=== PATIENT | male | born 1945 | race Caucasian/White ===

== ENCOUNTER 2018-07-12 14:17 | Outpatient (REF) | payer MEDICARE, OTHER, SELFPAY ==
[2018-07-14 10:07] LABS: PSA, Screening 0.9 ng/ml (0-6.5)
[2018-07-14 13:13] LABS: Hepatitis C Ab w Rflx HCV PCR Negative (NEGAT)
== END 2018-07-12 14:37 ==
LOC: NCHCN 14:17
PROVIDERS: PCP Internal Medicine; Visit Provider Internal Medicine
DX: R35.0 Frequency of micturition (principal); Z11.59 Encounter for screening for other viral diseases
CPT/HCPCS: 84153; 86803

== ENCOUNTER 2018-12-30 15:44 | Outpatient (REF) | payer MEDICARE, OTHER, SELFPAY ==
[2018-12-30 21:07] LABS: Anion Gap 8.6 mmol/L (3-11); BUN 19 mg/dL (7-18); CO2 27.4 mmol/L (21.0-32.0); CREATININE 0.98 mg/dL (0.70-1.30); Calcium 9.8 mg/dL (8.5-10.1); Chloride 103 mmol/L (98-107); Glucose 115 mg/dL (70-100); Sodium 139 mmol/L (136-145)
== END 2018-12-30 16:04 ==
LOC: NCHCN 15:44
PROVIDERS: PCP Internal Medicine; Visit Provider Internal Medicine
DX: I10 Essential (primary) hypertension (principal)
CPT/HCPCS: 80048

== ENCOUNTER 2019-09-01 08:34 | Outpatient (CLI) | payer MEDICARE, OTHER, SELFPAY | END 2019-09-01 08:54 | PROVIDERS: PCP Internal Medicine; Visit Provider Internal Medicine Cardiovascular Disease | DX: I25.10 Atherosclerotic heart disease of native coronary artery without angina pectoris (principal); I77.810 Thoracic aortic ectasia; I10 Essential (primary) hypertension; G20 Parkinson's disease | CPT/HCPCS: 99204; 99215; 93005; 93010 ==

== ENCOUNTER 2019-10-27 16:03 | Outpatient (REF) | payer MEDICARE, OTHER, SELFPAY ==
[2019-10-27 21:00] LABS: Anion Gap 5.9 mmol/L (3-11); BUN 18 mg/dL (7-18); CO2 30.1 mmol/L (21.0-32.0); CREATININE 1.16 mg/dL (0.70-1.30); Calculated LDL 102 mg/dL; Chloride 105 mmol/L (98-107); Cholesterol 193 mg/dL (<200); Glucose 99 mg/dL (74-106); HDL Cholesterol 59 mg/dL (40-60); Potassium 4.2 mmol/L (3.5-5.1); Sodium 141 mmol/L (136-145); Triglyceride 162 mg/dL (<150)
== END 2019-10-27 16:23 ==
LOC: NCHCN 16:03
PROVIDERS: PCP Internal Medicine; Visit Provider Internal Medicine
DX: I25.10 Atherosclerotic heart disease of native coronary artery without angina pectoris (principal); I10 Essential (primary) hypertension; G20 Parkinson's disease; Q61.3 Polycystic kidney, unspecified; Z01.818 Encounter for other preprocedural examination
CPT/HCPCS: 80048; 80061

== ENCOUNTER → 2020-03-12 10:58 | Outpatient (BNVA) | payer MEDICARE, OTHER, SELFPAY | PROVIDERS: PCP Internal Medicine; Referring Provider Internal Medicine; Visit Provider Internal Medicine Cardiovascular Disease | DX: I10 Essential (primary) hypertension (principal); I77.810 Thoracic aortic ectasia; I25.10 Atherosclerotic heart disease of native coronary artery without angina pectoris; E78.5 Hyperlipidemia, unspecified | CPT/HCPCS: 99214; 99442 ==

== ENCOUNTER 2020-03-29 11:13 | Outpatient (REF) | payer MEDICARE, OTHER, SELFPAY ==
[2020-03-29 21:23] LABS: Calculated LDL 97 mg/dL (<100); Cholesterol 179 mg/dL (<200); HDL Cholesterol 56 mg/dL (40-60); Triglyceride 132 mg/dL (<150)
== END 2020-03-29 11:33 ==
LOC: NCHCN 11:13
PROVIDERS: PCP Internal Medicine; Visit Provider Internal Medicine
DX: I25.10 Atherosclerotic heart disease of native coronary artery without angina pectoris (principal); I10 Essential (primary) hypertension
CPT/HCPCS: 80061

== ENCOUNTER 2020-05-03 08:25 | Outpatient (CLI) | payer MEDICARE, OTHER, SELFPAY ==
[2020-05-09 20:55] LABS: SARS-CoV-2 RNA Undetected (Undetected); SARS-CoV-2 Specimen Source Nasopharynx
== END 2020-05-03 08:45 ==
PROVIDERS: PCP Internal Medicine; Visit Provider Internal Medicine
DX: Z03.818 Encounter for observation for suspected exposure to other biological agents ruled out (principal)
CPT/HCPCS: U0003

== ENCOUNTER 2020-06-14 12:25 | Outpatient (REF) | payer MEDICARE, OTHER, SELFPAY ==
[2020-06-14 21:06] LABS: Calculated LDL 84 mg/dL (<100); Cholesterol 171 mg/dL (<200); HDL Cholesterol 60 mg/dL (40-60); Triglyceride 138 mg/dL (<150)
== END 2020-06-14 12:45 ==
LOC: NCHCN 12:25
PROVIDERS: PCP Internal Medicine; Visit Provider Internal Medicine
DX: I10 Essential (primary) hypertension (principal)
CPT/HCPCS: 80061

== ENCOUNTER 2020-09-26 14:13 | Outpatient (REF) | payer MEDICARE, OTHER, SELFPAY ==
[2020-09-26 21:13] LABS: Anion Gap 8.1 mmol/L (3-11); BUN 22 mg/dL (7-18); CO2 27.9 mmol/L (21.0-32.0); CREATININE 1.04 mg/dL (0.70-1.30); Calcium 9.1 mg/dL (8.5-10.1); Calculated LDL 90 mg/dL (<100); Chloride 103 mmol/L (98-107); Cholesterol 169 mg/dL (<200); Glucose 97 mg/dL (74-106); HDL Cholesterol 63 mg/dL (40-60); Potassium 4.3 mmol/L (3.5-5.1); Sodium 139 mmol/L (136-145); Triglyceride 82 mg/dL (<150)
== END 2020-09-26 14:33 ==
LOC: NCHCN 14:13
PROVIDERS: PCP Internal Medicine; Visit Provider Internal Medicine
DX: I10 Essential (primary) hypertension (principal)
CPT/HCPCS: 80048; 80061

== ENCOUNTER → 2020-09-27 11:25 | Outpatient (BNVA) | payer MEDICARE, OTHER, SELFPAY | PROVIDERS: PCP Internal Medicine; Referring Provider Internal Medicine; Visit Provider Internal Medicine Cardiovascular Disease | DX: I25.10 Atherosclerotic heart disease of native coronary artery without angina pectoris (principal); I77.810 Thoracic aortic ectasia; I10 Essential (primary) hypertension; G20 Parkinson's disease | CPT/HCPCS: 99214 ==

== ENCOUNTER 2020-10-31 15:27 | Outpatient (REF) | payer MEDICARE, OTHER, SELFPAY ==
--- NOTE | 2020-10-31 14:35 | SKI_PTH ---
PATIENT: Jhon Aguiar LOC: [facility]#:[id number] AGE/SX: 75/M ROOM: RE10/31/[address]: Riaz Hawkins : 1945 BED: DIS: 10/31/2020 SPEC #: [id number] RECD: 11/01/20 12:34 STATUS: MORGAN BURLESON #: [id number] EHSAN: 10/31/20 14:[address]: Riaz Hawkins DEPT: Surgical Specimen RECD BY: Anjali Kelsey Tissues: 1 - SKIN BIOPSY(SHAVE/PUNCH) Procedures: SKIN LEVEL 4 Comments: [id number]
== END 2020-10-31 15:47 ==
LOC: NCHCN 15:27
PROVIDERS: PCP Internal Medicine; Visit Provider Internal Medicine
DX: L82.0 Inflamed seborrheic keratosis (principal)
CPT/HCPCS: 88305

== ENCOUNTER 2021-04-18 11:32 | Outpatient (REF) | payer MEDICARE, OTHER, SELFPAY ==
[2021-04-18 14:46] LABS: Anion Gap 9.6 mmol/L (3-11); BUN 13 mg/dL (7-18); CO2 26.4 mmol/L (21.0-32.0); Calcium 9.1 mg/dL (8.5-10.1); Calculated LDL 54 mg/dL (<100); Chloride 106 mmol/L (98-107); Cholesterol 132 mg/dL (<200); Glucose 93 mg/dL (74-106); HDL Cholesterol 66 mg/dL (40-60); Potassium 4.5 mmol/L (3.5-5.1); Sodium 142 mmol/L (136-145); Triglyceride 62 mg/dL (<150)
== END 2021-04-18 11:33 | disposition home or self-care (01) ==
LOC: NCHCN 11:32
PROVIDERS: PCP Internal Medicine; Visit Provider Internal Medicine
DX: I25.10 Atherosclerotic heart disease of native coronary artery without angina pectoris (principal); Q61.3 Polycystic kidney, unspecified; G20 Parkinson's disease; I10 Essential (primary) hypertension; Z87.2 Personal history of diseases of the skin and subcutaneous tissue; Z98.61 Coronary angioplasty status
CPT/HCPCS: 80048; 80061

== ENCOUNTER → 2021-10-02 10:36 | Outpatient (BNVA) | payer MEDICARE, OTHER, SELFPAY | PROVIDERS: PCP Internal Medicine; Referring Provider Internal Medicine; Visit Provider Internal Medicine Cardiovascular Disease | DX: I25.10 Atherosclerotic heart disease of native coronary artery without angina pectoris (principal); I10 Essential (primary) hypertension; I77.810 Thoracic aortic ectasia | CPT/HCPCS: 99213 ==

== ENCOUNTER 2021-11-25 02:07 | Outpatient (CLI) | payer MEDICARE, OTHER, SELFPAY | END 2021-11-25 02:08 | disposition home or self-care (01) | LOC: LBO 02:07 | PROVIDERS: PCP Internal Medicine; Visit Provider Thoracic Surgery (Cardiothoracic Vascular Surgery) | DX: I77.810 Thoracic aortic ectasia (principal) | CPT/HCPCS: 36415; 82565 ==

== ENCOUNTER 2022-01-06 14:54 | Outpatient (REF) | payer MEDICARE, SELFPAY ==
[2022-01-06 15:39] LABS: BUN 21 mg/dL (7-18); Calcium 8.6 mg/dL (8.5-10.1); Chloride 104 mmol/L (98-107); Glucose 118 mg/dL (74-106); Potassium 3.9 mmol/L (3.5-5.1); Sodium 141 mmol/L (136-145)
== END 2022-01-06 14:55 | disposition home or self-care (01) ==
LOC: NCHCN 14:54
PROVIDERS: PCP Internal Medicine; Visit Provider Internal Medicine
DX: I10 Essential (primary) hypertension (principal)
CPT/HCPCS: 80048

== ENCOUNTER → 2022-04-30 02:00 | Outpatient (CLI) | payer MEDICARE, OTHER, SELFPAY ==
--- NOTE | 2022-04-30 09:15 | DI.RAD_ITS ---
Exam(s) XR HIP LT COMPLETE AP PELVIS EXAM: XR HIP LT COMPLETE AP PELVIS CLINICAL HISTORY: BUTTOCK PAIN, R52. TECHNIQUE: 2D digital imaging was performed of the left hip. Two views were obtained. AP pelvis an d lateral left hip views were obtained. COMPARISON: No exams were available for comparison FINDINGS: BONES: No acute fracture is present. No bony destructive lesion is seen. JOINTS: No dislocation present. Mild acetabular spurring is seen bilaterally. Degenerative changes a re seen in the lumbosacral junction. SOFT TISSUE: Atherosclerosis is present. IMPRESSION: Mild degenerative changes of the left hip. Degenerative changes in the lower lumbar spine. DATA REPOSITORY: RADIATION DOSE DELIVERED:
== END ==
PROVIDERS: PCP Internal Medicine; Visit Provider Internal Medicine
DX: M47.816 Spondylosis without myelopathy or radiculopathy, lumbar region (principal); M16.12 Unilateral primary osteoarthritis, left hip
CPT/HCPCS: 73502

== ENCOUNTER 2022-06-04 15:19 | Outpatient (REF) | payer MEDICARE, OTHER, SELFPAY ==
[2022-06-04 16:42] LABS: Abs Immature Grans 0.02 10^3/uL (0.0-0.06); Absolute Basophil Count 0.04 10^3/uL (0.0-0.2); Absolute Eosinophil Count 0.14 10^3/uL (0.0-0.7); Absolute Lymphocyte Count 1.13 10^3/uL (1.2-3.4); Absolute Monocyte Count 0.62 10^3/uL (0.1-0.8); Absolute Neutrophil Count 5.05 10^3/uL (1.2-6.7); Basophils % 0.6; ESR 12 mm/hr (0-20); HCT 41.4 % (40.0-50.0); Immature Grans % 0.3; Lymphocytes % 16.1; MCH 32.5 pg (27.0-33.0); MCHC 33.8 % (32.0-36.0); MCV 96 fL (80-95); MPV 10.7 fL (8.0-11.0); Monocytes % 8.9; Neutrophils % 72.1; Platelet Count 186 10^3/uL (130-400); RBC 4.31 10^6/uL (4.36-5.78); RDW 12.1 % (11.8-14.1); RDW-SD 42.5 fL
[2022-06-05 17:37] LABS: Rheumatoid Factor <8.6 IU/mL (<12.0)
[2022-06-08 09:12] LABS: Cyclic Citrullinated Peptide <2.5 U/mL (<5.0)
[2022-06-08 10:10] LABS: Lyme Ab w Rflx to Lyme Confirm Negative (Negative)
== END 2022-06-04 15:20 | disposition home or self-care (01) ==
LOC: NCHCN 15:19
PROVIDERS: PCP Internal Medicine; Visit Provider Internal Medicine
DX: M17.12 Unilateral primary osteoarthritis, left knee (principal); M25.562 Pain in left knee
CPT/HCPCS: 85652; 86200; 85025; 86431; 86618

== ENCOUNTER 2022-06-16 18:16 | Outpatient (REF) | payer MEDICARE, OTHER, SELFPAY ==
[2022-06-16 15:08] LABS: BUN 23 mg/dL (7-18); CREATININE 1.1 mg/dL (0.70-1.30); Calcium 8.7 mg/dL (8.5-10.1); Chloride 103 mmol/L (98-107); Estimated GFR 70.44 (mL/min/1.73m2); Glucose 148 mg/dL (74-106); Potassium 4.2 mmol/L (3.5-5.1); Sodium 137 mmol/L (136-145)
== END 2022-06-16 18:17 | disposition home or self-care (01) ==
LOC: NCHCN 18:16
PROVIDERS: PCP Internal Medicine; Visit Provider Internal Medicine
DX: Q61.2 Polycystic kidney, adult type (principal)
CPT/HCPCS: 80048

== ENCOUNTER 2022-08-24 18:35 | Outpatient (REF) | payer MEDICARE, OTHER, SELFPAY ==
[2022-08-24 18:22] LABS: Creatine Kinase 89 U/L (39-308)
[2022-08-24 18:25] LABS: Abs Immature Grans 0.05 10^3/uL (0.0-0.06); Absolute Basophil Count 0.05 10^3/uL (0.0-0.2); Absolute Eosinophil Count 0.23 10^3/uL (0.0-0.7); Absolute Lymphocyte Count 1.17 10^3/uL (1.2-3.4); Absolute Monocyte Count 0.55 10^3/uL (0.1-0.8); Absolute Neutrophil Count 4.38 10^3/uL (1.2-6.7); Basophils % 0.8; Eosinophils % 3.6; HCT 41.2 % (40.0-50.0); HGB 13.7 g/dL (13.5-17.5); Immature Grans % 0.8; Lymphocytes % 18.2; MCH 32.2 pg (27.0-33.0); MCHC 33.3 % (32.0-36.0); MCV 97 fL (80-95); MPV 10.8 fL (8.0-11.0); Monocytes % 8.6; Platelet Count 223 10^3/uL (130-400); RBC 4.25 10^6/uL (4.36-5.78); RDW 12.5 % (11.8-14.1); RDW-SD 43.8 fL; WBC 6.43 10^3/uL (4.4-10.8)
[2022-08-24 18:33] LABS: ESR 13 mm/hr (0-20)
== END 2022-08-24 18:36 | disposition home or self-care (01) ==
LOC: NCHCN 18:35
PROVIDERS: PCP Internal Medicine; Visit Provider Internal Medicine
DX: Z00.00 Encounter for general adult medical examination without abnormal findings (principal); M25.50 Pain in unspecified joint; G20 Parkinson's disease
CPT/HCPCS: 82550; 85652; 85025

== ENCOUNTER → 2022-10-01 10:31 | Outpatient (BNVA) | payer MEDICARE, OTHER, SELFPAY | PROVIDERS: PCP Internal Medicine; Visit Provider Internal Medicine Cardiovascular Disease | DX: I25.10 Atherosclerotic heart disease of native coronary artery without angina pectoris (principal); I10 Essential (primary) hypertension; I77.810 Thoracic aortic ectasia; Z95.5 Presence of coronary angioplasty implant and graft; G20 Parkinson's disease | CPT/HCPCS: 93005; 99214 ==

== ENCOUNTER 2022-10-01 10:42 | Outpatient (CLI) | payer MEDICARE, OTHER, SELFPAY ==
--- NOTE | 2022-10-01 10:30 | RT.EKG_ITS ---
APPROVED REPORT Exam: Resting ECG Reason for Exam: evaluation Patient Location: O HR:63 bpm ECG Measurements Heart Rate 63 AXIS ME 164 P 7 QRSd 88 QRS -7 QT 413 T 58 QTc 423 Conclusion Sinus rhythm...normal P axis, V-rate 50- 99 Baseline wander in lead(s) V5 Normal Electrocardiogram
== END 2022-10-01 10:43 | disposition home or self-care (01) ==
LOC: DI.CARD 10:43
PROVIDERS: PCP Internal Medicine; Visit Provider Internal Medicine Cardiovascular Disease
DX: I10 Essential (primary) hypertension (principal)
CPT/HCPCS: 93010

== ENCOUNTER 2023-03-30 12:39 | Outpatient (REF) | payer MEDICARE, SELFPAY ==
[2023-03-30 14:58] LABS: HCT 45.1 % (40.0-50.0); HGB 14.9 g/dL (13.5-17.5); MCH 32.9 pg (27.0-33.0); MCV 100 fL (80-95); MPV 10.4 fL (8.0-11.0); Platelet Count 181 10^3/uL (130-400); RBC 4.53 10^6/uL (4.36-5.78); RDW 12.4 % (11.8-14.1); RDW-SD 44.9 fL; WBC 6.71 10^3/uL (4.4-10.8)
[2023-03-30 15:11] LABS: ALT 10 U/L (16-63); AST 19 U/L (15-37); Albumin 4.1 g/dL (3.4-5.0); Alkaline Phosphatase 53 U/L (46-116); Anion Gap 3.6 mmol/L (3-11); BUN 23 mg/dL (7-18); Bilirubin, Total 1.2 mg/dL (0.2-1.0); CO2 31.4 mmol/L (21.0-32.0); CREATININE 1.1 mg/dL (0.70-1.30); Calcium 9.1 mg/dL (8.5-10.1); Chloride 103 mmol/L (98-107); Estimated GFR 70.01 (mL/min/1.73m2); Glucose 101 mg/dL (74-106); Sodium 138 mmol/L (136-145); Total Protein 6.9 g/dL (6.4-8.2)
== END 2023-03-30 12:40 | disposition home or self-care (01) ==
LOC: NCHCN 12:39
PROVIDERS: PCP Internal Medicine; Visit Provider Internal Medicine
DX: M35.3 Polymyalgia rheumatica (principal); I10 Essential (primary) hypertension; G20 Parkinson's disease
CPT/HCPCS: 80053; 85027

== ENCOUNTER → 2023-04-02 09:25 | Outpatient (BNVA) | payer MEDICARE, SELFPAY | PROVIDERS: PCP Internal Medicine; Visit Provider Internal Medicine Cardiovascular Disease | DX: I10 Essential (primary) hypertension (principal); I77.810 Thoracic aortic ectasia; I25.10 Atherosclerotic heart disease of native coronary artery without angina pectoris | CPT/HCPCS: 99214 ==

== ENCOUNTER → 2023-08-26 16:28 | Outpatient (CLI) | payer MEDICARE, SELFPAY ==
--- NOTE | 2023-08-26 | DI.RAD_ITS ---
Exam(s) XR HIP RT COMPLETE AP PELVIS EXAM: XR HIP RT COMPLETE AP PELVIS CLINICAL HISTORY: RT HIP PAIN M25.551. TECHNIQUE: 2D digital imaging was performed. Two views COMPARISON: CR XR HIP LT COMPLETE AP PELVIS from 04/30/2022 FINDINGS: BONES: No acute fracture is present. No bony destructive lesion is seen. JOINTS: No dislocation present. Hip joint spaces are maintained. There is bilateral acetabular spurr ing. SI joints and pubic symphysis are unremarkable. SOFT TISSUE: Normal. IMPRESSION: No acute abnormality. DATA REPOSITORY: RADIATION DOSE DELIVERED:
== END ==
PROVIDERS: PCP Internal Medicine; Visit Provider Internal Medicine
DX: M25.551 Pain in right hip (principal)
CPT/HCPCS: 73502

== ENCOUNTER → 2023-08-31 13:15 | Outpatient (CLI) | payer MEDICARE, SELFPAY ==
--- NOTE | 2023-08-31 | DI.MRI_ITS ---
Exam(s) MR LOWER JOINT RT WO EXAM: MR LOWER JOINT RT WO CLINICAL HISTORY: RT HIP PAIN M25.551, R/O OSTEONECROSIS, CHRONIC STEROID USE TECHNIQUE: Multiplanar multisequence MRI of Pelvis was performed COMPARISON: No exams were available for comparison FINDINGS: Bones: There is no fracture or contusion pattern. No bone marrow edema is seen. Joints: No significant joint effusion or gross labral defect is present. The SI joints and symphysis pubis are well maintained. Musculotendinous structures: Musculotendinous structures demonstrate no abnormality. No evidence of bursitis. Intrapelvic structures: Mildly enlarged prostate. IMPRESSION: Normal MRI examination of the pelvis and right hip. No evidence of avascular necrosis. DATA REPOSITORY:
== END ==
PROVIDERS: PCP Internal Medicine; Visit Provider Family Medicine
DX: M25.551 Pain in right hip (principal)
CPT/HCPCS: 73721

== ENCOUNTER 2023-10-06 09:55 | Emergency (ER) | payer MEDICARE, SELFPAY ==
[2023-10-06] VITALS (13 sets, daily range): BP systolic 124–188; BP diastolic 82–124; PULSE 53–88; RESP 20; TEMP 36.8; O2SAT 94
--- NOTE | 2023-10-06 09:15 | ED.GENADUL_ITS ---
Discharge Plan Disposition Patient Disposition: Home Discharge Details Clinical Impression: Hx of polymyalgia rheumatica, Sciatica, Polycystic kidney disease, Aortic root dilation Primary Care Provider: Riaz Hawkins ED Provider: Es Bellamy Home Meds and New Rx's Prescriptions: New oxycodone 5 mg capsule 5 mg PO Q6H PRN (Reason: pain) Qty: 14 0RF Rx Instructions: take for pain not releaved by acetaminophen and lidocaine patches lidocaine [Lidoderm] 5 % adhesive patch,medicated 3 patch topical DAILY PRN (Reason: Back Pain) Qty: 30 0RF Rx Instructions: leave on most painful area for up to 12 hrs No Action atorvastatin 40 mg tablet 40 mg PO DAILY metoprolol succinate 25 mg tablet extended release 24 hr 12.5 mg PO DAILY aspirin [Adult Aspirin Regimen] 81 mg tablet,delayed release (DR/EC) 81 mg PO DAILY Qty: 90 0RF ezetimibe 10 mg tablet 10 mg PO DAILY Qty: 90 3RF nitroglycerin [Nitrostat] 0.4 MG tablet, sublingual 0.4 mg Sublingual ONCE carbidopa-levodopa 1 EACH tablet,disintegrating 1.5 ea PO TID losartan 50 mg tablet 50 mg PO DAILY prednisone 1 mg tablet 1 mg PO ONCE Patient Comments: TAKE 4 TABLETS BY MOUTH EVERY DAY FOR 30 DAYS, 3 TABLETS DAILY FOR 30 DAYS, 2 TABLETS DAILY FOR 30 DAYS, 1 TABLET DAILY FOR 30 DAYS Discharge Instructions Instructions: Sciatica (ED) Additional Instructions: 1. Call Dr. Jacques's office for follow-up appointment and notify them that a urinalysis was pending at the time of discharge. 2. Take Tylenol for mild to moderate pain and use the lidocaine patches and oxycodone as needed for severe pain. You should not drive, drink alcohol, operate heavy machinery or make important decisions while taking this medication. It can cause drowsiness and constipation. 3. Return here for any new or worrisome symptoms such as numbness and tingling in the genital or rectal area or problems controlling bowels or bladder or any concerns. Discharge Data Discharge Date/Time-TO BE ENTERED AT DEPARTURE: 10/06/23 14:20 Discharge Physician: Es Bellamy Medical Decision Making This is a 78 yo male who presents with sciatic symptoms but without bowel or bladder incontinence or retention. No saddle anethesia. the patient endorses hyperparesthesias on the left lateral aspect of the lateral calf, which is not reproducible on my sensory exam. The distribution is consistent with a partial L5 dermatomal distribution. The patient has an adverse reaction to narcotics, which according to his , makes him loopy. I have discussed the use of low dose, titratable narcotics for the pain, along with a lidoderm patch for analgesia. The risks and benefits were discussed with the patient and his and they voice understanding and agree with administration of narcotics. Because he had a history of a thoracic aneurysm I will order CT scans of his chest and abdomen. He does have a history of polycystic kidney disease. If he has acceptable renal function, we will obtain with IV contrast to rule out dissection. I will hydrate him to avoid any nephrotoxicty if we administer IV contrast. We will check his electrolytes and renal function, we will check his urine for hematuria and to rule out infection. I have explained to the patient and his that our goal will be to obtain enough analgesia to allow him to ambulate at home but not to the point of excessive sedation which could cause him to trip and fall. He is already at high risk for falls from his Parkinson's disease. I have discussed the risks and benefits of opiate use including the avoidance of driving, drinking alcohol, making important decisions or operating heavy machinery as well as the risk of dependence and constipation. They both voiced understanding and agreement with the administration. Differential Diagnosis Differential Diagnosis: sciatica, AAA, UTI, renal colic Medical Records Medical records reviewed: Yes I reviewed the patient's medical records. Medical records narrative: PCKD, [email or web address].ons, thoracic aneurysm, PMR Imaging Data Radiologic Study: Imaging: CT Scan (CT chest, abdom and pelvis w IV contrast) Radiologist's impression: IMPRESSION: 1. Enlarged thoracic aorta with measurements as above. Maximum diameter of the ascending thoracic aorta on today's study is measured 4.8 cm. There is no evidence of aortic dissection and no pericardial effusion. Coronary artery calcification noted. 2. Large cysts in both kidneys measuring up to 15 cm. The appearance is not typical of adult polycystic kidney disease and there appears to be a significant amount of remaining normal renal parenchymal tissue. There are no solid renal masses and no hydronephrosis. 3. There is a 2.6 cm length area of narrowing in the rectosigmoid which may be significant. However may also just represent an area of peristalsis seen during the moment of image acquisition. Nevertheless, recommend follow-up colonoscopy. Lab Data Lab results reviewed: Yes I reviewed the patient's lab results. HPI General Mode of arrival: EMS . Date/Time Provider Initiated Documentation: 10/06/23 09:58 . Limitations to Documentation: no limitations . Information obtained by: patient, family (), EMS, RN notes reviewed and old records reviewed . HPI Narrative: Time seen was on arrival in bed 4. The patient is a 78-year-old male with a history of sciatica, polymyalgia rheumatica, coronary artery disease with a history of 2 stents placed at [facility] in 2010 who presents with 1 month of sciatic pain. The pain was not preceded by any trauma. It became worse yesterday while doing dishes. At maximum the pain was 10 out of 10 and located in the right hip. The pain does not radiate down the leg but is associated with intermittent hyperesthesias in the lateral aspect of the right calf. The pain is constant and aggravated by movement. It is worse with standing and relieved by lying down. He took acetaminophen and Aleve 4 hours prior to arrival. He does have a history of an ascending aortic aneurysm diagnosed prior to 2 cardiac stents placed at [facility] in 2010. The patient tells me that he has a history of polycystic kidney disease but believes he has normal renal function. He also has a history of probably myalgia rheumatica and is on a tapering dose of prednisone currently on 10 mg once a day. The patient denies any saddle anesthesia bowel or bladder incontinence or retention but has noticed slightly more frequency. He denies any bowel or bladder incontinence or retention. He denies any numbness or weakness in his legs but does complain of the sensation of hyperesthesia in the lateral aspect of the right calf. He denies any chest or abdominal pain. He denies any fevers or chills. He denies any hematuria or dysuria. According to his old records he also has a history of Parkinson's disease. Related Data Home Medications Medication Instructions Recorded Confirmed nitroglycerin 0.4 mg sublingual 0.4 mg sublingual ONCE 02/28/15 10/06/23 tablet (Nitrostat) carbidopa 25 mg-levodopa 100 mg 1.5 ea PO TID 12/28/17 10/06/23 disintegrating tablet metoprolol succinate 25 mg 12.5 mg PO DAILY 08/24/19 10/06/23 tablet,extended release 24 hr aspirin 81 mg tablet,delayed 81 mg PO DAILY #90 tabs 09/01/19 10/06/23 release (Adult Aspirin Regimen) ezetimibe 10 mg tablet 10 mg PO DAILY #90 tabs 10/02/21 10/06/23 atorvastatin 40 mg tablet 40 mg PO DAILY 10/01/22 10/06/23 losartan 50 mg tablet 50 mg PO DAILY 09/08/23 10/06/23 lidocaine 5 % topical patch 3 patch topical DAILY PRN Back 10/06/23 (Lidoderm) Pain #30 ea oxycodone 5 mg capsule 5 mg PO Q6H PRN pain #14 caps 10/06/23 prednisone 1 mg tablet 1 mg PO ONCE 10/06/23 10/06/23 Previous Rx's Medication Instructions Recorded aspirin 81 mg tablet,delayed 81 mg PO DAILY #90 tabs 09/01/19 release (Adult Aspirin Regimen) ezetimibe 10 mg tablet 10 mg PO DAILY #90 tabs 10/02/21 lidocaine 5 % topical patch 3 patch topical DAILY PRN Back 10/06/23 (Lidoderm) Pain #30 ea oxycodone 5 mg capsule 5 mg PO Q6H PRN pain #14 caps 10/06/23 Allergies Allergy/AdvReac Type Severity Reaction Status Date / Time HAVEN Inhibitors AdvReac DIZZY Verified 10/06/23 10:13 General Stated Complaint: Nk/Back Pain Review of Systems Narrative: see hpi After the patient's arrived he told me he is on 1 mg of prednisone for his polymyalgia rheumatica not 10 mg. PFSH All Active Problems (Updated 10/06/23 @ 14:00 by Es Bellamy MD) Polycystic kidney disease (Acute) Sciatica (Acute) Hx of polymyalgia rheumatica (Acute) Tubular adenoma of colon (Acute 02/18/18) Primary osteoarthritis of left knee (Acute 04/06/16) Essential tremor (Acute 04/15/15) Aortic root dilation (Acute) Complex tear of medial meniscus of left knee as current injury (Acute) Medical History (Updated 10/06/23 @ 14:00 by Es Bellamy MD) Parkinson disease Hemorrhoids Generalized pruritus Family history of cerebral aneurysm Parkinsonism Degenerative joint disease Hyperlipemia Perennial allergic rhinitis Polycystic kidney disease Low back pain Surgical History Colonoscopy - [facility] (02/18/18) Social History Smoking/Tobacco Use Status: Never Smoking risk assessment performed?: Yes Alcohol Intake: current Alcohol Intake frequency: 0-2 drinks per day Alcohol type: wine Drug use: Never What type of physical activity do you participate in: walking, aerobic, weight lifting and additional Details: boxing program for Parkinson's patients, 90 minutes 2x/week Frequency: 3-4 times per week Exam Narrative Exam Narrative: The patient is a well-developed well-nourished male who appears comfortable at rest but in pain with movement including sitting up or moving from the ambulance to the hospital stretcher. He is mildly hypertensive. Const General: cooperative, healthy appearing, comfortable, no acute distress, well developed, well groomed and well hydrated Nutritional Appearance: average body habitus and well nourished Orientation: alert, awake and oriented x3 HENMT Head: normal to inspection, normocephalic and atraumatic Ears: hearing grossly normal bilaterally and external ears normal General nose exam: external nose normal, nares normal and no nasal discharge Face and sinus: normal facial exam, sinuses nontender and face symmetric Mouth: oral mucosae normal, lip normal, tongue normal, oropharynx normal, moist mucous membranes and other (Normal phonation. The patient is handling secretions.) Throat: posterior oropharynx normal and uvula midline Eyes General: appearance normal, both eyes and all related structures Eyelids: eyelids normal Conjunctivae: conjunctivae normal Sclera: sclerae normal Cornea: corneas normal Pupils: PERRL EOM: EOM intact bilaterally and No nystagmus Neck Neck: normal visual inspection, full ROM, no lymphadenopathy, no meningeal signs, trachea midline and supple Lymphatic: no lymphadenopathy noted Chest Chest: normal inspection of the chest Resp Effort & Inspection: normal respiratory effort, able to speak in complete sentences, no audible wheezes, no nasal flaring, no respiratory distress, no retractions, no stridor, not tachypneic, no tracheal deviation, no use of accessory muscles, No prolonged expiratory phase and other (Normal inspiratory to expiratory ratio.) Auscultation: clear to auscultation bilaterally, no rales, no rhonchi, no wheezes and no rubs Tactile Fremitus: tactile fremitus absent Cardio Jugular venous pressure: no JVD Palpation: normal PMI Rate: regular rate Rhythm: regular rhythm Heart Sounds: S1 normal, S2 normal, no gallops, no murmurs and no rubs GI Inspection: normal to inspection and non-distended Palpation: soft, no hepatosplenomegaly, no guarding and nontender Percussion: normal to percussion Auscultation: normal bowel sounds Other: Patient I cannot appreciate any pulsatile masses or bruits. General: No CVA tenderness Back/Spine/Pelvis Back: no CVA tenderness and No back tenderness Cervical Spine: normal cervical lordosis, cervical ROM normal, No cervical muscular tenderness, No pain with cervical ROM, No cervical spinal tenderness and No step off deformity Thoracic/Lumbar Spine: thoracic and lumbar spine normal to inspection, No thoracic spinal tenderness and No lumbar spinal tenderness Pelvis: no pain with anterior-posterior compression and no pain with lateral compression Skin General skin exam: no rashes or lesions noted, turgor normal, no petechiae, no purpura and other (Skin is normal for ethnicity.) Lesions: no lesions Rashes: no rashes Trauma: no lacerations or abrasions Neuro General: patient alert, patient awake, patient oriented x3, moves all extremities, no meningeal signs, no focal motor deficits and CN's II-XI intact bilaterally Cranial Nerves: CN's II-XI intact bilaterally, PERRL, accommodation normal, EOM intact bilaterally, no nystagmus, facial strength normal, tongue midline, hearing normal and no nystagmus Cognition: normal cognition Speech: speech normal Motor: muscle tone normal throughout and strength 5/5 throughout Sensory Exam: no sensory deficits noted DTR's: Rt Patellar: 2+, Lt Patellar: 2+, Rt Ankle: 1+ and Lt Ankle: 1+ Other: mild stigmata of Parkinson's disease. No gross tremor. mild cogwheel rigidity. Sensation intact in buttocks. Extrem General: normal to inspection, full ROM, capillary refill normal, no clubbing, cyanosis or edema and no calf tenderness Psych Appearance: grossly normal Affect: normal affect Attitude: cooperative Thought Process: normal Thought Content: normal Insight: insight good Judgment: judgment good Other: The patient appears to have capacity make medical decisions. Course I advised the patient to follow-up with his primary care provider and his vascular surgeon and advised him of the findings of the CT scan and recommendation for colonoscopy. I have advised them on risks and benefits of opiate use and advised him to use his narcotics for severe pain not relieved by reii-lyy-leoytzw medications and lidocaine patches. I have advised him return for poor any new or worrisome symptoms such as abdominal pain bowel or bladder incontinence or retention, saddle anesthesia, intractable pain or any concerns. The patient and his voiced understanding agreement with the discharge plan. All their questions and concerns were addressed prior to discharge. Critical Care Time Critical Care Time Critical Care Time: Yes Total Critical Care Time: 44 Attestation: This includes time at the bedside, review of patient's old records. Review of CT scanning and lab work discussion about narcotics and signs and symptoms of cauda equina syndrome and use of narcotics with risks and benefits.
[2023-10-06] MEDS: ACETAMINOPHEN 1,000 MG/100 ML BTL 400 MG IVPB (10:13)
[2023-10-06] MEDS: HYDROmorphone 2 MG/ML SYR 0.5 MG IVP (10:13)
[2023-10-06 10:39] LABS: Abs Immature Grans 0.04 10^3/uL (0.0-0.06); Absolute Basophil Count 0.04 10^3/uL (0.0-0.2); Absolute Eosinophil Count 0.06 10^3/uL (0.0-0.7); Absolute Lymphocyte Count 0.94 10^3/uL (1.2-3.4); Absolute Monocyte Count 0.48 10^3/uL (0.1-0.8); Absolute Neutrophil Count 6.78 10^3/uL (1.2-6.7); Basophils % 0.5; Eosinophils % 0.7; HCT 43.7 % (40.0-50.0); HGB 14.7 g/dL (13.5-17.5); Immature Grans % 0.5; Lymphocytes % 11.3; MCH 32.4 pg (27.0-33.0); MCHC 33.6 % (32.0-36.0); MCV 96 fL (80-95); MPV 9.9 fL (8.0-11.0); Monocytes % 5.8; Neutrophils % 81.2; Platelet Count 176 10^3/uL (130-400); RBC 4.54 10^6/uL (4.36-5.78); RDW 12.4 % (11.8-14.1); RDW-SD 43.2 fL; WBC 8.34 10^3/uL (4.4-10.8)
[2023-10-06 10:58] LABS: ALT 9 U/L (16-63); AST 24 U/L (15-37); Albumin 4.3 g/dL (3.4-5.0); Alkaline Phosphatase 51 U/L (46-116); BUN 22 mg/dL (7-18); Bilirubin, Total 1.4 mg/dL (0.2-1.0); CREATININE 1.1 mg/dL (0.70-1.30); Calcium 9.4 mg/dL (8.5-10.1); Chloride 104 mmol/L (98-107); Estimated GFR 69.57 (mL/min/1.73m2); Glucose 113 mg/dL (74-106); Potassium 3.8 mmol/L (3.5-5.1); Sodium 139 mmol/L (136-145); Total Protein 7.3 g/dL (6.4-8.2)
--- NOTE | 2023-10-06 11:45 | DI.CT_ITS ---
Exam(s) CT THORAX ABD/PEL CTA EXAM: CT THORAX ABD/PEL CTA CLINICAL HISTORY: h/o thoracic aneurysm. TECHNIQUE: Imaging Protocol: Axial computed tomography images with coronal and sagittal reformatted images were created and reviewed CONTRAST MATERIAL: Intravenous: Omnipaque 350 Contrast volume:100 ml Oral: None COMPARISON: CT CTA BRAIN from 10/04/2015 FINDINGS: CHEST: AORTA: The ascending thoracic aorta is enlarged with diameter 4.8 cm. No dissection. There is a pse udo coarct configuration of the aortic arch. Maximum diameter of the arch is 3.[address] of the descending thoracic aorta 3 cm. The abdominal aorta is peripherally calcified. Exhibits with maximum diameter 2.6 cm and no dissection. Common iliac arteries exhibit mild arterial megaly w ithout focal aneurysmal dilatation. However, there diameters are 1.3 cm. Superior mesenteric artery appears unremarkable. The celiac artery exhibits fusiform aneurysmal dilatation a few cm beyond its origin with maximum diameter 1.5 cm. The inferior mesenteric artery is patent. Common and external iliac arteries are patent with an element of arterial megaly. No true aneurysms. Common femoral ar teries are patent without true aneurysms. Internal iliac arteries are patent without true aneurysms. Renal arteries are patent. LUNGS: There are no confluent infiltrates nor pleural effusions. No ominous pulmonary nodules eviden t. No significant focal findings in the trachea and mainstem bronchi.. MEDIASTINUM: There is no hilar nor mediastinal adenopathy. Visualized thyroid unremarkable. CARDIAC: Heart size upper normal. Coronary artery calcification noted. There is no evidence of iliana cardial effusion. No intraluminal filling defects in the central main pulmonary arteries. ABDOMEN: There is no ascites. LIVER: There are no significant hepatic lesions evident on this arterial phase study. No dilated int rahepatic ducts. GALLBLADDER/BILIARY: No obvious gallbladder pathology. CBD is not dilated. PANCREAS: No evidence of pancreatic mass nor dilatation of the pancreatic duct. SPLEEN: Spleen is not enlarged. There are no intrasplenic lesions. Splenic and portal veins are light nt. ADRENALS: There are no significant adrenal masses. KIDNEYS: There are multiple huge cysts in the kidneys noted. These are benign cysts but are huge. T he appearance is not that of polycystic kidney disease. Cyst largest cyst in left kidney measures 15 cm. Largest cyst in the right kidney measures 9 cm. No solid renal masses evident. No hydronephro sis. No hydroureter.. ABDOMINAL AORTA: See above LYMPH NODES: There is no retroperitoneal nor para-aortic adenopathy. No obvious mesenteric masses. ABDOMINAL WALL: No evidence of significant anterior abdominal wall hernia. GI: There is no evidence of bowel obstruction, free air, nor abscess. PELVIS: LYMPH NODES: There is no intrapelvic nor inguinal adenopathy. GI: No evidence of appendicitis.No evidence of sigmoid diverticulitis.There is an area in the rectosi gmoid measuring 2.6 cm which is narrowed. This may just represent an area of peristalsis occurring d uring image acquisition. URINARY BLADDER: No calculi nor masses evident REPRODUCTIVE: Prostate mildly enlarged. Seminal vesicles unremarkable. OSSEOUS: No significant osseous lesions. IMPRESSION: 1. Enlarged thoracic aorta with measurements as above. Maximum diameter of the ascending thoracic ao rta on today's study is measured 4.8 cm. There is no evidence of aortic dissection and no pericardia l effusion. Coronary artery calcification noted. 2. Large cysts in both kidneys measuring up to 15 cm. The appearance is not typical of adult polycys tic kidney disease and there appears to be a significant amount of remaining normal renal parenchymal tissue. There are no solid renal masses and no hydronephrosis. 3. There is a 2.6 cm length area of narrowing in the rectosigmoid which may be significant. However may also just represent an area of peristalsis seen during the moment of image acquisition. Neverthe less, recommend follow-up colonoscopy. Discussed with ER physician. RADIATION DOSE DELIVERED: Total DLP DATA REPOSITORY: All CT scans at this facility are submitted to the National Radiology Data Registry (NRDR) Dose Index Registry (DIR) with the [employer] (A[employer]). RADIATION OPTIMIZATION: All CT scans at this facility use at least one of these dose optimization te chniques: automated exposure control; mA and/or kV adjustment per patient size (includes targeted exa ms where dose is matched to clinical indication); or iterative reconstruction.
[2023-10-06] MEDS: Lidocaine 5% Patch 1 PATCH TP (11:50)
[2023-10-06] MEDS: Omnipaque 350 MG/ML 100 ML BTL IJ (12:29)
[2023-10-06] MEDS: Normal Saline - Diluent 50 ML VIAL IJ (12:31)
--- NOTE | 2023-10-06 13:59 | NUR.NOTE ---
Referral faxed to Dr Hawkins for follow up Back Pain within 2 weeks
[2023-10-06 14:42] LABS: Bilirubin Negative (Negative); Blood Negative (Negative); Clarity Clear (Clear); Glucose Negative (Negative); Ketones 15 mg/dL (Negative); Leukocyte Esterase Negative (Negative); Nitrite Negative (Negative); Urobilinogen 0.2 mg/dL (Up to 0.2); pH 6.5 (5-8)
== END 2023-10-06 14:20 | disposition home or self-care (01) ==
PROVIDERS: Emergency Provider Emergency Medicine Emergency Medical Services; PCP Internal Medicine
DX: I77.819 Aortic ectasia, unspecified site (principal); M54.31 Sciatica, right side; Q61.3 Polycystic kidney, unspecified; M35.3 Polymyalgia rheumatica; Z79.82 Long term (current) use of aspirin; Z79.899 Other long term (current) drug therapy; G20.A1 Parkinson's disease without dyskinesia, without mention of fluctuations; I25.10 Atherosclerotic heart disease of native coronary artery without angina pectoris; Z95.5 Presence of coronary angioplasty implant and graft; E78.5 Hyperlipidemia, unspecified
CPT/HCPCS: 71275; 80053; 96365; 96374; 99285; 74174; 81003; 85025; J0131; J1170; J3490

== ENCOUNTER → 2023-10-22 00:53 | Outpatient (CLI) | payer MEDICARE, SELFPAY ==
--- NOTE | 2023-10-22 14:44 | DI.RAD_ITS ---
Exam(s) XR HIP LT COMPLETE AP PELVIS EXAM: XR HIP LT COMPLETE AP PELVIS CLINICAL HISTORY: LT HIP PAIN,M25.552. TECHNIQUE: 2D digital imaging was performed. Three views. COMPARISON: CR XR HIP RT COMPLETE AP PELVIS from 08/26/2023 FINDINGS: BONES: No acute fracture is present. No bony destructive lesion is seen. JOINTS: No dislocation present. Hip joint spaces are maintained. Mild bilateral acetabular spurring . SI joints and pubic symphysis are unremarkable. Degenerative changes noted lower lumbar spine. SOFT TISSUE: Normal. IMPRESSION: Mild degenerative changes of both hips. DATA REPOSITORY: RADIATION DOSE DELIVERED:
== END ==
PROVIDERS: PCP Internal Medicine; Visit Provider Family Medicine
DX: M16.0 Bilateral primary osteoarthritis of hip (principal)
CPT/HCPCS: 73502

== ENCOUNTER → 2023-12-31 09:21 | Outpatient (BNVA) | payer MEDICARE, SELFPAY | PROVIDERS: PCP Internal Medicine; Referring Provider Internal Medicine; Visit Provider Internal Medicine Cardiovascular Disease | DX: I77.810 Thoracic aortic ectasia (principal); I10 Essential (primary) hypertension; I25.10 Atherosclerotic heart disease of native coronary artery without angina pectoris | CPT/HCPCS: 99213 ==

== ENCOUNTER → 2024-02-24 14:54 | Outpatient (BNVA) | payer MEDICARE, SELFPAY | PROVIDERS: PCP Family Medicine; Referring Provider Family Medicine; Visit Provider Surgery | DX: K64.5 Perianal venous thrombosis (principal); I10 Essential (primary) hypertension; I25.10 Atherosclerotic heart disease of native coronary artery without angina pectoris; I77.810 Thoracic aortic ectasia; D12.6 Benign neoplasm of colon, unspecified; G25.0 Essential tremor; G20.C Parkinsonism, unspecified | CPT/HCPCS: 99214 ==

== ENCOUNTER 2024-02-25 12:27 | Day surgery (SDC) | payer MEDICARE, SELFPAY ==
[2024-02-25 12:50] VITALS: BP 120/73; PULSE 62; RESP 16; TEMP 36.6; O2SAT 96
[2024-02-25] MEDS: Lactated Ringers 1,000 ML 80 ML IV (13:15)
[2024-02-25] MEDS: Gabapentin 300 MG CAP 600 MG PO (13:17)
[2024-02-25] MEDS: Acetaminophen 500 MG TAB 1000 MG PO (13:18)
--- NOTE | 2024-02-25 14:39 | W.ANESPRE ---
General Info Date of Service Date Performed: 02/25/24 Height: 6 ft Weight: 87.5 kg Body Mass Index (BMI): 26.2 Surgical Procedure: Operation Date: 02/25/24 13:55 Proposed Procedure Side Surgeon p Excision Thromboid Hemorrhoid Davina Daigle, DO Meds Allergies and Home Medications Allergies Allergy/AdvReac Type Severity Reaction Status Date / Time HAVEN Inhibitors AdvReac DIZZY Verified 02/25/24 13:01 Home Medication Medication Instructions Recorded nitroglycerin 0.4 mg sublingual 0.4 mg sublingual ONCE 02/28/15 tablet (Nitrostat) metoprolol succinate 25 mg 12.5 mg PO DAILY 08/24/19 tablet,extended release 24 hr aspirin 81 mg tablet,delayed 81 mg PO DAILY #90 tabs 09/01/19 release (Adult Aspirin Regimen) ezetimibe 10 mg tablet 10 mg PO DAILY #90 tabs 10/02/21 atorvastatin 40 mg tablet 40 mg PO DAILY 10/01/22 losartan 50 mg tablet 50 mg PO DAILY 09/08/23 carbidopa 25 mg-levodopa 100 mg 3 tab PO TID 12/31/23 disintegrating tablet tamsulosin 0.4 mg capsule 0.4 mg PO DAILY 02/22/24 prednisolone 5 mg tablet 5 mg PO DAILY 02/24/24 docusate sodium 100 mg capsule 100 mg PO DAILY 02/25/24 (Colace) docusate sodium 100 mg capsule 100 mg PO DAILY Stool Softener 02/25/24 (Colace) Current Visit Medications: Current Medications Generic Name Dose Route Start Last Admin Trade Name Freq PRN Reason Stop Dose Admin Acetaminophen 1,000 mg 02/25/24 06:00 02/25/24 13:18 Acetaminophen 500 Mg Tab PO 03/26/24 23:59 1,000 mg PREOP BETZAIDA Administration Dibucaine 60 gm 02/25/24 09:00 Dibucaine 1% 60 Gm Tube TP 03/26/24 08:59 PREOP BETZAIDA Gabapentin 600 mg 02/25/24 06:00 02/25/24 13:17 Gabapentin 300 Mg Cap PO 03/26/24 23:59 600 mg PREOP BETZAIDA Administration Ringer's Solution 1,000 mls @ 80 mls/hr 02/25/24 06:00 02/25/24 13:15 IV 03/26/24 23:59 80 mls/hr INFUSION BETZAIDA Administration Ondansetron HCl 4 mg/ Sodium 52 mls @ 200 mls/hr 02/25/24 08:19 Chloride IVPB 03/26/24 08:18 Q6H PRN PRN IV Miscellaneous Supplies 1 each 02/25/24 06:00 Iv Access IV 03/26/24 23:59 DIRECTED BETZAIDA Morphine Sulfate 2 mg 02/25/24 08:19 Morphine 4 Mg/Ml Syr IVP 03/26/24 08:18 Q1H PRN PRN Sodium Chloride 0 ml 02/25/24 06:00 Normal Saline Flush 10 Ml Syr IV 03/26/24 23:59 PRN PRN Sodium Chloride 0 ml 02/25/24 06:00 Normal Saline 10 Ml Vial IJ 03/26/24 23:59 DIRECTED PRN Sterile Water 0 ml 02/25/24 06:00 Water,Injection,Sterile 10 Ml Vial IJ 03/26/24 23:59 DIRECTED PRN PFSH Active Problems Active Problems: Problem Status Onset Code Thrombosed external hemorrhoid K64.5 Tubular adenoma of colon 02/18/18 D12.6 Primary osteoarthritis of left knee 04/06/16 M17.12 Essential tremor 04/15/15 G25.0 Aortic root dilation Complex tear of medial meniscus of left knee as current injury S83.232A Medical History Medical History Parkinson disease Hemorrhoids Generalized pruritus Family history of cerebral aneurysm Parkinsonism Degenerative joint disease Hyperlipemia Perennial allergic rhinitis Polycystic kidney disease Low back pain Surgical History Surgical History Colonoscopy - MAC (02/18/18) Tobacco Smoking/Tobacco Use Status: Never Alcohol Alcohol Intake: current Alcohol intake frequency: 0-2 drinks per day Alcohol type: wine Substance Use Substance use: Never Vital Signs and Lab Results Vital Signs Most Recent Vital Signs in EMR: Most Recent Vital Signs Temp Pulse Resp BP Pulse Ox 36.6 C 62 16 120/73 96 02/25/24 12:50 02/25/24 12:50 02/25/24 12:50 02/25/24 12:50 02/25/24 12:50 Lab Results Blood Type / Crossmatch: No Data to Display Complete Blood Count: No Data to Display Complete Metabolic Panel: No Data to Display Liver Function Panel: No Data to Display Coagulation Panel: No Data to Display Cardiac Panel: No Data to Display Arterial Blood Gas: No Data to Display Venous Blood Gas: No Data to Display Pancreas Panel: No Data to Display Thyroid Panel: No Data to Display Infectious Disease: No Data to Display Blood Cultures: No Data to Display Toxicology Panel: No Data to Display Anesthesia Assessment and Plan Anesthesia History Personal History: No History of Anesthesia Complications and PONV Family History: No Family History of Anesthesia Complications Exercise Tolerance Exercise Tolerance: Metabolic Equivalents>4 Pertinent Negatives Pertinent Negatives: No Symptoms of GERD (Does have bloating from Parkinson Rx) Cardiac & Pulmonary Exam Cardiac Exam: Normal S1/S2 Heart Sounds Pulmonary Exam: Clear Bilateral Breath Sounds Implantable Cardiac Device Does patient have a Pacemaker or an ICD?: No Airway Exam Known Difficult Airway: No Mallampati Class: 2 Mouth Opening: Narrow (< 3cm) Thyromental Distance: Greater than 3 cm Neck Range of Motion: Full ROM Neck Circumference: Normal Teeth Condition: Normal Dentition ASA Classification ASA Score: ASA 3 Emergency Case?: No NPO Status NPO Status: NPO Clears >2 hours, Solids >8 hours Anesthesia Plan Resuscitation Status: Full Code Anesthesia Technique: General Anesthesia Airway Planned: Natural Airway Monitors Used: Standard Monitors
[2024-02-25 14:40] VITALS: BMI 26.2
[2024-02-25] MEDS: Bupivacaine 0.25% Pres-Free W/EPI 30 ML VIAL (16:07)
[2024-02-25 16:30] VITALS: BP 103/68; PULSE 56; RESP 16; TEMP 36.2; O2SAT 94
--- NOTE | 2024-02-25 16:33 | ROE_ITS ---
Date of service: 02/25/24 Time of Service: 16:33 Operative Note Operative Note DATE OF PROCEDURE: 02/25/24 PRE-OP DIAGNOSIS: Thrombosed internal hemorrhoid at the 7 o'clock position /right posterior POST-OP DIAGNOSIS: same PROCEDURE: Excision of small external and thrombosed internal hemorrhoid. SURGEON: Davina Daigle ANESTHESIA TYPE: Local By Surgeon and General:No Airway Refer to Anesthesia Record ESTIMATED BLOOD LOSS: 20 PATHOLOGY: none sent COMPLICATIONS: None Patient was transported to: same day Patient's condition: stable Procedure Description: Informed consent is obtained explaining risks and benefits of the procedure, including but not limited to:? bleeding, infection, pneumonia, blood clots, damage to sphincters resulting in stenosis or loss of control, anesthesia, recurrence, and other unforetold complications. The pt is brought to the operative suite.? Anesthesia is administered per the dept. of anesthesia.? He is placed in the lithotomy position with all bony surfaces padded. the anal/rectal region is prepped and draped in the usual sterile fashion using a Betadine scrub solution.? Timeout and fire safety are pe rformed. .30cc of .25% Marcaine w/ epi is used for local and for a pudendal block, pre procedurally. ? Procedure:? A Serrano anal retractor was inserted to aid in visualization of the hemorrhoids to be operated upon.? Each hemorrhoid was grasped at the mucocuteneous junction with an Allis forceps and retracted.? A stay suture of 4- 0 Prolene was placed distal to the end of the incision.? The skin was incised at the base of the hemorrhoid with a scissors as a V-shape incision. The incision was extended into the mucosa either side of the hemorrhoid, raising it off the muscles of the internal sphincter. The dissection is continued just beyond the dentate line.? All clot was removed prior to closing the defect.? The Defect was then closed with 4-0 Vicryl in a running fashion.? This was done for the right posterior column, which is the only one thrombosed . ? The rectum was irrigated.? There is no bleeding noted.? Dibucaine impregnated Gelfoam was inserted into the rectum and sterile dressing is applied.? Patient tolerated procedure well without complication and transferred to recovery room in stable condition.
--- NOTE | 2024-02-25 16:33 | W.PM.DSUDISC ---
Date of service: 02/25/24 Time of Service: 16:33 Discharge Plan Disposition Patient Disposition: Home Condition: Good Discharge Details Reason For Visit: Thrombosed hemorrhoid Attending Provider: Davina Daigle Primary Care Provider: Jack Triplett Home Meds and New Rx's Prescriptions: New dibucaine 1 % ointment 1 applic [place] QID PRNQty: 56 6RF Continued atorvastatin 40 mg tablet 40 mg PO DAILY tamsulosin 0.4 mg capsule 0.4 mg PO DAILY prednisolone 5 mg tablet 5 mg PO DAILY metoprolol succinate 25 mg tablet extended release 24 hr 12.5 mg PO DAILY ezetimibe 10 mg tablet 10 mg PO DAILY Qty: 90 3RF nitroglycerin [Nitrostat] 0.4 MG tablet, sublingual 0.4 mg Sublingual ONCE losartan 50 mg tablet 50 mg PO DAILY carbidopa-levodopa 25-100 mg tablet,disintegrating 3 tab PO TID Patient Comments: 3 tabs in morning, 3 tabs in afternoon, 2 tabs at night Changed docusate sodium [Colace] 100 mg capsule 100 mg PO BID Qty: 60 13RF Held aspirin [Adult Aspirin Regimen] 81 mg tablet,delayed release (DR/EC) 81 mg PO DAILY Qty: 90 0RF Hold Instructions: Resume on 03/03/24. Hold until next Wednesday. Then may resume Wednesday the Discontinued docusate sodium [Colace] 100 mg capsule 100 mg PO DAILY Discharge Instructions Additional Instructions: Home Care Instructions after Rectal Surgery Pain control:? Ibuprofen 600mg 6hrs (take w/ food. Do not take on an empty stomach) and Tylenol 1000mg by mouth (ibuprofen 400-600mg) every 8 hours.? Do not take if you have ulcers or sensitivity to aspirin.? Do not take Tylenol if you have hepatitis or liver failure. Alternate the Tylenol and ibuprofen.? Take pain meds continuously for the first 72hrs.? After 72hrs, you can take as needed if you are having pain.? You also have a topical ointment called Dibucaine. You can use this up to 4 times a day for pain. How to prevent constipation: The first bowel movement after surgery will be painful. Do not let yourself get constipated. Stay on a stool softener for the first two weeks after surgery. ?It is recommended that you use a fiber supplement (Metamucil, Citrucel) daily (1 tablespoon in 8 oz of water). If you do not have a bowel movement daily, use Milk of Magnesia or Miralax. You may have bleeding or drainage after rectal surgery; especially when you move your bowels. Use a sanitary napkin to collect the discharge. If you are passing large clots or having to change the pad more than every 4 hours, call the clinic or go to the ER. You may experience spasms in the rectal muscles. This is normal after surgery and last for about two weeks. They can become more intense with bowel movements. The best remedy is to soak in a bathtub of plain warm water- no Epsom salts, essential oil or soap.? It takes about 10 minutes further the spasm to stop.? You may want to do this after BM as well. You can start soaking or using Sitz bathes today. It is ok to shower. Avoid soap on the surgical area. Use a pillow to sit on. Follow a mild bland diet. Avoid alcohol, spicy food, citrus, and tomatoes. Avoid strenuous activity (running, jogging, and power walking, swimming, weight lifting) for two weeks. No lifting over 20 pounds for 2 weeks. F/u in surgery clinic in 2 wks time You do have packing in the rectum. this may dissolve or fall out the first time you use the bathroom. You do not need to remove it. Activity:: see above Diet:: As Tolerated Discharge Orders Discharge Orders: Discharge Order (Routine); Ordered 02/25/24 Ordered By: Davina Daigle DS: Diagnosis Discharge Diagnosis (1) Hypertension: Status: None (2) CAD (coronary artery disease): Status: None (3) Aortic root dilation: Status: Acute (4) Tubular adenoma of colon: Status: Acute (5) Thrombosed external hemorrhoid: Status: Acute Asessment and Plan: The patient is doing well post-op from their thrombosed hemorrhoid surgery.? They are having no nausea or vomiting. They are tolerating liquids and a snack. The pt is not having any chest pain or SOB.? Their pain is adequately controlled. They have been able to urinate.? ?HEENT:? no eye pain/drainage/redness/swelling. Mild sore throat ?Cardio- NSR, no chest pain, BP stable- see VS record ?Pulm: no sob or productive cough. No hemoptysis ?Incision- dressing is c/d/i w/ no excessive bleeding or drainage ?I discussed with the patient the findings at the time of surgery and the patient?s progress. ?We reviewed expectations at home; what the patient could expect for recovery time, and in the post-operative period.? We discussed the importance of walking to avoid blood clots and pneumonia.? We discussed and reviewed the patient's post-operative wound care and dressing needs.?? We reviewed their [place] pain management plan, Rx called to the pharmacy of their choice.? We reviewed activity and limitations-see discharge instructions. We reviewed warning signs, and when to seek medical attention- see d/c instructions.?? Patient was given a postoperative follow-up appointment. Patient verbalized understanding of their postoperative instructions, how do to take care of themselves and their incision, and the pain management plan. Please see discharge instructions.?
[2024-02-25 16:44] VITALS: BP 138/81; PULSE 50; RESP 16; TEMP 36.4; O2SAT 99
--- NOTE | 2024-02-25 17:04 | W.ANESPOSTOP ---
Postoperative Evaluation Date, Time and Location Date Performed: 02/25/24 Time Performed: 15:07 Patient Location: Day Surgery Unit Vital Signs Most Recent Imported Vital Signs: Most Recent Vital Signs Temp Pulse Resp BP Pulse Ox 36.4 C L 50 L 16 138/81 99 02/25/24 16:44 02/25/24 16:44 02/25/24 16:44 02/25/24 16:44 02/25/24 16:44 Pain Score Most Recent Pain Score: Most Recent Pain Score Pain Level 0 02/25/24 16:44 Assessment Mental Status: Awake (Alert & Oriented to Patient Baseline) Airway and Respiratory Function: Patent airway with normal (patient baseline) respiratory exam Cardiovascular Function: Hemodynamically Stable Hydration Status: Adequately Hydrated Nausea & Vomiting: No Nausea or Vomiting Pain: Pt. Denies Any Pain Peripheral Nerve Block: Patient did not receive a nerve block
[2024-02-25 17:27] VITALS: BP 115/68; PULSE 60; RESP 16; TEMP 36.6; O2SAT 98
== END 2024-02-25 18:12 | disposition home or self-care (01) ==
PROVIDERS: PCP Family Medicine; Visit Provider Surgery
PROC: (CPT 46255; principal; 2024-02-25 13:45)
DX: K64.5 Perianal venous thrombosis (principal); I10 Essential (primary) hypertension
CPT/HCPCS: 46255; J2001; J2704

== ENCOUNTER → 2024-03-23 09:24 | Outpatient (BNVA) | payer MEDICARE, SELFPAY | PROVIDERS: PCP Family Medicine; Referring Provider Family Medicine; Visit Provider Surgery | DX: Z48.815 Encounter for surgical aftercare following surgery on the digestive system (principal); K62.3 Rectal prolapse; G20.A1 Parkinson's disease without dyskinesia, without mention of fluctuations; K64.5 Perianal venous thrombosis ==

== ENCOUNTER → 2024-06-01 13:26 | Outpatient (BNVA) | payer MEDICARE, SELFPAY | PROVIDERS: PCP Family Medicine; Referring Provider Family Medicine; Visit Provider Surgery | DX: R19.8 Other specified symptoms and signs involving the digestive system and abdomen (principal); K64.5 Perianal venous thrombosis; K59.09 Other constipation; K62.3 Rectal prolapse | CPT/HCPCS: 99214 ==

== ENCOUNTER 2024-07-18 07:25 | Day surgery (SDC) | payer MEDICARE, SELFPAY ==
--- NOTE | 2024-07-17 10:24 | W.PM.HP.N ---
Date of service: 07/18/24 Time of Service: 09:08 Assessment and Plan Assessment and plan (1) Hypertension: Status: None Qualifiers: Hypertension type: primary hypertension Qualified Code(s): I10 - Essential (primary) hypertension (2) CAD (coronary artery disease): Status: None Qualifiers: Associated angina: without angina Coronary Disease-Associated Artery/Lesion type: [place] artery [place] vs. transplanted heart: [place] heart Qualified Code(s): I25.10 - Atherosclerotic heart disease of [place] coronary artery without angina pectoris (3) Thrombosed external hemorrhoid: Status: Acute (4) Chronic constipation: Status: Acute (5) Rectal prolapse: Status: Acute (6) Constipation by outlet dysfunction: Status: Acute (7) Essential tremor: Status: Acute (8) Polycystic kidney disease: (9) Parkinsonism: (10) Bleeding external hemorrhoids: Status: Acute Assessment and plan: Hemorrhoids Surgery I discussed with the pt what hemorrhoids are and what they could expect during surgery.? It would be an out-pt procedure.? They would need someone to drive them home that day.? They may or may not having packing in after the surgery. Risks of surgery include but are not limited to: bleeding/infection/pneumonia/blood clots.? Possible postoperative urinary retention (particularly in men).? Complications of the anethesetic- which will be reviewed by anesthesia.? The rare complication of damage to the sphincters that would include loss of control or stricture. We d/w the importance of avoiding straining to move your bowels.? Straining can cause worsening of the hemorrhoids, recurrence, other ano-rectal problems, and diverticular disease. ?We d/w the importance of a high fiber diet, water, and regular exercise.? We reviewed the consideration of adding in a fiber supplement and how to use fiber. I also reviewed home care after surgery.? We talked about spasms after surgery, and the best way to control this is with topical analgesia and warm sitz baths.? Spasms last for about two weeks after surgery.? And really, the best treatment for spasms is to soak in a tub of warm water.? History of Present Illness Narrative: Patient is here today for excision of hemorrhoids with mucosal prolapse. They not having any chest pain or shortness of breath, currently.? They are not experiencing any fever or chills.? They deny any productive cough or upper respiratory tract infection signs or symptoms.? They are not having abdominal pain, or nausea and vomiting.? They have not had any changes in medications, past medical history or past surgical history since previously being seen in the office. They have not had any accidents or have been in the ER since the clinic pre-operative evaluation. ??I reviewed the procedure with the patient today, including risks and benefits of the procedure, and what they could expect at home for recovery.? All questions are answered to the patient?s satisfaction today, and they are stable to proceed with the proposed procedure. .clinic 05/29 -Patient continues to have problems with incontinence and rectal bleeding. He would like to have hemorrhoids removed. Review of Systems All systems reviewed & are unremarkable except as noted in HPI and below PFSH All Active Problems Bleeding external hemorrhoids (Acute) Constipation by outlet dysfunction (Acute) Rectal prolapse (Acute) High-tone pelvic floor dysfunction (Acute) Chronic constipation (Acute) Thrombosed external hemorrhoid (Acute) Tubular adenoma of colon (Acute 02/18/18) Primary osteoarthritis of left knee (Acute 04/06/16) Essential tremor (Acute 04/15/15) Aortic root dilation (Acute) Complex tear of medial meniscus of left knee as current injury (Acute) Medical History Parkinson disease Hemorrhoids Generalized pruritus Family history of cerebral aneurysm Parkinsonism Degenerative joint disease Hyperlipemia Perennial allergic rhinitis Polycystic kidney disease Low back pain Surgical History Hx of hemorrhoids (~02/2024) thrombosed Colonoscopy - MAC (02/18/18) Social History Smoking/Tobacco Use Status: Never Smoking risk assessment performed?: Yes Alcohol Intake: current Alcohol Intake frequency: 0-2 drinks per day Alcohol type: wine Drug use: Never Housing: house What type of physical activity do you participate in: walking, aerobic, weight lifting and additional Details: boxing program for Parkinson's patients, 90 minutes 2x/week Frequency: 3-4 times per week Do you feel safe at home: Yes Do you feel safe in your relationship?: Yes Meds Allergies and Home Medications Allergies Allergy/AdvReac Type Severity Reaction Status Date / Time HAVEN Inhibitors AdvReac DIZZY Verified 07/18/24 07:55 Home Medications ?Medication ?Instructions ?Recorded ?Confirmed ?Type nitroglycerin 0.4 mg sublingual 0.4 mg sublingual ONCE 02/28/15 07/18/24 History tablet (Nitrostat) metoprolol succinate 25 mg 12.5 mg PO DAILY 08/24/19 07/18/24 History tablet,extended release 24 hr aspirin 81 mg tablet,delayed 81 mg PO DAILY #90 tabs 09/01/19 07/18/24 Rx release (Adult Aspirin Regimen) ezetimibe 10 mg tablet 10 mg PO DAILY #90 tabs 10/02/21 07/18/24 Rx atorvastatin 40 mg tablet 40 mg PO DAILY 10/01/22 07/18/24 History losartan 50 mg tablet 50 mg PO DAILY 09/08/23 07/18/24 History carbidopa 25 mg-levodopa 100 mg 3 tab PO TID 12/31/23 07/18/24 History disintegrating tablet tamsulosin 0.4 mg capsule 0.4 mg PO DAILY 02/22/24 07/18/24 History prednisolone 5 mg tablet 5 mg PO DAILY 02/24/24 07/18/24 History dibucaine 1 % rectal ointment 1 applic [place] QID PRN #56 grams 02/25/24 07/18/24 Rx docusate sodium 100 mg capsule 100 mg PO BID #60 caps 02/25/24 07/18/24 Rx (Colace) bisacodyl 5 mg tablet,delayed 5 mg PO ONCE colonscopy bowel prep 06/01/24 07/18/24 Rx release (Dulcolax (bisacodyl)) #4 tabs polyethylene glycol 3350 17 238 g PO ONCE colonoscopy prep 06/01/24 07/18/24 Rx gram/dose oral powder #238 grams carbidopa ER 23.75 mg-levodopa 95 1 cap PO DIRECTED 07/14/24 07/18/24 History mg capsule,extended release (Rytary) Exam Narrative Exam Narrative: PHYSICAL EXAM GENERAL APPEARANCE: Alert, healthy appearance, oriented, x 3,? in no acute distress HYDRATION: Well hydrated HEAD, EYES, EARS, NECK, THROAT: Head is normocephalic, pupils equal, round, reactive to light and accommodation, ocular movement intact, sclera clear and no jaundice. ?Dentition intact. LUNGS: normal respiration/normal chest excursion. ?Clear to auscultation bilaterally. ?No wheeze. ?HEART: Regular rate and rhythm. no murmurs ABDOMEN: soft and non-tender to palpation.? Normal bowel sounds.? Time Spent Time spent with Patient: <40 minutes Time was spent: preparing to see the patient(eg.review tests), obtaining and/or reviewing separately otained hiistory, ordering medications,tests, procedures, referring, communicating with other health urgent care physician assistant, indepentently interpreting results, counseling the patient, care coordination and other
--- NOTE | 2024-07-17 10:31 | PDOC.DSDIS_ITS ---
Date of service: 07/18/24 Time of Service: 11:13 Discharge Plan Disposition Patient Disposition: Home Discharge Details Attending Provider: Davina Daigle Primary Care Provider: Jack Triplett Home Meds and New Rx's Prescriptions: New tramadol 50 mg tablet 50 mg PO Q6H PRNQty: 14 0RF dibucaine 1 % ointment 1 applic LA QID PRNQty: 56 3RF Continued atorvastatin 40 mg tablet 40 mg PO DAILY tamsulosin 0.4 mg capsule 0.4 mg PO DAILY prednisolone 5 mg tablet 5 mg PO DAILY metoprolol succinate 25 mg tablet extended release 24 hr 12.5 mg PO DAILY aspirin [Adult Aspirin Regimen] 81 mg tablet,delayed release (DR/EC) 81 mg PO DAILY Qty: 90 0RF ezetimibe 10 mg tablet 10 mg PO DAILY Qty: 90 3RF polyethylene glycol 3350 17 gram/dose powder 238 g PO ONCE Qty: 238 0RF Rx Instructions: take per colonoscopy instructions bisacodyl [Dulcolax (bisacodyl)] 5 mg tablet,delayed release (DR/EC) 5 mg PO ONCE Qty: 4 0RF Rx Instructions: take per colonoscopy instructions nitroglycerin [Nitrostat] 0.4 MG tablet, sublingual 0.4 mg Sublingual ONCE losartan 50 mg tablet 50 mg PO DAILY carbidopa-levodopa 25-100 mg tablet,disintegrating 3 tab PO TID Patient Comments: 4 tabs in morning, 3 tabs in afternoon, 3 tabs at night dibucaine 1 % ointment 1 applic LA QID PRNQty: 56 6RF docusate sodium [Colace] 100 mg capsule 100 mg PO BID Qty: 60 13RF Rytary 23.75-95 mg capsule, extended release 1 cap PO DIRECTED Discharge Instructions Additional Instructions: Home Care Instructions after Rectal Surgery Pain control:? Ibuprofen 600mg 6hrs (take w/ food. Do not take on an empty stomach) and Tylenol 1000mg by mouth (ibuprofen 400-600mg) every 8 hours.? Do not take if you have ulcers or sensitivity to aspirin.? Do not take Tylenol if you have hepatitis or liver failure. Alternate the Tylenol and ibuprofen.? Take pain meds continuously for the first 72hrs.? After 72hrs, you can take as needed if you are having pain.? - -Hold asa for 10 days How to prevent constipation: The first bowel movement after surgery will be painful. Do not let yourself get constipated. Stay on a stool softener for the first two weeks after surgery. ?It is recommended that you use a fiber supplement (Metamucil, Citrucel) daily (1 tablespoon in 8 oz of water)- you can take the fiber up to 4 times a day. If you do not have a bowel movement daily, use Milk of Magnesia or Miralax. Continue to take colace daily as well. You can take this medication up to three times a day. If you do not have a BM during the day, take a dose of Miralax at bedtime. You may have bleeding or drainage after rectal surgery; especially when you move your bowels. Use a sanitary napkin to collect the discharge. If you are passing large clots or having to change the pad more than every 4 hours, call the clinic or go to the ER. You may experience spasms in the rectal muscles. This is normal after surgery and last for about two weeks. They can become more intense with bowel moveme nts. The best remedy is to soak in a bathtub of plain warm water- no Epsom salts, essential oil or soap.? It takes about 10 minutes further the spasm to stop.? You may want to do this after BM as well. It is ok to shower. Avoid soap on the surgical area. Use a pillow to sit on. Follow a mild bland diet. Avoid alcohol, spicy food, citrus, and tomatoes. Avoid strenuous activity (running, jogging, and power walking, swimming, weight lifting) for two weeks. No lifting over 20 pounds for 2 weeks. Activity:: see above Shower/Bathe:: 24 hours Diet:: As Tolerated Discharge Orders Discharge Orders: Discharge Order (Routine); Ordered 07/17/24 Ordered By: Davina Daigle DS: Diagnosis Discharge Diagnosis (1) Hypertension: Status: None (2) CAD (coronary artery disease): Status: None (3) Thrombosed external hemorrhoid: Status: Acute (4) Chronic constipation: Status: Acute (5) Rectal prolapse: Status: Acute (6) Constipation by outlet dysfunction: Status: Acute (7) Essential tremor: Status: Acute (8) Polycystic kidney disease: (9) Parkinsonism: (10) Bleeding external hemorrhoids: Status: Acute Asessment and Plan: The patient is doing well post-op from their hemorrhoids surgery. ? They are having no nausea or vomiting. They are tolerating liquids and a snack. The pt is not having any chest pain or SOB.? Their pain is adequately controlled. They have been able to urinate.? ?HEENT:? no eye pain/drainage/redness/swelling. Mild sore throat ?Cardio- NSR, no chest pain, BP stable- see VS record ?Pulm: no sob or productive cough. No hemoptysis ?Incision- dressing is c/d/i w/ no excessive bleeding or drainage ?I discussed with the patient the findings at the time of surgery and the patient?s progress. ?We reviewed expectations at home; what the patient could expect for recovery time, and in the post-operative period.? We discussed the importance of walking to avoid blood clots and pneumonia.? We discussed and reviewed the patient's post-operative wound care and dressing needs.?? We reviewed their [place] pain management plan, Rx called to the pharmacy of their choice.? We reviewed activity and limitations-see discharge instructions. We reviewed warning signs, and when to seek medical attention- see d/c instructions.?? Patient was given a postoperative follow-up appointment. Patient verbalized understanding of their postoperative instructions, how do to take care of themselves and their incision, and the pain management plan. Please see discharge instructions.? (11) Internal hemorrhoid, bleeding: Status: Acute
[2024-07-18] VITALS (16 sets, daily range): BP systolic 104–125; BP diastolic 52–90; PULSE 47–73; RESP 13–17; TEMP 36.1–36.5; O2SAT 95–99; BMI 26.0
--- NOTE | 2024-07-18 07:04 | W.ANESPRE ---
General Info Date of Service Date Performed: 07/18/24 Height: 6 ft Weight: 87.146 kg Body Mass Index (BMI): 26.0 Surgical Procedure: Operation Date: 07/18/24 09:40 Proposed Procedure Side Surgeon p Colonoscopy Davina Daigle DO s Hemorrhoidectomy Davina Daigle, Meds Allergies and Home Medications Allergies Allergy/AdvReac Type Severity Reaction Status Date / Time HAVEN Inhibitors AdvReac DIZZY Verified 07/18/24 07:55 Home Medication ?Medication ?Instructions ?Recorded nitroglycerin 0.4 mg sublingual 0.4 mg sublingual ONCE 02/28/15 tablet (Nitrostat) metoprolol succinate 25 mg 12.5 mg PO DAILY 08/24/19 tablet,extended release 24 hr aspirin 81 mg tablet,delayed 81 mg PO DAILY #90 tabs 09/01/19 release (Adult Aspirin Regimen) ezetimibe 10 mg tablet 10 mg PO DAILY #90 tabs 10/02/21 atorvastatin 40 mg tablet 40 mg PO DAILY 10/01/22 losartan 50 mg tablet 50 mg PO DAILY 09/08/23 carbidopa 25 mg-levodopa 100 mg 3 tab PO TID 12/31/23 disintegrating tablet tamsulosin 0.4 mg capsule 0.4 mg PO DAILY 02/22/24 prednisolone 5 mg tablet 5 mg PO DAILY 02/24/24 dibucaine 1 % rectal ointment 1 applic UT QID PRN #56 grams 02/25/24 docusate sodium 100 mg capsule 100 mg PO BID #60 caps 02/25/24 (Colace) bisacodyl 5 mg tablet,delayed 5 mg PO ONCE colonscopy bowel prep 06/01/24 release (Dulcolax (bisacodyl)) #4 tabs polyethylene glycol 3350 17 238 g PO ONCE colonoscopy prep 06/01/24 gram/dose oral powder #238 grams carbidopa ER 23.75 mg-levodopa 95 1 cap PO DIRECTED 07/14/24 mg capsule,extended release (Rytary) dibucaine 1 % rectal ointment 1 applic UT QID PRN #56 grams 07/18/24 tramadol 50 mg tablet 50 mg PO Q6H PRN #14 tabs 07/18/24 Current Visit Medications: Current Medications Generic Name Dose Route Start Last Admin Trade Name Freq PRN Reason Stop Dose Admin Acetaminophen 1,000 mg 07/18/24 06:00 Acetaminophen 500 Mg Tab PO 08/16/24 23:59 PREOP BETZAIDA Dibucaine 28 gm 07/18/24 06:00 Dibucaine 1% 28 Gm Tube UT 07/18/24 23:59 DIRECTED BETZAIDA Gabapentin 600 mg 07/18/24 06:00 Gabapentin 300 Mg Cap PO 08/16/24 23:59 PREOP [facility] Ringer's Solution 1,000 mls @ 80 mls/hr 07/18/24 06:00 IV 08/16/24 23:59 INFUSION BETZAIDA Ondansetron HCl 4 mg/ Sodium 52 mls @ 200 mls/hr 07/17/24 10:30 Chloride IVPB 08/16/24 10:29 Q6H PRN PRN IV Miscellaneous Supplies 1 each 07/18/24 06:00 Iv Access IV 08/16/24 23:59 DIRECTED [facility] Morphine Sulfate 2 mg 07/17/24 10:30 Morphine 4 Mg/Ml Syr IVP 08/16/24 10:29 Q1H PRN PRN Sodium Chloride 0 ml 07/18/24 06:00 Normal Saline Flush 10 Ml Syr IV 08/16/24 23:59 PRN PRN Sodium Chloride 0 ml 07/18/24 06:00 Normal Saline 10 Ml Vial IJ 08/16/24 23:59 DIRECTED PRN Sterile Water 0 ml 07/18/24 06:00 Water,Injection,Sterile 10 Ml Vial IJ 08/16/24 23:59 DIRECTED PRN Tramadol HCl 50 mg 07/17/24 10:30 Tramadol 50 Mg Tab PO 08/16/24 10:29 Q6H PRN PRN Pain PFSH Active Problems Active Problems: Problem Status Onset Code Bleeding external hemorrhoids Acute K64.4 Constipation by outlet dysfunction Acute K59.02 Rectal prolapse Acute K62.3 High-tone pelvic floor dysfunction Acute M62.89 Chronic constipation Acute K59.09 Thrombosed external hemorrhoid Acute K64.5 Tubular adenoma of colon Acute 02/18/18 D12.6 Primary osteoarthritis of left knee Acute 04/06/16 M17.12 Essential tremor Acute 04/15/15 G25.0 Aortic root dilation Acute Complex tear of medial meniscus of left knee as current injury Acute S83.232A Medical History Medical History (Updated 07/18/24 @ 11:14 by Davina Daigle DO) Parkinson disease Hemorrhoids Generalized pruritus Family history of cerebral aneurysm Parkinsonism Degenerative joint disease Hyperlipemia Perennial allergic rhinitis Polycystic kidney disease Low back pain Medical History Comments:: P.t is positive for COVID 07/09/24 still positive today 07/14/24 Surgical History Surgical History Hx of hemorrhoids (~02/2024) thrombosed Colonoscopy - MAC (02/18/18) Tobacco Smoking/Tobacco Use Status: Never Alcohol Alcohol Intake: current Alcohol intake frequency: 0-2 drinks per day Alcohol type: wine Substance Use Substance use: Never Vital Signs and Lab Results Vital Signs Most Recent Vital Signs in EMR: Temp Pulse Resp BP Pulse Ox 36.1 C L 60 16 115/82 97 07/18/24 07:40 07/18/24 07:40 07/18/24 07:40 07/18/24 07:40 07/18/24 07:40 Lab Results Blood Type / Crossmatch: No Data to Display Complete Blood Count: No Data to Display Complete Metabolic Panel: No Data to Display Liver Function Panel: No Data to Display Coagulation Panel: No Data to Display Cardiac Panel: No Data to Display Arterial Blood Gas: No Data to Display Venous Blood Gas: No Data to Display Pancreas Panel: No Data to Display Thyroid Panel: No Data to Display Infectious Disease: No Data to Display Blood Cultures: No Data to Display Toxicology Panel: No Data to Display Imaging and Studies Imaging and Studies Study information below may be from another EMR and interpreted by another provider. Please see original notes in EMR for more complete details. EKG Summary: 10/08: sinus. Stress Test Summary: 03/02: Fixed inferior defect. 44%. Anesthesia Assessment and Plan Anesthesia History Personal History: PONV Family History: No Family History of Anesthesia Complications Exercise Tolerance Exercise Tolerance: Metabolic Equivalents>4 Pertinent Negatives Pertinent Negatives: No Symptoms of GERD, No Major Cardiovascular Symptoms or Complaints and No Major Pulmonary Symptoms or Complaints Cardiac & Pulmonary Exam Cardiac Exam: Normal S1/S2 Heart Sounds Pulmonary Exam: Clear Bilateral Breath Sounds Implantable Cardiac Device Does patient have a Pacemaker or an ICD?: No Airway Exam Known Difficult Airway: No Mallampati Class: 2 Mouth Opening: Narrow (< 3cm) Thyromental Distance: Greater than 3 cm Neck Range of Motion: Full ROM Neck Circumference: Normal Teeth Condition: Normal Dentition ASA Classification ASA Score: ASA 3 Emergency Case?: No NPO Status NPO Status: NPO Clears >2 hours, Solids >8 hours Anesthesia Plan Resuscitation Status: Full Code Anesthesia Technique: General Anesthesia Airway Planned: Natural Airway Monitors Used: Standard Monitors Preoperative Comments:: 78 yo male for colo/hemorrhoids. Plan for GA/natural airway. Discussed GETA if positioning requires. Sig PMHx: HTN (metoprolol, losartan), CAD (2010), Ao root dilation, Parkinson's (carbidopa/levadopa), never smoker, occ EtOH.
[2024-07-18] MEDS: Gabapentin 300 MG CAP 600 MG PO (08:13)
[2024-07-18] MEDS: Acetaminophen 500 MG TAB 1000 MG PO (08:14)
[2024-07-18] MEDS: Lactated Ringers 1,000 ML 80 ML IV (08:25)
--- NOTE | 2024-07-18 10:14 | BOWEL_PTH ---
PATIENT: Jhon Aguiar LOC: [facility] U#:[id number] AGE/SX: 78/M ROOM: RE07/18/[address]: Davina Daigle : 1945 BED: DIS: 07/18/2024 SPEC #: [id number] RECD: 07/18/24 12:38 STATUS: MORGAN RELaure #: [id number] EHSAN: 07/18/24 10:[address]: Davina Daigle DEPT: Surgical Specimen RECD BY: Anjali Kelsey ENTERED: 07/18/24 12:39 SP TYPE: Bowel OTHR DR: Jack Triplett Tissues: 1 - BIOPSY BOWEL 2 - HEMORRHOIDS Procedures: GROSS AND MICRO LEVEL 4 GROSS AND MICRO LEVEL 3 Comments: [id number]
[2024-07-18] MEDS: Bupivacaine LIPOSOME/PF 133 MG/10 ML VIAL IJ (10:49)
[2024-07-18] MEDS: Bupivacaine 0.25% Pres-Free 30 ML VIAL (10:49)
[2024-07-18] MEDS: Dibucaine 1% 28 GM TUBE PR (10:57)
--- NOTE | 2024-07-18 14:39 | COLE_ITS ---
Date of service: 07/18/24 Time of Service: 14:39 Colonoscopy Report Date of procedure: 07/18/24 Pre-op diagnosis general: Rectal bleeding adenomatous polyps/internal and external hemorrhoids, throm Post-op diagnosis procedure note: other (Adenomatous polyps, diverticula, thrombosed external hemorrhoid Royd, mucosal prolapse and internal hemorrhoid x 3) Procedure: Colonoscopy, sharp excision of external hemorrhoid and mucosal prolapse at the left lateral position, and hemorrhoid banding of the right anterior and and right posterior internal hemorrhoids. Surgeon: Davina Daigle Anesthesia Type: General LMA/ETT Estimated blood loss (mL): 1 Pathology: other Complications: None Disposition: PACU Prep: Miralax/Dulcolax Procedure Description: After informed consent was obtained, explaining risks of the procedure, including but not limits to: bleeding, infections, complications of anesthesia, perforations (which may require antibiotics and /or surgery and stay in the hospital), and abdominal pain/cramping. The patient was taken to the procedure room and placed in a left decubitous position. Monitors were applied and a time out was done. The patients name, date of , procedure, allergies to medications and metal in their body was reviewed. The patient was then sedated. Once sedated and comfortable a rectal exam was done. External exam shows external hemorrhoid with mucosal prolapse at the left lateral. internal exam revealed a normal sphincter tone and no palpable masses. The previously lubricated Olympus scope was then introduced (see RN notes for scope number) and retrofelexed. Grade II internal hemorrhoids x3 were identified. The scope was then advanced to the cecum without difficulty. The TI and appendiceal orifice were identified. The scope was then slowly retracted over minutes back into the rectum. Polyps: A flat, .5cm polyp was found at 40cm. This was removed with a cold biting forceps. All of the specimen was retrieved. This will be sent to pathology. There is no bleeding noted from the polypectomy site. Diverticula: pt had a moderate amount of small mouthed diverticula in the sigmoid colon. There were no signs of active bleeding or in fection. The mucosa is pink and healthy w/ a normal vascular pattern. The scope was removed, and the patient was placed in prone position with all bony surfaces padded on the or table and we continued onto the hemorrhoidectomy. The anal rectal region was prepped and draped in usual sterile fashion using a Betadine scrub solution. 20 cc of Exparel with quarter percent Marcaine is used for local anesthesia and for pudendal block bilaterally. Serrano retractors was used to aid in visualization. The internal/external hemorrhoidal complex and the mucosal flaps is graft with an Allis, at the 7 o'clock position in reverse anatomical position. A stay suture is placed at the apex of the complex. a V- shaped Skin incision was made with 12 blade and the rest of the complex and the prolapsed mucosa was excised using a Metzenbaums, being careful to leave the external sphincter intact. The incision was then closed in a running fashion. There is no bleeding noted. He also has 2 internal hemorrhoids on the right that were banded. Dibucaine impregnated Gelfoam was inserted in the rectum. Patient tolerated procedure well without complication and transferred to the recovery room in stable position. Follow up: The patient does not require any further colonoscopies, unless they develop changes in bowel habits or other new gastrointestinal complaints. [place] Bowel Prep [place] Bowel Prep Right Colon: 3 Left Colon: 3 Transverse Colon: 3 Total Score: 9
--- NOTE | 2024-07-18 14:39 | W.ANESPOSTOP ---
Postoperative Evaluation Date, Time and Location Date Performed: 07/18/24 Time Performed: 14:40 Patient Location: Day Surgery Unit Vital Signs Most Recent Imported Vital Signs: Most Recent Vital Signs Temp Pulse Resp BP Pulse Ox 36.5 C 47 L 16 125/78 96 07/18/24 12:30 07/18/24 12:30 07/18/24 12:30 07/18/24 12:30 07/18/24 12:30 Pain Score Most Recent Pain Score: Most Recent Pain Score Pain Level 2 07/18/24 14:10 Assessment Mental Status: Awake (Alert & Oriented to Patient Baseline) Airway and Respiratory Function: Patent airway with normal (patient baseline) respiratory exam Cardiovascular Function: Hemodynamically Stable Hydration Status: Adequately Hydrated Nausea & Vomiting: No Nausea or Vomiting Pain: Pt. Denies Any Pain Peripheral Nerve Block: Patient did not receive a nerve block Postoperative Comments:: C/o of slight dizziness and blurry vision. Discussed these can be side effects anesthesia and his parkinsons can also play a role in this. It is slowly getting better, but he and his were encouraged that if this gets worse to return to the ED.
== END 2024-07-18 15:00 | disposition home or self-care (01) ==
PROVIDERS: PCP Family Medicine; Visit Provider Surgery
PROC: 0DJD8ZZ Inspection of Lower Intestinal Tract, Via Natural or Artificial Opening Endoscopic (ICD-10-PCS; CPT 45378; principal; 2024-07-18 09:30)
PROC: (CPT 45380; 2024-07-18 09:30)
DX: K64.5 Perianal venous thrombosis (principal); K64.8 Other hemorrhoids; R19.8 Other specified symptoms and signs involving the digestive system and abdomen; K62.5 Hemorrhage of anus and rectum; D12.5 Benign neoplasm of sigmoid colon; K57.30 Diverticulosis of large intestine without perforation or abscess without bleeding
CPT/HCPCS: 45380; 45398; 88305; 88304; C9290; J0665; J1100; J2371; J2405; J2704

== ENCOUNTER → 2024-07-31 10:27 | Outpatient (BNVA) | payer MEDICARE, SELFPAY | PROVIDERS: PCP Family Medicine; Referring Provider Family Medicine; Visit Provider Surgery | DX: Z48.815 Encounter for surgical aftercare following surgery on the digestive system (principal); G20.C Parkinsonism, unspecified ==

== ENCOUNTER 2024-08-03 19:05 | Outpatient (REF) | payer MEDICARE, SELFPAY ==
--- OUTSIDE RECORDS SUMMARY | 2024-08-03 19:06 | XMS_ITS | Encounter Summary ---
Author Organization [facility] [place] [address] Care Team Providers Care Brake Tester Name Role Phone Riaz Hawkins MD Primary Care Provider [phone] Reason for Referral * Diagnostic Test (Routine) - Closed Specialty Diagnoses / Procedures Referred By Contac t Referred To Contact Radiology Diagnoses Aneurysm of ascending aorta without rupture Procedures CT Angiogram Chest (Non-Coronary) w Contrast CT Angiogram Chest (Non-Coronary) wwo Contrast Selma Pereyra PA [facility] [place] [address] [facility] [address] [place] [address] Referral ID Status Reason Start Date Expiration Date V isits Requested Visits Authorized [id number] Closed Specialty Service Requested 09/21/2023 03/22/2025 1 1 Encounter Details Date Type Department Care Team (Late st Contact Info) Description 09/21/2023 Orders [place] [address] Selma Pereyra PA [facility] [place] [address] Aneurysm of ascending aorta without rupture Social History Tobacco Use Types Packs/Day Years Used Date Smoking Tobacco: Never Smokeless Tobacco: Never Sex and Gender Information Value Date Recorded Sex Assigned at Not on file Gender Identity Not on file Sexual Orientation Not on file documented as of this encounter Plan of Treatment Not on file documented as of this encounter Results * CT Angiogram Chest (Non-Coronary) w Contrast (01/10/2024 10:27 AM EDT) Anatomical Region Laterality Modality Chest Computed Tomogra phy Impressions 01/10/2024 2:49 PM EDT 1. ??Stable aortic measurements with mid ascending aorta measuring up to 4.7 cm 2. 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 ??If you are a health care provider and have any questions regarding this report, please contact the number below. ??For patients who have questions please contact the health care team coordinator scheduler that requested your imaging first. ? Electronically signed by: Randall Richardson MD, [facility] ??([phone]), at 01/10/2024 2:49 PM Narrative 01/10/2024 2:49 PM EDT EXAMINATION: CT ANGIOGRAM CHEST (NON-CORONARY)W CONTRAST CLINICAL HISTORY: Aortic aneurysm, known or suspected TECHNIQUE: Helical CT angiogram of the chest was performed following the intravenous administration of contrast. Administered 74.0 ml of OMNIPAQUE 350.00 mg/ml. Maximum intensity projection (MIP) were reformatted. 3D images were generated on an independent workstation. COMPARISON: CTA chest 01/08/2023 FINDINGS: VASCULAR Heart: Stable mild cardiomegaly with enlarged left atrium. Coronary artery calcifications. Aorta: Ascending aorta is dilated again measuring up to 4.7 cm. Maximum diameters of the aorta were measured at the following levels on center line reformatted images. Sinuses of Valsalva: 23 x 42 mm Sinotubular junction: 32 x 38 mm Mid ascending aorta: 45 x 47 mm Proximal aortic arch: 35 x 38 mm Mid aortic arch: 31 x 33 mm Proximal descending thoracic aorta: 32 x 35 mm Mid descending aorta: 29 x 31 mm Aorta at diaphragm: 28 x 29 mm Abdominal aorta at the celiac origin: 25 x 27 mm Great vessels: Conventional three-vessel arch. No stenosis or aneurysm. Celiac/SMA: Stable dilation of the mid and distal celiac trunk measuring 1.5 cm, likely poststenotic. Patent origin of the SMA. NON-VASCULAR Lungs and large airways: Bibasilar dependent atelectasis. The central airways are patent. Pleura: Trace pleural effusions. Mediastinum and katie: No adenopathy. Limited views of the upper abdomen: Partially imaged bilateral renal cysts. Left hepatic lobe subcentimeter hypodense lesion is too small to characterize, likely a cyst. Osseous structures: New healing left third and fourth rib fractures. There is diffuse qualitative osteopenia. No suspicious osseous lesion. Procedure Note Randall Richardson MD - 01/10/2024 EXAMINATION: CT ANGIOGRAM CHEST (NON-CORONARY)W CONTRAST CLINICAL HISTORY: Aortic aneurysm, known or suspected TECHNIQUE: Helical CT angiogram of the chest was performed following the intravenous administration of contrast. Administered 74.0 ml of DNVHJJBVC343.00 mg/ml. Maximum intensity projection (MIP) were reformatted. 3D imageswere generated on an independent workstation. COMPARISON: CTA chest 01/08/2023 FINDINGS: VASCULAR Heart: Stable mild cardiomegaly with enlarged left atrium. Coronaryartery calcifications. Aorta: Ascending aorta is dilated again measuring up to 4.7 cm. Maximum diameters of the aorta were measured at the following levels oncenter line reformatted images. Sinuses of Valsalva: 23 x 42 mm Sinotubular junction: 32 x 38 mm Mid ascending aorta: 45 x 47 mm Proximal aortic arch: 35 x 38 mm Mid aortic arch: 31 x 33 mm Proximal descending thoracic aorta: 32 x 35 mm Mid descending aorta: 29 x 31 mm Aorta at diaphragm: 28 x 29 mm Abdominal aorta at the celiac origin: 25 x 27 mm Great vessels: Conventional three-vessel arch. No stenosis or aneurysm. Celiac/SMA: Stable dilation of the mid and distal celiac trunk measuring1.5 cm, likely poststenotic. Patent origin of the SMA. NON-VASCULAR Lungs and large airways: Bibasilar dependent atelectasis. The centralairways are patent. Pleura: Trace pleural effusions. Mediastinum and katie: No adenopathy. Limited views of the upper abdomen: Partially imaged bilateral renalcysts. Left hepatic lobe subcentimeter hypodense lesion is too small to characterize,likely a cyst. Osseous structures: New healing left third and fourth rib fractures. Thereis diffuse qualitative osteopenia. No suspicious osseous lesion. IMPRESSION 1. Stable aortic measurements with mid ascending aorta measuring up to4.7 cm 2. 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 If youare a health care provider and have any questions regarding this report,please contact the number below. For patients who have questions please contactthe health care team coordinator scheduler that requested your imaging first. Electronically signed by: Randall Richardson MD, [facility]([phone]), at 01/10/2024 2:49 PM Iglesia De La Cruz MD IMG CT ORDERABLES * Creatinine (01/10/2024 9:18 AM EDT) Creatinine 0.90 0.80 - 1.50 mg/dL [facility] Est Glomerular Filtration Rate 89 >=60 mL/min/1. 73 m?? [facility] Comment: This patient's estimated GFR was calculated using the 2020 CKD-EPI equation. The estimated GFR can vary from the measured GFR by up to 30% in the absence of rapidly changing kidney function. Assessment of the estimated GFR is not appropriate when creatinine concentrations are rapidly changing. For clinical situations in which a more precise estimate of GFR is necessary, consider alternative methods of GFR estimation such as a 24-hour urine creatinine clearance. Assignment of CKD stage 1-5 for patients with an eGFR near the transition point between stages may be based on clinical assessment of muscle mass and symptoms in addition to eGFR. Blood 01/10/2024 9:18 AM EDT 01/10/2024 9:24 AM EDT Narrative Resulting Agency Comment Spec In Lab Iglesia De La Cruz MD CHEMISTRY ORDERABL ES [facility] [place] [address] documented in this encounter Visit Diagnoses Diagnosis Aneurysm of ascending aorta without rupture Aneurysm of ascending aorta without rupture documented in this encounter Care Teams Brake Tester Relationship Specialty Start Date End Date Riaz Hawkins MD [address] [place] [address] PCP - General 12/01/10 documented as of this encounter
--- OUTSIDE RECORDS SUMMARY | 2024-08-03 19:06 | XMS_ITS | Encounter Summary ---
[place] [address] Care Team Providers Care Bookbinding Machine Operator Name Role Phone Riaz Hawkins MD Primary Care Provider [phone] Encounter Details Date Type Department Care Team (Latest Contact Info) Description 01/08/2023 Travel Social History Tobacco Use Types Packs/Day Years Used Date Smoking Tobacco: Never Smokeless Tobacco: Never Sex and Gender Information Value Date Recorded Sex Assigned at Not on file Gender Identity Not on file Sexual Orientation Not on file documented as of this encounter Plan of Treatment Not on file documented as of this encounter Visit Diagnoses Not on filedocumented in this encounter Care Teams Bookbinding Machine Operator Relationship Specialty Start Date End Date Riaz Hawkins MD [address] [place] [address] PCP - General 12/01/10 documented as of this encounter
--- OUTSIDE RECORDS SUMMARY | 2024-08-03 19:06 | XMS_ITS | Encounter Summary ---
[place] [address] Care Team Providers Care Box Office Clerk Name Role Phone Riaz Hawkins MD Primary Care Provider Encounter Details Date Type Department Care Team (Latest Contact Info) Description 01/10/2024 Travel Social History Tobacco Use Types Packs/Day [...] on filedocumented in this encounter Care Teams Box Office Clerk Relationship Specialty Start Date End Date Riaz Hawkins MD [address] [place] [address] PCP - General 12/01/10 documented as of this encounter
--- OUTSIDE RECORDS SUMMARY | 2024-08-03 19:06 | XMS_ITS | Encounter Summary ---
Author Organization [facility] [place] [address] Care Team Providers Care Extension Worker Name Role Phone Riaz Hawkins MD Primary Care Provider [phone] Reason for Referral * Diagnostic Test (Routine) - Closed Specialty Diagnoses / Procedures Referred By Contac t Referred To Contact Radiology Diagnoses Aneurysm of ascending aorta without rupture Procedures CT Angiogram Chest (Non-Coronary) w Contrast CT Angiogram Chest (Non-Coronary) wwo Contrast Pravin Alan PA [facility] [place] [address] [facility] [place] [address] Referral ID Status Reason Start Date Expiration Date V isits Requested Visits Authorized [id number] Closed Specialty Service Requested 08/11/2022 02/10/2024 1 1 Encounter Details Date Type Department Care Team (Late st Contact Info) Description 08/11/2022 Orders [place] [address] Iglesia De La Cruz MD [facility] [address] [place] [address] Aneurysm of ascending aorta without [...] * CT Angiogram Chest (Non-Coronary) w Contrast (01/08/2023 9:40 AM EDT) Anatomical Region Laterality Modality Chest Computed Tomogra phy Impressions 01/08/2023 3:14 PM EDT Similar degree of elevation of the ascending aorta measuring 4.8 cm. Similar degree of celiac artery dilation measuring 1.5 cm. I have personally reviewed the image(s) and the resident's interpretation and agree with the findings, Mendel Perez MD at 01/08/2023 3:14 PM Thank you for letting us participate in the care of this patient. ??If you are a health care provider and have any questions regarding this report, please contact the number below. ??For patients who have questions please contact the health home care attendant that requested your imaging first. ? Electronically signed by: Mendel Perez MD, [facility] ([phone]), at 01/08/2023 3:14 PM Narrative 01/08/2023 3:14 PM EDT EXAMINATION: CT ANGIOGRAM CHEST (NON-CORONARY)W CONTRAST CLINICAL HISTORY: Aortic aneurysm, known or suspected TECHNIQUE: Helical CT angiogram of the chest was performed following the intravenous administration of contrast. Administered 75.0 ml of OMNIPAQUE 350.00 mg/ml. Maximum intensity projection (MIP) were reformatted. 3D images were generated on an independent workstation. COMPARISON: CT of the chest 11/28/2021 FINDINGS: VASCULAR Aorta: There is increased tortuosity of the ascending and descending thoracic aorta with fusiform dilation of the ascending segment tapering in the mid arch. Maximum diameter is 4.8 cm on today's exam, previously 5 cm. No intramural hematoma, dissection, or penetrating ulcer. Maximum diameters of the aorta were measured at the following levels on center line reformatted images. These measurements are also listed in PACS. Sinuses of Valsalva: 37.1 x 42.4 mm Sinotubular junction: 36.7 x 40.6 mm Mid ascending aorta: 46.1 x 48.0 mm Proximal aortic arch: 38.1 x 39.4 mm Mid aortic arch: 32.3 x 33.6 mm Proximal descending thoracic aorta: 33.0 x 36.9 mm Mid descending aorta: 30.6 x 33.1 mm Aorta at diaphragm: 28.7 x 30.0 mm Abdominal aorta at celiac axis origin: 23.4 x 28.2 mm Maximum size: 46.1 x 48.0 mm in the mid ascending aorta Heart: Cardiomegaly with enlarged left atrium. Coronary, aortic calcifications. No pericardial effusion. Great vessels: Conventional 3 vessels.No stenosis or aneurysm. Celiac/SMA: Similar degree of dilation of the mid and distal celiac trunk measuring 1.5 cm. Likely the setting of poststenotic dilation with moderate stenosis at the origin. NON-VASCULAR Lungs and large airways: Bibasilar dependent atelectasis. No focal airspace consolidation or pulmonary nodule. Pleura: No pleural effusion. Mediastinum and katie: Normal. No lymphadenopathy. Limited views of the upper abdomen: Unchanged several large bilateral simple renal cysts, largest on the right measuring 8.1 cm and largest left measuring 7 cm. Osseous structures: Suspicious osseous lesions. No acute osseous findings. Procedure Note Mendel Perez MD - 01/08/2023 EXAMINATION: CT ANGIOGRAM CHEST (NON-CORONARY)W CONTRAST CLINICAL HISTORY: Aortic aneurysm, known or suspected TECHNIQUE: Helical CT angiogram of the chest was performed following the intravenous administration of contrast. Administered 75.0 ml of IQEMYGTIJ381.00 mg/ml. Maximum intensity projection (MIP) were reformatted. 3D imageswere generated on an independent workstation. COMPARISON: CT of the chest 11/28/2021 FINDINGS: VASCULAR Aorta: There is increased tortuosity of the ascending and descendingthoracic aorta with fusiform dilation of the ascending segment tapering in the midarch. Maximum diameter is 4.8 cm on today's exam, previously 5 cm. Nointramural hematoma, dissection, or penetrating ulcer. Maximum diameters of the aortawere measured at the following levels on center line reformatted images.These measurements are also listed in PACS. Sinuses of Valsalva: 37.1 x 42.4 mm Sinotubular junction: 36.7 x 40.6 mm Mid ascending aorta: 46.1 x 48.0 mm Proximal aortic arch: 38.1 x 39.4 mm Mid aortic arch: 32.3 x 33.6 mm Proximal descending thoracic aorta: 33.0 x 36.9 mm Mid descending aorta: 30.6 x 33.1 mm Aorta at diaphragm: 28.7 x 30.0 mm Abdominal aorta at celiac axis origin: 23.4 x 28.2 mm Maximum size: 46.1 x 48.0 mm in the mid ascending aorta Heart: Cardiomegaly with enlarged left atrium. Coronary, aorticcalcifications. No pericardial effusion. Great vessels: Conventional 3 vessels.No stenosis or aneurysm. Celiac/SMA: Similar degree of dilation of the mid and distal celiactrunk measuring 1.5 cm. Likely the setting of poststenotic dilation withmoderate stenosis at the origin. NON-VASCULAR Lungs and large airways: Bibasilar dependent atelectasis. No focalairspace consolidation or pulmonary nodule. Pleura: No pleural effusion. Mediastinum and katie: Normal. No lymphadenopathy. Limited views of the upper abdomen: Unchanged several large bilateralsimple renal cysts, largest on the right measuring 8.1 cm and largest leftmeasuring 7 cm. Osseous structures: Suspicious osseous lesions. No acute osseousfindings. IMPRESSION Similar degree of elevation of the ascending aorta measuring 4.8 cm. Similar degree of celiac artery dilation measuring 1.5 cm. I have personally reviewed the image(s) and the resident's interpretationand agree with the findings, Mendel Perez MD at 01/08/2023 3:14 PM Thank you for letting us participate in the care of this patient. If youare a health care provider and have any questions regarding this report,please contact the number below. For patients who have questions please contactthe health home care attendant that requested your imaging first. Electronically signed by: Mendel Perez MD, [facility]([phone]), at 01/08/2023 3:14 PM Iglesia W Discipio MD IMG CT ORDERABLES * Creatinine (01/08/2023 7:46 AM EDT) Creatinine 0.96 0.80 - 1.50 mg/dL [facility] Est Glomerular Filtration Rate 82 >=60 mL/min/1. 73 m?? [facility] Comment: This patient's estimated GFR was [...] and symptoms in addition to eGFR. Blood 01/08/2023 7:46 AM EDT 01/08/2023 7:49 AM EDT Narrative Resulting Agency Comment Spec In Lab Iglesia De La Cruz MD CHEMISTRY ORDERABL ES [facility] [place] [address] documented in this encounter Visit Diagnoses Diagnosis Aneurysm of ascending aorta without rupture Aneurysm of ascending aorta without rupture documented in this encounter Care Teams Extension Worker Relationship Specialty Start Date End Date Riaz Hawkins MD [address] [place] [address] PCP - General 12/01/10 documented as of this encounter
--- OUTSIDE RECORDS SUMMARY | 2024-08-03 19:06 | XMS_ITS | Encounter Summary ---
Author Organization [facility] [place] [address] Care Team Providers Care Direct Support Specialist Name Role Phone Riaz Hawkins MD Primary Care Provider [phone] Reason for Visit * Diagnostic Test (Routine) - Closed Specialty Diagnoses / Procedures Referred By Contac t Referred To Contact Radiology Diagnoses Ascending aorta dilatation Procedures CT Angiogram Chest (Non-Coronary) w Contrast CT Angiogram Chest (Non-Coronary) wwo Contrast Pravin Alan PA [facility] [place] [address] [facility] [place] [address] Referral ID Status Reason Start Date Expiration Date V isits Requested Visits Authorized [id number] Closed Specialty Service Requested 09/17/2021 03/18/2023 1 1 Encounter Details Date Type Department Care Team (Latest Contact Info) Description 11/28/2021 8:59 AM EST - 11/28/2021 11:59 PM EST Hospital [place] [address] Iglesia De La Cruz MD [facility] [place] [address] Ascending aorta dilatation Discharge Disposition: Home Social History Tobacco Use Types Packs/Day Years Used Date Smoking Tobacco: Never Smokeless Tobacco: Never Sex and Gender Information Value Date Recorded Sex Assigned at Not on file Gender Identity Not on file Sexual Orientation Not on file documented as of this encounter Medications at Time of Discharge Medication Sig Dispensed Refills Start Date End Date cholecalciferol, Vitamin D3, 50 mcg (2,000 unit) Capsule Take by mouth Daily. ezetimibe (Zetia) 10 mg Tablet Take 10 mg by mouth daily. 10/02/2021 atorvastatin (Lipitor) 40 mg Tablet Take 40 mg by mouth daily. 11/17/2021 aspirin 81 mg Tablet, Chewable Take 81 mg by mouth daily. carbidopa-levodopa (SINEMET CR) 25-100 mg Tablet Sustained Release Take 1.5 tablets by mouth 3 times daily. 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 Indications: Angina documented as of this encounter Plan of Treatment Not on file documented as of this encounter Procedures Procedure Name Priority Date/Time Associated Diagnosis Comments CT ANGIOGRAM OF CHEST (NON-CORONARY) W CONTRAST Routine 11/28/2021 9:30 AM EST Ascending aorta dilatation documented in this encounter Results * CT Angiogram Chest (Non-Coronary) w Contrast (11/28/2021 9:30 AM EST) Anatomical Region Laterality Modality Chest Computed Tomogra phy 11/28/2021 9:50 AM EST Impressions 11/28/2021 11:16 AM EST 5 cm maximum caliber smooth-walled ascending thoracic aorta. Thank you for letting us participate in the care of this patient. ??If you are a health care provider and have any questions regarding this report, please contact the number below. ??For patients who have questions please contact the health livestock caretaker that requested your imaging first. ? Electronically signed by: Regina Gregory MD, [facility] ([phone]), at 11/28/2021 11:16 AM Narrative 11/28/2021 11:16 AM EST EXAMINATION: CT ANGIOGRAM CHEST (NON-CORONARY)W CONTRAST CLINICAL HISTORY: Aortic disease, nontraumatic TECHNIQUE: Helical CT angiogram of the chest was performed following the intravenous administration of contrast. Administered 74.0 ml of OMNIPAQUE 350.00 mg/ml. Maximum intensity projection (MIP) were reformatted. 3D images were generated on an independent workstation. COMPARISON: December 01, 2019 FINDINGS: VASCULAR Heart: Cardiomegaly. No pericardial effusion. Moderate [place] coronary artery calcification. No aortic valve calcification. Aorta: Smooth-walled dilation ascending thoracic aorta. Unfolded course of the thoracic aorta stable. Caliber tapers through descending thoracic aortic segments. Maximum caliber based on centerline measurement of the ascending thoracic aorta 5 cm. This measured 4.5 x 4.9 cm in 2019 and 4.6 x 4.6 cm in 2018. Great vessels: No stenosis or aneurysm. Celiac/SMA: Stable 15 mm dilation of the celiac artery. Stable robust caliber splenic artery. NON-VASCULAR Lungs and large airways: Within normal limits. Pleura: Within normal limits. Mediastinum and katie: Within normal limits. Limited views of the upper abdomen: Large bilateral simple renal cysts persist. Osseous structures: Within normal limits. Procedure Note Regina Gregory MD - 11/28/2021 EXAMINATION: CT ANGIOGRAM CHEST (NON-CORONARY)W CONTRAST CLINICAL HISTORY: Aortic disease, nontraumatic TECHNIQUE: Helical CT angiogram of the chest was performed following the intravenous administration of contrast. Administered 74.0 ml of RQMCPUZXG768.00 mg/ml. Maximum intensity projection (MIP) were reformatted. 3D imageswere generated on an independent workstation. COMPARISON: December 01, 2019 FINDINGS: VASCULAR Heart: Cardiomegaly. No pericardial effusion. Moderate [place] coronaryartery calcification. No aortic valve calcification. Aorta: Smooth-walled dilation ascending thoracic aorta. Unfolded course ofthe thoracic aorta stable. Caliber tapers through descending thoracic aortic segments. Maximum caliber based on centerline measurement of theascending thoracic aorta 5 cm. This measured 4.5 x 4.9 cm in 2019 and 4.6 x 4.6 cmin 2018. Great vessels: No stenosis or aneurysm. Celiac/SMA: Stable 15 mm dilation of the celiac artery. Stable robustcaliber splenic artery. NON-VASCULAR Lungs and large airways: Within normal limits. Pleura: Within normal limits. Mediastinum and katie: Within normal limits. Limited views of the upper abdomen: Large bilateral simple renal cystspersist. Osseous structures: Within normal limits. IMPRESSION 5 cm maximum caliber smooth-walled ascending thoracic aorta. Thank you for letting us participate in the care of this patient. If youare a health care provider and have any questions regarding this report,please contact the number below. For patients who have questions please contactthe health livestock caretaker that requested your imaging first. Electronically signed by: Regina Gregory MD, [facility]([phone]), at 11/28/2021 11:16 AM Iglesia De La Cruz MD IMG CT ORDERABLES documented in this encounter Visit Diagnoses Diagnosis Ascending aorta dilatation Thoracic aortic ectasia documented in this encounter Administered Medications Inactive Administered Medications - up to 3 most recent administrations Medication Order MAR Action Action Date Dose Rate Site iohexoL (Omnipaque) (350 mg/mL) solution 0-200 mL 0-200 mL, Intravenous, ONCE PRN, 1 dose, Starting on Wed11/28/21 at 0933, Until Wed11/28/21 at 0933, Per Protocol, Warning Vesicant/Irritant Medication , Radiology Contrast, Routine Given 11/28/2021 9:33 AM EST 74 mLs documented in this encounter Care Teams Direct Support Specialist Relationship Specialty Start Date End Date Riaz Hawkins MD [address] [place] [address] PCP - General 12/01/10 documented as of this encounter
--- OUTSIDE RECORDS SUMMARY | 2024-08-03 19:06 | XMS_ITS | Encounter Summary ---
Author Organization [facility] Address [facility] [place] [address] Care Team Providers Care Electrical Assembly Technician Name Role Phone Riaz Hawkins MD Primary Care Provider [phone] Encounter Details Date Type Department Care Team (Late st Contact Info) Description 10/06/2023 8:20 PM EST Ancillary Procedure Radiology Library at [facility] [place] [id number] Iglesia De La Cruz MD [facility] [place]OTH[place] [address] Social History Tobacco Use Types Packs/Day Years Used Date Smoking Tobacco: Never Smokeless Tobacco: Never Sex and Gender Information Value Date Recorded Sex Assigned at Not on file Gender Identity Not on file Sexual Orientation Not on file documented as of this encounter Plan of Treatment Not on file documented as of this encounter Procedures Procedure Name Priority Date/Time Associated Diagnosis Comments FILM LIBRARY STORAGE ONLY CT CHEST ABDOMEN PELVIS Routine 10/06/2023 8:19 PM EST documented in this encounter Results * Film Library- Storage Only CT Chest Abdomen Pelvis (10/06/2023 8:19 PM EST) Narrative [facility] - 10/06/2023 8:19 PM EST This exam is auto-finalizing. It's purpose is for storage only. Iglesia De La Cruz MD IMG FILM LIBRARY O RDERABLES [place], [place] documented in this encounter Visit Diagnoses Not on filedocumented in this encounter Care Teams Electrical Assembly Technician Relationship Specialty Start Date End Date Riaz Hawkins MD [address] [place] [address] PCP - General 12/01/10 documented as of this encounter
--- OUTSIDE RECORDS SUMMARY | 2024-08-03 19:06 | XMS_ITS | Encounter Summary ---
Author Organization [facility] Address [facility] [place] [address] Care Team Providers Care Material Control Analyst Name Role Phone Riaz Hawkins MD Primary Care Provider [phone] Encounter Details Date Type Department Care Team (Late st Contact Info) Description 01/10/2024 11:30 AM EDT Office Visit [place] [phone] Iglesia De La Cruz MD [facility] [place] [address] Aneurysm of ascending aorta without rupture Social History Tobacco Use Types Packs/Day Years Used Date Smoking Tobacco: Never Smokeless Tobacco: Never Sex and Gender Information Value Date Recorded Sex Assigned at Not on file Gender Identity Not on file Sexual Orientation Not on file documented as of this encounter Last Filed Vital Signs Vital Sign Reading Time Taken Comments Blood Pressure 106/64 01/10/2024 11:15 AM EDT Pulse 63 01/10/2024 11:15 AM EDT Temperature - - Respiratory Rate - - Oxygen Saturation 98% 01/10/2024 11:15 AM EDT Inhaled Oxygen Concentration - - Weight 90.5 kg (199 lb 9.6 oz) 01/10/2024 11:15 AM EDT Height 182.9 cm (6') 01/10/2024 11:15 AM EDT Body Mass Index 27.07 01/10/2024 11:15 AM EDT documented in this encounter Progress Notes * Iglesia De La Cruz MD - 01/10/2024 11:30 AM EDT I am seeing Mr. Aguiar in followup HE is doing ok. HE had some problems with sciatica and a couple of falls. Parkinson's seems stable CT scan shows a stable ascending aorta at 4.7 cm today. Outpatient Medications Marked as Taking for the 01/10/24 encounter (Office Visit) with Iglesia De La Cruz MD Medication Sig Dispense Refill losartan (Cozaar) 25 mg tablet Take 25 mg by mouth daily. predniSONE (Deltasone) 2.5 mg tablet Take 2.5 mg by mouth daily. ondansetron (Zofran) 4 mg tablet Take 4 mg by mouth every 8 hours as needed for Nausea. cholecalciferol, Vitamin D3, 50 mcg (2,000 unit) Capsule Take by mouth Daily. ezetimibe (Zetia) 10 mg Tablet Take 10 mg by mouth daily. atorvastatin (Lipitor) 40 mg Tablet Take 40 mg by mouth daily. aspirin 81 mg Tablet, Chewable Take 81 mg by mouth daily. carbidopa-levodopa (SINEMET CR) 25-100 mg Tablet Sustained Release Take 1.5 tablets by mouth 3 times daily. metoprolol succinate (TOPROL-XL) 25 mg 24 hr tablet Take 25 mg by mouth daily. 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 Exam deferred A/P: The aorta remains stable. BP is good today! I would like to see him again in one year with repeat CT ANGIO CHEST. documented in this encounter Plan of Treatment Not on file documented as of this encounter Visit Diagnoses Diagnosis Aneurysm of ascending aorta without rupture documented in this encounter Care Teams Material Control Analyst Relationship Specialty Start Date End Date Riaz Hawkins MD [address] [place] [address] PCP - General 12/01/10 documented as of this encounter
--- OUTSIDE RECORDS SUMMARY | 2024-08-03 19:06 | XMS_ITS | Encounter Summary ---
[place] [address] Care Team Providers Care Community Coordinator For High [employer] Name Role Phone Riaz Hawkins MD Primary Care Provider [phone] Encounter Details Date Type Department Care Team (Latest Contact Info) Description 01/08/2023 7:35 AM EDT Laboratory Appointment Lab [address] [place] [phone] Aneurysm of ascending aorta without rupture Social [...] Procedure Name Priority Date/Time Associated Diagnosis Comments CREATININE Routine 01/08/2023 7:46 AM EDT Aneurysm of ascending aorta without rupture documented in this encounter Results * Creatinine (01/08/2023 7:46 AM EDT) Creatinine 0.96 0.80 - 1.50 mg/dL [facility] Est Glomerular Filtration Rate 82 >=60 mL/min/1. 73 m?? [facility] Comment: This patient's estimated GFR was [...] De La Cruz MD CHEMISTRY ORDERABL ES [facility] [place] [address] documented in this encounter Visit Diagnoses Diagnosis Aneurysm of ascending aorta without rupture documented in this encounter Care Teams Community Coordinator [employer] Relationship Specialty Start Date End Date Riaz Hawkins MD [address] [place] [address] PCP - General 12/01/10 documented as of this encounter
--- OUTSIDE RECORDS SUMMARY | 2024-08-03 19:06 | XMS_ITS | Encounter Summary ---
Author Organization [facility] [place] [address] Care Team Providers Care Assistant Women'S Rowing Coach Name Role Phone Riaz Hawkins MD Primary Care Provider [phone] Reason for Referral * Diagnostic Test (Routine) - Closed Specialty Diagnoses / Procedures Referred By Contac t Referred To Contact Radiology Diagnoses Aneurysm of ascending aorta without rupture Procedures CT Angiogram Chest (Non-Coronary) w Contrast CT Angiogram Chest (Non-Coronary) wwo Contrast Pravin Alan PA [facility] DR CARDIOTHORACIC [place] [address] [facility] [place] [address] Referral ID Status Reason Start Date Expiration Date V isits Requested Visits Authorized [id number] Closed Specialty Service Requested 08/11/2022 02/10/2024 1 1 Reason for Visit * Diagnostic Test (Routine) - Closed Specialty Diagnoses / Procedures Referred By Contac t Referred To Contact Radiology Diagnoses Aneurysm of ascending aorta without rupture Procedures CT Angiogram Chest (Non-Coronary) w Contrast CT Angiogram Chest (Non-Coronary) wwo Contrast Pravin Alan PA [facility] DR CARDIOTHORACIC [place] [address] [facility] [place] [address] Referral ID Status Reason Start Date Expiration Date V isits Requested Visits Authorized [id number] Closed Specialty Service Requested 08/11/2022 02/10/2024 1 1 Encounter Details Date Type Department Care Team (Latest Contact Info) Description 01/08/2023 8:38 AM EDT - 01/08/2023 11:59 PM EDT Hospital Encounter CT Scan [place] [facility] [place] [address] Iglesia De La Cruz MD [facility] DR CARDIOTHORACIC [place] [address] Aneurysm of ascending aorta without rupture Discharge Disposition: Home Social History Tobacco Use Types Packs/Day Years Used Date Smoking Tobacco: Never Smokeless Tobacco: Never Sex and Gender Information Value Date Recorded Sex Assigned at Not on file Gender Identity Not on file Sexual Orientation Not on file documented as of this encounter Medications at Time of Discharge Medication Sig Dispensed Refills Start Date End Date losartan (Cozaar) 25 mg tablet Take 25 [...] ANGIOGRAM OF CHEST (NON-CORONARY) W CONTRAST Routine 01/08/2023 9:40 AM EDT Aneurysm of ascending aorta without rupture documented in this encounter Results * CT [...] have questions please contact the health care partner that requested your imaging first. ? Narrative 01/08/2023 3:14 PM EDT EXAMINATION: CT [...] administration of contrast. Administered 75.0 ml of [id number] mg/ml. Maximum intensity projection (MIP) were reformatted. [...] who have questions please contactthe health care partner that requested your imaging first. Iglesia De La Cruz MD IMG CT ORDERABLES documented in this encounter Visit Diagnoses Diagnosis Aneurysm of ascending aorta without rupture documented in this encounter Administered Medications Inactive Administered Medications - up to 3 most recent administrations Medication Order MAR Action Action Date Dose Rate Site iohexoL (Omnipaque) (350 mg/mL) solution 0-200 mL 0-200 mL, Intravenous, ONCE PRN, 1 dose, Starting on Wed01/08/23 at 0940, Until Wed01/08/23 at 0940, Per Protocol, Warning Vesicant/Irritant Medication , Radiology Contrast, Routine Given 01/08/2023 9:40 AM EDT 75 mLs documented in this encounter Care Teams Assistant Women'S Rowing Coach Relationship Specialty Start Date End Date Riaz Hawkins MD [address] [place] [address] PCP - General 12/01/10 documented as of this encounter
--- OUTSIDE RECORDS SUMMARY | 2024-08-03 19:06 | XMS_ITS | Clinical Summary ---
Author Organization [facility] Address [facility] [place] [address] Care Team Providers Care Seed Core Operator Name Role Phone Riaz Hawkins MD Primary Care Provider [phone] Allergies Active Allergy Reactions Criticality Noted Date Comments Cedric Inhibitors 05/20/2017 Other reaction(s): Other (See Comments) Hypotension Medications Medication Sig Dispensed Refills Start Date End Date Status metoprolol succinate (TOPROL-XL) 25 mg 24 hr tabletIndications:pr event ventricular arrhythmia due to congenital long QT Take 25 mg by mouth daily. 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 Indications: Angina Active carbidopa-levodopa (SINEMET CR) 25-100 mg Tablet Sustained Release Take 1.5 tablets by mouth 3 times daily. Active aspirin 81 mg Tablet, Chewable Take 81 mg by mouth daily. Active cholecalciferol, Vitamin D3, 50 mcg (2,000 unit) Capsule Take by mouth Daily. Active ezetimibe (Zetia) 10 mg Tablet Take 10 mg by mouth daily. 10/02/2021 Active atorvastatin (Lipitor) 40 mg Tablet Take 40 mg by mouth daily. 11/17/2021 Active losartan (Cozaar) 25 mg tablet Take 25 mg by mouth daily. Active predniSONE (Deltasone) 2.5 mg tablet Take 2.5 mg by mouth daily. Active ondansetron (Zofran) 4 mg tablet Take 4 mg by mouth every 8 hours as needed for Nausea. 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/03/2010 CIS - Dyslipidemia 12/03/2010 CIS - Hypertension 12/03/2010 Immunizations Name Administration Dates Next Due Influenza Trivalent w/Preservative 08/05/2014 Social History Tobacco Use Types Packs/Day Years Used Date Smoking Tobacco: Never Smokeless Tobacco: Never Sex and Gender Information Value Date Recorded Sex Assigned at Not on file Gender Identity Not on file Sexual Orientation Not on file Last Filed Vital Signs Vital Sign Reading Time Taken Comments Blood Pressure 106/64 01/10/2024 11:15 AM EDT Pulse 63 01/10/2024 11:15 AM EDT Temperature - - Respiratory Rate 16 12/28/2011 2:58 PM EDT Oxygen Saturation 98% 01/10/2024 11:15 AM EDT Inhaled Oxygen Concentration - - Weight 90.5 kg (199 lb 9.6 oz) 01/10/2024 11:15 AM EDT Height 182.9 cm (6') 01/10/2024 11:15 AM EDT Body Mass Index 27.07 01/10/2024 11:15 AM EDT Plan of Treatment Health Maintenance Due Date Last Done Comments Hepatitis C Screening 1963 Tetanus/Diphtheria/Pertussis Vaccines (1 - Tdap) 07/30 Zoster vaccine (1 of 2) 1997 Advance Directive 2002 Pneumoccocal Vaccine: 65+ (1 of 1 - PCV) 2012 Covid-19 Vaccine (1 - 2022- season) 2024 Influenza (Flu) vaccine (1 o f 1 - Influenza standard series) 06/18/2024 08/05/2014 Care Teams Seed Core Operator Relationship Specialty Start Date End Date Riaz Hawkins MD [address] [address] [facility] - General 12/01/10
--- OUTSIDE RECORDS SUMMARY | 2024-08-03 19:06 | XMS_ITS | Encounter Summary ---
Author Organization [facility] [place] [address] Care Team Providers Care Paper Machine Supervisor Name Role Phone Riaz Hawkins MD Primary Care Provider [phone] Reason for Referral * Diagnostic Test (Routine) - Closed Specialty Diagnoses / Procedures Referred By Contac t Referred To Contact Radiology Diagnoses Aneurysm of ascending aorta without rupture Procedures CT Angiogram Chest (Non-Coronary) w Contrast CT Angiogram Chest (Non-Coronary) wwo Contrast Selma Pereyra PA [facility] [place] [address] [facility] [place] [address] Referral ID Status Reason Start Date Expiration Date V isits Requested Visits Authorized [id number] Closed Specialty Service Requested 09/21/2023 03/22/2025 1 1 Reason for Visit * Diagnostic Test (Routine) - Closed Specialty Diagnoses / Procedures Referred By Contac t Referred To Contact Radiology Diagnoses Aneurysm of ascending aorta without rupture Procedures CT Angiogram Chest (Non-Coronary) w Contrast CT Angiogram Chest (Non-Coronary) wwo Contrast Selma Pereyra PA [facility] [place] [address] [facility] [place] [address] Referral ID Status Reason Start Date Expiration Date V isits Requested Visits Authorized [id number] Closed Specialty Service Requested 09/21/2023 03/22/2025 1 1 Encounter Details Date Type Department Care Team (Latest Contact Info) Description 01/10/2024 10:19 AM EDT - 01/10/2024 11:59 PM EDT Hospital Encounter CT Scan at [facility] [place] [address] Iglesia De La Cruz MD [facility] [place] [address] Aneurysm of ascending aorta without rupture Discharge [...] ANGIOGRAM OF CHEST (NON-CORONARY) W CONTRAST Routine 01/10/2024 10:27 AM EDT Aneurysm of ascending aorta without [...] have questions please contact the health care transport nurse that requested your imaging first. ? Electronically signed by: Randall Richardson MD, [facility] ??([phone]), at 01/10/2024 2:49 PM Narrative 01/10/2024 2:49 [...] administration of contrast. Administered 74.0 ml of [id number] mg/ml. Maximum intensity projection (MIP) were reformatted. [...] who have questions please contactthe health care transport nurse that requested your imaging first. Electronically signed by: Ranadll Richardson MD, [facility]([phone]), at 01/10/2024 2:49 PM Iglesia De La [...] Intravenous, ONCE PRN, 1 dose, Starting on Wed01/10/24 at 1031, Until Wed01/10/24 at 1031, Per Protocol, Warning Vesicant/Irritant Medication , Radiology Contrast, Routine Given 01/10/2024 10:31 AM EDT 74 mLs documented in this encounter Care Teams Paper Machine Supervisor Relationship Specialty Start Date End Date Riaz Hawkins MD [address] [place] [address] PCP - General 12/01/10 documented as of this encounter
--- OUTSIDE RECORDS SUMMARY | 2024-08-03 19:06 | XMS_ITS | Encounter Summary ---
Author Organization [facility] Address [facility] [place] [address] Care Team Providers Care Chiller Operator Name Role Phone Riaz Hawkins MD Primary Care Provider [phone] Encounter Details Date Type Department Care Team (Late st Contact Info) Description 01/08/2023 11:30 AM EDT Office [place] [id number] Iglesia De La Cruz MD [facility] [place] [address] Aneurysm of ascending aorta without rupture Social History Tobacco Use Types Packs/Day Years Used Date Smoking Tobacco: Never Smokeless Tobacco: Never Sex and Gender Information Value Date Recorded Sex Assigned at Not on file Gender Identity Not on file Sexual Orientation Not on file documented as of this encounter Last Filed Vital Signs Vital Sign Reading Time Taken Comments Blood Pressure 120/84 01/08/2023 11:12 AM EDT Pulse 63 01/08/2023 11:12 AM EDT Temperature - - Respiratory Rate - - Oxygen Saturation 96% 01/08/2023 11:12 AM EDT Inhaled Oxygen Concentration - - Weight 88.9 kg (196 lb) 01/08/2023 11:12 AM EDT Height 182.9 cm (6') 01/08/2023 11:12 AM EDT Body Mass Index 26.58 01/08/2023 11:12 AM EDT documented in this encounter Progress Notes * Iglesia De La Cruz MD - 01/08/2023 11:30 AM EDT I am seeing Mr. Aguiar in followup. He is doing well. No new problems. Parkinsons has been stable. BP running ok, started losartan overthe last year. CT shows slightly smaller measure of the aorta at 4.6 x 4.8. Outpatient Medications Marked as Taking for the 01/08/23 encounter (Office Visit) with Iglesia De La Cruz MD Medication Sig Dispense Refill ??? losartan (Cozaar) 25 mg tablet Take 25 mg by mouth daily. ??? predniSONE (Deltasone) 2.5 mg tablet Take 2.5 mg by mouth daily. ??? ondansetron (Zofran) 4 mg tablet Take 4 mg by mouth every 8 hours as needed for Nausea. ??? ezetimibe (Zetia) 10 mg Tablet Take 10 mg by mouth daily. ??? atorvastatin (Lipitor) 40 mg Tablet Take 40 mg by mouth daily. ??? aspirin 81 mg Tablet, Chewable Take 81 mg by mouth daily. ??? carbidopa-levodopa (SINEMET CR) 25-100 mg Tablet Sustained Release Take 1.5 tablets by mouth 3 times daily. ??? metoprolol succinate (TOPROL-XL) 25 mg 24 hr tablet Take 25 mg by mouth daily. 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 nitroGLYcerin (NITROSTAT) 0.[address] 0.4 mg under the tongue every 5 minutes as needed. Indications: Angina Physical Exam: BP 120/84 Pulse 63 Ht 182.9 cm (6') Wt 88.9 kg (196 lb) SpO2 96% BMI 26.58 kg/m?? Exam deferred A/P: STable aorta, BP ok. I ould like to see him again in one year with repeat CT ANGIO CHEST documented in this encounter Plan of Treatment Not on file documented as of this encounter Visit Diagnoses Diagnosis Aneurysm of ascending aorta without rupture documented in this encounter Care Teams Chiller Operator Relationship Specialty Start Date End Date Riaz Hawkins MD [address] [place] [address] PCP - General 12/01/10 documented as of this encounter
--- OUTSIDE RECORDS SUMMARY | 2024-08-03 19:06 | XMS_ITS | Encounter Summary ---
[place] [address] Care Team Providers Care Citrix Engineer Name Role Phone Riaz Hawkins MD Primary Care Provider [phone] Encounter Details Date Type Department Care Team (Latest Contact Info) Description 01/10/2024 9:00 AM EDT Laboratory Appointment Lab [address] [place] [phone] Aneurysm of ascending aorta without rupture Social [...] Priority Date/Time Associated Diagnosis Comments CREATININE Routine 01/10/2024 9:18 AM EDT Aneurysm of ascending aorta without rupture documented in this encounter Results * Creatinine (01/10/2024 9:18 AM EDT) Creatinine 0.90 0.80 - 1.50 mg/dL [facility] Est Glomerular Filtration Rate 89 >=60 mL/min/1. 73 m?? [facility] Comment: This patient's estimated [...] De La Cruz MD CHEMISTRY ORDERABL ES [facility] [place] [address] documented in this encounter Visit Diagnoses Diagnosis Aneurysm of ascending aorta without rupture documented in this encounter Care Teams Citrix Engineer Relationship Specialty Start Date End Date Riaz Hawkins MD [address] [place] [address] PCP - General 12/01/10 documented as of this encounter
--- OUTSIDE RECORDS SUMMARY | 2024-08-03 19:07 | XMS_ITS | Encounter Summary ---
Author Organization [facility] [place] [address] Care Team Providers Care Vessel Scrapper Helper Name Role Phone Riaz Hawkins MD Primary Care Provider [phone] Reason for Referral * Diagnostic Test (Routine) - Closed Specialty Diagnoses / Procedures Referred By Contac t Referred To Contact Radiology Diagnoses Thoracic aortic aneurysm without rupture Procedures CT Angiogram Chest (Non-Coronary) w Contrast CT Angiogram Chest (Non-Coronary) wwo Contrast Jhon Garcia PA [facility] [place] [address] [facility] [place] [address] Referral ID Status Reason Start Date Expiration Date V isits Requested Visits Authorized [id number] Closed Specialty Service Requested 10/16/2019 04/16/2021 1 1 Encounter Details Date Type Department Care Team (Late st Contact Info) Description 10/16/2019 Orders [place] [address] Jhon Garcia PA [facility] [place] [address] Thoracic aortic aneurysm without rupture (Primary Dx) Social History Tobacco Use Types Packs/Day Years Used Date Smoking Tobacco: Never Smokeless Tobacco: Never Sex and Gender Information Value Date Recorded Sex Assigned at Not on file Gender Identity Not on file Sexual Orientation Not on file documented as of this encounter Plan of Treatment Not on file documented as of this encounter Results * CT Angiogram Chest (Non-Coronary) w Contrast (12/01/2019 1:05 PM EST) Anatomical Region Laterality Modality Chest Computed Tomogra phy Impressions 12/01/2019 3:36 PM EST 2 x 3 mm enlargement of smooth-walled dilated ascending thoracic aorta currently measuring maximum caliber of 4.5 x 4.9 cm based on centerline measurement. This has slowly enlarged since December 2010 when this measured 4.2 x 4.3 cm. 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 Thank you for letting us participate in the care of this patient. For questions regarding this report, please contact the number below. ? Narrative 12/01/2019 3:36 PM EST EXAMINATION: CT ANGIOGRAM CHEST (NON-CORONARY)W CONTRAST CLINICAL HISTORY: Thoracic aortic aneurysm (TAA), known, follow up TECHNIQUE: Helical CT angiogram of the chest was performed following the intravenous administration of contrast. Administered 65.0 ml of OMNIPAQUE 350.00 mg/ml. 3D images were generated on an independent workstation. COMPARISON: October 29, 2017 in December 2010. FINDINGS: VASCULAR Heart: Cardiomegaly persists without pericardial effusion. Aorta: Dilation of the ascending thoracic aorta to the aortic root. Maximum centerline caliber at the level of the aortic valves currently 4.7 cm. This has increased from prior of 4.3 cm. Maximum caliber based on centerline measurement the sinotubular ridge is 4 cm. Maximum centerline caliber of the smooth-walled dilated ascending thoracic aorta is 4.5 x 4.9 cm which has increased by 2 x 3 mm from prior when this measured 4.6 x 4.6 cm. Maximum transverse measurement of the smooth-walled dilated ascending thoracic aorta in December 2010 was 4.2 x 4.3 cm. The aorta remains ectatic to the arch from where this tapers expectedly through descending segments to the diaphragmatic hiatus. Contour stable. Great vessels: Widely patent. 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 Stability dating back to December 2010. NON-VASCULAR Lungs and large airways: Within normal limits. Pleura: No effusion. Mediastinum and katie: No hematoma. Limited views of the upper abdomen: Simple bilateral renal cysts. Osseous structures: Within normal limits. Procedure Note Regina Gregory MD - 12/01/2019 EXAMINATION: CT ANGIOGRAM CHEST (NON-CORONARY)W CONTRAST CLINICAL HISTORY: Thoracic aortic aneurysm (TAA), known, follow up TECHNIQUE: Helical CT angiogram of the chest was performed following the intravenous administration of contrast. Administered 65.0 ml of ZOBUMUHOB806.00 mg/ml. 3D images were generated on an independent workstation. COMPARISON: October 29, 2017 in December 2010. FINDINGS: VASCULAR Heart: Cardiomegaly persists without pericardial effusion. Aorta: Dilation of the ascending thoracic aorta to the aortic root.Maximum centerline caliber at the level of the aortic valves currently 4.7 cm.This has increased from prior of 4.3 cm. Maximum caliber based on centerlinemeasurement the sinotubular ridge is 4 cm. Maximum centerline caliber of thesmooth-walled dilated ascending thoracic aorta is 4.5 x 4.9 cm which has increased by 2x 3 mm from prior when this measured 4.6 x 4.6 cm. Maximum transverse measurementof the smooth-walled dilated ascending thoracic aorta in December 2010 was 4.2 x4.3 cm. The aorta remains ectatic to the arch from where this tapersexpectedly through descending segments to the diaphragmatic hiatus. Contour stable. Great vessels: Widely patent. Celiac/SMA: Stable moderate celiac artery origin stenosis. Stable distalceliac artery aneurysm to 1.5 cm. Stability dating back to December 2010. NON-VASCULAR Lungs and large airways: Within normal limits. Pleura: No effusion. Mediastinum and katie: No hematoma. Limited views of the upper abdomen: Simple bilateral renal cysts. Osseous structures: Within normal limits. IMPRESSION 2 x 3 mm enlargement of smooth-walled dilated ascending thoracic aortacurrently measuring maximum caliber of 4.5 x 4.9 cm based on centerline measurement.This has slowly enlarged since December 2010 when this measured 4.2 x 4.3 cm. 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 Thank you for letting us participate in the care of this patient. Forquestions regarding this report, please contact the number below. Electronically signed by: Regina Gregory [facility] [place] ([phone]),at 12/01/2019 3:36 PM Iglesia De La Cruz MD IMG CT ORDERABLES * Creatinine (12/01/2019 11:47 AM EST) Creatinine 1.01 0.80 - 1.50 mg/dL [facility] Est Glomerular Filtration Rate 74 >=60 mL/min/1.7 3 m?? [facility] Comment: The eGFR was calculated using the CKD-EPI equation. As with all creatinine based estimates of kidney function, eGFR values calculated with the CKD-EPI equation are not accurate in patients with acute kidney failure, extremes of body mass or the acutely ill. [email or web address] eGFR 86 >=60 mL/min/1.7 3 m?? [facility] Comment: The eGFR was calculated using the CKD-EPI equation. As with all creatinine based estimates of kidney function, eGFR values calculated with the CKD-EPI equation are not accurate in patients with acute kidney failure, extremes of body mass or the acutely ill. [email or web address] Blood specimen (specimen) 12/01/2019 11:47 AM EST 12/01/2019 11:53 AM EST Narrative Resulting Agency Comment Spec In Lab Iglesia De La Cruz MD [place] [address] documented in this encounter Visit Diagnoses Diagnosis Thoracic aortic aneurysm without rupture- Primary Thoracic aneurysm without mention of rupture Thoracic aortic aneurysm without rupture Thoracic aneurysm without mention of rupture documented in this encounter Care Teams Vessel Scrapper Helper Relationship Specialty Start Date End Date Riaz Hawkins MD [address] [place] [address] PCP - General 12/01/10 documented as of this encounter
--- OUTSIDE RECORDS SUMMARY | 2024-08-03 19:07 | XMS_ITS | Encounter Summary ---
Author Organization [facility] [place] [address] Care Team Providers Care Worm Packer Name Role Phone Riaz Hawkins MD Primary Care Provider [phone] Reason for Referral * Diagnostic Test (Routine) - Closed Specialty Diagnoses / Procedures Referred By Contac t Referred To Contact Radiology Diagnoses Aortic dilatation Procedures CT Angiogram Chest (Non-Coronary) CT Angiogram Of Chest (Non-Coronary) wwo Contrast Jozef Mills PA [facility] [place] [address] [facility] [place] [address] Referral ID Status Reason Start Date Expiration Date V isits Requested Visits Authorized [id number] Closed Specialty Service Requested 07/22/2017 07/22/2018 1 1 Reason for Visit * Diagnostic Test (Routine) - Closed Specialty Diagnoses / Procedures Referred By Contac t Referred To Contact Radiology Diagnoses Aortic dilatation Procedures CT Angiogram Chest (Non-Coronary) CT Angiogram Of Chest (Non-Coronary) wwo Contrast Jozef Mills PA [facility] [place] [address] [facility] [place] [address] Referral ID Status Reason Start Date Expiration Date V isits Requested Visits Authorized [id number] Closed Specialty Service Requested 07/22/2017 07/22/2018 1 1 Encounter Details Date Type Department Care Team (Latest Contact Info) Description 10/29/2017 1:34 PM EST - 10/29/2017 11:59 PM EST Hospital Encounter CT Scan at [facility] [place] [address] Iglesia De La Cruz MD [facility] [place] [address] Aortic dilatation Discharge Disposition: Home Social History Tobacco Use Types Packs/Day Years Used Date Smoking Tobacco: Never Smokeless Tobacco: Never Sex and Gender Information Value Date Recorded Sex Assigned at Not on file Gender Identity Not on file Sexual Orientation Not on file documented as of this encounter Medications at Time of Discharge Medication Sig Dispensed Refills Start Date End Date carbidopa-levodopa (SINEMET CR) 25-100 mg Tablet Sustained Release Take 1.5 tablets by mouth 3 times daily. 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 Indications: Angina atorvastatin (LIPITOR) 10 mg Tablet Take 10 mg by mouth daily. 11/28/2021 hydrochlorothiazide (MICROZIDE) 12.5 mg capsule Take 12.5 mg by mouth daily. 11/28/2021 aspirin 325 mg EC tablet Take 325 mg by mouth daily. 12/01/2019 documented as of this encounter Plan of Treatment Not on file documented as of this encounter Procedures Procedure Name Priority Date/Time Associated Diagnosis Comments CT ANGIOGRAM OF CHEST (NON-CORONARY) W CONTRAST Routine 10/29/2017 2:10 PM EST Aortic dilatation documented in this encounter Results * CT Angiogram Chest (Non-Coronary) (10/29/2017 2:10 PM EST) Anatomical Region Laterality Modality Chest Computed Tomogra phy Impressions 10/29/2017 4:29 PM EST Ascending aortic aneurysm is stable compared to the 06/28/2015 CT measuring 4.6 cm in maximum diameter. Narrative 10/29/2017 4:29 PM EST EXAMINATION: CT ANGIOGRAM CHEST (NON-CORONARY) CLINICAL HISTORY: follow up aortic dilation TECHNIQUE: Helical CT angiogram?of the chest was performed following intravenous administration of 63ml of Omnipaque 350.? 3D images were generated on an independent workstation. COMPARISON: CT of the chest on 06/28/2015 FINDINGS: VASCULAR Heart: The heart is normal in size. No pericardial effusion. There are moderate coronary artery calcifications predominantly in the left anterior descending. Aorta: No stenosis. The ascending aorta is dilated measuring up to 4.6 cm in diameter (previously 4.7 cm on 06/28/2015. Additional aortic measurements include 4.4 cm at the sinuses of Valsalva, 3.9 cm at the sinotubular junction, 3.8 cm at the proximal aortic arch, 3.3 cm in the proximal descending thoracic aorta, and 2.5 cm at the diaphragmatic hiatus. Great vessels: There is a conventional three-vessel arch anatomy. No stenosis or aneurysm is present within the proximally visualized great vessels. Celiac/SMA: There is a mild, 50% stenosis at the origin of the celiac with poststenotic dilation. There is variant hepatic artery anatomy with a replaced right hepatic artery from the superior mesenteric artery. The bilateral renal arteries are widely patent. NON-VASCULAR Lungs and large airways: There is a focal peripheral pleural-based opacity in the right middle lobe is the appearance of focal atelectasis. Alternatively an infection may be considered. Pleura: Within normal limits. Mediastinum and katie: Within normal limits. Limited views of the upper abdomen: Liver is normal in contour. There are large bilateral renal cysts which show some interval growth compared to the previous study. The largest measures 10 cm and is on the left kidney Osseous structures: Within normal limits. Procedure Note Mendel Perez MD - 10/29/2017 EXAMINATION: CT ANGIOGRAM CHEST (NON-CORONARY) CLINICAL HISTORY: follow up aortic dilation TECHNIQUE: Helical CT angiogram?of the chest was performed followingintravenous administration of 63ml of Omnipaque 350.? 3D images were generated on an independent workstation. COMPARISON: CT of the chest on 06/28/2015 FINDINGS: VASCULAR Heart: The heart is normal in size. No pericardial effusion. There aremoderate coronary artery calcifications predominantly in the left anteriordescending. Aorta: No stenosis. The ascending aorta is dilated measuring up to 4.6 cmin diameter (previously 4.7 cm on 06/28/2015. Additional aortic measurementsinclude 4.4 cm at the sinuses of Valsalva, 3.9 cm at the sinotubular junction, 3.8cm at the proximal aortic arch, 3.3 cm in the proximal descending thoracicaorta, and 2.5 cm at the diaphragmatic hiatus. Great vessels: There is a conventional three-vessel arch anatomy. Nostenosis or aneurysm is present within the proximally visualized great vessels. Celiac/SMA: There is a mild, 50% stenosis at the origin of the celiacwith poststenotic dilation. There is variant hepatic artery anatomy with areplaced right hepatic artery from the superior mesenteric artery. The bilateralrenal arteries are widely patent. NON-VASCULAR Lungs and large airways: There is a focal peripheral pleural-based opacityin the right middle lobe is the appearance of focal atelectasis.Alternatively an infection may be considered. Pleura: Within normal limits. Mediastinum and katie: Within normal limits. Limited views of the upper abdomen: Liver is normal in contour. There arelarge bilateral renal cysts which show some interval growth compared to theprevious study. The largest measures 10 cm and is on the left kidney Osseous structures: Within normal limits. IMPRESSION Ascending aortic aneurysm is stable compared to the 06/28/2015 CT measuring4.6 cm in maximum diameter. 4:29 PM Iglesia De La Cruz MD IMG CT ORDERABLES documented in this encounter Visit Diagnoses Diagnosis Aortic dilatation Aortic ectasia, unspecified site documented in this encounter Administered Medications Inactive Administered Medications - up to 3 most recent administrations Medication Order MAR Action Action Date Dose Rate Site iohexol (OMNIPAQUE) 350 mg/mL solution 0-200 mL 0-200 mL, Intravenous, ONCE PRN, 1 dose, Starting on Wed10/29/17 at 1359, Until Wed10/29/17 at 1401, Per Protocol, Warning Vesicant/Irritant Medication , Radiology Contrast, Routine Given 10/29/2017 2:01 PM EST 63 mLs documented in this encounter Care Teams Worm Packer Relationship Specialty Start Date End Date Riaz Hawkins MD [address] [place] [address] PCP - General 12/01/10 documented as of this encounter
--- OUTSIDE RECORDS SUMMARY | 2024-08-03 19:07 | XMS_ITS | Encounter Summary ---
Author Organization [facility] Address [facility] [place] [address] Care Team Providers Care Clinical Education Coordinator Name Role Phone Riaz Hawkins MD Primary Care Provider [phone] Encounter Details Date Type Department Care Team (Late st Contact Info) Description 12/28/2011 3:00 PM EDT Follow-Up [place] [address] CLINIC, Cristiana Solis MD [facility] CARDIOTHORAC[place] [address] Aortic aneurysm; Ascending aorta dilation Discharge Disposition: Home Social History Tobacco Use Types Packs/Day Years Used Date Smoking Tobacco: Never Smokeless Tobacco: Never Sex and Gender Information Value Date Recorded Sex Assigned at Not on file Gender Identity Not on file Sexual Orientation Not on file documented as of this encounter Last Filed Vital Signs Vital Sign Reading Time Taken Comments Blood Pressure 146/90 12/28/2011 2:58 PM EDT Pulse 54 12/28/2011 2:58 PM EDT Temperature - - Respiratory Rate 16 12/28/2011 2:58 PM EDT Oxygen Saturation 99% 12/28/2011 2:58 PM EDT Inhaled Oxygen Concentration - - Weight 83.9 kg (185 lb) 12/28/2011 2:58 PM EDT Height 180.3 cm (5' 11) 12/28/2011 2:58 PM EDT Body Mass Index 25.8 12/28/2011 2:58 PM EDT documented in this encounter Progress Notes * Cristiana De La Cruz MD - 12/28/2011 4:15 PM EDT I am seeing Mr. Aguiar in followup for ascending aortic dilation. Since I last saw him he has had no particular problems. He denies chest pain or angina. He has beenvery active. His BP has crept up just a bit. CT scan today shows an essentially unchanged 4.5 cm ascending aortic dilation with no rupture or dissection Outpatient prescriptions marked as taking for the 12/28/11 encounter (Follow-Up) with CRISTIANA DE LA CRUZ Medication Sig Dispense Refill ??? atorvastatin (LIPITOR) 40 mg tablet Take 20 mg by mouth daily. Half of a 40MG Tablet until finished. = 20 MG daily ??? MOMETASONE FUROATE (NASONEX NASL) by Nasal route. ??? guaifenesin (ROBITUSSIN) 100 mg/5 mL syrup Take 200 mg by mouth 2 times daily. ??? aspirin 325 mg EC tablet Take 325 mg by mouth daily. ??? metoprolol succinate (TOPROL-XL) 25 mg 24 hr tablet Take 25 mg by mouth daily. 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 nitroGLYcerin (NITROSTAT) 0.[address] 0.4 mg under the tongue every 5 minutes as needed. Indications: Angina ??? multivitamin (THERAGRAN) tablet ??? clopidogrel (PLAVIX) 75 mg tablet 75 MG = 1 Tablet(s), PO, Once daily ??? DISCONTD: atorvastatin (LIPITOR) 40 mg tablet 40 MG = 1 Tablet(s), PO, Once daily Physical Exam: BP 146/90 Pulse 54 Resp 16 Ht 180.3 cm (5' 11) Wt 83.915 kg (185 lb) BMI 25.80 kg/m2 SpO2 99% Lung CTA CV: RRR, no murmur No peripheral edema Intact and symmetric pulses A/P: Stable aneurysm at this time. He should check with Dr. Barnes before stopping plavix at this time. I am concerned about his BP increasing, I have asked him to keep a one month log of blood pressures and then review this with Dr. Hawkins. If he is getting real increases in his BP I would favor a second agent, rather than increasing his beta-khari dose. I would like to see him in one year with repeat CT scan of the chest with contrast. documented in this encounter Miscellaneous Notes * Miscellaneous - Singh, Benefits Consulting Analyst - 12/30/2011 12:49 PM EDT documented in this encounter Plan of Treatment Not on file documented as of this encounter Procedures Procedure Name Priority Date/Time Associated Diagnosis Comments CREATININE STAT 12/28/2011 1:33 PM EDT Aortic aneurysm documented in this encounter Results * Creatinine, serum (12/28/2011 1:33 PM EDT) Creatinine 0.81 0.80 - 1.50 mg/dL [facility] [employer] Est Glomerular Filtration Rate >60 >=60 [facility] [employer] Comment: The National Kidney Disease Education Program (NKDEP) has recommended all laboratories report estimated GFR (eGFR) along with plasma creatinine measurements to assist you with recognition of early kidney disease. Caveats: ??Plasma creatinine should be at steady-state (unchanged within the past week). For patients multiply eGFR by 1.2. The MDRD equation has not been validated for pediatric patients and is only valid for patients with age >= 18 years. At present, NKDEP does NOT recommend using the MDRD equation for drug dosing purposes and pharmacists should continue to use their current dosing methods. In addition, numerical eGFR values greater than 60 ml/min/1.73 square meters should be treated as > 60, and not an exact number due to greater inaccuracies at these higher values. Per NKDEP, they classify normal renal function as any GFR >60ml/min/1.73 square meters; chronic kidney disease when GFR <60, and renal failure when GFR <15. ??This calculation may not be valid for patients with atypical muscle mass (very lean or obese), acute renal failure, and in patients with diabetic kidney disease. References: http://nkdep.nih.gov/resources/NKDEP_Suggestn4Labs_0606_508.pdf http://www.kidney.org/professionals/kls/pdf/faq_gfr.pdf Blood specimen (specimen) 12/28/2011 1:33 PM EDT 12/28/2011 1:40 PM EDT Narrative Resulting Agency Comment Spec In Lab Cristiana De La Cruz MD CHEMISTRY ORDERABL ES [facility] documented in this encounter Visit Diagnoses Diagnosis Aortic aneurysm Aortic aneurysm of unspecified site without mention of rupture Ascending aorta dilation Thoracic aortic ectasia documented in this encounter Care Teams Clinical Education Coordinator Relationship Specialty Start Date End Date Riaz Hawkins MD [address] [place] [address] PCP - General 12/01/10 documented as of this encounter
--- OUTSIDE RECORDS SUMMARY | 2024-08-03 19:07 | XMS_ITS | Encounter Summary ---
Author Organization [facility] Address [facility] [place] [address] Care Team Providers Care Denial Resolution Specialist Name Role Phone Riaz Hawkins MD Primary Care Provider [phone] Encounter Details Date Type Department Care Team (Late st Contact Info) Description 06/03/2011 Orders [place] [id number] Iglesia De La Cruz MD [facility] DR CARDIOTHORACIC [place] [address] Aortic aneurysm (Primary Dx) Social History Tobacco Use Types Packs/Day Years Used Date Smoking Tobacco: Never Assessed Sex and Gender Information Value Date Recorded Sex Assigned at Not on file Gender Identity Not on file Sexual Orientation Not on file documented as of this encounter Plan of Treatment Not on file documented as of this encounter Results * Creatinine, serum (12/28/2011 1:33 PM EDT) Creatinine 0.81 0.80 - 1.50 mg/dL [facility] [employer] Est Glomerular Filtration Rate >60 >=60 [facility] [place] [employer] Comment: The National Kidney Disease Education Program [...] De La Cruz MD CHEMISTRY ORDERABL ES [facility] documented in this encounter Visit Diagnoses Diagnosis Aortic aneurysm- Primary Aortic aneurysm of unspecified site without mention of rupture documented in this encounter Care Teams Denial Resolution Specialist Relationship Specialty Start Date End Date Riaz Hawkins MD [address] [place] [address] PCP - General 12/01/10 documented as of this encounter
--- OUTSIDE RECORDS SUMMARY | 2024-08-03 19:07 | XMS_ITS | Encounter Summary ---
Author Organization [facility] Address [facility] [place] [address] Care Team Providers Care Cemetery Keeper Name Role Phone Riaz Hawkins MD Primary Care Provider [phone] Encounter Details Date Type Department Care Team (Late st Contact Info) Description 12/26/2010 8:30 AM EST Office Visit [place] [address] Iglesia De La Cruz MD [facility] [place] [address] Discharge Disposition: Home Social History Tobacco Use [...] on filedocumented in this encounter Care Teams Cemetery Keeper Relationship Specialty Start Date End Date Riaz Hawkins MD [address] [place] [address] PCP - General 12/01/10 documented as of this encounter
--- OUTSIDE RECORDS SUMMARY | 2024-08-03 19:07 | XMS_ITS | Encounter Summary ---
Author Organization [place] [address] Care Team Providers Care Transport Corps Officer Name Role Phone Riaz aHwkins MD Primary Care Provider [phone] Encounter Details Date Type Department Care Team (Latest Contact Info) Description 06/28/2015 12:32 PM EDT - 06/28/2015 11:59 PM EDT Hospital [place] [address] CLINIC, DR MONSON H/O ascending aorta repair Social History Tobacco Use Types Packs/Day Years Used Date Smoking Tobacco: Never Smokeless Tobacco: Never Sex and Gender Information Value Date Recorded Sex Assigned at Not on file Gender Identity Not on file Sexual Orientation Not on file documented as of this encounter Medications at Time of Discharge Medication Sig Dispensed Refills Start Date End Date metoprolol succinate (TOPROL-XL) 25 mg 24 hr tabletIndications: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 Indications: Angina hydrochlorothiazide (MICROZIDE) 12.5 mg capsule Take 12.5 mg by mouth daily. 11/28/2021 atorvastatin (LIPITOR) 40 mg tablet Take 20 mg by mouth daily. Half of a 40MG Tablet until finished. = 20 MG daily 10/29/2017 MOMETASONE FUROATE (NASONEX NASL) by Nasal route. 10/29/2017 aspirin 325 mg EC tablet Take 325 mg by mouth daily. 12/01/2019 documented as of this encounter Plan of Treatment Not on file documented as of this encounter Procedures Procedure Name Priority Date/Time Associated Diagnosis Comments CT ANGIOGRAM OF CHEST (NON-CORONARY) W CONTRAST Routine 06/28/2015 12:50 PM EDT H/O ascending aorta repair documented in this encounter Results * CTA of Chest (non-coronary) With Contrast (06/28/2015 12:50 PM EDT) Anatomical Region Laterality Modality Chest Computed Tomogra phy 06/28/2015 12:5 0 PM EDT Impressions 06/28/2015 3:28 PM EDT IMPRESSION: 1. 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 2. 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 This report was reviewed by Александр Block at 06/28/2015 3:23 PM Film and interpretation reviewed by the attending Narrative 06/28/2015 3:28 PM EDT EXAMINATION: CTA of Chest (non ??coronary) With Contrast CLINICAL HISTORY: f/u asc aortic dilation TECHNIQUE: CT angiogram of the chest with IV contrast, using 110 mL's of Omnipaque 350. 3-D reconstructions were performed on separate workstation and were essential for the interpretation of the study. COMPARISON: CT angiogram of the chest dated March 10, 2013, and CT angiogram of the chest dated December 28, 2011. FINDINGS: The ascending aorta measures 4.4 cm in diameter with a measurement of the descending aorta same level measuring 3 cm in (series 2 image 58 is present diameter unchanged since December 2010. The portion of the arch measured previously at the pulmonary ligament measures 3.3 cm in diameter (series 2 image 30) and is unchanged since February 2013. Lungs demonstrate bilateral dependent atelectasis no pleural effusion or opacities are seen. There is no mediastinal or hilar lymphadenopathy. There is no mediastinal or hilar lymphadenopathy. Pleura and pericardium are normal. Moderate cardiomegaly with extensive calcification of the coronary arteries. The liver, spleen, bilateral adrenals, pancreas, and gallbladder are normal. Bilateral kidneys demonstrate large simple cysts unchanged in size in the right hand side since December 2010. The largest cyst on left hand side has shown interval decrease in size since December 2010. Of note, the largest cyst on the left hand side is exophytic from the renal parenchyma extends up to and abuts the pancreas. The visualized portions of the stomach and small and large bowel are normal. 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 This is unchanged in size since December 2010. Procedure Note Александр Block MD - 06/28/2015 EXAMINATION: CTA of Chest (non coronary) With Contrast CLINICAL HISTORY: f/u asc aortic dilation TECHNIQUE: CT angiogram of the chest with IV contrast, using 110 mL's of Omnipaque 350. 3-D reconstructions were performed on separate workstationand were essential for the interpretation of the study. COMPARISON: CT angiogram of the chest dated March 10, 2013, and CT angiogramof the chest dated December 28, 2011. FINDINGS: The ascending aorta measures 4.4 cm in diameter with a measurement ofthe descending aorta same level measuring 3 cm in (series 2 image 58 ispresent diameter unchanged since December 2010. The portion of the arch measuredpreviously at the pulmonary ligament measures 3.3 cm in diameter (series 2 image 30)and is unchanged since February 2013. Lungs demonstrate bilateral dependent atelectasis no pleural effusion or opacities are seen. There is no mediastinal or hilar lymphadenopathy. There is no mediastinal or hilar lymphadenopathy. Pleura and pericardium are normal. Moderate cardiomegaly with extensive calcification of the coronary arteries. The liver, spleen, bilateral adrenals, pancreas, and gallbladder arenormal. Bilateral kidneys demonstrate large simple cysts unchanged in size in theright hand side since December 2010. The largest cyst on left hand side has shown interval decrease in size since December 2010. Of note, the largest cyst onthe left hand side is exophytic from the renal parenchyma extends up to andabuts the pancreas. The visualized portions of the stomach and small and large bowel arenormal. There is postostial aneurysmal dilatation of the celiac artery justproximal to the bifurcation, with a maximum diameter of 1.6 cm. This is unchanged insize since December 2010. IMPRESSION IMPRESSION: 1. 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 2. 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 This report was reviewed by Александр Block at 06/28/2015 3:23 PM Film and interpretation reviewed by the attending Iglesia De La Cruz MD IMG CT ORDERABLES documented in this encounter Visit Diagnoses Diagnosis H/O ascending aorta repair Personal history of surgery to heart and great vessels, presenting hazards to health documented in this encounter Administered Medications Inactive Administered Medications - up to 3 most recent administrations Medication Order MAR Action Action Date Dose Rate Site iohexol (OMNIPAQUE) 350 mg/mL solution 38,500 mg 38,500 mg (110 mL), Intravenous, ONCE PRN, 1 dose, Starting on Wed06/28/15 at 1242, Until Wed06/28/15 at 1243, Per Protocol, Routine Given 06/28/2015 12:43 PM EDT 38,500 mg documented in this encounter Care Teams Transport Corps Officer Relationship Specialty Start Date End Date Riaz Hawkins MD [address] [place] [address] PCP - General 12/01/10 documented as of this encounter
--- OUTSIDE RECORDS SUMMARY | 2024-08-03 19:07 | XMS_ITS | Encounter Summary ---
Author Organization [facility] Address [facility] [place] [address] Care Team Providers Care Product Marketing Director Name Role Phone Riaz Hawkins MD Primary Care Provider [phone] Reason for Visit * Reason Comments Medication Refill Encounter Details Date Type Department Care Team (Late st Contact Info) Description 08/20/2014 Refill Cardiology at [address] [phone] Tom Sanders MD [facility] [place] [address] Medication Refill Social History Tobacco Use Types Packs/Day Years [...] on filedocumented in this encounter Care Teams Product Marketing Director Relationship Specialty Start Date End Date Riaz Hawkins MD [address] [place] [address] PCP - General 12/01/10 documented as of this encounter
--- OUTSIDE RECORDS SUMMARY | 2024-08-03 19:07 | XMS_ITS | Encounter Summary ---
Author Organization [facility] [place] [address] Care Team Providers Care Forest Engineer Name Role Phone Riaz Hawkins MD Primary Care Provider [phone] Encounter Details Date Type Department Care Team (Latest Contact Info) Description 12/01/2010 2:07 PM EST - 12/03/2010 2:44 PM EST Hospital Encounter Intermediate [place] [address] Sae Jesus MD [facility] [place] [address] Discharge Disposition: Home Social History Tobacco Use Types Packs/Day Years Used Date Smoking Tobacco: Never Assessed Sex and Gender Information Value Date Recorded Sex Assigned at Not on file Gender Identity Not on file Sexual Orientation Not on file documented as of this encounter Plan of Treatment Not on file documented as of this encounter Procedures Procedure Name Priority Date/Time Associated Diagnosis Comments DIFFERENTIAL, AUTOMATED Routine 12/03/19 11 6:48 AM EST [place]IAC [place] Routine 12/03/2010 6:48 AM EST CBC (WITH DIFF) Routine 12/03/2010 6:48 AM EST ALANINE AMINOTRANSFERASE Routine 011 6:48 AM EST ASPARTATE AMINOTRANSFERASE Routine 12/03/2010 6:48 AM EST ALKALINE PHOSPHATASE Routine 12/03/2010 6:48 AM EST BASIC METABOLIC PANEL Routine 12/03/2010 6:48 AM EST CARDIAC EN[place]YMES [place] Routine 12/02/2010 12:10 PM EST DIFFERENTIAL, AUTOMATED Routine 12/02/19 11 3:57 AM EST CARDIAC ENZYMES [place] Routine 12/02/2010 3:57 AM EST APTT STAT 12/02/2010 3:57 AM EST CBC (WITH DIFF) Routine 12/02/2010 3:57 AM EST TSH Routine 12/02/2010 3:57 AM EST HEMOGLOBIN A1C Routine 12/02/2010 3:57 AM EST HEPATIC FUNCTION PANEL Routine 1 3:57 AM EST LIPID PANEL (REFLEX DIRECT LDL) Routine 12/02/2010 3:57 AM EST BASIC METABOLIC PANEL Routine 12/02/2010 3:57 AM EST CARDIAC ENZYMES [place] STAT 12/01/2010 8:27 PM EST APTT STAT 12/01/2010 8:27 PM EST DIFFERENTIAL, AUTOMATED Routine 12/01/19 11 7:10 PM EST CREATININE Routine 12/01/2010 7:10 PM EST CBC (WITH DIFF) Routine 12/01/2010 7:10 PM EST BUN Routine 12/01/2010 7:10 PM EST GLUCOSE Routine 12/01/2010 7:10 PM EST ELECTROLYTES PANEL Routine 12/01/2010 7: 10 PM EST documented in this encounter Results * (ABNORMAL) REFLEX LAB-A-DIFF (12/03/2010 6:48 AM EST) Neutrophil % 70.2 34.0 - 71.0 % [facility] MILLENNIUM Neutrophil Absolute 6.04 1.50 - 6.30 x10(3)/mc L [facility] MILLENNIUM Lymph % 17.9(L) 19.0 - 53.0 % [facility] MILLENNIUM Lymphocytes Abs 1.5 1.0 - 3.6 x10(3)/mc L [facility] MILLENNIUM Monocyte % 6.9 4.0 - 13.0 % [facility] MILLENNIUM Monocyte Abs 0.6 0.2 - 1.0 x10(3)/mc L [facility] MILLENNIUM Eos % 4.4 0.0 - 7.0 % [facility] MILLENNIUM Eosinophils Abs 0.4 0.0 - 0.5 x10(3)/mc L [facility] MILLENNIUM Basophil % 0.5 0.0 - 2.0 % [facility] MILLENNIUM Baso Absolute 0.0 0.0 - 0.2 x10(3)/mc L [facility] MILLENNIUM Immature Gran % 0.10 0.00 - 0.66 % [facility] MILLENNIUM Comment: Immature granulocytes(IG's)percentage and absolute count will include metamyelocytes, myelocytes, and promyelocytes. Blood smears from CBCs yielding IG's will be scanned manually for concordance. If this scan disagrees with the automated IG or if promyelocytes are noted, a manual differential will be performed. Immature Gran Absolute 0.01 0.00 - 0.05 x10(3)/mc L [facility] MILLENNIUM Blood specimen (specimen) 12/03/2010 6:48 AM EST 12/03/2010 7:06 AM EST Sae Evelio Jesus MD HEMATOLOGY ORDERABLE S [facility] * CARDIAC ENZYME PANEL (12/03/2010 6:48 AM EST) Pathologist [facility] Troponin-T <0.03 <=0.03 ng/mL [facility] Comment: 0.03 ng/mL: ??Represents the 99th percentile upper reference limit for normals >0.03 ng/mL: ??Elevated cardiac troponin T level indicative of myocardial damage Diagnosis of acute, evolving or recent MN requires a typical rise and gradual fall of cTnT with at least ONE of the following: a) ??Ischemic symptoms b) ??Development of pathologic Q waves on the ECG c) ??ECG changes indicative of ischemia (S-T segment elevation/depression) d) ??Coronary artery intervention Serial bloods should be obtained for testing on admission, at 6-9h and again at 12-24h if earlier samples are negative and the clinical index of suspicion is high. Reference [Myocardial infarction redefined a consensus document of the Joint Society of Cardiology/[place] College of Cardiology Committee for the redefinition of myocardial infarction. Journal of the [place] College of Cardiology 2000; 36: 959-969] Creatine Kinase 54 0 - 200 unit/L [facility] Blood specimen (specimen) 12/03/2010 6:48 AM EST 12/03/2010 7:06 AM EST Sae Jesus MD CHEMISTRY ORDERABLES [facility] * CBC (12/03/2010 6:48 AM EST) Pathologist [facility] White Blood Cell 8.6 4.0 - 10.0 x10(3)/mcL [facility] MILLENNIUM Red Blood Cell 4.68 4.63 - 6.08 x10(6)/mcL [facility] MILLENNIUM Hemoglobin 14.4 13.7 - 17.5 gm/dL [facility] Hematocrit 42.9 40.0 - 51.0 % [facility] Platelet 182 145 - 370 x10(3)/mcL [facility] MILL[facility] RDW Standard Deviation 41.9 35.0 - 46.0 fL [facility] MILL[facility] RDW coefficient of variation 12.5 10.9 - 14.4 % [facility] Mean Platelet Volume 10.6 9.0 - 12.0 fL [facility] Blood specimen (specimen) 12/03/2010 6:48 AM EST 12/03/2010 7:06 AM EST Sae Jesus MD HEMATOLOGY ORDERABLE S Performing Organization Address [facility] Phone Number [facility] * ASPARTATE AMINOTRANSFERASE (12/03/2010 6:48 AM EST) Aspartate Aminotransferase 19 0 - 39 unit/L [facility] Blood specimen (specimen) 12/03/2010 6:48 AM EST 12/03/2010 7:06 AM EST Sae Jesus MD CHEMISTRY ORDERABLES Performing Organization Address [facility] Number [facility] * ALANINE AMINOTRANSFERASE (12/03/2010 6:48 AM EST) Alanine Aminotransferase 15 0 - 55 unit/L [facility] Blood specimen (specimen) 12/03/2010 6:48 AM EST 12/03/2010 7:06 AM EST Sae Jesus MD CHEMISTRY ORDERABLES Performing Organization Address [facility] Number [facility] * ALKALINE PHOSPHATASE (12/03/2010 6:48 AM EST) Alkaline Phosphatase 40 40 - 120 unit/L [facility] Blood specimen (specimen) 12/03/2010 6:48 AM EST 12/03/2010 7:06 AM EST Sae Jesus MD CHEMISTRY ORDERABLES Performing Organization Address [facility] Phone Number [facility] * BASIC METABOLIC PANEL (NON-FASTING) (12/03/2010 6:48 AM EST) Glucose 106 <=199 mg/dL [facility] Comment:Diabetes: >=200 mg/d L plus symptoms Blood Urea Nitrogen 13 10 - 20 mg/dL [facility]ILLENNI[facility] Creatinine 0.85 0.80 - 1.50 mg/dL [facility]ILLEN[facility] Sodium 141 135 - 145 mmol/L [facility] Potassium 3.7 3.5 - 5.0 mmol/L [facility] Comment: Please note: ??Patients with WBC >100,000 may have falsely elevated Potassium levels. ??For accurate Potassium quantification in these patients send serum separator tube (gold top) for subsequent determinations. ??Contact the Clinical Chemistry Laboratory if there are any questions. Chloride 106 98 - 107 mmol/L [facility] MILLENNI[facility] Carbon Dioxide 26 22 - 31 mmol/L [facility] MILLENNI[facility] Anion Gap 9 5 - 15 mmol/L [facility] Calcium 9.0 8.5 - 10.5 mg/dL [facility] MILLENNI[facility] Est Glomerular Filtration Rate >60 >=60 [facility] Comment: The National Kidney Disease Education Program (NKDEP) has recommended all laboratories report estimated GFR (eGFR) along with plasma creatinine measurements to assist you with recognition of early kidney disease. Caveats: ??Plasma creatinine should be at steady-state (unchanged within the past week). ??Patient age > = 18 years, and for Americans multiply eGFR by 1.2. At present, NKDEP does NOT recommend using [...] disease. References: http://nkdep.nih.gov/resources/NKDEP_Suggestn4Labs_0606_508.pdf http://www.kidney.org/professionals/kls/pdf/faq_gfr.pdf Blood specimen (specimen) 12/03/2010 6:48 AM EST 12/03/2010 7:06 AM EST Sae Jesus MD CHEMISTRY ORDERABLES Performing Organization Address [facility] de Phone Number [facility] GALEANO * CARDIAC ENZYME PANEL (12/02/2010 12:10 PM EST) Pathologist [facility] Troponin-T <0.03 <=0.03 ng/mL [facility] GALEAN[facility] Comment: 0.03 ng/mL: ??Represents the 99th percentile upper reference limit for normals >0.03 ng/mL: ??Elevated cardiac troponin T level indicative of myocardial damage Diagnosis of acute, evolving or recent MN requires a typical rise and gradual fall of cTnT with at least ONE of the following: a) ??Ischemic symptoms b) ??Development of pathologic Q waves on the ECG c) ??ECG changes indicative of ischemia (S-T segment elevation/depression) d) ??Coronary artery intervention Serial bloods should be obtained for testing on admission, at 6-9h and again at 12-24h if earlier samples are negative and the clinical index of suspicion is high. Reference [Myocardial infarction redefined a consensus document of the Joint Society of Cardiology/[place] College of Cardiology Committee for the redefinition of myocardial infarction. Journal of the [place] College of Cardiology 2000; 36: 959-969] Creatine Kinase 61 0 - 200 unit/L [facility] GALEAN[facility] Blood specimen (specimen) 12/02/2010 12:10 PM EST 12/02/2010 12:29 PM EST Sae Jesus MD CHEMISTRY ORDERABLES Performing Organization Address [facility] de Phone Number [facility] GALEANO * REFLEX LAB-A-DIFF (12/02/2010 3:57 AM EST) Pathologist [facility] Neutrophil % 48.5 34.0 - 71.0 % [facility] Neutrophil Absolute 3.47 1.50 - 6.30 x10(3)/mcL [facility] MILLENNIUM Lymph % 38.6 19.0 - 53.0 % [facility] MILLENNIUM Lymphocytes Abs 2.8 1.0 - 3.6 x10(3)/mcL [facility] MILLENNIUM Monocyte % 6.2 4.0 - 13.0 % [facility] MILLENNIUM Monocyte Abs 0.4 0.2 - 1.0 x10(3)/mcL [facility] MILLENNIUM Eos % 6.0 0.0 - 7.0 % [facility] MILLENNIUM Eosinophils Abs 0.4 0.0 - 0.5 x10(3)/mcL [facility] MILLENNIUM Basophil % 0.6 0.0 - 2.0 % [facility] MILLENNIUM Baso Absolute 0.0 0.0 - 0.2 x10(3)/mcL [facility] MILLENNI[facility] Immature Gran % 0.10 0.00 - 0.66 % [facility]ILLENNI[facility] Comment: Immature granulocytes(IG's)percentage and absolute count will include metamyelocytes, myelocytes, and promyelocytes. Blood smears from CBCs yielding IG's will be scanned manually for concordance. If this scan disagrees with the automated IG or if promyelocytes are noted, a manual differential will be performed. Immature Gran Absolute 0.01 0.00 - 0.05 x10(3)/mcL [facility] Blood specimen (specimen) 12/02/2010 3:57 AM EST 12/02/2010 4:09 AM EST Sae Jesus MD HEMATOLOGY ORDERABLE S Performing Organization Address [facility] Phone Number [facility] * (ABNORMAL) APTT (12/02/2010 3:57 AM EST) Partial Thromboplastin Time 106(H) 25 - 37 sec [facility] Comment: Recommended therapeutic PTT range for full dose unfractionated heparin is 80-114 seconds. Blood specimen (specimen) 12/02/2010 3:57 AM EST 12/02/2010 4:10 AM EST Sae Jesus MD HEMATOLOGY ORDERABLE S Performing Organization Address [facility] Co de Phone Number [facility] * CARDIAC ENZYME PANEL (12/02/2010 3:57 AM EST) Pathologist [facility] Troponin-T <0.03 <=0.03 ng/mL [facility] Comment: 0.03 ng/mL: ??Represents the 99th percentile upper reference limit for normals >0.03 ng/mL: ??Elevated cardiac troponin T level indicative of myocardial damage Diagnosis of acute, evolving or recent MN requires a typical rise and gradual fall of cTnT with at least ONE of the following: a) ??Ischemic symptoms b) ??Development of pathologic Q waves on the ECG c) ??ECG changes indicative of ischemia (S-T segment elevation/depression) d) ??Coronary artery intervention Serial bloods should be obtained for testing on admission, at 6-9h and again at 12-24h if earlier samples are negative and the clinical index of suspicion is high. Reference [Myocardial infarction redefined a consensus document of the Joint Society of Cardiology/[place] College of Cardiology Committee for the redefinition of myocardial infarction. Journal of the [place] College of Cardiology 2000; 36: 959-969] Creatine Kinase 67 0 - 200 unit/L [facility]ILLENNI[facility] Blood specimen (specimen) 12/02/2010 3:57 AM EST 12/02/2010 4:09 AM EST Sae Jesus MD CHEMISTRY ORDERABLES [facility] * CBC (12/02/2010 3:57 AM EST) White Blood Cell 7.2 4.0 - 10.0 x10(3)/mcL [facility] MILLENNIUM Red Blood Cell 4.84 4.63 - 6.08 x10(6)/mcL [facility]ILLENNI[facility] Hemoglobin 15.2 13.7 - 17.5 gm/dL [facility] MILLENNIUM Hematocrit 44.8 40.0 - 51.0 % [facility] MILLENNIUM Platelet 178 145 - 370 x10(3)/mcL [facility] MILLENNIUM RDW Standard Deviation 42.6 35.0 - 46.0 fL [facility] MILLENNIUM RDW coefficient of variation 12.7 10.9 - 14.4 % [facility] MILLENNIUM Mean Platelet Volume 10.7 9.0 - 12.0 fL [facility] MILLENNI[facility] Blood specimen (specimen) 12/02/2010 3:57 AM EST 12/02/2010 4:09 AM EST Sae Jesus MD HEMATOLOGY ORDERABLE S Performing Organization Address [facility] de Phone Number [facility] * HEMOGLOBIN A1C (12/02/2010 3:57 AM EST) [facility] Hemoglobin A1c 5.3 4.3 - 6.1 % [facility] Estimated Average Glucose 105 mg/dL [facility] Comment: eAG equivalents for HbA1c percentages: HbA1c(%) ?eAG(mg/dL) 6.0 ?126 6.5 ?140 7.0 ?154 7.5 ?169 8.0 ?183 8.5 ?197 9.0 ?212 9.5 ?226 10.0 ? 240 Limitations: The eAG calculation has not been validated on women, individuals below 18 years old and above 70 years old, and individuals with hemoglobinopathies. Additional resources are available on the ADA website: ??http://professional.diabetes.org/glucosecalculator.aspx Reference: Rene MCKENZIE, Anne Marie J, Fili R, et al. ??Translating the A1C assay into estimated average glucose values. ??Diabetes Care 2008:31(8):2066-4970. Blood specimen (specimen) 12/02/2010 3:57 AM EST 12/02/2010 4:09 AM EST Sae Jesus MD CHEMISTRY ORDERABLES Performing Organization Address [facility] de Phone Number [facility] * TSH (12/02/2010 3:57 AM EST) Thyroid Stimulating Hormone 1.97 0.27 - 4.20 mcIU/mL [facility]ILLENNI[facility] Comment: Helena Cord Blood Reference Range: ??0.35 23.00 uIU/mL Blood specimen (specimen) 12/02/2010 3:57 AM EST 12/02/2010 4:09 AM EST Sae Jesus MD CHEMISTRY ORDERABLES [facility] * (ABNORMAL) LIPID PANEL (12/02/2010 3:57 AM EST) Cholesterol, Total 199 <=199 mg/dL [facility] MILLENNIUM Comment: Recommendations of the NCEP Adult Treatment Panel for the following risk cutoff thresholds for the [place] population: Desirable: <200 mg/dL Borderline High: 200-239 mg/dL High: > or = 240 mg/dL Triglyceride 119 <=149 mg/dL [facility] Comment: Reference Range: Normal triglycerides: ??<150 mg/dL Borderline high: ??150-199 mg/dL High: ??200-499 mg/dL Very high: ??>ir=942 mg/dL GARFIELD 2001; 285(19):6767-3246 HDL Cholesterol 64 >=40 mg/dL [facility] N[facility] MILLENNIUM Comment: Reference range: ??Low HDL: ?? < 40 mg/dL ??Normal: ?40-60 mg/dL ??Desirable: > 60 mg/dL GARFIELD 2001; 285(19):3115-3536 LDL Cholesterol 111(H) <=99 mg/dL [facility] MILLENNIUM Comment: Reference range: ?? Optimal: ?<100 mg/dL ?? Near Optimal/Above Optimal: ?? 100-129 mg/dL ?? Borderline high: ?130-159 mg/dL ?? High: ? 160-189 mg/dL ?? Very high: ?>vo=425 mg/dL [facility] 2001: 285(19):3429-9701 Cholesterol/HDL Ratio 3.1 ratio [facility] MILLENNIUM Comment: A Cholesterol to HDL ratio below 4:1 is desirable. ??Studies suggest that increased CAD risk occurs at ratios above 5 for females and above 6 for men. ? [place] Heart Association ??(http://www.americanheart.org) ? Jeanine Int Med, 1994; 121:641 ? AM J Med, 1998; 105(1A):48S Blood specimen (specimen) 12/02/2010 3:57 AM EST 12/02/2010 4:09 AM EST Sae Jesus MD CHEMISTRY ORDERABLES Performing Organization Address [facility] Phone Number [facility] STEARNSI[facility] * HEPATIC FUNCTION PANEL (12/02/2010 3:57 AM EST) Protein, Total 6.6 6.4 - 8.3 gm/dL [facility] MILLENNIUM Albumin 4.2 3.2 - 5.2 gm/dL [facility] MILLENNIUM Aspartate Aminotransferase 18 0 - 39 unit/L [facility] MILLENNIUM Alanine Aminotransferase 14 0 - 55 unit/L [facility] MILLENNIUM Alkaline Phosphatase 44 40 - 120 unit/L [facility] MILLENNI[facility] Bilirubin, Total 0.6 0.2 - 1.3 mg/dL [facility] MILLENNIUM Bilirubin, Direct 0.1 0.0 - 0.3 mg/dL [facility] MILLENNIUM Blood specimen (specimen) 12/02/2010 3:57 AM EST 12/02/2010 4:09 AM EST Sae Jesus MD CHEMISTRY ORDERABLES Performing Organization Address [facility] Co de Phone Number [facility] * BASIC METABOLIC PANEL (NON-FASTING) (12/02/2010 3:57 AM EST) Glucose 101 <=199 mg/dL [facility]ILL[facility] Comment:Diabetes: >=200 mg/d L plus symptoms Blood Urea Nitrogen 17 10 - 20 mg/dL [facility] MILLENNIUM Creatinine 0.98 0.80 - 1.50 mg/dL [facility] MILLENNIUM Sodium 139 135 - 145 mmol/L [facility]ILLENNI[facility] Potassium 4.0 3.5 - 5.0 mmol/L [facility] Comment: Please note: ??Patients with WBC >100,000 may have falsely elevated Potassium levels. ??For accurate Potassium quantification in these patients send serum separator tube (gold top) for subsequent determinations. ??Contact the Clinical Chemistry Laboratory if there are any questions. Chloride 105 98 - 107 mmol/L [facility] MILLENNIUM Carbon Dioxide 27 22 - 31 mmol/L [facility] MILLENNIUM Anion Gap 7 5 - 15 mmol/L [facility] MILLENNIUM Calcium 9.2 8.5 - 10.5 mg/dL [facility] MILLENNIUM Est Glomerular Filtration Rate >60 >=60 [facility]ILLENNI[facility] Comment: The National Kidney Disease Education Program (NKDEP) has recommended all laboratories report estimated GFR (eGFR) along with plasma creatinine measurements to assist you with recognition of early kidney disease. Caveats: ??Plasma creatinine should be at steady-state (unchanged within the past week). ??Patient age > = 18 years, and for Americans multiply eGFR by 1.2. At present, NKDEP does NOT recommend using [...] disease. References: http://nkdep.nih.gov/resources/NKDEP_Suggestn4Labs_0606_508.pdf http://www.kidney.org/professionals/kls/pdf/faq_gfr.pdf Blood specimen (specimen) 12/02/2010 3:57 AM EST 12/02/2010 4:09 AM EST Sae Jesus MD CHEMISTRY ORDERABLES Performing Organization Address [facility] de Phone Number [facility] * (ABNORMAL) APTT (12/01/2010 8:27 PM EST) Partial Thromboplastin Time 101(H) 25 - 37 sec [facility] Comment: Recommended therapeutic PTT range for full dose unfractionated heparin is 80-114 seconds. Blood specimen (specimen) 12/01/2010 8:27 PM EST 12/01/2010 8:50 PM EST Sae Jesus MD HEMATOLOGY ORDERABLE S Performing Organization Address [facility] Phone Number [facility] [employer] * CARDIAC ENZYME PANEL (12/01/2010 8:27 PM EST) Pathologist [facility] Troponin-T <0.03 <=0.03 ng/mL [facility] Comment: 0.03 ng/mL: ??Represents the 99th percentile upper reference limit for normals >0.03 ng/mL: ??Elevated cardiac troponin T level indicative of myocardial damage Diagnosis of acute, evolving or recent MN requires a typical rise and gradual fall of cTnT with at least ONE of the following: a) ??Ischemic symptoms b) ??Development of pathologic Q waves on the ECG c) ??ECG changes indicative of ischemia (S-T segment elevation/depression) d) ??Coronary artery intervention Serial bloods should be obtained for testing on admission, at 6-9h and again at 12-24h if earlier samples are negative and the clinical index of suspicion is high. Reference [Myocardial infarction redefined a consensus document of the Joint Society of Cardiology/[place] College of Cardiology Committee for the redefinition of myocardial infarction. Journal of the [place] College of Cardiology 2000; 36: 959-969] Creatine Kinase 76 0 - 200 unit/L [facility] Blood specimen (specimen) 12/01/2010 8:27 PM EST 12/01/2010 8:50 PM EST Sae Jesus MD CHEMISTRY ORDERABLES Performing Organization Address [facility] de Phone Number [facility]DA D[facility] * REFLEX LAB-A-DIFF (12/01/2010 7:10 PM EST) Neutrophil % 49.8 34.0 - 71.0 % [facility] Neutrophil Absolute 3.30 1.50 - 6.30 x10(3)/mcL [facility] MILLENNIUM Lymph % 40.5 19.0 - 53.0 % [facility] Lymphocytes Abs 2.7 1.0 - 3.6 x10(3)/mcL [facility] MILLENNIUM Monocyte % 4.5 4.0 - 13.0 % [facility] MILLENNIUM Monocyte Abs 0.3 0.2 - 1.0 x10(3)/mcL [facility] MILLENNIUM Eos % 4.4 0.0 - 7.0 % [facility] Eosinophils Abs 0.3 0.0 - 0.5 x10(3)/mcL [facility] MILLENNIUM Basophil % 0.6 0.0 - 2.0 % [facility] Baso Absolute 0.0 0.0 - 0.2 x10(3)/mcL [facility] Immature Gran % 0.20 0.00 - 0.66 % [facility] Comment: Immature granulocytes(IG's)percentage and absolute count will include metamyelocytes, myelocytes, and promyelocytes. Blood smears from CBCs yielding IG's will be scanned manually for concordance. If this scan disagrees with the automated IG or if promyelocytes are noted, a manual differential will be performed. Immature Gran Absolute 0.01 0.00 - 0.05 x10(3)/mcL [facility] Blood specimen (specimen) 12/01/2010 7:10 PM EST 12/01/2010 7:16 PM EST Sae Jesus MD HEMATOLOGY ORDERABLE S [facility] * GLUCOSE, RANDOM (12/01/2010 7:10 PM EST) Glucose 133 <=199 mg/dL [facility] Comment:Diabetes: >=200 mg/d L plus symptoms Blood specimen (specimen) 12/01/2010 7:10 PM EST 12/01/2010 7:16 PM EST Sae Jesus MD CHEMISTRY ORDERABLES [facility] * CBC (12/01/2010 7:10 PM EST) White Blood Cell 6.6 4.0 - 10.0 x10(3)/mcL [facility] MILLENNI[facility] Red Blood Cell 4.77 4.63 - 6.08 x10(6)/mcL [facility] Hemoglobin 15.0 13.7 - 17.5 gm/dL [facility] MILLENNIUM Hematocrit 43.8 40.0 - 51.0 % [facility] MILLENNIUM Platelet 186 145 - 370 x10(3)/mcL [facility] RDW Standard Deviation 42.1 35.0 - 46.0 fL [facility] MILLENNIUM RDW coefficient of variation 12.5 10.9 - 14.4 % [facility] MILLENNIUM Mean Platelet Volume 10.7 9.0 - 12.0 fL [facility] MILL[facility] Blood specimen (specimen) 12/01/2010 7:10 PM EST 12/01/2010 7:16 PM EST Sae Jesus MD HEMATOLOGY ORDERABLE S Performing Organization Address [facility] Co de Phone Number [facility] GALEAN[facility] * CREATININE, SERUM (12/01/2010 7:10 PM EST) Creatinine 1.00 0.80 - 1.50 mg/dL [facility] MILLENNIUM Est Glomerular Filtration Rate >60 >=60 [facility] MILLENNI[facility] Comment: The National Kidney Disease Education Program (NKDEP) has recommended all laboratories report estimated GFR (eGFR) along with plasma creatinine measurements to assist you with recognition of early kidney disease. Caveats: ??Plasma creatinine should be at steady-state (unchanged within the past week). ??Patient age > = 18 years, and for Americans multiply eGFR by 1.2. At present, NKDEP does NOT recommend using [...] disease. References: http://nkdep.nih.gov/resources/NKDEP_Suggestn4Labs_0606_508.pdf http://www.kidney.org/professionals/kls/pdf/faq_gfr.pdf Blood specimen (specimen) 12/01/2010 7:10 PM EST 12/01/2010 7:16 PM EST Sae Jesus MD CHEMISTRY ORDERABLES Performing Organization Address [facility] de Phone Number CERNER MILLENNIUM * BUN (12/01/2010 7:10 PM EST) Blood Urea Nitrogen 15 10 - 20 mg/dL CERNER MILLENNIUM Blood specimen (specimen) 12/01/2010 7:10 PM EST 12/01/2010 7:16 PM EST Sae Jesus MD CHEMISTRY ORDERABLES Performing Organization Address [facility] de Phone Number CERNER MILLENNIUM * ELECTROLYTE PANEL (12/01/2010 7:10 PM EST) Sodium 142 135 - 145 mmol/L CERNER MILLENNIUM Potassium 3.7 3.5 - 5.0 mmol/L CERNER MILLENNIUM Comment: Please note: ??Patients with WBC >100,000 may have falsely elevated Potassium levels. ??For accurate Potassium quantification in these patients send serum separator tube (gold top) for subsequent determinations. ??Contact the Clinical Chemistry Laboratory if there are any questions. Chloride 105 98 - 107 mmol/L CERNER MILLENNIUM Carbon Dioxide 29 22 - 31 mmol/L CERNER MILLENNIUM Anion Gap 8 5 - 15 mmol/L CERNER MILLENNIUM Blood specimen (specimen) 12/01/2010 7:10 PM EST 12/01/2010 7:16 PM EST Sae Jesus MD CHEMISTRY ORDERABLES ANSELMO GALEANO documented in this encounter Visit Diagnoses Not on filedocumented in this encounter Active and Recently Administered Medications Care Teams Forest Engineer Relationship Specialty Start Date End Date Riaz Hawkins MD [address] [place] [id number] PCP - General 12/01/10 documented as of this encounter
--- OUTSIDE RECORDS SUMMARY | 2024-08-03 19:07 | XMS_ITS | Clinical Summary ---
Author Organization [facility] Address [address] [place] [address] Care Team Providers Care Director Of Marketing Analytics Name Role Phone Jack Triplett MD Primary Care Provider [phone] Allergies Active Allergy Reactions Criticality Noted Date Comments Cedric Inhibitors Other (See Comments) 05/20/2017 Hypotension Unable To Assess 09/09/2015 Patient unsure of blood pressure medication. Says it lowered the bp too much. Medications Medication Sig Dispensed Refills Start Date End Date Status aspirin 81 mg EC tablet Take 1 Tablet by mouth daily. Active atorvastatin (LIPITOR) 40 mg tablet Take 1 Tablet by mouth daily. Active metoprolol (LOPRESSOR) 12.5 mg Take 1 Tablet by mouth daily. Active ezetimibe (ZETIA) 10 mg tablet Take 1 Tablet by mouth daily. Active LOSARTAN POTASSIUM, BULK, MISC 25 mg by misc (non-drug; combo route) route daily. Active naproxen sodium (ALEVE ORAL) Take by mouth as needed for Pain. Active acetaminophen (TYLENOL ARTHRITIS ORAL) Take by mouth as needed for Pain. Active DOMPERIDONE, BULK, MISC by misc (non-drug; combo route) route. Active TAMSulosin (FLOMAX) 0.4 mg capsule Take 1 Capsule by mouth daily. 12/30/2023 Active carbidopa-levodopa (RYTARY) 23.75-95 mg ER capsule Take 2 Capsules by mouth 3 times daily. 4caps in the morning , 3caps at lunch and 3caps at dinner Active Active Problems Problem Noted Date Diagnosed Date Constipation by delayed colonic transit 06/13/20 24 Nausea 06/13/2024 Dysphagia 06/13/2024 Daytime sleepiness 02/01/2017 Parkinson's disease ([facility]) 09/11/2015 Overview: Diagnosis 2015 Onset 2013 - right sided initial symptoms Treatment to date None Family history of brain aneurysm 09/11/2015 Overview: Family history of polycystic kidney disease Encounters Date Type Department Care Team Description 07/19/2024 Lab Requisition [facility] - [address] [address] Davina Daigle, Perianal venous thrombosis; Other constipation; Rectal prolapse; Residual hemorrhoidal skin tags; Other hemorrhoids 06/13/2024 10:30 EDT Office Visit [facility] - [address] [address] Kenia Goss, RIKI Parkinson's disease with dyskinesia, unspecified whether manifestations fluctuate ([facility]) (Primary Dx); Constipation by delayed colonic transit; Nausea; Dysphagia, unspecified type from Last 3 Months Medical History Medical History Date Comments Hypertension Strabismus Family History Medical History Relation Comments Blindness Neg Hx Glaucoma Neg Hx Macular Degeneration Neg Hx Social History Tobacco Use Types Packs/Day Years Used Date Smoking Tobacco: Never Smokeless Tobacco: Never Tobacco Cessation:Counseling Given: Not Answered Alcohol Use Standard Drinks/Week Comments Not Asked 0 (1 standard drink = 0.6 oz pur e alcohol) Interpersonal Safety Answer Date Record ed Physically Hurt Never 05/19/2020 Verbally Threaten Not on file 05/19/2020 Sex and Gender Information Value Date Recorded Sex Assigned at Not on file Gender Identity Male 08/30/2019 8:04 EST Sexual Orientation Not on file Obstetrics History Last Filed Vital Signs Vital Sign Reading Time Taken Comments Blood Pressure 118/62 06/13/2024 1022 EDT Pulse 56 06/13/2024 1022 EDT Temperature - - Respiratory Rate 16 06/13/2024 1022 EDT Oxygen Saturation 98% 06/13/2024 1022 EDT Inhaled Oxygen Concentration - - Weight 86.6 kg (191 lb) 06/13/2024 1022 EDT Height 182.9 cm (6') 07/20/2022 1626 EDT Body Mass Index 25.9 07/20/2022 1626 EDT Plan of Treatment Upcoming Encounters Date Type Department Care Team (Late st Contact Info) Description 09/18/2024 14:00 EST Office Visit [facility] [address] [id number] Dong Reid MD [address] [place] [address], [address] [place] [id number] 01/19/2025 10:15 EDT Office Visit [facility] [address] [address] Kenia Goss NP [address] [place] [address], [facility] [address] [place] [address] Health Maintenance Due Date Last Done Comments Hepatitis C Screen 1945 RSV Immunization ( o r 60+ Years) (1 - 1-dose 60+ series) 2007 Fall Risk Screening 02/25/2020 02/24/2019, 11/21/2018, 05/23/2018, Additional history exists COVID-19 Vaccine (2023-2 5 season) 2024 Procedures Procedure Name Priority Date/Time Associated Diagnosis Comments SURGICAL PATHOLOGY Today 07/18/2024 10 :14 EDT Perianal venous thrombosis Other constipation Rectal prolapse Residual hemorrhoidal skin tags Other hemorrhoids from Last 3 Months Results * SURGICAL PATHOLOGY (07/18/2024 10:14 EDT) Note to Patient The following pathology results have been interpreted by your pathologist and may be available to you before your health provider has had the opportunity to review them. Please allow time for your provider to receive these results and explore management options, if applicable. 07/21/2024 9:55 EDT [facility] Final Diagnosis A. COLON, 40 CMS, POLYP, BIOPSY: - Tubular adenoma. - Deeper sections x3 examined. B. HEMORRHOIDS, HEMORRHOIDECTOMY: - Hemorrhoids with features of prolapse showing erosion. 07/21/2024 9:55 [facility] Attestation By the signature below, the attending physician certifies that they have 1) personally conducted a gross and/or microscopic examination of the described specimen(s), and/or personally interpreted the results of laboratory testing of the described specimen(s), and 2) personally rendered or confirmed the above diagnosis. 07/21/2024 9:55 [facility] at 0955 Clinical History Screening/history of colon polyps, rectal prolapse/hemorrho id 07/21/2024 9:55 [facility] Gross Description A. Received in formalin labelled with proper patient identification (initials S, D) and ? polyp @ 40 cm? is a pale gunter tissue, 0.5 x 0.3 x 0.2 cm. Entirely submitted in A1. B. Received in formalin labelled with proper patient identification (initials S, D) and left anterior hemorrhoid +rectal prolapse is an irregular anocutaneous tissue, 2.5 x 2.4 x 1.8 cm. Mucosal and cutaneous surfaces are without areas of ulceration or mass lesions. Sections reveal dilated thrombosed vascular channels. Hydroelectric Mechanic sections are submitted in B1-B2. JAYME DA SILVA(ASCP) 07/19/2024 11:00 07/21/2024 9:55 T [facility] Performing Lab [facility] 07/21/2024 9:55 T [facility] Scanned Images 07/21/2024 9:55 T [facility] Tissue HEMORRHOIDS / Unknown 07/18/2024 10:14 EDT 07/19/2024 8:38 EDT Tissue specimen (specimen) HEMORRHOIDS / Unknown 07/18/2024 10:14 EDT 07/19/2024 8:40 EDT Davina Daigle DO PATHOLOGY ORDERABLES [facility] [address] [place] [address] from Last 3 Months Care Teams Director Of Marketing Analytics Relationship Specialty Start Date End Date Jack Triplett MD [address] [place] [address] PCP - General Emergency Medicine 06/13/24
--- OUTSIDE RECORDS SUMMARY | 2024-08-03 19:07 | XMS_ITS | Encounter Summary ---
Author Organization [facility] [place] [address] Care Team Providers Care Sound Tester Name Role Phone Riaz Hawkins MD Primary Care Provider [phone] Reason for Referral * Diagnostic Test (Routine) - Closed Specialty Diagnoses / Procedures Referred By Contac t Referred To Contact Radiology Diagnoses Thoracic aortic aneurysm without rupture Procedures CT Angiogram Chest (Non-Coronary) w Contrast CT Angiogram Chest (Non-Coronary) wwo Contrast Jhon Garcia PA [facility] DR CARDIOTHORACIC [place] [address] [facility] [place] [address] Referral ID Status Reason Start Date Expiration Date V isits Requested Visits Authorized [id number] Closed Specialty Service Requested 10/16/2019 04/16/2021 1 1 Reason for Visit * Diagnostic Test (Routine) - Closed Specialty Diagnoses / Procedures Referred By Contac t Referred To Contact Radiology Diagnoses Thoracic aortic aneurysm without rupture Procedures CT Angiogram Chest (Non-Coronary) w Contrast CT Angiogram Chest (Non-Coronary) wwo Contrast Jhon Garcia PA [facility] [address] CARDIOTHORACIC [place] [address] [facility] [place] [address] Referral ID Status Reason Start Date Expiration Date V isits Requested Visits Authorized [id number] Closed Specialty Service Requested 10/16/2019 04/16/2021 1 1 Encounter Details Date Type Department Care Team (Latest Contact Info) Description 12/01/2019 12:47 PM EST - 12/01/2019 11:59 PM EST Hospital Encounter CT Scan [place] [facility] [place] [address] Iglesia De La Cruz MD [facility] [address] CARDIOTHORACIC [place] [address] Thoracic aortic aneurysm without rupture Discharge Disposition: Home Social History Tobacco Use Types Packs/Day Years Used Date Smoking Tobacco: Never Smokeless Tobacco: Never Sex and Gender Information Value Date Recorded Sex Assigned at Not on file Gender Identity Not on file Sexual Orientation Not on file documented as of this encounter Medications at Time of Discharge Medication Sig Dispensed Refills Start Date End Date aspirin 81 mg Tablet, Chewable Take 81 [...] Take 12.5 mg by mouth daily. 11/28/2021 documented as of this encounter Plan of Treatment Not on file documented as of this encounter Procedures Procedure Name Priority Date/Time Associated Diagnosis Comments CT ANGIOGRAM OF CHEST (NON-CORONARY) W CONTRAST Routine 12/01/2019 1:05 PM EST Thoracic aortic aneurysm without rupture documented in this encounter Results [...] administration of contrast. Administered 65.0 ml of [id number] mg/ml. 3D images were generated on an [...] below. Electronically signed by: Regina Gregory [facility] ([phone]),at 12/01/2019 3:36 PM Iglesia De La Cruz MD IMG CT ORDERABLES documented in this encounter Visit Diagnoses Diagnosis Thoracic aortic aneurysm without rupture Thoracic aneurysm without mention of rupture documented in this encounter Administered Medications Inactive Administered Medications - up to 3 most recent administrations Medication Order MAR Action Action Date Dose Rate Site iohexoL (OMNIPAQUE) 350 mg/mL solution 0-200 mL 0-200 mL, Intravenous, ONCE PRN, 1 dose, Starting on Wed12/01/19 at 1252, Until Wed12/01/19 at 1306, Per Protocol, Warning Vesicant/Irritant Medication , Radiology Contrast, Routine Given 12/01/2019 1:06 PM EST 65 mLs documented in this encounter Care Teams Sound Tester Relationship Specialty Start Date End Date Riaz Hawkins MD [address] [place] [id number] PCP - General 12/01/10 documented as of this encounter
--- OUTSIDE RECORDS SUMMARY | 2024-08-03 19:07 | XMS_ITS | Encounter Summary ---
Author Organization [facility] Address [facility] [place] [address] Care Team Providers Care Guest Services Manager Name Role Phone Riaz Hawkins MD Primary Care Provider [phone] Encounter Details Date Type Department Care Team (Late st Contact Info) Description 12/23/2012 Orders Only [place] [address] Iglesia De La Cruz MD [facility] DR CARDIOTHORACIC [place] [address] Ascending aorta dilatation (Primary Dx) Social History Tobacco Use Types Packs/Day Years Used Date Smoking Tobacco: Never Smokeless Tobacco: Never Sex and Gender Information Value Date Recorded Sex Assigned at Not on file Gender Identity Not on file Sexual Orientation Not on file documented as of this encounter Plan of Treatment Not on file documented as of this encounter Results * CTA of Chest (non-coronary) With Contrast (03/10/2013 2:15 PM EDT) Anatomical Region Laterality Modality Chest Computed Tomogra phy 03/10/2013 2:15 PM EDT Narrative 03/10/2013 3:36 PM EDT Examination CTA of Chest (non - coronary) With Contrast Clinical History f/u dilated ascending aorta Comparison 12/28/2011. Technique Helical acquired axial images were obtained of the chest upper abdomen following the administration of intravenous contrast per CTA protocol. ??Coronal and sagittal MIP reformatted images as well as curved reformatted 3D reformatted images were generated. Contrast: ??110 mL Omnipaque 350. Findings CTA: Unchanged aneurysmal dilatation of the ascending thoracic aorta up to 4.5 cm as measured on coronal images 77. ??There is unchanged and the aortic arch measures up to 3.3 cm, unchanged. ??Descending thoracic aorta measures 3 cm, unchanged measured at the level of the right main pulmonary artery. Visualized upper abdominal aorta normal caliber. ??Origins of the great vessels widely patent as are the visualized vertebral arteries. Other findings: ??No airspace consolidation or pleural effusion. ??No discrete pulmonary nodule. Minimal dependent atelectasis at the lung bases. ??No pathologically enlarged mediastinal, hilar, axillary lymph nodes. ??Small amount of pericardial recess fluid is noted. ??Extensive coronary artery vascular calcifications are seen. ??No pericardial effusion. Visualized upper abdominal visceral notable for a partially imaged large exophytic bilateral renal cortical hypodensities with attenuation values slightly greater than simple fluid, favored to represent renal cysts, several of which are too small to accurately characterize. Review of bone windows demonstrates no suspicious osseous lesion or fracture. Impression Unchanged aneurysmal dilatation of the ascending thoracic aorta, as described. Extensive atherosclerotic vascular calcifications of the coronary arteries. Partially imaged exophytic bilateral renal cysts. Procedure Note Dong Colon MD - 03/10/2013 Examination CTA of Chest (non - coronary) With Contrast Clinical History f/u dilated ascending aorta Comparison 12/28/2011. Technique Helical acquired axial images were obtained of the chest upper abdomen following the administration of intravenous contrast per CTA protocol.Coronal and sagittal MIP reformatted images as well as curved reformatted 3D reformatted images were generated. Contrast: 110 mL Omnipaque 350. Findings CTA: Unchanged aneurysmal dilatation of the ascending thoracic aorta up to4.5 cm as measured on coronal images 77. There is unchanged and the aorticarch measures up to 3.3 cm, unchanged. Descending thoracic aorta measures 3cm, unchanged measured at the level of the right main pulmonary artery.Visualized upper abdominal aorta normal caliber. Origins of the great vessels widely patent as are the visualized vertebral arteries. Other findings: No airspace consolidation or pleural effusion. Nodiscrete pulmonary nodule. Minimal dependent atelectasis at the lung bases. No pathologically enlarged mediastinal, hilar, axillary lymph nodes. Smallamount of pericardial recess fluid is noted. Extensive coronary artery vascular calcifications are seen. No pericardial effusion. Visualized upper abdominal visceral notable for a partially imaged large exophytic bilateral renal cortical hypodensities with attenuation values slightly greater than simple fluid, favored to represent renal cysts,several of which are too small to accurately characterize. Review of bone windows demonstrates no suspicious osseous lesion orfracture. Impression Unchanged aneurysmal dilatation of the ascending thoracic aorta, asdescribed. Extensive atherosclerotic vascular calcifications of the coronaryarteries. Partially imaged exophytic bilateral renal cysts. Iglesia De La Cruz MD IMG CT ORDERABLES * Creatinine (03/10/2013 12:45 PM EDT) Creatinine 0.85 0.80 - 1.50 mg/dL ANSELMO GALEANO Comment: Please note that the pediatric reference intervals supplied above were not validated at [facility]. Results from pediatric patients should be interpreted in conjunction to the patient's age, height and muscle mass. Est Glomerular Filtration Rate >60 >=60 ANSELMO GALEANO Comment: This estimated GFR (eGFR) value was calculated using the MDRD equation which has been validated on patients between the ages of 18 and 70. The MDRD should not be used to assess kidney function in patients < 18 years of age or in patients with extremes of body mass, or in patients with acute kidney failure. This value should be multiplied by 1.2 for patients. For further information please copy and paste the following links into your internet browser. http://www.nkdep.nih.gov/lab-evaluation.shtml http://www.kidney.org/professionals/ Blood specimen (specimen) 03/10/2013 12:45 PM EDT 03/10/2013 12:48 PM EDT Narrative Resulting Agency Comment Spec In Lab Iglesia De La rCuz MD CHEMISTRY ORDERABL ES ANSELMO GALEANO documented in this encounter Visit Diagnoses Diagnosis Ascending aorta dilatation- Primary Thoracic aortic ectasia Ascending aorta dilatation Thoracic aortic ectasia documented in this encounter Care Teams Guest Services Manager Relationship Specialty Start Date End Date Riaz Hawkins MD [address] [place] [id number] PCP - General 12/01/10 documented as of this encounter
--- OUTSIDE RECORDS SUMMARY | 2024-08-03 19:07 | XMS_ITS | Encounter Summary ---
Author Organization [facility] Address [address] [place] [address] Care Team Providers Care Commercial Or Institutional Cleaner Name Role Phone Jack Triplett MD Primary Care Provider [phone] Encounter Details Date Type Department Care Team (Late st Contact Info) Description 07/19/2024 Lab Requisition [facility] Pathology & Laboratory Medicine - [address] [address] Davina Daigle, DO [address] [place] [address] Perianal venous thrombosis; Other constipation; Rectal prolapse; Residual hemorrhoidal skin tags; Other hemorrhoids Social History Tobacco Use Types Packs/Day Years Used Date Smoking Tobacco: Never Smokeless Tobacco: Never Alcohol Use Standard Drinks/Week Comments Not Asked 0 (1 standard drink = 0.6 oz pur e alcohol) Interpersonal Safety Answer Date Record ed Physically Hurt Never 05/19/2020 Verbally Threaten Not on file 05/19/2020 Sex and Gender Information Value Date Recorded Sex Assigned at Not on file Gender Identity Male 08/30/2019 8:04 EST Sexual Orientation Not on file documented as of this encounter Functional Status Functional Status Response Date of Assess ment Because of a physical, menta l, or emotional condition, does this person have difficulty doing errands alone such as visiting a doctor's office or shopping? No 05/20/2017 Cognitive Status Response Date of Assessm ent Because of a physical, menta l, or emotional condition, does this person have serious difficulty concentrating, remembering, or making decisions? No 05/20/2017 documented as of this encounter Plan of Treatment Upcoming Encounters Date Type Department Care Team (Late st Contact Info) Description 09/18/2024 14:00 EST Office Visit [facility] Neurology [address] [id number] Dong Reid MD 1 [facility], [facility] [address] [place] [id number] 01/19/2025 10:15 EDT Office Visit [facility] Neurology [address] [address] Kenia Goss NP [address] [place] [address] 2 [place] [address] documented as of this encounter Procedures Procedure Name Priority Date/Time Associated Diagnosis Comments SURGICAL PATHOLOGY Today 07/18/2024 10 :14 EDT Perianal venous thrombosis Other constipation Rectal prolapse Residual hemorrhoidal skin tags Other hemorrhoids documented in this encounter Results * SURGICAL PATHOLOGY (07/18/2024 10:14 EDT) Note to Patient The following pathology results have been interpreted by your pathologist and may be available to you before your health provider has had the opportunity to review them. Please allow time for your provider to receive these results and explore management options, if applicable. 07/21/2024 9:55 EDT [facility] Final Diagnosis A. COLON, 40 CMS, POLYP, BIOPSY: - Tubular adenoma. - Deeper sections x3 examined. B. HEMORRHOIDS, HEMORRHOIDECTOMY: - Hemorrhoids with features of prolapse showing erosion. 07/21/2024 9:55 T [facility] Attestation By the signature below, the attending physician certifies that they have 1) personally conducted a gross and/or microscopic examination of the described specimen(s), and/or personally interpreted the results of laboratory testing of the described specimen(s), and 2) personally rendered or confirmed the above diagnosis. 07/21/2024 9:55 EDT [facility] at 0955 Clinical History Screening/history of colon polyps, rectal prolapse/hemorrho id 07/21/2024 9:55 EDT [facility] Gross Description A. Received in [...] lesions. Sections reveal dilated thrombosed vascular channels. [employer]eral [employer] General Manager sections are submitted in B1-B2. JAYME DA SILVA(ASCP) 07/19/2024 11:00 07/21/2024 9:55 EDT [facility] Performing Lab [facility] 07/21/2024 9:55 EDT [facility] Scanned Images 07/21/2024 9:55 T [facility] Tissue HEMORRHOIDS / Unknown 07/18/2024 10:14 EDT 07/19/2024 8:38 EDT Tissue specimen (specimen) HEMORRHOIDS / Unknown 07/18/2024 10:14 EDT 07/19/2024 8:40 EDT Davina Daigle DO PATHOLOGY ORDERABLES [facility] [address] [place] [address] documented in this encounter Visit Diagnoses Diagnosis Perianal venous thrombosis External thrombosed hemorrhoids Other constipation Rectal prolapse Residual hemorrhoidal skin tags Other hemorrhoids documented in this encounter Care Teams Commercial Or Institutional Cleaner Relationship Specialty Start Date End Date Jack Triplett MD [address] [facility] [address] [place] [phone] PCP - General Emergency Medicine 06/13/24 documented as of this encounter
--- OUTSIDE RECORDS SUMMARY | 2024-08-03 19:07 | XMS_ITS | Encounter Summary ---
Author Organization [facility] Address [facility] [place] [address] Care Team Providers Care Cpo Name Role Phone Riaz Hawkins MD Primary Care Provider [phone] Encounter Details Date Type Department Care Team (Late st Contact Info) Description 03/10/2013 2:50 PM EDT Follow-[place] [address] Iglesia De La Cruz MD [facility] [place] [address] Ascending aorta dilatation (Primary Dx) Social History Tobacco Use Types Packs/Day Years Used Date Smoking Tobacco: Never Smokeless Tobacco: Never Sex and Gender Information Value Date Recorded Sex Assigned at Not on file Gender Identity Not on file Sexual Orientation Not on file documented as of this encounter Last Filed Vital Signs Vital Sign Reading Time Taken Comments Blood Pressure 130/100 03/10/2013 2:41 PM EDT Pulse 60 03/10/2013 2:41 PM EDT Temperature - - Respiratory Rate - - Oxygen Saturation 94% 03/10/2013 2:41 PM EDT Inhaled Oxygen Concentration - - Weight 88 kg (194 lb) 03/10/2013 2:41 PM EDT Height 180.3 cm (5' 11) 03/10/2013 2:41 PM EDT Body Mass Index 27.06 03/10/2013 2:41 PM EDT documented in this encounter Progress Notes * Iglesia De La Cruz MD - 03/10/2013 3:20 PM EDT I am seeing Mr. Aguiar in followup of a dilated ascending aorta. In general he has been doing well since I last saw him. He denies chest pain or shortness of breath. He has had some recurrent tendon injuries recently and is in a walking cast. CT scan today shows no change in a 4.4-4.5 cm ascending aortic dilation. Outpatient Prescriptions Marked as Taking for the 03/10/13 encounter (Follow-Up) with Iglesia De La Cruz MD Medication Sig Dispense Refill ??? hydrochlorothiazide (MICROZIDE) 12.5 mg capsule Take 12.5 mg by mouth daily. ??? atorvastatin (LIPITOR) 40 mg tablet Take [...] as needed. Indications: Angina Physical Exam: BP 130/100 Pulse 60 Ht 180.3 cm (5' 11) Wt 87.998 kg (194 lb) BMI 27.06 kg/m2 SpO2 94% Lung: CTA CV: RRR, without murmur No edema Intact peripheral pulses A/P: Doing well with no real change in aortic diameter. I think he can go for two years before repeat imaging. I would plan to see him in two years with repeat CT scan of the chest. I suspect his BP is not accurate today and wouldn't change anything right now based on that number. documented in this encounter Plan of Treatment Not on file documented as of this encounter Visit Diagnoses Diagnosis Ascending aorta dilatation- Primary Thoracic aortic ectasia documented in this encounter Care Teams Cpo Relationship Specialty Start Date End Date Riaz Hawkins MD [address] [place] [address] PCP - General 12/01/10 documented as of this encounter
--- OUTSIDE RECORDS SUMMARY | 2024-08-03 19:07 | XMS_ITS | Encounter Summary ---
[place] [address] Care Team Providers Care Video Control Engineer Name Role Phone Riaz Hawkins MD Primary Care Provider [phone] Encounter Details Date Type Department Care Team (Late st Contact Info) Description 07/21/2017 Orders [place] [address] Kenia Barber Social History Tobacco Use Types Packs/Day Years [...] on filedocumented in this encounter Care Teams Video Control Engineer Relationship Specialty Start Date End Date Riaz Hawkins MD [address] [place] [address] PCP - General 12/01/10 documented as of this encounter
--- OUTSIDE RECORDS SUMMARY | 2024-08-03 19:07 | XMS_ITS | Encounter Summary ---
[place] [address] Care Team Providers Care Soccer Referee Name Role Phone Riaz Hawkins MD Primary Care Provider [phone] Encounter Details Date Type Department Care Team (Latest Contact Info) Description 12/01/2019 11:45 AM EST Laboratory Appointment Lab [address] [place] [id number] Thoracic aortic aneurysm without rupture Social History Tobacco Use Types [...] Procedure Name Priority Date/Time Associated Diagnosis Comments HC VENIPUNCTURE Routine 12/01/2019 11:47 AM EST Thoracic aortic aneurysm without rupture documented in this encounter Results * Creatinine (12/01/2019 11:47 AM EST) Creatinine 1.01 0.80 - 1.50 mg/dL [facility] Est Glomerular Filtration Rate 74 >=60 mL/min/1.7 3 m?? [facility] Comment: The eGFR was calculated using the CKD-EPI equation. As with all creatinine based estimates of kidney function, eGFR values calculated with the CKD-EPI equation are not accurate in patients with acute kidney failure, extremes of body mass or the acutely ill. [email or web address] eGFR 86 >=60 mL/min/1.7 3 m?? [facility] Comment: The eGFR was calculated using the CKD-EPI equation. As with all creatinine based estimates of kidney function, eGFR values calculated with the CKD-EPI equation are not accurate in patients with acute kidney failure, extremes of body mass or the acutely ill. [email or web address] Blood specimen (specimen) 12/01/2019 11:47 AM EST 12/01/2019 11:53 AM EST Narrative Resulting Agency Comment Spec In Lab Iglesia De La Cruz MD CHEMISTRY ORDERABL ES [facility] [place] [address] documented in this encounter Visit Diagnoses Diagnosis Thoracic aortic aneurysm without rupture Thoracic aneurysm without mention of rupture documented in this encounter Care Teams Soccer Referee Relationship Specialty Start Date End Date iRaz Hawkins MD [address] [place] [id number] PCP - General 12/01/10 documented as of this encounter
--- OUTSIDE RECORDS SUMMARY | 2024-08-03 19:07 | XMS_ITS | Encounter Summary ---
Author Organization [facility] Address [address] [place] [address] Care Team Providers Care Distributor Of Directories Name Role Phone Jack Triplett MD Primary Care Provider [phone] Reason for Visit * Reason Comments Follow-up Encounter Details Date Type Department Care Team ([facility] st Contact Info) Description 06/13/2024 10:30 EDT Office Visit [facility] Neurology - S [address] [id number] Kenia Goss NP 1 [facility] 2 [place] [address] Parkinson's disease with dyskinesia, unspecified whether manifestations fluctuate (HCC-CMS) (Primary Dx); Constipation by delayed colonic transit; Nausea; Dysphagia, unspecified type Social History Tobacco Use Types Packs/Day Years [...] kg (191 lb) 06/13/2024 1022 EDT Height - - Body Mass Index 25.9 07/20/2022 1626 EDT documented in this encounter Functional Status Functional Status Response [...] No 05/20/2017 documented as of this encounter Patient Instructions * Patient Instructions* Kenia Goss NP - 06/13/2024 10:30 EDT Constipation management suggestions: The goal is to have a substantial bowel movement without significant straining every other day Diet / Hydration: -consume at least 1 liter of water per day - increase consumption of roughage (indigestable fiber containing foods - fruits, vegetables, legumes/beans) - prunes, prune juice, plum juice ( eg [place] smart) -apples /apple juice/apple cider OR pears / pear juice - these contain a non- absorbable sugar alcohol called sorbitol - which acts as a non-stimulant laxative - a single cup of coffee each morning or midday - caffeine stimulates digestive system motility - flax seed oil. Add 1 tbsp. oil to 8 or more ounces of orange juice and mix well. You can also useyogurt and fresh fruit instead to make a healthy smoothie. - Constipation Relief Recipe provided called Zannel. Recipe: 1 cup unprocessed bran, 1 cup applesauce, 3/4 cup Prune juice. Mix together and refrigerate- Serving recommendation: 1-2 tablespoons/day Lssy-agj-bgclvdx remedies: - add these individually first, but these can all be used safely in combination. 1. Docusate sodium 100-300 mg daily. Stool softener - safe to take each day. 2. Polyethylene Glycol (MiraLAX). 1/4-1 capful (17grams) each day. 3. Glycerin suppository. If you are experiencing the urge to have a bowel movement but are unable to pass it, this is an as needed option to be used as needed. Avoid regular daily use of stimulant or irritant laxative (eg bisacodyl, senna /senna extracts, castor oil, or cascara). If you experience >72 without a substantial bowel movement, as needed use of OTC bisacodyl suppository or oral treatment is appropriate. Prescriptions alternatives are available - but these suggestions would be the place to begin. Safe Swallowing Precautions: Sit fully upright when eating and drinking Small bites/small sips Cut food up into smaller bite-sized pieces Slow pace Alternate sips of liquid every 1-3 bites of food Fully chew food before swallowing Add sauces, gravy, or condiments to dry food to increase moisture and mobility Turn off all distractions (TV, radio, etc.) during mealtimes documented in this encounter Progress Notes * Kenia Goss NP - 06/13/2024 1030 EDT Images from the original note were not included. Primary Care: Jack Triplett [address] [place] [address] [place] [id number] Reason for visit: ICD-10-CM ICD-9-CM 1. Parkinson's disease with dyskinesia, unspecified whether manifestations fluctuate ([facility]) G20.B1 332.0 2. Constipation by delayed colonic transit K59.01 564.01 3. Nausea R11.0 787.02 4. Dysphagia, unspecified type R13.10 787.20 ASSESSMENT & PLAN / RECOMMENDATIONS PARKINSON'S DISEASE: Overall improved with recent transition to Rytary. Denies motor fluctuations and overall feels more stable. Ongoing issues with nausea/bloating and more so, straining/constipation/hemorrhoids (upcoming surgery). No significant improvement in bloating with addition of domperidone TID (he subsequently discontinued). CONSTIPATION: --Increase colace to 2 capsules as instructed by GI. --Addition of Miralax, as discussed. --Additional patient instructions provided. NAUSEA/BLOATING: Ongoing despite transition to Rytary. Could could consider addition of another prokinetic agent such as Motegrity. DYSPHAGIA: Mild to solids, no diet modifications. No difficulty with liquids. No choking episodes. --Future consideration of STRATEGY INTERN consult discussed. No orders of the defined types were placed in this encounter. Patient Instructions Constipation management suggestions: The goal is to have a substantial bowel movement without significant straining every other day Diet / Hydration: -consume at least 1 liter of water per day - increase consumption of roughage (indigestable fiber containing foods - fruits, vegetables, legumes/beans) - prunes, prune juice, plum juice ( eg [place] smart) -apples /apple juice/apple cider OR pears / pear juice - these contain a non- absorbable sugar alcohol called sorbitol - which acts as a non-stimulant laxative - a single cup of coffee each morning or midday - caffeine stimulates digestive system motility - flax seed oil. Add 1 tbsp. oil to 8 or more ounces of orange juice and mix well. You can also useyogurt and fresh fruit instead to make a healthy smoothie. - Constipation Relief Recipe provided called Zannel. Recipe: 1 cup unprocessed bran, 1 cup applesauce, 3/4 cup Prune juice. Mix together and refrigerate- Serving recommendation: 1-2 tablespoons/day Eytu-uty-vejsqdu remedies: - add these individually first, but these can all be used safely in combination. 1. Docusate sodium 100-300 mg daily. Stool softener - safe to take each day. 2. Polyethylene Glycol (MiraLAX). 1/4-1 capful (17grams) each day. 3. Glycerin suppository. If you are experiencing the urge to have a bowel movement but are unable to pass it, this is an as needed option to be used as needed. Avoid regular daily use of stimulant or irritant laxative (eg bisacodyl, senna /senna extracts, castor oil, or cascara). If you experience >72 without a substantial bowel movement, as needed use of OTC bisacodyl suppository or oral treatment is appropriate. Prescriptions alternatives are available - but these suggestions would be the place to begin. Safe Swallowing Precautions: Sit fully upright when eating and drinking Small bites/small sips Cut food up into smaller bite-sized pieces Slow pace Alternate sips of liquid every 1-3 bites of food Fully chew food before swallowing Add sauces, gravy, or condiments to dry food to increase moisture and mobility Turn off all distractions (TV, radio, etc.) during mealtimes Return for follow-up: As scheduled with Dr. Reid in September HPI: Returns for: Follow up Accompanied to visit by: , Donna Last visit: 03/06/24. Transition to Rytary Interim change: --Things feel more steady with the transition to Rytary. Denies significant motor fluctuations. -- Ongoing issues with constipation/hemorrhoids. Surgical repair scheduled for July 18. Current bowel regimen: 1 capsule of docusate daily. GI recommended increase to 2 capsules. Also doing prunes,high fiber. --No improvement in nausea/bloating with addition of domperidone. Took scheduled TID x 1+ month without benefit. --40 minute nap daily. --Sleeping well at night aside from nocturia (1-2x/night) --Some apathy, periods of feeling glum. 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 Thinking about getting back into writing. ROS: MOTOR SYMPTOMS Motor fluctuations: Improved overall with transition to Rytary. Less OFF time. Levodopa-induced dyskinesias: Occasional, mild, upper trunk and head sway. As needed fluctuation treatment: None Falls: None since last visit Assistive devices: walking sticks for outdoor uneven ground Dysarthria: Low volume Dysphagia: Mild to solids - no diet modifications. No difficulty with liquids. No choking episodes. NON-MOTOR SYMPTOMS: Nausea / bloating: See above Constipation- Largest issue presently. With significant hemorrhoids and upcoming surgical repair. Rare Dream enactment Apathy Nocturia Urinary frequency Drooling/too much saliva Pertinent Medications: MEDICATION / DOSE 06:00 AM 11:00 AM 05:00 PM carbidopa-levodopa ER (RYTARY) 23.75-95 mg 4 3 3 Current Outpatient Medications Medication Sig Dispense Refill acetaminophen (TYLENOL ARTHRITIS ORAL) Take by mouth as needed for Pain. aspirin 81 mg EC tablet Take 1 Tablet by mouth daily. atorvastatin (LIPITOR) 40 mg tablet Take 1 Tablet by mouth daily. carbidopa-levodopa (RYTARY) 23.75-95 mg ER capsule Take 2 Capsules by mouth 3 times daily. 4caps inthe morning , 3caps at lunch and 3caps at dinner DOMPERIDONE, BULK, MISC by misc (non-drug; combo route) route. (Patient not taking: Reported on 06/13/2024) ezetimibe (ZETIA) 10 mg tablet Take 1 Tablet by mouth daily. LOSARTAN POTASSIUM, BULK, MISC 25 mg by misc (non-drug; combo route) route daily. metoprolol (LOPRESSOR) 12.5 mg Take 1 Tablet by mouth daily. naproxen sodium (ALEVE ORAL) Take by mouth as needed for Pain. TAMSulosin (FLOMAX) 0.4 mg capsule Take 1 Capsule by mouth daily. No current facility-administered medications for this visit. Allergies Allergen Reactions Cedric Inhibitors Other (See Comments) Hypotension Unable To Assess Patient unsure of blood pressure medication. Says it lowered the bp too much. OBJECTIVE Vital Signs Patient Vitals for the past 24 hrs: BP Pulse Resp SpO2 Weight 06/13/24 1022 118/62 56 16 98 % 86.6 kg (191 lb) General Physical Examination Well-appearing, in no acute distress Pleasant and interactive Eyes without icterus or injection. Normocephalic, atraumatic head and neck. 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 UPDRS-III Motor Examination Section Factor Score 18 Speech 1 -Slight loss of expression, diction and/or volume. 19 Facial expression 1 -Minimal hypomimia. Could be normal Poker Face. 20 Tremor at rest: Face, lips, chin 0 -Absent. Hands: right 0 -Absent. Hands: left 0 -Absent. Feet: right 0 -Absent. Feet: left 0 -Absent. 21 Action tremor: right 0 -Absent. left 0 -Absent. 22 Rigidity: Neck 1 -Slight or detectable only when activated by mirror or other movements. Upper extremity: right 2 -Mild to moderate. Upper extremity: left 1 -Slight or detectable only when activated by mirror or other movements. Lower extremity: right 2 -Mild to moderate. Lower extremity: left 2 -Mild to moderate. 23 Finger taps: right 1 -Mild slowing and/or reduction in amplitude. Finger taps: left 1 -Mild slowing and/or reduction in amplitude. 24 Hand cell builder: right 1 -Mild slowing and/or reduction in amplitude. Hand cell builder: left 1 -Mild slowing and/or reduction in amplitude. 25 Hand pronate/supinate: right 0 -Normal. left 1 -Mild slowing and/or reduction in amplitude. 26 Leg agility: right 1 -Mild slowing and/or reduction in amplitude. left 1 -Mild slowing and/or reduction in amplitude. 27 Arise from chair 0 -Normal. 28 Posture 1 -Not quite erect, slightly stooped posture. Could be normal for older person. 29 Gait 1 -Walks slowly, may shuffle with short steps, but no festination (hastening steps) or propulsion. 30 Postural stability 0 -Normal. 31 Body bradykinesia 1 -Minimal slowness, giving movement a deliberate character. Could be normal for some persons. Possibly reduced amplitude. Sec 18 to 31 total: 20 Data: ATTESTATION I spent a total of 60 minutes on the date of this encounter meeting with the patient and reviewing documentation/coordinating care as described in the above note. Patient/occasional caregiver education Review of the pertinent information in the electronic health record Care plan formulation Supportive counseling as described in the assessment and plan Documentation of the visit YOEL Reynoso Movement Disorder Provider, [facility] ([facility] Address: [address] [place] [id number] documented in this encounter Plan of Treatment Upcoming Encounters Date Type Department Care Team ([facility] st Contact Info) Description 09/18/2024 14:00 EST Office Visit [facility] Neurology - [address] [address] Dong Reid MD [address] [place] [address], [facility] [address] [place] [address] 01/19/2025 10:15 EDT Office Visit [facility] Neurology - [address] [id number] Kenia Goss NP 1 [facility], [address] [place] [phone] documented as of this encounter Visit Diagnoses Diagnosis Parkinson's disease with dyskinesia, unspecified whether manifestations fluctuate ([facility])- Primary Constipation by delayed colonic transit Slow transit constipation Nausea Nausea alone Dysphagia, unspecified type documented in this encounter Discontinued Medications Medication Sig Discontinue Reason Start Date End Da te carbidopa-levodopa (SINEMET) 25-100 mg per tablet Take 2 Tablets by mouth 3 times daily. May also take 0.5-1 Tablets daily as needed for Other (overnight toward morning). Therapy completed 03/06/2024 06/13/2024 Miscellaneous Medication - See Admin Instructions Domperidone 10 mg tab; 1 tab PO TID Therapy completed 05/26/2023 06/13/2024 predniSONE (DELTASONE) 1 mg tablet Take 5 Tablets by mouth daily. Therapy completed 06/13/2024 documented as of this encounter Historical Medications * This list may reflect changes made after this encounter. Medication Sig Dispensed Refills Start Date End Date carbidopa-levodopa (RYTARY) 23.75-95 mg ER capsule Take 2 Capsules by mouth 3 times daily. 4caps in the morning , 3caps at lunch and 3caps at dinner added in this encounter Care Teams Distributor Of Directories Relationship Specialty Start Date End Date Jack Triplett MD [address] [place] [address] PCP - General Emergency Medicine 06/13/24 documented as of this encounter
--- OUTSIDE RECORDS SUMMARY | 2024-08-03 19:07 | XMS_ITS | Encounter Summary ---
Author Organization [facility] Address [facility] [place] [address] Care Team Providers Care Physical Therapist Assistant Name Role Phone Riaz Hawkins MD Primary Care Provider [phone] Encounter Details Date Type Department Care Team (Latest Contact Info) Description 03/10/2013 1:54 PM EDT - 03/10/2013 11:59 PM EDT Hospital [place] [address] CLINIC, Dong Guzman MD [facility] [place] [address] Ascending aorta dilatation Discharge Disposition: Home Social [...] daily. 12/01/2019 documented as of this encounter Miscellaneous Notes * Miscellaneous - Provider, Scanning - 03/16/2013 9:11 AM EDT documented in this encounter Plan of Treatment Not on file documented as of this encounter Procedures Procedure Name Priority Date/Time Associated Diagnosis Comments CT ANGIOGRAM OF CHEST (NON-CORONARY) W CONTRAST Routine 03/10/2013 2:15 PM EDT Ascending aorta dilatation documented in this encounter Results * CTA [...] Date Dose Rate Site iohexol (OMNIPAQUE) 350 mg iodine/mL injection 38,500 mg 38,500 mg (110 mL), Intravenous, ONCE PRN, 1 dose, Starting on Wed03/10/13 at 1407, Until Wed03/10/13 at 1407, Per Protocol, Routine Given 03/10/2013 2:07 PM EDT 38,500 mg documented in this encounter Care Teams Physical Therapist Assistant Relationship Specialty Start Date End Date Riaz Hawkins MD [address] [place] [address] PCP - General 12/01/10 documented as of this encounter
--- OUTSIDE RECORDS SUMMARY | 2024-08-03 19:07 | XMS_ITS | Encounter Summary ---
Author Organization [facility] [place] [address] Care Team Providers Care Cement Finisher Helper Name Role Phone Riaz Hawkins MD Primary Care Provider [phone] Encounter Details Date Type Department Care Team (Latest Contact Info) Description 12/26/2010 7:58 AM EST - 12/26/2010 11:59 PM [facility] Hospital [place] [address] CLINIC, Sae Singh MD [facility] [place] [address] Discharge Disposition: Home Social History Tobacco Use Types Packs/Day Years Used Date Smoking Tobacco: Never Assessed Sex and Gender Information Value Date Recorded Sex Assigned at Not on file Gender Identity Not on file Sexual Orientation Not on file documented as of this encounter Medications at Time of Discharge Medication Sig Dispensed Refills Start Date End Date atorvastatin (LIPITOR) 40 mg tablet 40 MG = 1 Tablet(s), PO, Once daily 12/26/2010 12/28/2011 documented as of this encounter Plan of Treatment Not on file documented as of this encounter Visit Diagnoses Not on filedocumented in this encounter Care Teams Cement Finisher Helper Relationship Specialty Start Date End Date Riaz Hawkins MD [address] [place] [address] PCP - General 12/01/10 documented as of this encounter
--- OUTSIDE RECORDS SUMMARY | 2024-08-03 19:07 | XMS_ITS | Encounter Summary ---
Author Organization [facility] [place] [address] Care Team Providers Care Files Supervisor Name Role Phone Riaz Hawkins MD Primary Care Provider [phone] Encounter Details Date Type Department Care Team (Latest Contact Info) Description 12/28/2011 2:23 PM EDT - 12/28/2011 11:59 PM EDT Hospital [place] [address] Ascending aorta dilation Social History Tobacco Use Types Packs/Day Years [...] minutes as needed. Indications: Angina atorvastatin (LIPITOR) 40 mg tablet Take 20 [...] ANGIOGRAM OF CHEST (NON-CORONARY) W CONTRAST Routine 12/28/2011 2:51 PM EDT Ascending aorta dilation documented in this encounter Results * CT thoracic aorta aneurysm with contrast (12/28/2011 2:51 PM EDT) Anatomical Region Laterality Modality Chest Computed Tomogra phy 12/28/2011 2:51 PM EDT Impressions 12/29/2011 7:40 AM EDT IMPRESSION: Stable exam. Stable ascending aortic aneurysm. Narrative 12/29/2011 7:40 AM EDT CTA CHEST: CLINICAL: ??Followup dilated to aorta. ?? TECHNIQUE: ??110 cc Omnipaque-350 utilized for an intravenously-enhanced CT angiogram of the thoracic aorta. Three-dimensional reformatted reconstructed on a separate workstation. ?? CONTRAST: ??110 cc Omnipaque-350. ?? COMPARISON: ??July 01, 2011. ?? FINDINGS: ??The ascending aorta is aneurysmal, measuring 4.5 cm in greatest diameter as measured at the level of the right pulmonary artery. This is stable. There is mild, diffuse aneurysmal dilatation of the aortic arch, which is also stable. The intrathoracic descending aorta is nonaneurysmal but mildly tortuous distally. ?? The lungs are unremarkable. No evidence of nodules, airspace consolidation, or pleural effusion. ?? No adenopathy. ?? Procedure Note Александр Block MD - 12/29/2011 CTA CHEST: CLINICAL: Followup dilated to aorta. TECHNIQUE: 110 cc Omnipaque-350 utilized for an intravenously-enhanced CT angiogram of the thoracic aorta. Three-dimensional reformattedreconstructed on a separate workstation. CONTRAST: 110 cc Omnipaque-350. COMPARISON: July 01, 2011. FINDINGS: The ascending aorta is aneurysmal, measuring 4.5 cm in greatest diameter as measured at the level of the right pulmonary artery. This is stable. There is mild, diffuse aneurysmal dilatation of the aortic arch,which is also stable. The intrathoracic descending aorta is nonaneurysmal butmildly tortuous distally. The lungs are unremarkable. No evidence of nodules, airspaceconsolidation, or pleural effusion. No adenopathy. IMPRESSION IMPRESSION: Stable exam. Stable ascending aortic aneurysm. Iglesia De La Cruz MD IMG CT ORDERABLES documented in this encounter Visit Diagnoses Diagnosis Ascending aorta dilation Thoracic aortic ectasia documented in this encounter Administered Medications Inactive Administered Medications - up to 3 most recent administrations Medication Order MAR Action Action Date Dose Rate Site iohexol (OMNIPAQUE) 350 mg/mL injection 38,500 mg 38,500 mg (110 mL), Intravenous, ONCE PRN, 1 dose, Starting on Wed12/28/11 at 1433, Until Wed12/28/11 at 1439, Per Protocol, Routine Given 12/28/2011 2:39 PM EDT 38,500 mg documented in this encounter Care Teams Files Supervisor Relationship Specialty Start Date End Date Riaz Hawkins MD [address] [place] [address] PCP - General 12/01/10 documented as of this encounter
--- OUTSIDE RECORDS SUMMARY | 2024-08-03 19:07 | XMS_ITS | Encounter Summary ---
Author Organization [facility] [place] [address] Care Team Providers Care Rn Angiography Name Role Phone Riaz Hawkins MD Primary Care Provider [phone] Encounter Details Date Type Department Care Team (Late st Contact Info) Description 10/02/2011 Orders Only [place] [address] Iglesia De La Cruz MD [facility] [place] [address] Ascending aorta dilation Social History Tobacco Use Types Packs/Day Years Used Date Smoking Tobacco: Never Smokeless Tobacco: Never Sex and Gender Information Value Date Recorded Sex Assigned at Not on file Gender Identity Not on file Sexual Orientation Not on file documented as of this encounter Plan of Treatment Scheduled Orders Name Type Priority Associated Diagnoses Orde r Schedule Creatinine, serum Lab STAT Ascending aorta dilation Expected: 12/17/2011, Expires: 10/02/2012 documented as of this encounter Results * CT thoracic aorta [...] Diagnosis Ascending aorta dilation Thoracic aortic ectasia Ascending aorta dilation Thoracic aortic ectasia documented in this encounter Care Teams Rn Angiography Relationship Specialty Start Date End Date Riaz Hawkins MD [address] [place] [address] PCP - General 12/01/10 documented as of this encounter
--- OUTSIDE RECORDS SUMMARY | 2024-08-03 19:07 | XMS_ITS | Encounter Summary ---
Author Organization [facility] Address [facility] [place] [address] Care Team Providers Care Game Programer Name Role Phone Riaz Hawkins MD Primary Care Provider [phone] Encounter Details Date Type Department Care Team (Late st Contact Info) Description 10/29/2017 2:50 PM EST Office Visit [place] [phone] Iglesia De La Cruz MD [facility] DR CARDIOTHORACIC [place] [address] Ascending aorta dilatation Social History Tobacco Use Types Packs/Day Years Used Date Smoking Tobacco: Never Smokeless Tobacco: Never Sex and Gender Information Value Date Recorded Sex Assigned at Not on file Gender Identity Not on file Sexual Orientation Not on file documented as of this encounter Last Filed Vital Signs Vital Sign Reading Time Taken Comments Blood Pressure 130/80 10/29/2017 2:36 PM EST Pulse 63 10/29/2017 2:36 PM EST Temperature - - Respiratory Rate - - Oxygen Saturation 94% 10/29/2017 2:36 PM EST Inhaled Oxygen Concentration - - Weight 89.8 kg (198 lb) 10/29/2017 2:36 PM EST Height 182.9 cm (6') 10/29/2017 2:36 PM EST Body Mass Index 26.85 10/29/2017 2:36 PM EST documented in this encounter Progress Notes * Iglesia De La Cruz MD - 10/29/2017 2:50 PM EST I am seeing Mr. 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 He has had no new problems develop. He denies chest pain or shortness of breath. His parkinson's has progressed somewhat, but he is responding well to medications. 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 Ct scan shows a stable 4.5 cm ascending aorta Outpatient Prescriptions Marked as Taking for the 10/29/17 encounter (Office Visit) with Iglesia De La Cruz MD Medication Sig Dispense Refill ??? atorvastatin (LIPITOR) 10 mg Tablet Take 5 mg by mouth daily. ??? carbidopa-levodopa (SINEMET CR) 25-100 mg Tablet Sustained Release Take 1.5 tablets by mouth 3 times daily. ??? hydrochlorothiazide (MICROZIDE) 12.5 mg capsule Take 12.5 mg by mouth daily. ??? aspirin 325 mg EC tablet [...] as needed. Indications: Angina Physical Exam: BP 130/80 (BP Location (NBP): Left arm, Patient Position: Sitting, BP Cuff Sizes: Adult (25-34 cm)) Pulse 63 Ht 182.9 cm (6') Wt 89.8 kg (198 lb) SpO2 94% BMI 26.85 kg/m2 Lung: CTA CV: RRR, no murmur nml pulse exam A/P: Stable ascending aortic diameter now over a number of years of followup. I would like to see him in two years with CT scan of the chest for followup. documented in this encounter Plan of Treatment Not on file documented as of this encounter Visit Diagnoses Diagnosis Ascending aorta dilatation Thoracic aortic ectasia documented in this encounter Care Teams Game Programer Relationship Specialty Start Date End Date Riaz Hawkins MD [address] [place] [address] PCP - General 12/01/10 documented as of this encounter
--- OUTSIDE RECORDS SUMMARY | 2024-08-03 19:07 | XMS_ITS | Encounter Summary ---
Author Organization [facility] Address [address] [place] [address] Care Team Providers Care Park Worker Supervisor Name Role Phone Riaz Hawkins MD Primary Care Provider [phone] Jack Triplett MD Primary Care Provider [phone] Reason for Visit * Reason Onset Date Comments Medications Refill 09/23/2023 Encounter Details Date Type Department Care Team (Late st Contact Info) Description 09/23/2023 Refill [facility] Neurology - S [address] [phone] Dong Reid MD [address] [place] [address] [address] [place] [address] Medications Refill Social History Tobacco Use Types Packs/Day [...] No 05/20/2017 documented as of this encounter Miscellaneous Notes * Telephone Encounter - Sandy Shrestha RN - 09/23/2023 9552 EST Request for refill: Domperidone 10mg tab Take one tab by mouth three times daily Disp #270 R-5 Last RX for this was writtin on 05/25/23 for 90 d supply and 5 refills Phoned dagoberto Sutherland on identified line to inform him of the above Pended RX 'refused' documented in this encounter Plan of Treatment Upcoming Encounters Date Type Department Care Team (Late st Contact Info) Description 09/18/2024 14:00 EST Office Visit [facility] [address] [phone] Dong Reid MD [address] [place] [phone] 01/19/2025 10:15 EDT Office Visit [address] [phone] Kenia Goss NP [address] [place] [phone] documented as of this encounter Visit Diagnoses Not on filedocumented in this encounter Care Teams Park Worker Supervisor Relationship Specialty Start Date End Date Riaz Hawkins MD [address] [place] [address] PCP - General 08/15/15 06/12/24 Jack Triplett MD [address] [place] [address] PCP - General Emergency Medicine 06/13/24 documented as of this encounter
--- OUTSIDE RECORDS SUMMARY | 2024-08-03 19:07 | XMS_ITS | Encounter Summary ---
Author Organization [place] [address] Care Team Providers Care Client Server Developer Name Role Phone Riaz Hawkins MD Primary Care Provider [phone] Reason for Referral * Diagnostic Test (Routine) - Closed Specialty Diagnoses / Procedures Referred By Contac t Referred To Contact Radiology Diagnoses Aortic dilatation Procedures CT Angiogram Chest (Non-Coronary) CT Angiogram Of Chest (Non-Coronary) wwo Contrast Jozef Mills PA [facility] [place] [address] [place] [place] [address] Referral ID Status Reason Start Date Expiration Date V isits Requested Visits Authorized [id number] Closed Specialty Service Requested 07/22/2017 07/22/2018 1 1 Encounter Details Date Type Department Care Team (Late st Contact Info) Description 07/22/2017 Orders [place] [phone] Jozef Mills PA [facility] [place] [address] Aortic dilatation Social History Tobacco Use Types Packs/Day [...] Cruz MD IMG CT ORDERABLES * Creatinine (10/29/2017 11:45 AM EST) Creatinine 0.98 0.80 - 1.50 mg/dL [facility] Est Glomerular Filtration Rate >60 >=60 [facility] Comment: The reported eGFR should be multiplied by 1.2 for patients. The MDRD is not an appropriate measure of renal function for patients with body mass extremes or in patients with acute kidney failure. http://LiquidText/DHnkdep http://LiquidText/DHMCnkf Blood specimen (specimen) 10/29/2017 11:45 AM EST 10/29/2017 12:01 PM EST Narrative Resulting Agency Comment Spec In Lab Iglesia De La Cruz MD CHEMISTRY ORDERABL ES [facility] [place] [address] documented in this encounter Visit Diagnoses Diagnosis Aortic dilatation Aortic ectasia, unspecified site Aortic dilatation Aortic ectasia, unspecified site documented in this encounter Care Teams Client Server Developer Relationship Specialty Start Date End Date Riaz Hawkins MD [address] [place] [address] PCP - General 12/01/10 documented as of this encounter
--- OUTSIDE RECORDS SUMMARY | 2024-08-03 19:07 | XMS_ITS | Encounter Summary ---
Author Organization [facility] Address [address] [place] [address] Care Team Providers Care Loom Fixer Helper Name Role Phone Riaz Hawkins MD Primary Care Provider [phone] Reason for Visit * Reason Onset Date Comments Medications Refill 12/11/2023 Encounter Details Date Type Department Care Team (Late st Contact Info) Description 12/11/2023 Refill [facility] Neurology - [place] [address] [place] [phone] Jammie Marquis NP [address] [place] [address] 2 [place] [address] Medications Refill Social History Tobacco [...] No 05/20/2017 documented as of this encounter Ordered Prescriptions Prescription Sig Dispensed Refills Start Date End Da te carbidopa-levodopa (SINEMET) 25-100 mg per tablet Take 2 Tablets by mouth 3 times daily. May also take 0.5-1 Tablets daily as needed for Other (overnight toward morning). 630 Tablet 12/13/2023 03/06/2024 documented in this encounter Miscellaneous Notes * Telephone Encounter - Charlette Germain RN - 12/13/2023 0837 EST Medication Rx Request Medication: carbidopa-levodopa (SINEMET) 25-100 mg per tablet Last Visit in login department: 11/10/2023 Next appointment Scheduled: 03/06/2024 Date previous Rx written: 08/09/2023 VPMS Inquiry needed? No The [place] Prescription Monitoring System query has been completed per the following requirement(s): NA If yes, date of last fill: NA Documentation Reviewed, prescription refilled. documented in this encounter Plan of Treatment Upcoming Encounters Date Type Department Care Team (Late st Contact Info) Description 09/18/2024 14:00 EST Office Visit [facility] Neurology - S [address] [phone] Dong Reid MD [address] [place] [phone] 01/19/2025 10:15 EDT Office Visit [facility] Neurology S [address] [phone] Kenia Goss NP [address] [place] [phone] documented as of this encounter Visit Diagnoses Not on filedocumented in this encounter Discontinued Medications Medication Sig Discontinue Reason Start Date End Da te carbidopa-levodopa (SINEMET) 25-100 mg per tablet As directed up to 4 times daily Reorder 08/09/2023 12/11/2023 documented as of this encounter Care Teams Loom Fixer Helper Relationship Specialty Start Date End Date Riaz Hawkins MD [address] [place] [address] PCP - General 08/15/15 06/12/24 documented as of this encounter
--- OUTSIDE RECORDS SUMMARY | 2024-08-03 19:07 | XMS_ITS | Encounter Summary ---
Author Organization [facility] Address [address] [place] [address] Care Team Providers Care Commercial Relief Driver Name Role Phone Riaz Hawkins MD Primary Care Provider [phone] Reason for Visit * Reason Comments Follow-up Encounter Details Date Type Department Care Team ([facility] st Contact Info) Description 03/06/2024 11:00 EDT Office Visit [facility] Neurology - S [address] [phone] Dong Reid MD [address] [place] [address] 2 [place] [address] Parkinson's disease without dyskinesia, unspecified whether manifestations fluctuate (HCC-CMS) (Primary Dx) Social History Tobacco Use Types [...] Sign Reading Time Taken Comments Blood Pressure 132/88 03/06/2024 1128 EDT Pulse 53 03/06/2024 1128 EDT Temperature - - Respiratory Rate 16 03/06/2024 1128 EDT Oxygen Saturation 99% 03/06/2024 1128 EDT Inhaled Oxygen Concentration - - Weight - - Height - - Body Mass Index - - documented in this encounter Functional Status Functional [...] this encounter Patient Instructions * Patient Instructions* Dong Reid MD - 03/06/2024 11:00 EDT TRANSITION FROM STANDARD CARBIDOPA/LEVODOPA TO RYTARY STEP 1 Keep all other medicines for Parkinson's disease the same during this transiton Replace first dose of the morning of carbidopa/levodopa with Rytary 4 capsule(s) 23.75/95 mg Assess the effectiveness of the dose and how long it lasts If Parkinson's disease symptoms are severe after 1 hour- you can take an additional 1/2 to 1 tab carbidopa/levodopa immediate release tablet When that first dose wears off - resume your usual medicines and schedule for the rest of the day STEP 2 If the morning dose was not enough, increase Rytary dose by 1 capsule in the morning and again follow the above instructions If the morning dose was too much (for example - bothersome dyskinesia/extra movements) - lower by 1capsule Resume usual medicines thereafter as done in STEP 1 STEP 3 When you have determined the right number of capsules and duration of the first dose of the day, add a second identical dose of Rytary taken 1 hour before the effect was typically running out. Follow adjustment instructions above once again to find the right dose and next dosing time STEP 4 Continue to adding doses one by one and eliminating standard carbidopa/levodopa until the full awake day is covered and a bedtime dose is being taken Call along with way for advice at any point [phone] documented in this encounter Ordered Prescriptions Prescription Sig Dispensed Refills Start Date End Da te carbidopa-levodopa (SINEMET) 25-100 mg per tablet Take 2 Tablets by mouth 3 times daily. May also take 0.5-1 Tablets daily as needed for Other (overnight toward morning). 630 Tablet 03/06/2024 06/13/2024 carbidopa-levodopa (RYTARY) 23.75-95 mg ER capsule Take 4 Capsules by mouth 3 times daily for 90 days. 1080 Capsule 3 03/06/2024 06/04/2024 documented in this encounter Progress Notes * Dong Reid MD - 03/06/2024 1100 EDT Images from the original note were not included. Primary Care: Riaz Hawkins [address] [facility] [address] Reason for visit: ICD-10-CM ICD-9-CM 1. Parkinson's disease without dyskinesia, unspecified whether manifestations fluctuate ([facility]) G20.A1 332.0 Assessment & Plan / Recommendations: Parkinson's disease End-of-dose motor fluctuations (mild) - more prevalent with carbidopa/levodopa IR 25/100mg Transitioned from Rytary to carbidopa/levodopa IR 25/100mg without change in GI symptoms Plan to transition to scheduled Rytary with prn carbidopa/levodopa IR 25/100mg. Initial target doseof 4x Rytary 95 mg at each dose. Transition plan below As carbidopa is all IR, with only a small proportion of levodopa IR ( mostly sustained release) thetotal of approximate 100 mg of carbidopa he is receiving at each dose should make the additional carbidopa 25 mg tablets unnecessary Consider scheduled doses of domperidone at 5 to 10 mg each dose, rather than as needed to maintain GI motility and reduce nausea No orders of the defined types were placed in this encounter. Patient Instructions TRANSITION FROM STANDARD CARBIDOPA/LEVODOPA TO RYTARY STEP 1 Keep all other medicines for Parkinson's disease the same during this transiton Replace first dose of the morning of carbidopa/levodopa with Rytary 4 capsule(s) 23.75/95 mg Assess the effectiveness of the dose and how long it lasts If Parkinson's disease symptoms are severe after 1 hour- you can take an additional 1/2 to 1 tab carbidopa/levodopa immediate release tablet When that first dose wears off - resume your usual medicines and schedule for the rest of the day STEP 2 If the morning dose was not enough, increase Rytary dose by 1 capsule in the morning and again follow the above instructions If the morning dose was too much (for example - bothersome dyskinesia/extra movements) - lower by 1capsule Resume usual medicines thereafter as done in STEP 1 STEP 3 When you have determined the right number of capsules and duration of the first dose of the day, add a second identical dose of Rytary taken 1 hour before the effect was typically running out. Follow adjustment instructions above once again to find the right dose and next dosing time STEP 4 Continue to adding doses one by one and eliminating standard carbidopa/levodopa until the full awake day is covered and a bedtime dose is being taken Call along with way for advice at any point [phone] Return for follow-up: Return in about 3 months (around 06/06/2024) for JOSE Olivas, 6 months [place] . HPI: Returns for follow up Accompanied to visit by his Donna Motor symptoms Motor fluctuations: predictable end of dose and AM. Better but not resolved fully with Rytary. Gradual in onset - not over seconds. Slower in best on state Levodopa-induced dyskinesias upper trunk and head sway - later in day after dinner. Bothersome but not disabling Dystonia: in off state - neck tilt - no limb symptoms As needed fluctuation treatment: Estimated percentage of day in OFF state: 20% Falls: one - missed the step on the basement stairs Assistive devices: walking sticks for outdoor uneven ground Dysarthria: low volume Dysphagia: mild to solids - no diet modifications. 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 aspirin 81 mg EC tablet Take 1 Tablet by mouth daily. atorvastatin (LIPITOR) 40 mg tablet Take 1 Tablet by mouth daily. carbidopa-levodopa (RYTARY) 23.75-95 mg ER capsule Take 4 Capsules by mouth 3 times daily for 90 days. 1080 Capsule 3 carbidopa-levodopa (SINEMET) 25-100 mg per tablet Take 2 Tablets by mouth 3 times daily. May also take 0.5-1 Tablets daily as needed for Other (overnight toward morning). 630 Tablet 0 DOMPERIDONE, BULK, MISC by misc (non-drug; combo route) route. ezetimibe (ZETIA) 10 mg tablet Take 1 Tablet by mouth daily. LOSARTAN POTASSIUM, BULK, MISC 25 mg by misc (non-drug; combo route) route daily. metoprolol (LOPRESSOR) 12.5 mg Take 1 Tablet by mouth daily. Miscellaneous Medication - See Admin Instructions Domperidone 10 mg tab; 1 tab PO TID 270 Each 5 naproxen sodium (ALEVE ORAL) Take by mouth as needed for Pain. predniSONE (DELTASONE) 1 mg tablet Take 5 Tablets by mouth daily. (Patient not taking: Reported on 11/10/2023) TAMSulosin (FLOMAX) 0.4 mg capsule Take 1 Capsule by mouth daily. No current facility-administered medications for this visit. MEDICATION / DOSE 06:00 AM 11:00 AM 05:00 PM carbidopa-levodopa IR (SINEMET) 25-100 mg 3 3 2 carbidopa-levodopa ER (RYTARY) 23.75-95 mg 0 0 0 Domperidone 10 mg PRN PRN PRN Allergies Allergen Reactions Cedric Inhibitors Other (See Comments) Hypotension Unable To Assess Patient unsure of blood pressure medication. Says it lowered the bp too much. Review of systems including , GI, sleep, cognition, psychiatric, presyncope/syncope,sweating abnormalities were negative or included in the history above with the following exceptions: See above Examination: BP 132/88 (BP Cuff Location: Right arm, BP Patient Position: Sitting, BP Cuff Sizes: Adult, regular) Pulse 53 Resp 16 SpO2 99% Alert, appropriate Ox3 Normal language Normal insight Normal judgement Low to moderate amplitude cervical and upper thorax choreoathetosis. UPDRS-III Motor Examination Section Factor Score 18 Speech 1 -Slight loss of expression, diction and/or volume. 19 Facial expression 2 -Slight but definitely abnormal diminution of facial expression. 20 Tremor at rest: Face, lips, chin 0 -Absent. Hands: right 0 -Absent. Hands: left 0 -Absent. Feet: right 0 -Absent. Feet: left 0 -Absent. 21 Action tremor: right 1 -Slight. Present with action. left 1 -Slight. Present with action. 22 Rigidity: Neck 1 -Slight or detectable only when activated by mirror or other movements. Upper extremity: right 2 -Mild to moderate. Upper extremity: left 2 -Mild to moderate. Lower extremity: right 2 -Mild to moderate. Lower extremity: left 2 -Mild to moderate. 23 Finger taps: right 1 -Mild slowing and/or reduction in amplitude. Finger taps: left 1 -Mild slowing and/or reduction in amplitude. 24 Hand paper wood cutter: right 1 -Mild slowing and/or reduction in amplitude. Hand paper wood cutter: left 1 -Mild slowing and/or reduction in amplitude. 25 Hand pronate/supinate: right 1 -Mild slowing and/or reduction in amplitude. left 1 -Mild slowing and/or reduction in amplitude. 26 Leg agility: right 1 -Mild slowing and/or reduction in amplitude. left 1 -Mild slowing and/or reduction in amplitude. 27 Arise from chair 1 -Slow, or may need more than one attempt. 28 Posture 2 -Moderately stooped posture, definitely abnormal. Can be slightly leaning to one side. 29 Gait 1 -Walks slowly, may shuffle with short steps, but no festination (hastening steps) or propulsion. 30 Postural stability 0 -Normal. 31 Body bradykinesia 1 -Minimal slowness, giving movement a deliberate character. Could be normal for some persons. Possibly reduced amplitude. Sec 18 to 31 total: 27 I spent a total of 42 minutes on the date of this encounter meeting with the patient and reviewing documentation/coordinating care as described in the above note. Patient/career and technology education teacher education Review of the pertinent information in the electronic health record Care plan formulation Supportive counseling as described in the assessment and plan Documentation of clinical information in the EHR Encounter Provider: Dong Reid MD documented in this encounter Plan of Treatment Upcoming Encounters Date Type Department Care Team (Late st Contact Info) Description 09/18/2024 14:00 EST Office Visit [facility] Neurology S [address] [phone] Dong Reid MD [address] [place] [phone] 01/19/2025 10:15 EDT Office Visit [facility] S [address] [phone] Kenia Goss NP [address] [place] [phone] documented as of this encounter Visit Diagnoses Diagnosis Parkinson's disease without dyskinesia, unspecified whether manifestations fluctuate ([facility])- Primary documented in this encounter Discontinued Medications Medication Sig Discontinue Reason Start Date End Da te Carbidopa (LODOSYN) 25 mg tablet Take 1 Tablet by mouth 3 times daily. Take with each Rytary dose 06/08/2023 03/06/2024 Carbidopa (LODOSYN) 25 mg tablet Take 1 Tablet by mouth 3 times daily. Take with each Rytary dose 06/08/2023 03/06/2024 carbidopa-levodopa (RYTARY) 23.75-95 mg ER capsule Take 3 Capsules by mouth 3 times daily. Reorder 03/11/2023 03/06/2024 carbidopa-levodopa (SINEMET) 25-100 mg per tablet Take 2 Tablets by mouth 3 times daily. May also take 0.5-1 Tablets daily as needed for Other (overnight toward morning). Reorder 12/13/2023 03/06/2024 documented as of this encounter Historical Medications * This list may reflect changes made after this encounter. Medication Sig Dispensed Refills Start Date End Date TAMSulosin (FLOMAX) 0.4 mg capsule Take 1 Capsule by mouth daily. 12/30/2023 added in this encounter Care Teams Commercial Relief Driver Relationship Specialty Start Date End Date Riaz Hawkins MD [address] [place] [address] PCP - General 08/15/15 06/12/24 documented as of this encounter
--- OUTSIDE RECORDS SUMMARY | 2024-08-03 19:07 | XMS_ITS | Encounter Summary ---
Author Organization [facility] [place] [address] Care Team Providers Care Slitter And Rewinder Name Role Phone Riaz Hawkins MD Primary Care Provider [phone] Reason for Visit * Reason Comments Medication Refill Encounter Details Date Type Department Care Team (Late st Contact Info) Description 07/25/2013 Refill Cardiology at [address] [phone] [facility] [place] [address] Medication Refill Social History Tobacco Use Types [...] on filedocumented in this encounter Care Teams Slitter And Rewinder Relationship Specialty Start Date End Date Riaz Hawkins MD [address] [place] [address] PCP - General 12/01/10 documented as of this encounter
--- OUTSIDE RECORDS SUMMARY | 2024-08-03 19:07 | XMS_ITS | Encounter Summary ---
[place] [address] Care Team Providers Care Cuff Maker Name Role Phone Riaz Hawkins MD Primary Care Provider [phone] Encounter Details Date Type Department Care Team (Latest Contact Info) Description 10/29/2017 12:00 PM EST Laboratory Appointment Lab [address] [place] [phone] Aortic dilatation Social History Tobacco Use Types [...] Priority Date/Time Associated Diagnosis Comments CREATININE Routine 10/29/2017 11:45 AM EST Aortic dilatation documented in this encounter Results * Creatinine (10/29/2017 11:45 AM EST) Creatinine 0.98 0.80 - 1.50 mg/dL [facility] Est Glomerular Filtration Rate >60 >=60 [facility] Comment: The reported eGFR should be multiplied by 1.2 for patients. The MDRD is not an appropriate measure of renal function for patients with body mass extremes or in patients with acute kidney failure. http://[employer]/DHnkdep http://[employer]/DHMCnkf Blood specimen (specimen) 10/29/2017 11:45 AM EST 10/29/2017 12:01 PM EST Narrative Resulting Agency Comment Spec In Lab Iglesia De La Cruz MD CHEMISTRY ORDERABL ES [facility] [place] [address] documented in this encounter Visit Diagnoses Diagnosis Aortic dilatation Aortic ectasia, unspecified site documented in this encounter Care Teams Cuff Maker Relationship Specialty Start Date End Date Riaz Hawkins MD [address] [place] [address] PCP - General 12/01/10 documented as of this encounter
--- OUTSIDE RECORDS SUMMARY | 2024-08-03 19:07 | XMS_ITS | Encounter Summary ---
[place] [address] Care Team Providers Care Water Treatment Specialist Name Role Phone Riaz Hawkins MD Primary Care Provider [phone] Encounter Details Date Type Department Care Team (Latest Contact Info) Description 07/01/2011 11:50 AM EDT - 07/01/2011 11:59 PM EDT Hospital [place] [address] Aortic aneurysm Social History Tobacco Use Types Packs/Day Years [...] every 5 minutes as needed. Indications: Angina aspirin 325 mg EC tablet Take 325 mg by mouth daily. 12/01/2019 atorvastatin (LIPITOR) 40 mg tablet 40 MG = 1 Tablet(s), PO, Once daily 12/26/2010 12/28/2011 documented as of this encounter Plan of Treatment Not on file documented as of this encounter Procedures Procedure Name Priority Date/Time Associated Diagnosis Comments CT ANGIOGRAM OF CHEST (NON-CORONARY) W CONTRAST Routine 07/01/2011 12:05 PM EDT Aortic aneurysm of unspecified site without mention of rupture documented in this encounter Results * CT THORACIC AORTA ANEURYSM WITH CONTRAST (07/01/2011 12:05 PM EDT) Anatomical Region Laterality Modality Chest Computed Tomogra phy 07/01/2011 12:0 5 PM EDT Impressions 07/02/2011 10:07 AM EDT IMPRESSION: ?? 1. Stable dilatation of the aortic root and ascending aorta compared to December 26, 2010 as detailed above. Also, otherwise stable diameters of the thoracic aorta. 2. 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 3. Very large bilateral renal cysts are seen again and are incompletely imaged on this exam. No definite change in comparison to the prior exam. Narrative 07/02/2011 10:[address] ARTERIOGRAM THORACIC AORTA: INDICATION: ??Followup on dilated aorta. TECHNIQUE: ??CT arteriogram of the thoracic aorta after administration of 110 cc Omnipaque-350. 3D and curved reformations were generated at a separate workstation. ?? COMPARISON: ??December 26, 2010. FINDINGS: ?? CT ARTERIOGRAM THORACIC AORTA: ?? DIAMETERS OF THE THORACIC AORTA ARE FOLLOWS AORTIC ROOT: ??45 mm. SINO-TUBULAR RIDGE: ??38 mm. MID-ASCENDING AORTA: ??45 mm. MAXIMAL DIAMETER OF THE AORTIC ARCH: ??35 mm. MID-DESCENDING AORTA: ??30 mm. DESCENDING AORTA AT THE LEVEL OF THE DIAPHRAGM: ??31 mm. Supra-aortic vessels are widely patent. Celiac trunk, SMA, and bilateral renal arteries are patent. No calcified atherosclerotic disease and no definite soft plaques along the aorta. Calcified atherosclerotic changes along the coronary arteries. As before, an aneurysmal dilatation of the celiac trunk is seen just distal to its origin, which has a maximal diameter of 17 mm. Central pulmonary arteries are normal. CT CHEST: ??Mild atelectasis at the bilateral lung bases. No suspicious pulmonary nodule or mass. No pleural or pericardial effusion. No mediastinal, hilar, or axillary lymphadenopathy. Upper portions of the abdomen included on this CT show normal early contrast-enhanced findings of the liver and spleen. Bilateral adrenal glands and pancreas have a normal appearance. Mild prominence of the distal pancreatic duct is of questionable significance. Note is made again of bilateral large renal cysts with the largest seen in the left kidney, which has a diameter of over 11 cm. SKELETON: ??Mild degenerative changes of the spine. No aggressive lesion. Procedure Note Crystal Cotto MD - 07/02/2011 CT ARTERIOGRAM THORACIC AORTA: INDICATION: Followup on dilated aorta. TECHNIQUE: CT arteriogram of the thoracic aorta after administration of110 cc Omnipaque-350. 3D and curved reformations were generated at a separate workstation. COMPARISON: December 26, 2010. FINDINGS: CT ARTERIOGRAM THORACIC AORTA: DIAMETERS OF THE THORACIC AORTA ARE FOLLOWS AORTIC ROOT: 45 mm. SINO-TUBULAR RIDGE: 38 mm. MID-ASCENDING AORTA: 45 mm. MAXIMAL DIAMETER OF THE AORTIC ARCH: 35 mm. MID-DESCENDING AORTA: 30 mm. DESCENDING AORTA AT THE LEVEL OF THE DIAPHRAGM: 31 mm. Supra-aortic vessels are widely patent. Celiac trunk, SMA, and bilateralrenal arteries are patent. No calcified atherosclerotic disease and no definitesoft plaques along the aorta. Calcified atherosclerotic changes along thecoronary arteries. As before, an aneurysmal dilatation of the celiac trunk is seenjust distal to its origin, which has a maximal diameter of 17 mm. Central pulmonary arteries are normal. CT CHEST: Mild atelectasis at the bilateral lung bases. No suspicious pulmonary nodule or mass. No pleural or pericardial effusion. Nomediastinal, hilar, or axillary lymphadenopathy. Upper portions of the abdomen included on this CT show normal early contrast-enhanced findings of the liver and spleen. Bilateral adrenalglands and pancreas have a normal appearance. Mild prominence of the distalpancreatic duct is of questionable significance. Note is made again of bilaterallarge renal cysts with the largest seen in the left kidney, which has a diameterof over 11 cm. SKELETON: Mild degenerative changes of the spine. No aggressive lesion. IMPRESSION IMPRESSION: 1. Stable dilatation of the aortic root and ascending aorta compared toMarch 2010 as detailed above. Also, otherwise stable diameters of thethoracic aorta. 2. 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 3. Very large bilateral renal cysts are seen again and are incompletelyimaged on this exam. No definite change in comparison to the prior exam. Iglesia De La Cruz MD IMG CT [...] Intravenous, ONCE PRN, 1 dose, Starting on Wed07/01/11 at 1157, Until Wed07/01/11 at 1100, Per Protocol, Routine Given 07/01/2011 11:00 AM EDT 38,500 mg documented in this encounter Care Teams Water Treatment Specialist Relationship Specialty Start Date End Date Riaz Hawkins MD [address] [place] [address] PCP - General 12/01/10 documented as of this encounter
--- OUTSIDE RECORDS SUMMARY | 2024-08-03 19:07 | XMS_ITS | Encounter Summary ---
Author Organization [facility] Address [facility] [place] [address] Care Team Providers Care Radio Electrician Name Role Phone Riaz Hawkins MD Primary Care Provider [phone] Encounter Details Date Type Department Care Team (Late st Contact Info) Description 12/26/2010 [place] [id number] Myra Green PA [facility] [place] [address] Social History Tobacco Use Types Packs/Day Years [...] ANGIOGRAM OF CHEST (NON-CORONARY) W CONTRAST Routine 12/26/2010 8:30 AM EST documented in this encounter Results * CT THORACIC AORTA ANEURYSM WITH CONTRAST (12/26/2010 8:30 AM EST) Anatomical Region Laterality Modality Chest Computed Tomogra phy 12/26/2010 8:30 AM EST Impressions 12/26/2010 11:48 AM EST IMPRESSION: 1. The ascending aorta measures 4.5 cm. ??The remaining vasculature is normal in contour, without stenosis. ?? 2. Incompletely evaluated lesion within the right kidney, which may warrant further evaluation. ?? Film and interpretation reviewed by the attending Narrative 12/26/2010 11:[address] OF THE THORACIC AORTA, WITH CONTRAST: ?? TECHNIQUE: ??Axial tomographic slices of the chest acquired after the administration of Omnipaque-350, 110 cc, during the arterial phase, with 3D reformats performed at a separate workstation for improved characterization of the aorta. ?? COMPARISON: ??None. HISTORY: ??Dilated aortic root. FINDINGS: ?? VASCULATURE: ??The ascending aorta measures 4.5 cm in the axial plane at the level of the right pulmonary artery. ??The largest diameter of the aortic arch is 3.5 cm. ??The descending aorta is 3 cm in the axial plane. ??The origins of the great vessels are patent. ??The origins of the celiac and superior mesenteric artery are patent. ??The aortogram ends at the level of the renal arteries. ?? CHEST: ??The pulmonary parenchyma is normal. ??The large and subsegmental airways are patent. ??There are no pleural or pericardial effusions. ??There is no hilar, mediastinal, or axillary lymphadenopathy. ?? In the visualized portions of the upper abdomen, there are multiple large renal cysts which are not completely imaged. ??In the posterior right kidney, one of the cystic lesions has some evidence of internal enhancement, with calcifications. ?? There are no suspicious osseous lesions. Procedure Note Александр Block MD - 12/26/2010 CT OF THE THORACIC AORTA, WITH CONTRAST: TECHNIQUE: Axial tomographic slices of the chest acquired after the administration of Omnipaque-350, 110 cc, during the arterial phase, with3D reformats performed at a separate workstation for improvedcharacterization of the aorta. COMPARISON: None. HISTORY: Dilated aortic root. FINDINGS: VASCULATURE: The ascending aorta measures 4.5 cm in the axial plane atthe level of the right pulmonary artery. The largest diameter of the aorticarch is 3.5 cm. The descending aorta is 3 cm in the axial plane. The originsof the great vessels are patent. The origins of the celiac and superior mesenteric artery are patent. The aortogram ends at the level of therenal arteries. CHEST: The pulmonary parenchyma is normal. The large and subsegmentalairways are patent. There are no pleural or pericardial effusions. There is nohilar, mediastinal, or axillary lymphadenopathy. In the visualized portions of the upper abdomen, there are multiple largerenal cysts which are not completely imaged. In the posterior right kidney, oneof the cystic lesions has some evidence of internal enhancement, with calcifications. There are no suspicious osseous lesions. IMPRESSION IMPRESSION: 1. The ascending aorta measures 4.5 cm. The remaining vasculature isnormal in contour, without stenosis. 2. Incompletely evaluated lesion within the right kidney, which maywarrant further evaluation. Film and interpretation reviewed by the attending Myra DELACRUZ IMG CT ORDERABLES documented in this encounter Visit Diagnoses Not on filedocumented in this encounter Care Teams Radio Electrician Relationship Specialty Start Date End Date Riaz Hawkins MD [address] [place] [id number] PCP - General 12/01/10 documented as of this encounter
--- OUTSIDE RECORDS SUMMARY | 2024-08-03 19:07 | XMS_ITS | Encounter Summary ---
Author Organization [facility] [place] [address] Care Team Providers Care Personnel Security Specialist Name Role Phone Riaz Hawkins MD Primary Care Provider [phone] Encounter Details Date Type Department Care Team (Late st Contact Info) Description 10/24/2019 Orders Only [place] [address] Kenia Barber Social History Tobacco Use Types [...] on filedocumented in this encounter Care Teams Personnel Security Specialist Relationship Specialty Start Date End Date Riaz Hawkins MD [address] [place] [address] PCP - General 12/01/10 documented as of this encounter
--- OUTSIDE RECORDS SUMMARY | 2024-08-03 19:07 | XMS_ITS | Encounter Summary ---
Author Organization [facility] Address [facility] [place] [address] Care Team Providers Care Front End Java Developer Name Role Phone Riaz Hawkins MD Primary Care Provider [phone] Encounter Details Date Type Department Care Team (Late st Contact Info) Description 11/28/2021 10:30 AM EST Office [place] [phone] Iglesia De La Cruz MD [facility] DR C[place]IOTHORAC[place] [address] Ascending aortic aneurysm; Essential hypertension Social History Tobacco Use Types Packs/Day Years Used Date Smoking Tobacco: Never Smokeless Tobacco: Never Sex and Gender Information Value Date Recorded Sex Assigned at Not on file Gender Identity Not on file Sexual Orientation Not on file documented as of this encounter Last Filed Vital Signs Vital Sign Reading Time Taken Comments Blood Pressure 155/102 11/28/2021 10:12 AM EST Pulse 64 11/28/2021 10:09 AM EST Temperature - - Respiratory Rate - - Oxygen Saturation 99% 11/28/2021 10:09 AM EST Inhaled Oxygen Concentration - - Weight 90.5 kg (199 lb 9.6 oz) 11/28/2021 10:09 AM EST Height 182.9 cm (6') 11/28/2021 10:09 AM EST rep orted Body Mass Index 27.07 11/28/2021 10:09 AM EST documented in this encounter Progress Notes * Iglesia De La Cruz MD - 11/28/2021 10:30 AM EST I am seeing Mr. Aguiar in followup. He has been doing ok. No new issues. Some progression of his Parkinson's. CT scan shows some slight expansion from 4.5 x 4.9 to 4.7 x 5.0. There has been some expansion overthe last few years. Outpatient Medications Marked as Taking for the 11/28/21 encounter (Office Visit) with Iglesia De La Cruz MD Medication Sig Dispense Refill ??? cholecalciferol, Vitamin D3, 50 mcg (2,000 unit) Capsule Take by mouth Daily. ??? ezetimibe (Zetia) 10 mg Tablet Take [...] as needed. Indications: Angina Physical Exam: BP (!) 155/102 (Patient Position: Sitting) Pulse 64 Ht 182.9 cm (6') Comment: reported Wt 90.5 kg (199 lb 9.6 oz) SpO2 99% BMI 27.07 kg/m?? Exam deferred A/P: Some slight expansion of the aorta over time. He does have very poorly controlled HTN which islikely causing the aorta to look bigger today and causing an overall size increase. I think we needto really concentrate on good BP control with goal SBP 120 or less. HE will speak with Dr. Hawkins about how to proceed. We discussed stopping salt intake with eating. Given the slow increase I would like to see him gain in one year with CT ANGIO CHEST. He needs to work on BP BELLE! documented in this encounter Plan of Treatment Not on file documented as of this encounter Visit Diagnoses Diagnosis Ascending aortic aneurysm Thoracic aneurysm without mention of rupture Essential hypertension Unspecified essential hypertension documented in this encounter Care Teams Front End Java Developer Relationship Specialty Start Date End Date Riaz Hawkins MD [address] [place] [address] PCP - General 12/01/10 documented as of this encounter
--- OUTSIDE RECORDS SUMMARY | 2024-08-03 19:07 | XMS_ITS | Referral Summary ---
Author Organization [facility] Address [address] [place] [address] Care Team Providers Care Molding Plasterer Name Role Phone Jack Triplett MD Primary Care Provider [phone] Encounters Date Type Department Care Team Description 07/19/2024 Lab Requisition [facility] Pathology & Laboratory Medicine - [facility] [address] [place] [address] Davina Daigle, Perianal venous thrombosis; Other constipation; Rectal prolapse; Residual hemorrhoidal skin tags; Other hemorrhoids 06/13/2024 10:30 EDT Office Visit [facility] Neurology - [address] [address] Kenia Goss, RIKI Parkinson's disease with dyskinesia, unspecified whether manifestations fluctuate ([facility]) (Primary Dx); Constipation by delayed colonic transit; Nausea; Dysphagia, unspecified type from Last 3 Months Allergies Active Allergy Reactions Criticality Noted Date [...] Dysphagia 06/13/2024 Daytime sleepiness 02/01/2017 Parkinson's disease ([facility]) 09/11/2015 Overview: Diagnosis 2015 Onset 2012 - right sided initial symptoms Treatment to date None Family history of brain aneurysm 09/11/2015 Overview: Family history of polycystic kidney disease Social History Tobacco Use Types Packs/Day Years [...] 8:04 EST Sexual Orientation Not on file Last Filed [...] Body Mass Index 25.9 07/20/2022 1626 EDT Functional Status Functional Status Response Date of Assess ment Because of a physical, menta l, or emotional condition, does this person have difficulty doing errands alone such as visiting a doctor's office or shopping? No 05/20/2017 Cognitive Status Response Date of Assess ent Because of a physical, menta l, or emotional condition, does this person have serious difficulty concentrating, remembering, or making decisions? No 05/20/2017 Plan of Treatment Upcoming Encounters Date Type Department Care Team (Late st Contact Info) Description 09/18/2024 14:00 EST Office Visit [facility] Neurology [address] [phone] Dong Reid MD [address] [place] [phone] 01/19/2025 10:15 EDT Office Visit [address] [address] Kenia Goss NP [address] [place] [address] [address] [place] [phone] Procedures Procedure Name Priority Date/Time Associated Diagnosis [...] management options, if applicable. 07/21/2024 9:55 EDT [facility] Final Diagnosis A. COLON, 40 CMS, POLYP, BIOPSY: - Tubular adenoma. - Deeper sections x3 examined. B. HEMORRHOIDS, HEMORRHOIDECTOMY: - Hemorrhoids with features of prolapse showing erosion. 07/21/2024 9:55 EDT [facility] Attestation By the signature below, the attending physician certifies that they have 1) personally conducted a gross and/or microscopic examination of the described specimen(s), and/or personally interpreted the results of laboratory testing of the described specimen(s), and 2) personally rendered or confirmed the above diagnosis. 07/21/2024 9:55 [facility] at 0955 Clinical History Screening/history of colon polyps, rectal prolapse/hemorrho id 07/21/2024 9:55 EDT [facility] Gross Description A. Received [...] lesions. Sections reveal dilated thrombosed vascular channels. Jig And Fixture Repairer sections are submitted in B1-B2. JAYME DA SILVA(ASCP) 07/19/2024 11:00 07/21/2024 9:55 EDT [facility] Performing Lab [facility] 07/21/2024 9:55 T [facility] Scanned Images 07/21/2024 9:55 T [facility] Tissue HEMORRHOIDS / Unknown 07/18/2024 10:14 EDT 07/19/2024 8:38 EDT Tissue specimen (specimen) HEMORRHOIDS / Unknown 07/18/2024 10:14 EDT 07/19/2024 8:40 EDT Davina Daigle DO PATHOLOGY ORDERABLES [facility] [address] [place] [address] from Last 3 Months Care Teams Molding Plasterer Relationship Specialty Start Date End Date Jack Triplett MD [address] [place] [address] PCP - General Emergency Medicine 06/13/24
--- OUTSIDE RECORDS SUMMARY | 2024-08-03 19:07 | XMS_ITS | Encounter Summary ---
Author Organization [facility] [place] [address] Care Team Providers Care Laboratory Analyst Name Role Phone Riaz Hawkins MD Primary Care Provider [phone] Encounter Details Date Type Department Care Team (Late st Contact Info) Description 04/22/2015 Orders Only [place] [address] Iglesia De La Cruz MD [facility] DR [place] [address] Social History Tobacco Use Types Packs/Day Years [...] on filedocumented in this encounter Care Teams Laboratory Analyst Relationship Specialty Start Date End Date Riaz Hawkins MD [address] [place] [address] PCP - General 12/01/10 documented as of this encounter
--- OUTSIDE RECORDS SUMMARY | 2024-08-03 19:07 | XMS_ITS | Encounter Summary ---
Author Organization [facility] Address [facility] [place] [address] Care Team Providers Care Tack Puller Machine Name Role Phone Riaz Hawkins MD Primary Care Provider [phone] Encounter Details Date Type Department Care Team (Latest Contact Info) Description 03/10/2013 12:39 PM EDT - 03/10/2013 11:59 PM EDT Hospital [place] [address] Iglesia De La Cruz MD [facility] [place] [address] Ascending aorta dilatation; Ascending aortic aneurysm Discharge Disposition: Home Social History Tobacco Use [...] Type Priority Associated Diagnoses Orde r Schedule Creatinine Lab STAT Ascending aortic aneurysm 1 Occurrences starting 03/10/2013 documented as of this encounter Procedures Procedure Name Priority Date/Time Associated Diagnosis Comments CREATININE Routine 03/10/2013 12:45 PM EDT Ascending aorta dilatation documented in this encounter Results * Creatinine (03/10/2013 12:45 PM EDT) Creatinine 0.85 0.80 - 1.50 mg/dL ANSELMO GALEANO Comment: Please note that the pediatric reference intervals supplied above were not validated at [facility]. Results from pediatric patients should be interpreted [...] De La Cruz MD CHEMISTRY ORDERABL ES ANSELMO GALEANO documented in this encounter Visit Diagnoses Diagnosis Ascending aorta dilatation Thoracic aortic ectasia Ascending aortic aneurysm Thoracic aneurysm without mention of rupture documented in this encounter Care Teams Tack Puller Machine Relationship Specialty Start Date End Date Riaz Hawkins MD [address] [place] [address] PCP - General 12/01/10 documented as of this encounter
--- OUTSIDE RECORDS SUMMARY | 2024-08-03 19:07 | XMS_ITS | Encounter Summary ---
Author Organization [facility] Address [facility] [place] [address] Care Team Providers Care Java Solutions Architect Name Role Phone Riaz Hawkins MD Primary Care Provider [phone] Encounter Details Date Type Department Care Team (Late st Contact Info) Description 12/01/2019 2:40 PM EST Office Visit [place] [id number] Iglesia De La Cruz MD [facility] [address] [place] [address] Ascending aorta dilatation Social History Tobacco Use Types Packs/Day Years Used Date Smoking Tobacco: Never Smokeless Tobacco: Never Sex and Gender Information Value Date Recorded Sex Assigned at Not on file Gender Identity Not on file Sexual Orientation Not on file documented as of this encounter Last Filed Vital Signs Vital Sign Reading Time Taken Comments Blood Pressure 113/77 12/01/2019 2:49 PM EST Pulse 65 12/01/2019 2:49 PM EST Temperature - - Respiratory Rate - - Oxygen Saturation 95% 12/01/2019 2:49 PM EST Inhaled Oxygen Concentration - - Weight 90.9 kg (200 lb 8 oz) 12/01/2019 2:49 PM EST Height 182.9 cm (6') 12/01/2019 2:49 PM EST Body Mass Index 27.19 12/01/2019 2:49 PM EST documented in this encounter Progress Notes * Iglesia De La Cruz MD - 12/01/2019 2:40 PM EST I am seeing Mr. Mckinney in followup for his aorta. He has been doing well. 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 His Parkinsons is therebut not progressing rapidly. 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 No chest pain or shortness of breath. HE still remains quite active. CT scan shows a stable 4.6 cm ascending aorta, with no evidence of an acute aortic problem. Outpatient Medications Marked as Taking for the 12/01/19 encounter (Office Visit) with Iglesia De La Cruz MD Medication Sig Dispense Refill ??? aspirin 81 mg Tablet, Chewable Take 81 mg by mouth daily. ??? atorvastatin (LIPITOR) 10 mg Tablet Take 10 mg by mouth daily. ??? carbidopa-levodopa (SINEMET [...] 5 minutes as needed. Indications: Angina ??? [DISCONTINUED] aspirin 325 mg EC tablet Take 325 mg by mouth daily. Physical Exam: BP 113/77 Pulse 65 Ht 182.9 cm (6') Wt 90.9 kg (200 lb 8 oz) SpO2 95% BMI 27.19 kg/m?? Lung: CTA CV: RRR, no murmur A/P: Stable CT scan . I would like to see him again in two years with repeat CT scan of the chest for followup. HE has started seeing Dr. Guo, which I think is a great idea. documented in this encounter Plan of Treatment Not on file documented as of this encounter Visit Diagnoses Diagnosis Ascending aorta dilatation Thoracic aortic ectasia documented in this encounter Care Teams Java Solutions Architect Relationship Specialty Start Date End Date Riaz Hawkins MD [address] [place] [address] PCP - General 12/01/10 documented as of this encounter
--- OUTSIDE RECORDS SUMMARY | 2024-08-03 19:07 | XMS_ITS | Encounter Summary ---
Author Organization [facility] Address [address] [place] [address] Care Team Providers Care Layout Mechanic Name Role Phone Riaz Hawkins MD Primary Care Provider [phone] Reason for Visit * Reason Comments Follow-up Encounter Details Date Type Department Care Team ([facility] st Contact Info) Description 11/10/2023 13:00 EST [facility] Visit [facility] - [address] [id number] Jammie Marquis NP [address] [place] [address] 2 [place] [address] Parkinson's disease without dyskinesia, unspecified whether manifestations fluctuate (Primary Dx); Lumbosacral radiculopathy Social History Tobacco Use Types Packs/Day Years [...] Sign Reading Time Taken Comments Blood Pressure 108/60 11/10/2023 1259 EST Pulse 57 11/10/2023 1259 EST Temperature - - Respiratory Rate - - Oxygen Saturation 98% 11/10/2023 1259 EST Inhaled Oxygen Concentration - - Weight - [...] * Patient Instructions* Kenia Goss NP - 11/10/2023 13:00 EST Try taking 1/2 to 1 tab of carbidopa/levodopa 25/100 overnight toward morning to see if it helps morning mobility You can take Aleve twice a day, morning and evening. Take with food. documented in this encounter Progress Notes * Jammie Marquis NP - 11/10/2023 1300 EST Images from the original note were not included. Primary Care: Riaz Hawkins [address] [place] [address] Reason for visit: ICD-10-CM ICD-9-CM 1. Parkinson's disease without dyskinesia, unspecified whether manifestations fluctuate G20.A1 332.0 2. Lumbosacral radiculopathy M54.17 724.4 Assessment & Plan / Recommendations: Previous visit: Parkinson's disease with minimal motor fluctuations but ongoing difficulty with GI discomfort on current dose of ratari plus carbidopa. He would like to try replacing the Rytary with regular carbidopa levodopa. We made a plan to replace one dose at a time. He will take two carbidopa levodopa immediate release 25/100 for the first dose of the day instead of his Rytary. When that starts to wear offhe will resume his ride gene. Discussed the fact that they're covered up levodopa may not last as long as the right target and he may end up taking four doses a day instead of three doses a day. He would like to just see if this will help with the nausea and bloating. Instructions provided. Need to [facility] domperidone. It was ordered about a month ago and he has not received it. The [facility] has told him it's ???in transit.?? He is getting good exercise with boxing, walking, and theracycle. Continue current regimen of exercise. He will contact the office in one week to let us know how the transition to carbidopa levodopa is going. Today Koko reports he has had a rough month (see HPI), but he feels he is slowly returning to baseline. Doing PT which is helpful. Difficulty getting moving in the morning --Add 1/2 to 1 tab of Carbidopa/levodopa IR 25/100 overnight toward morning. --Continue PT No orders of the defined types were placed in this encounter. No orders of the defined types were placed in this encounter. Patient Instructions Try taking 1/2 to 1 tab of carbidopa/levodopa 25/100 overnight toward morning to see if it helps morning mobility You can take Aleve twice a day, morning and evening. Take with food. Return for follow-up: As scheduled with Dr. Reid. HPI: Returns for follow up Accompanied to visit by Last 1.5 months have been hard. Koko reports that he experienced two falls and a severe episode of sciatica resulting in an ED visit. Both falls occurred in the self pay collector prior to his medication kicking in. No clear trauma as a cause of the sciatic pain. Participating in aquatic PT regularly and recently resumed boxing. Has discussed with PCP and is improving slowly. Taking tylenol and aleve as needed for pain/inflammation. With regard to parkinson's symptoms, he feels that the falls and back pain set him back but again, he is slowly improving and becoming more independent. With regard to nausea, replaced carbidopa withdomperidone which has been more effective in controlling symptoms. Motor symptoms Motor fluctuations: are not present LIDS: are not present Dystonia: is not present Fluctuation treatment: No required as needed treatment Percentage of day spent in OFF state: <25 % FALLS: As above. ASSISTIVE DEVICES: Walker to use bathroom at night DYSARTHRIA: none DYSPHAGIA: none NON-MOTOR SYMPTOMS: See ROS Current Outpatient Medications Medication Sig Note Dispense Refill acetaminophen (TYLENOL ARTHRITIS ORAL) Take by mouth as needed for Pain. aspirin 81 mg EC tablet Take 1 Tablet by mouth daily. atorvastatin (LIPITOR) 40 mg tablet Take 1 Tablet by mouth daily. Carbidopa (LODOSYN) 25 mg tablet Take 1 Tablet by mouth 3 times daily. Take with each Rytary dose (Patient not taking: Reported on 11/10/2023) 270 Tablet 3 carbidopa-levodopa (RYTARY) 23.75-95 mg ER capsule Take 3 Capsules by mouth 3 times daily. 810 Capsule 3 carbidopa-levodopa (SINEMET) 25-100 mg per tablet As directed up to 4 times daily 360 Tablet 1 DOMPERIDONE, BULK, MISC by misc (non-drug; combo [...] daily. (Patient not taking: Reported on 11/10/2023) 08/09/2023: 2.5 mg No current facility-administered medications for this visit. MEDICATION / DOSE 06:00 AM 11:00 AM 05:00 PM carbidopa-levodopa IR (SINEMET) 25-100 mg 2 2 2 carbidopa-levodopa ER (RYTARY) 23.75-95 mg 1 1 1 Domperidone 10 mg PRN PRN PRN Allergies Allergen Reactions Cedric Inhibitors Other (See Comments) Hypotension Unable To Assess Patient unsure of blood pressure medication. Says it lowered the bp too much. Review of systems including , GI, sleep, cognition, psychiatric, presyncope/syncope,sweating abnormalities were negative or included in the history above with the following exceptions: Urinary frequency Nocturia Thrashing/acting out of dreams Examination: BP 108/60 (BP Cuff Location: Left arm, BP Patient Position: Sitting, BP Cuff Sizes: Adult, regular) Pulse 57 SpO2 98% Alert, appropriate Ox3 Normal language Normal insight Normal judgement UPDRS-III Motor Examination Section Factor Score 18 Speech 0 -Normal. 19 Facial expression 1 -Minimal hypomimia. Could be normal Poker Face. 20 Tremor at rest: Face, lips, chin 0 -Absent. Hands: right 0 -Absent. Hands: left 0 -Absent. Feet: right 0 -Absent. Feet: left 0 -Absent. 21 Action tremor: right 1 -Slight. Present with action. left 1 -Slight. Present with action. 22 Rigidity: Neck 0 -Absent. Upper extremity: right 3 -Marked, but full range of motion easily achieved. Upper extremity: left 2 -Mild to moderate. Lower extremity: right 2 -Mild to moderate. Lower extremity: left 2 -Mild to moderate. 23 Finger taps: right 1 -Mild slowing and/or reduction in amplitude. Finger taps: left 1 -Mild slowing and/or reduction in amplitude. 24 Hand security compliance engineer: right 1 -Mild slowing and/or reduction in amplitude. Hand security compliance engineer: left 1 -Mild slowing and/or reduction in amplitude. 25 Hand pronate/supinate: right 1 -Mild slowing and/or reduction in amplitude. left 2 -Moderately impaired. Definite and early fatiguing. May have occasional arrests in movement. 26 Leg agility: right 1 -Mild slowing and/or reduction in amplitude. left 1 -Mild slowing and/or reduction in amplitude. 27 Arise from chair 1 -Slow, or may need more than one attempt. 28 Posture 1 -Not quite erect, slightly stooped posture. Could be normal for older person. 29 Gait 0 -Normal. 30 Postural stability 0 -Normal. 31 Body bradykinesia 1 -Minimal slowness, giving movement a deliberate character. Could be normal for some persons. Possibly reduced amplitude. Sec 18 to 31 total: 24 I spent a total of 45 minutes on the date of this encounter meeting with the patient and reviewing documentation/coordinating care as described in the above note. Patient/care companion education Review of the pertinent information in the electronic health record Care plan formulation Supportive counseling as described in the assessment and plan Documentation of clinical information in the EHR Encounter Provider: Jammie Marquis NP documented in this encounter Plan of Treatment Upcoming Encounters Date Type Department Care Team (Late st Contact Info) Description 09/18/2024 14:00 EST Office Visit [facility] - [address] [id number] Dong Reid MD 1 [facility], [facility] 2 [place] [id number] 01/19/2025 10:15 EDT Office Visit [facility] - [address] [address] Kenia Goss NP 1 [facility], [facility] 2 [place] [address] documented as of this encounter Visit Diagnoses Diagnosis Parkinson's disease without dyskinesia, unspecified whether manifestations fluctuate ([facility])- Primary Lumbosacral radiculopathy Thoracic or lumbosacral neuritis or radiculitis, unspecified documented in this encounter Historical Medications * This list may reflect changes made after this encounter. Medication Sig Dispensed Refills Start Date End Date DOMPERIDONE, BULK, MISC by misc (non-drug; combo route) route. added in this encounter Care Teams Layout Mechanic Relationship Specialty Start Date End Date Riaz Hawkins MD [address] [place], [place] [id number] PCP - General 08/15/15 06/12/24 documented as of this encounter
--- OUTSIDE RECORDS SUMMARY | 2024-08-03 19:07 | XMS_ITS | Encounter Summary ---
Author Organization [facility] [place] [address] Care Team Providers Care Powder Press Operator Name Role Phone Riaz Hawkins MD Primary Care Provider [phone] Reason for Visit * Reason Comments Aneurysm (Aortic) Encounter Details Date Type Department Care Team (Late st Contact Info) Description 07/01/2011 2:00 PM EDT Follow-[place] [address] CLINIC, Cristiana Solis MD [facility] [place] [address] Ascending aortic aneurysm (Primary Dx) Discharge Disposition: Home Social History Tobacco Use Types Packs/Day Years Used Date Smoking Tobacco: Never Smokeless Tobacco: Never Sex and Gender Information Value Date Recorded Sex Assigned at Not on file Gender Identity Not on file Sexual Orientation Not on file documented as of this encounter Last Filed Vital Signs Vital Sign Reading Time Taken Comments Blood Pressure 132/80 07/01/2011 2:11 PM EDT Lt arm sitting Pulse 58 07/01/2011 2:11 PM EDT Regular Temperature - - Respiratory Rate - - Oxygen Saturation 98% 07/01/2011 2:1 1 PM EDT Room air @ rest Inhaled Oxygen Concentration - - Weight 82.3 kg (181 lb 8 oz) 07/01/2011 2:11 PM EDT Height 182.9 cm (6') 07/01/2011 2:11 PM EDT Body Mass Index 24.62 07/01/2011 2:11 PM EDT documented in this encounter Progress Notes * Cristiana De La Cruz MD - 07/01/2011 3:11 PM EDT I am seeing Mr. Aguiar in followup for dilated ascending aorta. Since I last saw him, he has no new complaints. He has had no new problems. He denies any chest pain or shortness of breath. He has been very active. CT scan today shows no difference in aortic size, at 4.5 cm diameter. Outpatient prescriptions marked as taking for the 07/01/11 encounter (Follow-Up) with CRISTIANA DE LA CRUZ Medication Sig Dispense Refill ??? aspirin 325 mg EC tablet Take 325 mg by mouth daily. ??? metoprolol succinate (TOPROL-XL) 25 mg 24 hr tablet Take 25 mg by mouth daily. 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 nitroGLYcerin (NITROSTAT) 0.[address] 0.4 mg under the tongue every 5 minutes as needed. Indications: Angina ??? atorvastatin (LIPITOR) 40 mg tablet 40 MG = 1 Tablet(s), PO, Once daily ??? clopidogrel (PLAVIX) 75 mg tablet 75 MG = 1 Tablet(s), PO, Once daily Physical Exam: BP 132/80 Pulse 58 Ht 182.9 cm (6') Wt 82.328 kg (181 lb 8 oz) BMI 24.62 kg/m2 SpO2 98% CV: RRR, no murmur Lung: CTA Intact peripheral pulses A/P No change in aortic size. Continue current therapy. Reviewed issues and concerns. Followup withme in [address] scan documented in this encounter Miscellaneous Notes * Miscellaneous - Nikki Winters - 07/09/2011 9:23 PM EDT documented in this encounter Plan of Treatment Not on file documented as of this encounter Visit Diagnoses Diagnosis Ascending aortic aneurysm- Primary Thoracic aneurysm without mention of rupture documented in this encounter Care Teams Powder Press Operator Relationship Specialty Start Date End Date Riaz Hawkins MD [address] [place] [address] PCP - General 12/01/10 documented as of this encounter
--- OUTSIDE RECORDS SUMMARY | 2024-08-03 19:07 | XMS_ITS | Encounter Summary ---
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 This report was reviewed by Александр Block at 06/28/2015 3:23 PM Film and interpretation reviewed by the attending Iglesia De La Cruz MD IMG CT ORDERABLES * Creatinine (06/28/2015 11:46 AM EDT) Creatinine 0.92 0.80 - 1.50 mg/dL [facility] Comment: Please note that the pediatric reference intervals supplied above were not validated at [facility]. Results from pediatric patients should be interpreted in conjunction to the patient's age, height and muscle mass. Est Glomerular Filtration Rate >60 >=60 [facility] Comment: This estimated GFR (eGFR) value was [...] the following links into your internet browser. [email or web address] Blood specimen (specimen) 06/28/2015 11:46 AM EDT 06/28/2015 11:49 AM EDT Narrative Resulting Agency Comment Spec In Lab Iglesia De La Cruz MD CHEMISTRY ORDERABL ES [facility] documented in this encounter Visit Diagnoses Diagnosis H/O ascending aorta repair Personal history of surgery to heart and great vessels, presenting hazards to health H/O ascending aorta repair Personal history of surgery to heart and great vessels, presenting hazards to health documented in this encounter Care Teams Valuation Manager Relationship Specialty Start Date End Date Riaz Hawkins MD [address] [place] [address] PCP - General 12/01/10 documented as of this encounter
--- OUTSIDE RECORDS SUMMARY | 2024-08-03 19:07 | XMS_ITS | Encounter Summary ---
Author Organization [facility] Address [facility] [place] [address] Care Team Providers Care Piping Engineer Name Role Phone Riaz Hawkins MD Primary Care Provider [phone] Encounter Details Date Type Department Care Team (Late st Contact Info) Description 06/28/2015 1:30 PM EDT Follow-[place] [phone] Iglesia De La Cruz MD [facility] [place] [address] H/O ascending aorta repair ERRONEOUS DIAGNOSIS; Ascending aorta dilatation Discharge Disposition: Home Social History Tobacco Use Types Packs/Day Years Used Date Smoking Tobacco: Never Smokeless Tobacco: Never Sex and Gender Information Value Date Recorded Sex Assigned at Not on file Gender Identity Not on file Sexual Orientation Not on file documented as of this encounter Last Filed Vital Signs Vital Sign Reading Time Taken Comments Blood Pressure 132/76 06/28/2015 1:44 PM EDT Pulse 70 06/28/2015 1:44 PM EDT Temperature - - Respiratory Rate - - Oxygen Saturation 96% 06/28/2015 1:44 PM EDT room air Inhaled Oxygen Concentration - - Weight 86.6 kg (191 lb) 06/28/2015 1:44 PM EDT Height 180.3 cm (5' 11) 06/28/2015 1:44 PM EDT Body Mass Index 26.64 06/28/2015 1:44 PM EDT documented in this encounter Progress Notes * Iglesia De La Cruz MD - 06/28/2015 2:09 PM EDT I am seeing Mr. 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 Since he last saw him he has done fairly well. He denies chest pain or shortness of breath. He has been recently diagnosed with Parkinson's disease, which is not very advanced. 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 CT scan today shows no change in 4.5 cm ascending aorta Outpatient Prescriptions Marked as Taking for the 06/28/15 encounter (Follow-Up) with Iglesia De La Cruz MD Medication Sig Dispense Refill ??? hydrochlorothiazide (MICROZIDE) 12.5 mg capsule Take 12.5 mg by mouth daily. ??? atorvastatin (LIPITOR) 40 mg tablet Take 20 mg by mouth daily. Half of a 40MG Tablet until finished. = 20 MG daily ??? MOMETASONE FUROATE (NASONEX NASL) by Nasal route. ??? aspirin 325 mg EC tablet Take 325 mg by mouth daily. ??? metoprolol succinate (TOPROL-XL) 25 mg 24 hr tablet Take 25 mg by mouth daily. 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 nitroGLYcerin (NITROSTAT) 0.[address] 0.4 mg under the tongue every 5 minutes as needed. Indications: Angina Current Facility-Administered Medications for the 06/28/15 encounter (Follow-Up) with Iglesia De La Cruz MD Medication Dose Route Frequency Provider Last Rate Last Dose ??? [COMPLETED] iohexol (OMNIPAQUE) 350 mg/mL solution 38,500 mg 110 mL Intravenous Once PRN Myles Reeves MD 38,500 mg at 06/28/15 1243 Physical Exam: BP 132/76 mmHg Pulse 70 Ht 180.3 cm (5' 11) Wt 86.637 kg (191 lb) BMI 26.65 kg/m2 SpO2 96% Lung: CTA CV: RRR, faint systolic murmur No edema nml pulse exam A/P: Stable ascending aortic diameter now since 2010. We should continue followup. I would plan to see him in [address] scan of the chest. documented in this encounter Plan of Treatment Not on file documented as of this encounter Procedures Procedure Name Priority Date/Time Associated Diagnosis Comments CREATININE STAT 06/28/2015 11:46 AM EDT H/O ascending aorta repair ERRONEOUS DIAGNOSIS documented in this encounter Results * Creatinine (06/28/2015 11:46 AM EDT) Creatinine 0.92 0.80 - 1.50 mg/dL [facility] Comment: Please note that the pediatric reference intervals supplied above were not validated at [facility]. Results from pediatric patients should be interpreted in conjunction to the patient's age, height and muscle mass. Est Glomerular Filtration Rate >60 >=60 [facility] Comment: This estimated GFR (eGFR) value was [...] the following links into your internet browser. [email or web address] Blood specimen (specimen) 06/28/2015 11:46 AM EDT 06/28/2015 11:49 AM EDT Narrative Resulting Agency Comment Spec In Lab Iglesia De La Cruz MD CHEMISTRY ORDERABL ES [facility] documented in this encounter Visit Diagnoses Diagnosis H/O ascending aorta repair ERRONEOUS DIAGNOSIS Personal history of surgery to heart and great vessels, presenting hazards to health Ascending aorta dilatation Thoracic aortic ectasia documented in this encounter Care Teams Piping Engineer Relationship Specialty Start Date End Date Riaz Hawkins MD [address] [place] [address] PCP - General 12/01/10 documented as of this encounter
--- OUTSIDE RECORDS SUMMARY | 2024-08-03 19:07 | XMS_ITS | Encounter Summary ---
Author Organization [facility] [place] [address] Care Team Providers Care Iron Miner Blasting Name Role Phone Riaz Hawkins MD Primary Care Provider [phone] Encounter Details Date Type Department Care Team (Late st Contact Info) Description 09/17/2021 Orders [place] [address] Pravin Alan, [facility] [place] [address] Ascending aorta dilatation Social History Tobacco Use [...] ectasia documented in this encounter Care Teams Iron Miner Blasting Relationship Specialty Start Date End Date Riaz Hawkins MD [address] [place] [address] PCP - General 12/01/10 documented as of this encounter
--- OUTSIDE RECORDS SUMMARY | 2024-08-03 19:07 | XMS_ITS | Encounter Summary ---
Author Organization [facility] [place] [address] Care Team Providers Care Rip Saw Operator Name Role Phone Riaz Hawkins MD Primary Care Provider [phone] Encounter Details Date Type Department Care Team (Late st Contact Info) Description 12/27/2012 Orders Only [place] [address] Iglesia De La Cruz MD [facility] DR [place] [address] Ascending aortic aneurysm (Primary Dx) Social History Tobacco Use [...] Schedule Creatinine Lab STAT Ascending aortic aneurysm Expected: 02/15/2013 (Approximate), Expires: 12/27/2013 documented as of this encounter Visit Diagnoses Diagnosis Ascending aortic aneurysm- Primary Thoracic aneurysm without mention of rupture documented in this encounter Care Teams Rip Saw Operator Relationship Specialty Start Date End Date Riaz Hawkins MD [address] [place] [address] PCP - General 12/01/10 documented as of this encounter
--- OUTSIDE RECORDS SUMMARY | 2024-08-03 19:08 | XMS_ITS | Encounter Summary ---
Author Organization [facility] Address [address] [place] [address] Care Team Providers Care Regulatory Affairs Coordinator Name Role Phone Riaz Hawkins MD Primary Care Provider [phone] Jack Triplett MD Primary Care Provider [phone] Encounter Details Date Type Department Care Team (Late st Contact Info) Description 06/05/2022 Lab Requisition [facility] Pathology & Laboratory Medicine - [address] [address] Outr Resulting Lab, Provider Social History Tobacco Use Types Packs/Day Years [...] Info) Description 09/18/2024 14:00 EST Office Visit [facility] Neurology - S [address] [id number] Dong Reid MD [address] [place] [address], [facility] 2 [place] [phone] 01/19/2025 10:15 EDT Office Visit [facility] Neurology - S [place] [address] [place] [address] Kenia Goss NP 1 [facility] 2 [place] [phone] documented as of this encounter Procedures Procedure Name Priority Date/Time Associated Diagnosis Comments CCP ANTIBODIES Routine 06/04/2022 12:55 EDT LYME AB Routine 06/04/2022 12:55 EDT RHEUMATOID FACTOR Routine 06/04/2022 12: 55 EDT documented in this encounter Results * LYME AB (06/04/2022 12:55 EDT) Lyme Ab Negative Negative 06/08/2022 10:06 EDT [facility] Blood VENOUS BLOOD / Unknown 06/04/2022 12:55 EDT 06/05/2022 17:20 EDT Provider Outr Resulting Lab IMMUNOLOGY A ND SEROLOGY ORDERABLES [facility] [address] [place] [address] * RHEUMATOID FACTOR (06/04/2022 12:55 EDT) Pathologist [facility] Rheumatoid Factor <8.6 <12.0 IU/mL 06/05/2022 17:32 EDT [facility] Blood VENOUS BLOOD / Unknown 06/04/2022 12:55 EDT 06/05/2022 17:20 EDT Provider Outr Resulting Lab CHEMISTRY & BLOOD GAS ORDERABLES Performing Organization Address City/[facility]/ZIP Co de Phone Number [facility] [address] [place] [address] * CCP ANTIBODIES (06/04/2022 12:55 EDT) CCP Antibodies <2.5 <5.0 U/mL 06/08/2022 9:08 EDT [facility] Blood VENOUS BLOOD / Unknown 06/04/2022 12:55 EDT 06/05/2022 17:20 EDT Provider Outr Resulting Lab IMMUNOLOGY A ND SEROLOGY ORDERABLES Performing Organization Address City/[facility] Co de Phone Number [facility] [address] [place] [address] documented in this encounter Visit Diagnoses Not on filedocumented in this encounter Care Teams Regulatory Affairs Coordinator Relationship Specialty Start Date End Date Riaz Hawkins MD [address] [place] [address] PCP - General 08/15/15 06/12/24 Jack Triplett MD [address] [place] [address] PCP - General Emergency Medicine 06/13/24 documented as of this encounter
--- OUTSIDE RECORDS SUMMARY | 2024-08-03 19:08 | XMS_ITS | Encounter Summary ---
Author Organization [facility] Address [address] [place] [address] Care Team Providers Care Tone Regulator Name Role Phone Riaz Hawkins MD Primary Care Provider [phone] Reason for Visit * Reason Onset Date Comments Appointment Related 07/20/2023 Encounter Details Date Type Department Care Team ([facility] st Contact Info) Description 07/20/2023 Telephone [facility] Neurology - S [address] [phone] Dong Reid MD [address] [place] [address] 2 [place] [phone] Appointment Related Social History Tobacco Use Types Packs/Day Years [...] encounter Miscellaneous Notes * Telephone Encounter - Ruperto Lopez - 07/20/2023 0944 EDT Reached out to jonas Sutherland message. Bumped FUR from Dr. Reid on 09/13 to ERECTING ENGINEER Jammie Marquis on 08/06 at 1:45 PM. [employer] message sent 07/20. documented in this encounter Plan of Treatment Upcoming Encounters Date Type Department Care Team (Late st Contact Info) Description 09/18/2024 14:00 EST Office Visit [facility] Neurology S [address] [phone] Dong Reid MD [address] [place] [phone] 01/19/2025 10:15 EDT Office Visit [facility] Neu[facility] S [address] 674121 Kenia Goss NP [address] [place] [phone] documented as of this encounter Visit Diagnoses Not on filedocumented in this encounter Care Teams Tone Regulator Relationship Specialty Start Date End Date Riaz Hawkins MD [address] [place] [address] PCP - General 08/15/15 06/12/24 documented as of this encounter
--- OUTSIDE RECORDS SUMMARY | 2024-08-03 19:08 | XMS_ITS | Encounter Summary ---
Author Organization [facility] Address [address] [place] [address] Care Team Providers Care Plant Production Worker Name Role Phone Riaz Hawkins MD Primary Care Provider [phone] Reason for Visit * Reason Onset Date Comments Appointment Related 06/30/2022 Encounter Details Date Type Department Care Team (Late st Contact Info) Description 06/30/2022 Telephone [facility] Neurology - S [address] [id number] Dong Reid MD [address] [place] [address] 2 [place] [phone] Appointment Related Social History Tobacco Use Types [...] Telephone Encounter - Sandy Shrestha RN - 06/30/2022 1548 EDT Per recent MCM sent to Koko from Aileen Valero RN, in part: I would suggest we try to arrange follow-up earlier than July with me via cancellation list Koko states that his symptoms have not changed and there is no new info to relate to Dr Reid. He will phone in if he experiences any new/concerning sx. He is informed that while MCM is a good way to communicate, he should reach out via phone with anything that he feels is urgent. This message to be routed to scheduling pool staff for further mgmt, Koko notified that he will be phoned if/when there are cancellations. ?? * Telephone Encounter - Jaja Hernandez - 06/30/2022 5726 EDT Pt called to advise he received an email that said Dr. Reid had a cancellation before his scheduled 08/03/22 at 10:00 am FUR ONSITE with Dr. Reid. Please call pt. documented in this encounter Plan of Treatment Upcoming Encounters Date Type Department Care Team (Late st Contact Info) Description 09/18/2024 14:00 EST Office Visit [facility] Neurology S [address] [phone] Dong Reid MD [address] [place] [phone] 01/19/2025 10:15 EDT Office Visit [facility] Neurology S [address] [phone] Kenia Goss NP [address] [place] [phone] documented as of this encounter Visit Diagnoses Not on filedocumented in this encounter Care Teams Plant Production Worker Relationship Specialty Start Date End Date Riaz Hawkins MD [address] [place] [address] PCP - General 08/15/15 06/12/24 documented as of this encounter
--- OUTSIDE RECORDS SUMMARY | 2024-08-03 19:08 | XMS_ITS | Encounter Summary ---
Author Organization [facility] Address [address] [place] [address] Care Team Providers Care Class A Regional Drivers Name Role Phone Riaz Hawkins MD Primary Care Provider [phone] Reason for Visit * Reason Onset Date Comments Coordination Of Care 11/03/2022 Ahsan lynn Encounter Details Date Type Department Care Team (Late st Contact Info) Description 11/03/2022 Telephone [facility] Neurology - S [address] [address] Charlette Germain RN [address] [place] [address] Coordination Of Care (Rytary transition/) Social History Tobacco Use Types Packs/Day Years [...] Telephone Encounter - Charlette Germain RN - 11/03/2022 1330 EST TC to Koko who has transitioned to Rytary 23.75-95 3 caps TID. He is not noticing the dyskinesia he had mid-morning any more but he actually feels under- medicated. He reports more shuffling of his feet than he had on regular sinemet and he continues to have nausea which improves after he eats. He still doesn't have a noticeable swing from off to on or back and states it is all the time, not related to dose times. He will try taking 1/2 to 1 C/L IR and monitor for improvement. He will keep track of when he needs/takes a dose and his response and he will call with update after a few days. documented in this encounter Plan of Treatment Upcoming Encounters Date Type Department Care Team (Late st Contact Info) Description 09/18/2024 14:00 EST Office Visit [facility] Neurology - S [address] [phone] Dong Reid MD [address] [place] [phone] 01/19/2025 10:15 EDT Office Visit [facility] Neurology S [address] [phone] Kenia Goss NP [address] [place] [phone] documented as of this encounter Visit Diagnoses Not on filedocumented in this encounter Care Teams Class A Regional Drivers Relationship Specialty Start Date End Date Riaz Hawkins MD [address] [place] [address] PCP - General 08/15/15 06/12/24 documented as of this encounter
--- OUTSIDE RECORDS SUMMARY | 2024-08-03 19:08 | XMS_ITS | Encounter Summary ---
Author Organization [facility] Address [address] [place] [address] Care Team Providers Care Toaster Operator Name Role Phone Riaz Hawkins MD Primary Care Provider [phone] Reason for Visit * Reason Onset Date Comments Appointment Related 12/24/2020 Encounter Details Date Type Department Care Team (Late st Contact Info) Description 12/24/2020 Telephone [facility] Neurology - S [address] [phone] Dong Reid MD [address] [place] [address] 2 [place] [phone] Appointment Related Social History Tobacco Use Types [...] encounter Miscellaneous Notes * Telephone Encounter - Chinmay Lam - 12/25/2020 1059 EST Jhon calling back to schedule 4 month follow up. Prefers in person, but advised dr. Reid does not have in person appts at this time 4 MO FUR TVD around 01/19/21, with Dr [email or web address] Meeting ID: [id number] Password: [id number] [place]: [phone] * Telephone Encounter - Michelle Tello - 12/24/2020 0940 EST Outreached Jhon and left a VM requesting a call back to schedule a 4 MO FUR TVD around 01/19/21, with Dr Reid Schedule from Recall documented in this encounter Plan of Treatment Upcoming Encounters Date Type Department Care Team (Late st Contact Info) Description 09/18/2024 14:00 EST Office Visit [facility] Neurology - S [address] [phone] Dong Reid MD [address] [place] [phone] 01/19/2025 10:15 EDT Office Visit [facility] Neurology - S [address] [phone] Kenia Goss NP [address] [place] [phone] documented as of this encounter Visit Diagnoses Not on filedocumented in this encounter Care Teams Toaster Operator Relationship Specialty Start Date End Date Riaz Hawkins MD [address] [place] [address] PCP - General 08/15/15 06/12/24 documented as of this encounter
--- OUTSIDE RECORDS SUMMARY | 2024-08-03 19:08 | XMS_ITS | Encounter Summary ---
Author Organization [facility] Address [address] [place] [address] Care Team Providers Care Therapeutic Massage Technician Name Role Phone Riaz Hawkins MD Primary Care Provider [phone] Reason for Visit * Reason Onset Date Comments Other 11/16/2018 Encounter Details Date Type Department Care Team (Late st Contact Info) Description 11/16/2018 Telephone [facility] Neurology - S [address] [phone] Jammie Marquis NP [address] [place] [address] 2 [place] [phone] Other Social History Tobacco Use Types Packs/Day Years Used Date Smoking Tobacco: Never Smokeless Tobacco: Never Alcohol Use Standard Drinks/Week Comments Not Asked 0 (1 standard drink = 0.6 oz pur e alcohol) Sex and Gender Information Value Date Recorded [...] encounter Miscellaneous Notes * Telephone Encounter - Lulú Knowles - 11/16/2018 1434 EST Not phone call encounter (error). Rescheduled bumped appts with Dr. Reid in May and Garrett Marquis in February. Will confirm new day/times work when patient is in 11/[address] Reid documented in this encounter Plan of Treatment Upcoming Encounters Date Type Department Care Team (Late st Contact Info) Description 09/18/2024 14:00 EST Office Visit [facility] Neurology S [address] [phone] Dong Reid MD [address] [place] [phone] 01/19/2025 10:15 EDT Office Visit [facility] S [address] [phone] Kenia Goss NP [address] [place] [phone] documented as of this encounter Visit Diagnoses Not on filedocumented in this encounter Care Teams Therapeutic Massage Technician Relationship Specialty Start Date End Date Riaz Hawkins MD [address] [place] [address] PCP - General 08/15/15 06/12/24 documented as of this encounter
--- OUTSIDE RECORDS SUMMARY | 2024-08-03 19:08 | XMS_ITS | Encounter Summary ---
Author Organization [facility] Address [address] [place] [address] Care Team Providers Care Filter Tip Catcher Name Role Phone Riaz Hawkins MD Primary Care Provider [phone] Reason for Visit * Reason Comments Other Encounter Details Date Type Department Care Team (Late st Contact Info) Description 03/10/2020 Refill [facility] Neurology - S [address] [phone] Jammie Marquis NP [address] [place] [address] 2 [place] [phone] Other Social History Tobacco Use Types Packs/Day [...] carbidopa-levodopa (SINEMET) 25-100 mg per tablet Take 1.5 Tabs by mouth 3 times daily. 405 Tab 3 03/12/2020 04/30/2020 documented in this encounter Miscellaneous Notes * Telephone Encounter - Katrina Levy RN - 03/12/2020 0904 EDT Pt last seen by on 12/25/19. Refill request for carbidopa levodopa. Pended order to provider. documented in this encounter Plan of Treatment Upcoming Encounters Date Type Department Care Team (Late st Contact Info) Description 09/18/2024 14:00 EST Office Visit [facility] Neurology S [address] [phone] Dong Reid MD [address] [place] [phone] 01/19/2025 10:[address] [facility] S [address] [phone] Kenia Goss NP [address] [place] [phone] documented as of this encounter Visit Diagnoses Not on filedocumented in this encounter Discontinued Medications Medication Sig Discontinue Reason Start Date End Da te carbidopa-levodopa (SINEMET) 25-100 mg per tablet Take 1.5 Tabs by mouth 3 times daily. Reorder 03/12/2020 documented as of this encounter Care Teams Filter Tip Catcher Relationship Specialty Start Date End Date Riaz Hawkins MD [address] [place], [place] [phone] PCP - General 08/15/15 06/12/24 documented as of this encounter
--- OUTSIDE RECORDS SUMMARY | 2024-08-03 19:08 | XMS_ITS | Encounter Summary ---
Author Organization [facility] Address [address] [place] [address] Care Team Providers Care Boring Machine Operator Production Name Role Phone Riaz Hawkins MD Primary Care Provider [phone] Reason for Visit * Reason Comments Follow-up Encounter Details Date Type Department Care Team ([facility] st Contact Info) Description 08/30/2019 11:[address] [facility] Neurology - S [place] [address] [place], [place] [phone] Jammie Marquis NP [address] [place] [address] Level 2 [place] [phone] Parkinson's disease ([facility]) (Primary Dx) Social History Tobacco Use Types [...] Sign Reading Time Taken Comments Blood Pressure 134/92 08/30/2019 1107 EST Pulse 53 08/30/2019 1107 EST Temperature - - Respiratory Rate 16 08/30/2019 1107 EST Oxygen Saturation 100% 08/30/2019 1107 EST Inhaled Oxygen Concentration - - Weight 91.3 kg (201 lb 3.2 oz) 08/30/[address] Height 182.9 cm (6' 0.01) 08/30/2019 1107 EST Body Mass Index 27.28 08/30/2019 1107 EST documented in this encounter Functional Status Functional [...] this encounter Patient Instructions * Patient Instructions* Jammie Marquis Aprn, APRN - 08/30/2019 11:30 EST Melatonin 5 to 10 mg at bedtime if thrashing gets more frequent or troublesome. documented in this encounter Progress Notes * Jammie Marquis Aprn, APRN - 08/30/2019 1130 EST [facility]? S DISEASE & MOVEMENT DISORDERS [address] [place] [address] [email or web address] Follow Up Note Date of Service: 08/30/2019 PCP: Riaz Hawkins Chief Complaint Patient presents with ??? Follow-up Subjective: Jhon returns for follow-up after last being seen in May. Reports double vision is worsening. Has to close one eye sometimes when focusing. PD symptoms well controlled. Boxing 2 x weekly. Interval history: ??? Motor symptoms Wearing off No Adverse Effects No Tremor Right leg Rigidity Ok Bradykinesia Ok Gait [place] No Freezing No Dyskinesia No Dystonia No Swallowing Ok ??? Non Motor symptoms Constipation No Bladder function Frequency, urgency, nocturia Lightheadedness No Thinking/memory Ok Mood Ok Illusory phenomena No Sleep Good, some RBD Review of Systems: Review of systems including , GI, sleep, cognition, psychiatric, presyncope/syncope, sweating abnormalities were negative or included in the history above with the following exceptions: HEENT - double vision is worse. Prisms at [place]. [facility], now may be planning surgery. Current PD Medications: Carbidopa/levodopa IR 25/100 1 tqb tid Medications and Allergies: Outpatient Medications Marked as Taking for the 08/30/19 encounter (Office Visit) with Jammie Marquis Aprn, APRN Medication Sig Dispense Refill ??? aspirin 325 mg tablet Take 325 mg by mouth daily ??? atorvastatin (LIPITOR) 10 mg tablet Take 5 mg by mouth daily ??? carbidopa-levodopa (SINEMET) 25-100 mg per tablet Take 1.5 Tabs by mouth 3 times daily. ??? cholecalciferol, Vitamin D3, 1,000 unit tablet Take 1,000 Units by mouth every 48 hours. ??? metoprolol (LOPRESSOR) 12.5 mg Take 12.5 mg by mouth daily ??? VITAMIN B COMPLEX-100 ORAL Take 1 Tab by mouth every 48 hours. Allergies Allergen Reactions ??? Cedric Inhibitors Other (See Comments) Hypotension ??? Unable To Assess Patient unsure of blood pressure medication. Says it lowered the bp too much. Examination: On exam Koko is seated in an exam room chair. He is pleasant, cooperative, and in no apparent distress. He attends today's appointment with his . He is alert and oriented to person, place, and time, with a good recall of remote and recent events. Affect is bright, language is fluent, speech is clear. Focused motor exam is documented below in the UPDRS. UPDRS-III Motor Examination Section Factor Score 18 Speech 1 -Slight loss of expression, diction and/or volume. 19 Facial expression 1 -Minimal hypomimia. Could be normal Poker Face. 20 Tremor at rest: Face, lips, chin 0 -Absent. Hands: right 0 -Absent. Hands: left 0 -Absent. Feet: right 1 -Slight and infrequently present. Feet: left 0 -Absent. 21 Action tremor: right 0 -Absent. left 0 -Absent. 22 Rigidity: Neck 0 -Absent. Upper extremity: right 1 -Slight or detectable only when activated by mirror or other movements. Upper extremity: left 1 -Slight or detectable only when activated by mirror or other movements. Lower extremity: right 2 -Mild to moderate. Lower extremity: left 2 -Mild to moderate. 23 Finger taps: right 2 -Moderately impaired. Definite and early fatiguing. May have occasional arrests in movement. Finger taps: left 1 -Mild slowing and/or reduction in amplitude. 24 Hand motors and controls tester: right 2 -Moderately impaired. Definite and early fatiguing. May have occasional arrests in movement. Hand motors and controls tester: left 1 -Mild slowing and/or reduction in amplitude. 25 Hand pronate/supinate: right 1 -Mild slowing and/or reduction in amplitude. left 0 -Normal. 26 Leg agility: right 1 -Mild slowing and/or reduction in amplitude. left 2 -Moderately impaired. Definite and early fatiguing. May have occasional arrests in movement. 27 Arise from chair 0 -Normal. 28 [...] reduced amplitude. Sec 18 to 31 total: 22 Vital Signs: BP (!) 134/92 (BP Cuff Location: Left arm, BP Patient Position: Sitting, BP Cuff Sizes: Adult, regular) Pulse 53 Resp 16 Ht 182.9 cm (72.01) Wt 91.3 kg (201 lb 3.2 oz) SpO2 100% BMI 27.28 kg/m?? Pain: 0 - No pain Location: Assessment & Plan: Parkinson's disease with good control of motor symptoms. He has had a couple of episodes of RBD since last seen. Option to try melatonin 5-10 mg at bedtime if this becomes more frequent. No changes to medications today. Follow up with Dr. Reid in 3 months. Dung & Yahr: 2 Jhon was seen today for follow-up. Diagnoses and all orders for this visit: Parkinson's disease ([facility]) Other orders - carbidopa-levodopa (SINEMET) 25-100 mg per tablet; Take 1.5 Tabs by mouth 3 times daily. I spent a total of 25 minutes [id number] time during this visit, of which 15 were devoted to patient/care-provider education, care plan formulation, and supportive counseling as noted in the assessment and plan. Final PD Medications (changes-if any-are underlined/in red): No change Patient Education Provided: f/u plans, melatonin for RBD Method: oral, written Taught to: patient, Barriers: none identified Outcomes: Verbalized understanding, written instructions/information given in After Visit Summary. Jammie Marquis Aprn, APRN documented in this encounter Plan of Treatment Upcoming Encounters Date Type Department Care Team (Late st Contact Info) Description 09/18/2024 14:[address] [facility] Neurology S [address] [phone] Dong Reid MD [address] [place] [phone] 01/19/2025 10:15 EDT Office Visit [address] [phone] Kenia Goss NP [address] [place] [phone] documented as of this encounter Visit Diagnoses Diagnosis Parkinson's disease ([facility])- Primary Paralysis agitans documented in this encounter Discontinued Medications Medication Sig Discontinue Reason Start Date End Da te carbidopa-levodopa (SINEMET) 25-100 mg per tablet As directed up to total of 6 tabs per day Dose adjustment 02/24/2019 08/30/2019 documented as of this encounter Historical Medications * This list may reflect changes made after this encounter. Medication Sig Dispensed Refills Start Date End Date carbidopa-levodopa (SINEMET) 25-100 mg per tablet Take 1.5 Tabs by mouth 3 times daily. 03/12/2020 added in this encounter Care Teams Boring Machine Operator Production Relationship Specialty Start Date End Date Riaz Hawkins MD [address] [place], [place] [phone] PCP - General 08/15/15 06/12/24 documented as of this encounter
--- OUTSIDE RECORDS SUMMARY | 2024-08-03 19:08 | XMS_ITS | Encounter Summary ---
Author Organization [facility] Address [address] [place] [address] Care Team Providers Care State Attorney Name Role Phone Riaz Hawkins MD Primary Care Provider [phone] Reason for Visit * Reason Comments Follow-up Encounter Details Date Type Department Care Team ([facility] st Contact Info) Description 04/05/2023 11:30 EDT Office Visit [facility] Neurology - [address] [id number] Dong Reid MD [address] [place] [address] [address] [place] [phone] Parkinson's disease (Primary Dx); REM sleep behavior disorder Social History Tobacco Use Types Packs/Day Years [...] Sign Reading Time Taken Comments Blood Pressure 116/80 04/05/2023 1140 EDT Pulse 58 04/05/2023 1140 EDT Temperature - - Respiratory Rate 16 04/05/2023 1140 EDT Oxygen Saturation 98% 04/05/2023 1140 EDT Inhaled Oxygen Concentration - - Weight 87.1 kg (192 lb) 04/05/2023 1140 EDT Height - - Body Mass Index 26.04 07/20/2022 1626 EDT documented in this encounter [...] * Patient Instructions* Dong Reid MD - 04/05/2023 11:30 EDT Add carbidopa 25 mg to each dose of Rytary Send an update in a few weeks If nausea and bloating are better, we will increase Rytary to 3 caps at each dose as a next step documented in this encounter Ordered Prescriptions Prescription Sig Dispensed Refills Start Date End Da te Carbidopa (LODOSYN) 25 mg tablet Take 1 Tablet by mouth daily for 30 days. 30 Tablet 2 04/05/2023 06/08/2023 documented in this encounter Progress Notes * Dong Reid MD - 04/05/2023 1130 EDT Images from the original note were not included. Primary Care: Riaz Hawkins [address] [place] [id number] Reason for visit: ICD-10-CM ICD-9-CM 1. Parkinson's disease ([facility]) ([facility]) G20 332.0 2. 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 If improved - consider increase in Rytary to 3 caps to address motor symptoms Contingency to consider domperidone - [facility] sourced - for GI symptoms if carbidopa is ineffective No orders of the defined types were placed in this encounter. Patient Instructions Add carbidopa 25 mg to each dose of Rytary Send an update in a few weeks If nausea and bloating are better, we will increase Rytary to 3 caps at each dose as a next step Return for follow-up: 4 months HPI: Returns for follow up Accompanied to visit by his Donna Trial of ondansetron without resolution of ongoing nausea and reduced appetite Abdominal bloating after meals AM nausea most severe Motor symptoms Motor fluctuations: predictable end of dose and AM. Better but not resolved fully with Rytary. Gradual in onset - not over seconds. Slower in best on state Levodopa-induced dyskinesias head sway - later in day after dinner. Bothersome but not disabling Dystonia: in off state - neck tilt As needed fluctuation treatment: Estimated percentage of day in OFF state: 20% Falls: none Assistive devices: walking sticks for outdoor uneven ground Dysarthria: low volume Dysphagia: mild to solids - no diet modifications Boxing 2d a week Theracycle 2-3 days a week NON-MOTOR SYMPTOMS: Rare Dream enactment Anxiety Nocturia Urinary frequency Apathy Current Outpatient Medications Medication Sig Note Dispense Refill ??? acetaminophen (TYLENOL ARTHRITIS ORAL) Take by mouth as needed for Pain. ??? aspirin 81 mg EC tablet Take 1 Tablet by mouth daily. ??? atorvastatin (LIPITOR) 40 mg tablet Take 1 Tablet by mouth daily. ??? Carbidopa (LODOSYN) 25 mg tablet Take 1 Tablet by mouth daily for 30 days. 30 Tablet 2 ??? carbidopa-levodopa (RYTARY) 23.75-95 mg ER capsule Take 3 Capsules by mouth 3 times daily. 04/05/2023: 3 caps AM, 2 caps 11 AM, 2 caps 5 PM 810 Capsule 3 ??? ezetimibe (ZETIA) 10 mg tablet Take 1 Tablet by mouth daily. ??? LOSARTAN POTASSIUM, BULK, MISC 25 mg by misc (non-drug; combo route) route daily. ??? metoprolol (LOPRESSOR) 12.5 mg Take 1 Tablet by mouth daily. ??? naproxen sodium (ALEVE ORAL) Take by mouth as needed for Pain. ??? predniSONE (DELTASONE) 1 mg tablet Take 6 Tablets by mouth daily. No current facility-administered medications for this visit. MEDICATION / DOSE 6a 11a 5p carbidopa-levodopa ER (RYTARY) 23.75-95 mg 3 2 2 Allergies Allergen Reactions ??? Cedric Inhibitors Other (See Comments) Hypotension ??? Unable To Assess Patient unsure of blood pressure medication. Says it lowered the bp too much. Review of systems including , GI, sleep, cognition, psychiatric, presyncope/syncope,sweating abnormalities were negative or included in the history above with the following exceptions: See above Examination: BP 116/80 (BP Cuff Location: Left arm, BP Patient Position: Sitting, BP Cuff Sizes: Adult, regular) Pulse 58 Resp 16 Wt 87.1 kg (192 lb) SpO2 98% BMI 26.04 kg/m?? Alert, appropriate Ox3 Normal language Normal insight Normal judgement UPDRS-III Motor Examination Section Factor Score 18 Speech 1 -Slight loss of expression, diction and/or volume. 19 Facial expression 2 -Slight but definitely abnormal diminution of facial expression. 20 Tremor at rest: ? Face, lips, chin 0 -Absent. ?? Hands: right 0 -Absent. ?? Hands: left 1 -Slight and infrequently present. ?? Feet: right 0 -Absent. ?? Feet: left 0 -Absent. 21 Action tremor: right 1 -Slight. Present with action. ?? left 1 -Slight. Present with action. 22 Rigidity: ? Neck 2 -Mild to moderate. ?? Upper extremity: right 1 -Slight or detectable only when activated by mirror or other movements. ?? Upper extremity: left 1 -Slight or detectable only when activated by mirror or other movements. ?? Lower extremity: right 2 -Mild to moderate. ?? Lower extremity: left 2 -Mild to moderate. 23 Finger taps: right 2 -Moderately impaired. Definite and early fatiguing. May have occasional arrests in movement. ?? Finger taps: left 2 -Moderately impaired. Definite and early fatiguing. May have occasional arrests in movement. 24 Hand director of physician practices: right 2 -Moderately impaired. Definite and early fatiguing. May have occasional arrests in movement. ?? Hand director of physician practices: left 2 -Moderately impaired. Definite and early fatiguing. May have occasional arrests in movement. 25 Hand pronate/supinate: right 1 -Mild slowing and/or reduction in amplitude. ?? left 1 -Mild slowing and/or reduction in amplitude. 26 Leg agility: right 1 -Mild slowing and/or reduction in amplitude. ?? left 1 -Mild slowing and/or reduction in amplitude. 27 Arise from chair 1 -Slow, or may need more than one attempt. 28 Posture 2 -Moderately stooped posture, definitely abnormal. Can be slightly leaning to one side. 29 Gait 2 -Walks with difficulty, but requires little or no assistance. May have some festination, short steps, or propulsion. 30 Postural stability 0 -Normal. 31 Body bradykinesia 2 -Mild degree of slowness and poverty of movement which is definitely abnormal. Alternatively, some reduced amplitude. ?? Sec 18 to 31 total: 33 ?? I spent a total of 33 minutes on the date of this encounter meeting with the patient and reviewing documentation/coordinating care as described in the above note. Patient/medicare interviewer education Review of the pertinent information in the electronic health record Care plan formulation Supportive counseling as described in the assessment and plan Documentation of clinical information in the EHR Encounter Provider: Dong Reid MD documented in this encounter Plan of Treatment Upcoming Encounters Date Type Department Care Team (Late st Contact Info) Description 09/18/2024 14:00 EST Office Visit [facility] Neurology - S [place] [address] [place] [id number] Dong Reid MD [address] [place] [address], [address] [place] [phone] 01/19/2025 10:15 EDT Office Visit [facility] Neurology - S [place] [address] [place] [address] Kenia Goss, RIKI 1 [facility], [address] [place] [phone] documented as of this encounter Visit Diagnoses Diagnosis Parkinson's disease ([facility])- Primary Paralysis agitans REM sleep behavior disorder documented in this encounter Care Teams State Attorney Relationship Specialty Start Date End Date Riaz Hawkins MD [address] [place] [address] PCP - General 08/15/15 06/12/24 documented as of this encounter
--- OUTSIDE RECORDS SUMMARY | 2024-08-03 19:08 | XMS_ITS | Encounter Summary ---
Author Organization [facility] Address [address] [place] [address] Care Team Providers Care Correctional Guard Name Role Phone Riaz Hawkins MD Primary Care Provider [phone] Reason for Visit * Reason Comments Follow-up Encounter Details Date Type Department Care Team ([facility] st Contact Info) Description 07/20/2022 16:30 EDT Office Visit [facility] Neurology - [address] [phone] Dong Reid MD [address] [place] [address] [address] [place] [phone] Parkinson's disease (Primary Dx); Lumbosacral radiculopathy; Cervical dystonia Social History Tobacco Use Types Packs/Day Years [...] Sign Reading Time Taken Comments Blood Pressure 122/80 07/20/2022 1626 EDT Pulse 55 07/20/2022 1626 EDT Temperature - - Respiratory Rate 14 07/20/2022 1626 EDT Oxygen Saturation 96% 07/20/2022 1626 EDT Inhaled Oxygen Concentration - - Weight 87.1 kg (192 lb) 07/20/2022 1626 EDT Height 182.9 cm (6') 07/20/2022 1626 EDT Body Mass Index 26.04 07/20/2022 1626 EDT [...] Dispensed Refills Start Date End Da te methylPREDNISolone (MEDROL DOSEPACK) 4 mg tablet follow package directions 1 Each 07/20/2022 11/30/2022 documented in this encounter Progress Notes * Dong Reid MD - 07/20/2022 1630 EDT Images from the original note were not included. ? Primary Care: Riaz Hawkins [address] [place] [address] ?? Reason for visit: ICD-10-CM ICD-9-CM 1. Parkinson's disease ([facility]) ([facility]) G20 332.0 2. Lumbosacral radiculopathy M54.17 724.4 3. Cervical dystonia G24.3 333.83 ?? Assessment & Plan / Recommendations: 1. Parkinson's disease overall motor symptoms appear to be well controlled. Mild nondisabling dyskinesia, mild predictable motor fluctuations ?? Persistent nonfluctuating mild upper intestinal GI distress. Potential contribution of levodopa, but not fluctuating in temporal association with dosing times. 2. Suspected radicular pain left lower extremity. Sciatic distribution. Nation with reduced Achilles reflex left raising suspicion of S1 radiculopathy. No confirmatory muscle bulk loss, weakness, sensory changes. Partial relief with NSAIDs and APAP. Given persistence for 3 months despite physical therapy, suggested of Medrol Dosepak. If unsuccessful recommended MRI without gadolinium lumbosacral spine. Contingency For pain management with gabapentin and referral to anesthesia pain interventional services for ANJALI. 3. Cervical stiffness. Examination with asymmetries of cervical tone, asymmetric activation, right directional head tilt suggestive of cervical dystonia secondary to Parkinson's disease. Discussed this pursuit of physical therapy for stretching and range of motion. If persistent problematic cervical pain, consider botulinum toxin injections 4. Polyarticular large joint pain. Primary care investigations without evidence of inflammatory disorder. Low suspicion of attribution to Parkinson's disease. Defer further management to primary care. Consider COX2 inhibitor - meloxicam or celecoxib if ferry terminal supervisor NSAID considered ? There are no Patient Instructions on file for this visit. Return for follow-up: 4 Months ? HPI: ?? Returns for follow up Accompanied to visit by his Donna In April -new onset particular pain shoulders, hips, knees bilateral Lyme testing and inflammatory markers negative by description. Investigated by PCP Plain films cervical and lumbar completed-unavailable for review as images or reports. Consistent participation in physical therapy without resolution. 6 weeks thus far. Additional new onset radiating pain buttocks into posterior leg, not distal to the knee Worsened with changes in trunk posture No leg weakness Cervical pain with associated range of motion restrictions. Increasing persistence of right head Mild cervical dyskinesia Occasional cervical muscular tightness described as occurring rarely. Predictable motor fluctuations that are relatively mild. Overall all-time estimated at 10% of the day falls: None Assistive devices: no assistive devices Dysarthria: Minor reductions Dysphagia: Mild to dry solids ?? NON-MOTOR SYMPTOMS: Urinary urgency. Nocturia. Abdominal bloating. GI upset - background low level upper intestinal symptoms /nausea without vomiting Sialorrhea. Vivid dreaming. Daytime sleepiness Current Outpatient Medications Medication Sig Dispense Refill ??? acetaminophen (TYLENOL ARTHRITIS ORAL) Take by mouth as needed for Pain. ??? aspirin 81 mg EC tablet Take 81 mg by mouth daily. ??? atorvastatin (LIPITOR) 40 mg tablet Take 40 mg by mouth daily. ??? carbidopa-levodopa (SINEMET) 25-100 mg per tablet Take 2 tabs in AM, noon and 1.5 tabs in PM (Patient taking differently: Take 2.5 tabs in AM, 2.5 at noon and 2 tabs in PM) 450 Tablet 3 ??? Cholecalciferol, Vitamin D3, (VITAMIN D3) 50 mcg (2,000 unit) capsule Take 1 Capsule by mouth daily. (Patient not taking: Reported on 05/26/2021) ??? ezetimibe (ZETIA) 10 mg tablet Take 10 mg by mouth daily. ??? LOSARTAN POTASSIUM, BULK, MISC 25 mg by misc (non-drug; combo route) route. 2 25 mg tablets once daily (total 50 mg) ??? methylPREDNISolone (MEDROL DOSEPACK) 4 mg tablet follow package directions 1 Each 0 ??? metoprolol (LOPRESSOR) 12.5 mg Take 12.5 mg by mouth daily ??? naproxen sodium (ALEVE ORAL) Take by mouth as needed for Pain. No current facility-administered medications for this visit. Allergies Allergen Reactions ??? Cedric Inhibitors Other (See Comments) Hypotension ??? Unable To Assess Patient unsure of blood pressure medication. Says it lowered the bp too much. ?? Review of systems including , GI, sleep, cognition, psychiatric, presyncope/syncope,sweating abnormalities were negative or included in the history above with the following exceptions: See above ?? Examination: Patient Vitals for the past 24 hrs: BP Pulse Resp SpO2 Height Weight 07/20/22 1626 122/80 55 14 96 % 182.9 cm (72) 87.1 kg (192 lb) Alert, appropriate Ox3 Normal language Normal insight Normal judgement ??low amplitude cervical athetosis - augmented by limb activities Low amplitude choreoathetosis left limbs Right head tilt with subtle left rotation. Over activation of right semispinalis capitis greater than splenius capitis and sternocleidomastoid-compared with left. Restricted right rotation relative to left 5/5 power lower extremities except bilateral strong 4+ No identified weakness or muscle bulk changes in gastrocnemius. Bilateral symmetric single-leg elevations on the toes without evidence of fatiguing or asymmetry Reflexes 2 and symmetric at the knees, right ankle 1, left ankle absent Intact cold sensation throughout distal left lower extremity. Notices in proximal and distal foot, or dorsal and plantar foot sensation to cold UPDRS-III Motor Examination Section Factor Score 18 Speech 1 -Slight loss of expression, diction and/or volume. 19 Facial expression 2 -Slight but definitely abnormal diminution of facial expression. 20 Tremor at rest: Face, lips, chin 0 -Absent. Hands: right 0 -Absent. Hands: left 1 -Slight and infrequently present. Feet: right 0 -Absent. Feet: left 0 -Absent. 21 Action tremor: right 1 -Slight. Present with action. left 1 -Slight. Present with action. 22 Rigidity: Neck 2 -Mild to moderate. Upper extremity: right 1 -Slight or detectable [...] occasional arrests in movement. Finger taps: left 2 -Moderately impaired. Definite and early fatiguing. May have occasional arrestsin movement. 24 Hand smooth and burr worker composites: right 2 -Moderately impaired. Definite and early fatiguing. May have occasional arrests in movement. Hand smooth and burr worker composites: left 2 -Moderately impaired. Definite and early [...] is definitely abnormal. Alternatively, some reduced amplitude. Sec 18 to 31 total: 33 I spent a total of 48 minutes on the date of this encounter meeting with the patient and reviewing documentation/coordinating care as described in the above note. Patient/sub acute care nurse education Review of the pertinent information in the electronic health record Care plan formulation Supportive counseling as described in the assessment and plan Dong Reid MD Attending Neurologist documented in this encounter Plan of Treatment Upcoming Encounters Date Type Department Care Team (Late st Contact Info) Description 09/18/2024 14:00 EST Office Visit [facility] Neurology [address] [phone] Dong Reid MD [address] [place] [phone] 01/19/2025 10:15 EDT Office Visit [facility] S [address] [phone] Kenia Goss NP [address] [place] [phone] documented as of this encounter Visit Diagnoses Diagnosis Parkinson's disease ([facility])- Primary Paralysis agitans Lumbosacral radiculopathy Thoracic or lumbosacral neuritis or radiculitis, unspecified Cervical dystonia Spasmodic torticollis documented in this encounter Historical Medications * This list may reflect changes made after this encounter. Medication Sig Dispensed Refills Start Date End Date acetaminophen (TYLENOL ARTHRITIS ORAL) Take by mouth as needed for Pain. naproxen sodium (ALEVE ORAL) Take by mouth as needed for Pain. added in this encounter Care Teams Correctional Guard Relationship Specialty Start Date End Date Riaz Hawkins MD [address] [place] [address] PCP - General 08/15/15 06/12/24 documented as of this encounter
--- OUTSIDE RECORDS SUMMARY | 2024-08-03 19:08 | XMS_ITS | Encounter Summary ---
Author Organization [facility] Address [address] [place] [address] Care Team Providers Care Drier And Grinder Tender Name Role Phone Riaz Hawkins MD Primary Care Provider [phone] Reason for Visit * Reason Comments Follow-up Telemedicine Video Visit Encounter Details Date Type Department Care Team ([facility] st Contact Info) Description 01/27/2021 10:45 EDT Telemedicine [facility] Neurology - S [address] [id number] Dong Reid MD [address] [place] [address] Level 2 [place] [phone] Parkinson's disease ([facility]) (Primary Dx); REM sleep behavior disorder Social [...] * Patient Instructions* Dong Reid MD - 01/27/2021 10:45 EDT Amantadine documented in this encounter Progress Notes * Sugar Vogel MD - 01/27/2021 1045 EDT Images from the original note were not included. The concept of ???Telemedicine?? has been described to the patient.? Patient has been informed of the anticipated benefits and possible risks.? Patient understands the information provided regardingtelemedicine, has had the opportunity to ask questions about this information, and all questions have been answered to patient???s satisfaction. Patient consents for the use of telemedicine in his/her medical care and authorizes the transmission of any relevant medical information to providers and their staff involved in patient???s medical or mental health care. TELEMEDICINE VIDEO VISIT Today's visit was provided through telemedicine video conferencing: The location of the patient : Home The location of the provider: Office, [facility] The following staff and their role did participate in today's encounter visit: Dong Reid MD Neurology Resident Dr. Reid, Attending Neurologist Date of Service: 09/20/2020 Chief Complaint: Follow up Visit, Parkinson's Disease Problem: Parkinson Disease REM sleep behavioral disorder Assessment/Plan: Jhon Aguiar is a 75 year old man with Parkinson's disease. Currently on Sinemet 1.5 Tbl BID and 2 Tbl at noon. Regarding his rigidity/muscle cramp, it seems jordan it improves with stretches and could be related to muscle strain. If they get better after taking medications it is most likely related to parkinson otherwise they most likely are muscle stiffness non related to parkinson. Options would be increase dosage to 2 Tbl instead of 1.5 Tbl or adding extra dose before bed however there is a risk of vivid dreaming and sleep disturbance. He states that muscle cramp is more bothersome during the day and iswilling to add 0.5 Tbl (2 Tbl AM, 2 Tbl noon and 2 Tbl afternoon). We also recommend massage therapy as it will be beneficial in muscle stiffness and aches. Regarding dyskinesia, if it is not bothersome we would not change the current regimen. If it is bothersome, increasing Sinemet might worsen dyskinesia. As he is mentioning it is not bothersome at this time. If they got worse we can consider starting amantadine to improve dyskinesia. Currently he prefers continuing current regimen and might consider it later. Regarding his dysphagia, dry mouth is a common finding in parkinson patients. Recommending, taking small amount at each time and taking water in between. We can consider WELDER BOILERMAKER for detailed recommendation if the problem is mostly mechanical. He is not willing WELDER BOILERMAKER at this time. Follow up in 4 month Subjective: Jhon Aguiar is a 75 year old man with Parkinson's Disease who is being seen as a follow up via televideo. He was last seen by Dr. Reid in Sep 2020. REM sleep behavioral symptoms : not a big problem anymore. Never had problem falling sleep but problem maintaining sleep 2/2 nocturia. No vivid dream any more. daytime drowsiness: most prominent symptom. Needs a nap in the aftrenoon Since his last visit, Tremor: very rare. Before taking next dosage Hand writing has changed a bit but still is fine and was to read. Rigidity: Constant muscle cramp and backache. Occasionally over night. Some time stiff in hip. Usually walk some steps and it improves. Or doing some stretches. Some times while exercising. Dyskinesia: he feels like at the end of day his head sometimes moves around Gait and fall: No fall. 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 Gait is shuffling towards end of day Speech and swallowing: Some times soft voice but not a big problem. Mild problem swallowing. Food does not go down. Problem with dry and solid food. He also has dry mouth. No chocking. Constipation: no Dizziness: no Continues having itching eyes and tearing. 1. Parkinson's disease ([facility]) 2. REM sleep behavior disorder Current Outpatient Medications Medication Sig Dispense Refill ??? aspirin 81 mg EC tablet Take 81 mg by mouth daily. ??? atorvastatin (LIPITOR) 40 mg tablet Take 40 mg by mouth daily. ??? carbidopa-levodopa (SINEMET) 25-100 mg per tablet Take 1.5 Tabs by mouth 2 times daily AND 2 Tabs daily. 1.5 tabs morning and evening, 2 tabs at noon . (Patient taking differently: Take 2 tabs Radha, 1.5 tabs noon and PM) 450 Tab 3 ??? Cholecalciferol, Vitamin D3, (VITAMIN D3) 50 mcg (2,000 unit) capsule Take 1 Capsule by mouth daily. ??? ezetimibe (ZETIA) 10 mg tablet Take 10 mg by mouth daily. ??? metoprolol (LOPRESSOR) 12.5 mg Take 12.5 mg by mouth daily No current facility-administered medications for this visit. Jhon Aguiar is allergic to vipin inhibitors and unable to assess. Patient Active Problem List Diagnosis Date Noted ??? Daytime sleepiness 02/01/2017 ??? Parkinson's disease ([facility]) 09/11/2015 Diagnosis 2015 Onset 2012 - right sided initial symptoms Treatment to date None ??? Family history of brain aneurysm 09/11/2015 Family history of polycystic kidney disease Review of systems including , GI, sleep, cognition,psychiatric, presyncope/syncope, sweating abnormalities were negative or included in the dictated note Examination: There were no vitals taken for this visit. Neurologic Exam Mental Status and Language Alert and fully oriented Normal attention and comprehension No aphasia Cranial Nerves Extra ocular movements intact with conjugate gaze Face symmetric with full strength without dysarthria Tongue protrusion midline UPDRS-III Motor Examination Limited as this is a telemedicine visit Section Factor Score 18 Speech 1 -Slight loss of expression, diction and/or volume. 19 Facial expression 1 -Minimal hypomimia. Could be normal Poker Face. 20 Tremor at rest: Face, lips, chin 0 -Absent. Hands: right 2 -Mild in amplitude and persistent. Or moderate in amplitude, but only intermittentlypresent. Hands: left 1 -Slight and infrequently present. Patient seen and discussed with Dr. Franklin Vogel MD PGY2 Neurology #[id number] Video Visit : Attending Attestation: I personally interviewed/saw and examined patient on 01/27/2021 via video visit, along with the resident physician. I agree with the history, examination, assessment and plan of care as documented by the resident. Dong Reid MD Attending Neurologist Office documented in this encounter Plan of Treatment Upcoming Encounters Date Type Department Care Team (Late st Contact Info) Description 09/18/2024 14:00 EST Office Visit [facility] Neurology [address] [phone] Dong Reid MD [address] [place] [address] [address] [place] [phone] 01/19/2025 10:15 EDT Office Visit [facility] Neurology [address] [phone] Kenia Goss NP [address] [place] [phone] documented as of this encounter Visit Diagnoses Diagnosis Parkinson's disease ([facility])- Primary Paralysis agitans REM sleep behavior disorder documented in this encounter Historical Medications * This list may reflect changes made after this encounter. Medication Sig Dispensed Refills Start Date End Date ezetimibe (ZETIA) 10 mg tablet Take 1 Tablet by mouth daily. added in this encounter Care Teams Drier And Grinder Tender Relationship Specialty Start Date End Date Riaz Hawkins MD [address] [place] [address] PCP - General 08/15/15 06/12/24 documented as of this encounter
--- OUTSIDE RECORDS SUMMARY | 2024-08-03 19:08 | XMS_ITS | Encounter Summary ---
Author Organization [facility] Address [address] [place] [address] Care Team Providers Care Housing Development Specialist Name Role Phone Riaz Hawkins MD Primary Care Provider [phone] Reason for Visit * Reason Onset Date Comments Appointment Related 01/31/2021 Encounter Details Date Type Department Care Team ([facility] st Contact Info) Description 01/31/[address] [facility] Neurology - S [address] [phone] Dong Reid MD [address] [place] [address] [address] [place] [phone] Appointment Related Social History Tobacco Use Types [...] encounter Miscellaneous Notes * Telephone Encounter - Dafne Elliott - 01/31/2021 1607 EDT Outreached Jhon, scheduled a 4 MO FUR IN PERSON appt with Dr. Redi on Wednesday05/26/2021 at 3:30 PM. Advised of number to call upon arrival. * Telephone Encounter - Yoanna Wiley - 01/31/2021 0954 EDT Return in about 4 months (around 05/29/2021) for Follow up [facility] IN-PERSON Called pt to schedule, However [facility] is not available. Tamara recommended that I send a message to [facility] corporate scheduler, Dafne to have the pt reached out to by her for when [facility] is open. I informed the pt of this plan. documented in this encounter Plan of Treatment Upcoming Encounters Date Type Department Care Team (Late st Contact Info) Description 09/18/2024 14:[address] [facility] Neurology [address] [phone] Dong Reid MD [address] [place] [phone] 01/19/2025 10:[address] [facility] Neurology S [address] [phone] Kenia Goss NP [address] [place] [phone] documented as of this encounter Visit Diagnoses Not on filedocumented in this encounter Care Teams Housing Development Specialist Relationship Specialty Start Date End Date Riaz Hawkins MD [address] [place] [address] PCP - General 08/15/15 06/12/24 documented as of this encounter
--- OUTSIDE RECORDS SUMMARY | 2024-08-03 19:08 | XMS_ITS | Encounter Summary ---
Author Organization [facility] Address [address] [place] [address] Care Team Providers Care Engraving Press Operator Name Role Phone Riaz Hawkins MD Primary Care Provider [phone] Reason for Visit * Reason Onset Date Comments Medications Refill 03/11/2023 Prior Auth, Medication 03/11/2023 Encounter Details Date Type Department Care Team (Late st Contact Info) Description 03/11/2023 Telephone [facility] Neurology - S [place] [address] [place] [phone] Dong Reid MD [address] [place] [address] Level 2 [place] [phone] Medications Refill; Prior Auth, Medication Social History Tobacco Use Types Packs/Day Years [...] Refills Start Date End Da te carbidopa-levodopa (RYTARY) 23.75-95 mg ER capsule Take 3 Capsules by mouth 3 times daily. 810 Capsule 3 03/11/2023 03/06/2024 documented in this encounter Miscellaneous Notes * Telephone Encounter - Mora Bishop MA - 03/12/2023 1119 EDT PA approved thru 10/17/2023 * Telephone Encounter - Mora Bishop MA - 03/12/2023 1117 EDT PA submitted to plan for Rytary via [facility] [place]: [id number] * Telephone Encounter - Josephine Montes MA - 03/11/2023 1605 EDT Pt called refill line stating that he does not want Rytary, but would like a rx request be sent in for Sinemet. * Telephone Encounter - Cassie Valero RN - 03/11/2023 1442 EDT RX for Rytary adjusted to [facility], per pt request. * Telephone Encounter - Mora Bishop MA - 03/11/2023 1143 EDT TC received from patient requesting a refill of carbidopa-levodopa (RYTARY) 23.75-95 mg ER capsule [[id number]] ??ENDED ?? Order Details Dose: 3 Capsule Route: oral Frequency: 3 TIMES DAILY Dispense Quantity: 810 Capsule Refills: 3 ?? Sig: Take 3 Capsules by mouth 3 times daily for 90 days. ?? Last written: 10/02/2022 Last seen: 11/30/2022 Next appt: 04/05/2023 [facility] documented in this encounter Plan of Treatment Upcoming Encounters Date Type Department Care Team (Late st Contact Info) Description 09/18/2024 14:00 EST Office Visit [facility] Neurology S [address] [phone] Dong Reid MD [address] [place] [phone] 01/19/2025 10:15 EDT Office Visit [address] [phone] Kenia Goss NP [address] [place] [phone] documented as of this encounter Visit Diagnoses Not on filedocumented in this encounter Discontinued Medications Medication Sig Discontinue Reason Start Date End Da te carbidopa-levodopa (RYTARY) 23.75-95 mg ER capsule Take 3 Capsules by mouth 3 times daily for 90 days. Reorder 10/02/2022 03/11/2023 documented as of this encounter Care Teams Engraving Press Operator Relationship Specialty Start Date End Date Riaz Hawkins MD [address] [place] [address] PCP - General 08/15/15 06/12/24 documented as of this encounter
--- OUTSIDE RECORDS SUMMARY | 2024-08-03 19:08 | XMS_ITS | Encounter Summary ---
Author Organization [facility] Address [address] [place] [address] Care Team Providers Care Hotel Housekeeper Name Role Phone Riaz Hawkins MD Primary Care Provider [phone] Reason for Visit * Reason Comments Follow-up Encounter Details Date Type Department Care Team ([facility] st Contact Info) Description 11/30/2022 10:00 EST Office Visit [facility] Neurology - S [address] [id number] Dong Reid MD [address] [place] [address] Level 2 [place] [phone] Parkinson's disease (Primary Dx); Cervical dystonia Social History Tobacco Use Types [...] Sign Reading Time Taken Comments Blood Pressure 142/88 11/30/2022 0956 EST Pulse 61 11/30/2022 0956 EST Temperature - - Respiratory Rate - - Oxygen Saturation 99% 11/30/2022 0956 EST Inhaled Oxygen Concentration - - Weight 87.1 kg (192 lb) 11/30/2022 0956 EST Height - - Body Mass Index 26.04 [...] * Patient Instructions* Dong Reid MD - 11/30/2022 10:00 EST Ondansetron 4 mg Begin with taking at bedtime first - targeting morning nausea Try it for 1-2 weeks and send a [facility] portal update documented in this encounter Ordered Prescriptions Prescription Sig Dispensed Refills Start Date End Da te ondansetron (ZOFRAN) 4 mg tablet Take 1 Tablet by mouth every 8 hours as needed for up to 30 days for Nausea. 90 Tablet 2 11/30/2022 12/30/2022 documented in this encounter Progress Notes * Yanely Perkins MD - 11/30/2022 1000 EST Images from the original note were not included. ? Primary Care: Riaz Hawkins [address] [place], [place] [id number] ?? Reason for visit: ICD-10-CM ICD-9-CM 1. Parkinson's disease ([facility]) ([facility]) G20 332.0 2. Cervical dystonia G24.3 333.83 ?? Assessment & Plan / Recommendations: 1. Parkinson's disease overall motor symptoms appear to be well controlled. Mild nondisabling dyskinesia, mild predictable motor fluctuations ?? Persistent nonfluctuating mild upper intestinal GI distress. Potential contribution of levodopa, but not fluctuating in temporal association with dosing times. We discussed a trial with ondansetron at bedtime - contingency includes domperidone to counteract dopamine-induced nausea. 2. Polymyalgia rheumatica - resolved after Medrol Dosepak, currently on prolonged presnidone taper (at 5 mg daily, reducing down to 4 mg starting 12/01). 3. Cervical stiffness. Examination with asymmetries of cervical tone, asymmetric activation, right directional head tilt suggestive of cervical dystonia secondary to Parkinson's disease. Discussed this pursuit of physical therapy for stretching and range of motion. If persistent problematic cervical pain, consider botulinum toxin injections ?? Patient Instructions Ondansetron 4 mg Begin with taking at bedtime first - targeting morning nausea Try it for 1-2 weeks and send a [facility] portal update Return for follow-up: 4 Months ?? HPI: Returns for follow up Accompanied to visit by his Donna He recalls his diffuse musculoskeletal pain reported during his last visit, which turned out to be polymyalgia rheumatica. Symptoms resolved following Medrol Dosepak - he is currently on a prolonged prednisone taper (at 5 mg, reducing down to 4 mg daily on 12/01). He follows with Dr. Hawkins for PMR.He is denying any side effects to the steroids. He otherwise switched from Sinemet to Rytary as discussed previously to assess his nausea on Rytary- the nausea did not improve, his Parkinson's symptoms remain stable despite the change. He is currently taking 3 capsules of Rytary 23.75-95 mg ER TID. He tried taking his medications with meals, which did not really improve his nausea. He has tried a few dietary adjustments, which were not helpful. He is also reporting bloating and GI fullness later in the day, but reports daily bowel movements. He reports shuffling at times, but denies any falls. He does not use any assistive devices. He endorses fluctuating rigidity throughout the day - worst in the morning before taking his medications, which improve 1.5 hours after his taking his medications. The rigidity gets worse in the evening. Hehas occasional tremor, but not often, most noticeable when eating with a spoon using his right hand. He has daily fatigue and naps once daily for 30-40 min, which is recovering. He is endorsing some dysphagia with very dry solid foods, but none with liquids. He has slurred speech at times. He endorses lack of pursuing any activities lately - spends lots of time watching TV to distract himself. Hetries to exercise three times a week (boxing). He is sleeping well and denies trouble falling asleep - typically wakes up 1-2x per night to go to the bathroom. He was acting out historically, which is not an issue anymore. Mild cervical dyskinesia Occasional cervical muscular tightness described as occurring rarely. Predictable motor fluctuations that are relatively mild. Overall all-time estimated at 10% of the day Falls: None Assistive devices: no assistive devices Dysarthria: Minor reductions Dysphagia: Mild to dry solids ?? NON-MOTOR SYMPTOMS: Urinary urgency. Nocturia. Abdominal bloating. GI upset - background low level upper intestinal symptoms /nausea without vomiting. Sialorrhea. Vivid dreaming. Daytime sleepiness. Apathy. Current Outpatient Medications Medication Sig Dispense Refill ??? acetaminophen (TYLENOL ARTHRITIS ORAL) Take by mouth as needed for Pain. ??? aspirin 81 mg EC tablet Take 81 mg by mouth daily. ??? atorvastatin (LIPITOR) 40 mg tablet Take 40 mg by mouth daily. ??? carbidopa-levodopa (RYTARY) 23.75-95 mg ER capsule Take 3 Capsules by mouth 3 times daily for 90 days. 810 Capsule 3 ??? ezetimibe (ZETIA) 10 mg tablet Take 10 mg by mouth daily. ??? LOSARTAN POTASSIUM, BULK, MISC 25 mg by misc (non-drug; combo route) route. 2 25 mg tablets once daily (total 50 mg) ??? metoprolol (LOPRESSOR) 12.5 mg Take 12.5 mg by mouth daily ??? naproxen sodium (ALEVE ORAL) Take by mouth as needed for Pain. ??? ondansetron (ZOFRAN) 4 mg tablet Take 1 Tablet by mouth every 8 hours as needed for up to 30 days for Nausea. 90 Tablet 2 ??? predniSONE (DELTASONE) 1 mg tablet Take 1 mg by mouth daily. 5 mg No current facility-administered medications for this visit. Allergies Allergen Reactions ??? Cedric Inhibitors Other (See Comments) Hypotension ??? Unable To Assess Patient unsure of blood pressure medication. Says it lowered the bp too much. Review of systems including , GI, sleep, cognition, psychiatric, presyncope/syncope,sweating abnormalities were negative or included in the history above with the following exceptions: See above ?? Examination: No data found. Mental status: The patient is alert, attentive, and oriented - follows simple/complex commands. Speech: mild dysarthria, fluent with good repetition, comprehension, and naming. Cranial nerves: CN II: Visual stone are full to confrontation. Pupils are 4 mm and briskly reactive to light. Visual acuity is grossly intact. CN III, IV, : EOMMs intact with no nystagmus, gaze palsy or preference. No ptosis. CN V: Facial sensation is intact to light touch in all 3 divisions bilaterally. Normal masseter bulk. CN VII: Face is symmetric with normal eye closure and symmetric smile. Buries eyelashes and raises eyebrows symmetrically. Nasolabial folds and palpebral folds symmetric bilaterally. Hypomimia. CN VIII: Hearing is grossly intact. CN IX, X: Palate elevates symmetrically with no uvular deviation. Phonation is normal. CN XI: Head with tilt to the right. CN XII: Tongue is midline with normal movements, no deviation, no fasciculations and no atrophy. Motor: There is no pronator drift of out-stretched arms. Muscle bulk is normal. Axial rigidity present. Right wrist rigidity upon facilitation. Legs with rigidity more on the right than on the left. No tremor. Upper Extremity Strength Shoulder abd (C5) Elbow flexion (C5,6) Elbow ext (C7) Finger abd (C8, T1) Veneer Taper (T1) Right 5/5 5/5 5/5 5/5 5/5 Left 5/5 5/5 5/5 5/5 5/5 Lower Extremity Strength Hip flexion (L2,3) Knee extension (L3,4) Ankle DF (L4,5) Knee flexion (L5,S1) Ankle PF (S1,2) Right 5/5 5/5 5/5 5/5 5/5 Left 5/5 5/5 5/5 5/5 5/5 Reflexes DTR Right Left Biceps (C5-6) 2 2 BR (C5-6) 2 2 Triceps (C7-8) 2 2 Patellar (L3-4) 1 1 Achilles (S1-2) 1 1 Ankle Clonus absent absent Plantar flexion flexion Sensory: light touch: intact in all extremities temp: length-dependent decrease in the legs up to mid-lima vibration: length-dependent decrease in the legs up to mid-lima Coordination: Finger nose Finger: intact, no dysmetria Finger tapping: bilateral bradykinesia (left more than right) Gait: Symmetric, but with stooped posture and decreased arm swing - slow when turning. Pull test: able toregain balance with 1-2 steps. Patient/customer care team coach education Review of the pertinent information in the electronic health record Care plan formulation Supportive counseling as described in the assessment and plan Yanely Perkins MD Neurology Resident, PGY-2 Attending Attestation: I personally interviewed and examined patient on 11/30/2022. I agree with the history, examination, assessment and plan of care as documented by the resident. Dong Reid MD Attending Neurologist Office documented in this encounter Plan of Treatment Upcoming Encounters Date Type Department Care Team (Late st Contact Info) Description 09/18/2024 14:00 EST Office Visit [facility] Neurology - S [address] [id number] Dong Reid MD [address] [place] [phone] 01/19/2025 10:15 EDT Office Visit [facility] Neurology S [address] [phone] Kenia Goss, ANIMAL HUSBANDRY TEACHER [address] [place] [address] 2 [place] [phone] documented as of this encounter Visit Diagnoses Diagnosis Parkinson's disease ([facility])- Primary Paralysis agitans Cervical dystonia Spasmodic torticollis documented in this encounter Discontinued Medications Medication Sig Discontinue Reason Start Date End Da te carbidopa-levodopa (SINEMET) 25-100 mg per tablet Take 2.5 Tablets by mouth 2 times daily AND 2 Tablets daily. 10/06/2022 11/30/2022 carbidopa-levodopa (SINEMET) 25-100 mg per tablet Take 2.5 Tablets by mouth 2 times daily AND 2 Tablets 2 times daily. 10/14/2022 11/30/2022 Cholecalciferol, Vitamin D3, 50 mcg capsule Take 1 Capsule by mouth daily. 11/30/2022 methylPREDNISolone (MEDROL DOSEPACK) 4 mg tablet follow package directions 07/20/2022 11/30/2022 documented as of this encounter Historical Medications * This list may reflect changes made after this encounter. Medication Sig Dispensed Refills Start Date End Date predniSONE (DELTASONE) 1 mg tablet Take 5 Tablets by mouth daily. 06/13/2024 added in this encounter Care Teams Hotel Housekeeper Relationship Specialty Start Date End Date Riaz Hawkins MD [address] [place] [address] PCP - General 08/15/15 06/12/24 documented as of this encounter
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
--- OUTSIDE RECORDS SUMMARY | 2024-08-03 19:08 | XMS_ITS | Encounter Summary ---
Author Organization [facility] Address [address] [place] [address] Care Team Providers Care Balance Staff Staker Name Role Phone Riaz Hawkins MD Primary Care Provider [phone] Reason for Visit * Reason Comments Follow-up Telemedicine Video Visit Encounter Details Date Type Department Care Team ([facility] st Contact Info) Description 09/20/2020 11:45 EST Office Visit [facility] Neurology - S [address] [id number] Dong Reid MD [address] [place] [address] [address] [place] [address] Parkinson's disease ([facility]) (Primary Dx); REM sleep behavior disorder Social [...] * Patient Instructions* Dong Reid MD - 09/20/2020 11:45 EST [facility] Virtual Offerings Education 'Ask the Doctor' - a monthly webinar featuring Dr. Reid of the [facility] for Parkinson's and Movement Disorders. This occurs on the first Wednesday of each month. You bring the questions and he responds. Not just for those living in [place]. Contact: [email or web address] Exercise PushBack at Parkinson's- PushBack is a medically advised, community supported group exercise program designed by physical therapists to address the main movement problems associated with PD. Please contact Rima Mccormick at [email or web address] for more information. Movement for PD- Weekly movement class offered virtually. The program's fundamental working principle is that professionally-trained dancers are movement experts whose knowledge about balance, sequencing, rhythm and aesthetic awareness is useful to persons with PD. Time: Every week on Wed, until Sep 26, 2020. Please contact Maria Teresa Beltrán at: [email or web address] or [phone]. Speak Out/Loud Crowd - Amazing voice program offered through [facility] for those who live in [place]. Contact info: [email or web address] Sing Loud for PD - online singing class for people with PD and their care partners. There are just a few classes left in this session but a new session should be upcoming. Contact: [email or web address] [email or web address] Support Groups Virtual: Meets the Wednesday of the month from 1-2:15. Next meeting will be August 31. Please contact Maria Teresa Beltrán at: [email or web address] or [phone]. APDA Sponsored Caregivers Support Group, at 11 am EST: [email or web address] a Meeting ID: [phone] Parkinson's Support Group at 12 pm EST: [email or web address] [facility] Meeting ID: [phone] documented in this encounter Progress Notes * Nathaly Bartlett DO - 09/20/2020 1145 EST Images from the original note were [...] Home The location of the provider: Office, [facility] The following staff and their role did participate in today's encounter visit: Nathaly Bartlett DO Neurology Resident Dr. Reid, Attending Neurologist Date of Service: 09/20/2020 Last seen by Garrett Marquis on 04/30/2020 Chief Complaint: Follow up Visit, Parkinson's Disease Problem: Parkinson Disease REM sleep behavioral disorder H/P: Jhon Aguiar is a 75 year old man with Parkinson's Disease who is being seen as a follow up via televideo. He was last seen by Garrett marquis in April [address] Reid in December 2019. Since his last visit, he has felt that he is doing fairly well. He has not noticed any motor fluctuations, and is unaware of dyskinesia on a regular basis. He does mention that when he first wakes up in the morning he is quite bradykinetic and has a shuffling gait as he walks down the stairs to take his first dose of carbidopa-levodopa. He states that he walks slowly due to this, but has not had any falls ornear falls. He remains independently ambulatory, though he does use two hiking poles if he were to take a longer walk or walk on uneven ground. Unfortunately, Jhon has stopped participating in boxing due to COVID pandemic. He does mention that he has been doing some of the boxing exercises at home and that he is doing more cardio work outsin regards to walking outside and more frequently. His REM sleep behavioral symptoms have continued to decrease since his last visit. He has not initiated melatonin. He states that he is sleeping fairly well, even though he has ongoing nocturia. On some nights he wakes up 5 times to use the rest room. He is able to get to sleep quickly after and does not feel more fatigued in the morning. He does take a 30-40 minute nap every day and he does endorse some mild daytime drowsiness. Jhon's adds that if his schedule is changed, and he does not eat or take his medication at aspecific time as he typically does, he will be much more fatigued or tired than on a typical day. Jhon also mentions that he has noticed increasing phlegm production, especially in the morning hehas to clear his throat. He does not notice increased drooling or a wet pillow, but he does feel geovanny he has a harder time clearing his throat. Denies any choking episodes. In addition to this, he also noticed that he has more tearing of his eyes, and cannot seem to keep them dry. This especially occurs in colder weather. He denies any dizziness or lightheadedness. His current schedule of carbidopa-levodopa 25-100 is 2 tablets at 6 AM, 1.5 tablets at noon, and 1.5 tablets at 5 PM. A few weeks ago he thought he was running low on tablets and so he decreased his first dose to 1.5 tablets, and he did not notice any change in his symptoms. He has picked up his refill of tablets and is now taking 2 tablets again. Assessment/Plan: Jhon Aguiar is a 75 year old man with Parkinson's disease who has not had significant changes in his symptoms since his last visit. He does notice bradykinesia and shuffling gait in the morning, but does not feel that he is in a specific off state. He denies any specific dyskinesias thoughhe does continue to have mild head bobbing. In regards to his fatigue with change in routine, we discussed that if he takes his medications with a large meal that he may not be absorbing all of it. Therefore, we recommended taking his dose onehour before a meal or if he is unable to take it prior to the meal about 1.5 -2 hours after a meal.We do not want him to alter his daily schedule around the medication, therefore if he does happen to take his dose with a large meal and feels fatigued or slow even one hour after taking the dose, khari certainly add another half tablet at that time, as he may not have absorbed his dose completely. Jhon was understanding of this, and mentioned that he would try to take his noon dose at around 11 AM instead, so that he does not take it with a large lunch meal. We will continue to monitor his REM sleep behavioral disorder. For his exercise regimen, we will send information for the Push Back exercise program as this has converted to [place]. We also encouraged ongoing walks which Jhon is already doing. Jhon had mentioned increased tearing, which we discussed is likely due to decreased blinking. We recommended saline eye drops to keep his eyes moisturized so that he does not continue to produce more tears. Additionally, we discussed his increased phlegm build up and we discussed consciously increasing his swallowing and staying hydrated. He did not report any acidic or foul taste in his mouth which would be more indicative of reflux. He will follow up in 4 months, or sooner if any new or worsening symptoms. No diagnosis found. Current Outpatient Medications Medication Sig Dispense Refill ??? aspirin 81 mg EC tablet Take 81 mg by mouth daily. ??? atorvastatin (LIPITOR) 20 mg tablet Take 20 mg by mouth [...] Take 1 Capsule by mouth daily. ??? metoprolol (LOPRESSOR) 12.5 mg Take 12.5 mg by mouth daily No current facility-administered medications for this visit. Jhon Aguiar is allergic to vipin inhibitors and unable to assess. Patient Active Problem List Diagnosis Date Noted ??? Daytime sleepiness 02/01/2017 ??? Parkinson's disease ([facility]) 09/11/2015 Diagnosis 2015 Onset 2012 - right sided initial symptoms Treatment to date None ??? Family history of brain aneurysm 09/11/2015 Family history of polycystic kidney disease Review of systems including , GI, sleep, cognition,psychiatric, presyncope/syncope, sweating abnormalities were negative or included in the dictated note with the following exceptions: Urinary frequency Nocturia Drooling / excessive salivation Vivid dreaming Daytime sleepiness Tearing Examination: There were no vitals taken for [...] -Absent. left 0 -Absent. 22 Rigidity: Neck Upper extremity: right Upper extremity: left Lower extremity: right Lower extremity: left 23 Finger taps: right 2 -Moderately impaired. Definite and early fatiguing. May have occasional arrests in movement. Finger taps: left 2 -Moderately impaired. Definite and early fatiguing. May have occasional arrestsin movement. 24 Hand sanitation truck cleaner: right 1 -Mild slowing and/or reduction in amplitude. Hand sanitation truck cleaner: left 1 -Mild slowing and/or reduction in amplitude. 25 Hand pronate/supinate: right 1 -Mild slowing and/or reduction in amplitude. left 1 -Mild slowing and/or reduction in amplitude. 26 Leg agility: right left 27 Arise from chair 1 -Slow, or [...] reduced amplitude. Sec 18 to 31 total: 14 UPDRS Sec 1 to 31 total: 14 Patient seen and discussed with Dr. Reid on 09/20/2020 via televideo. Nathaly Bartlett DO PGY3 - Neurology Pager [phone] ([phone] on nights and weekends) Video Visit : Attending Attestation: I personally interviewed/saw and examined patient on 09/20/20 via video visit, along with the resident physician. I agree with the history, examination, assessment and plan of care as documented by the resident. Total time spent 33 minutes Review of the available [employer] electronic health record Patient/anesthesiologist and critical care education Care plan formulation Supportive counseling as described in the assessment and plan Dong Reid MD Attending Neurologist Office documented in this encounter Plan of Treatment Upcoming Encounters Date Type Department Care Team (Late st Contact Info) Description 09/18/2024 14:00 EST Office Visit [facility] Neurology - S [address] [id number] Dong Reid MD [address] [place] [phone] 01/19/2025 10:15 EDT Office Visit [facility] Neurology S [address] [phone] Kenia Goss NP [address] [place] [phone] documented as of this encounter Visit Diagnoses Diagnosis Parkinson's disease ([facility])- Primary Paralysis agitans REM sleep behavior disorder documented in this encounter Historical Medications * This list may reflect changes made after this encounter. Medication Sig Dispensed Refills Start Date End Date Cholecalciferol, Vitamin D3, 50 mcg capsule Take 1 Capsule by mouth daily. 11/30/2022 added in this encounter Care Teams Balance Staff Staker Relationship Specialty Start Date End Date Riaz Hawkins MD [address] [place] [address] PCP - General 08/15/15 06/12/24 documented as of this encounter
--- OUTSIDE RECORDS SUMMARY | 2024-08-03 19:08 | XMS_ITS | Encounter Summary ---
Author Organization [facility] Address [address] [place] [address] Care Team Providers Care Wolf Hunter Name Role Phone Riaz Hawkins MD Primary Care Provider [phone] Reason for Visit * Reason Onset Date Comments Prior Auth, Medication 09/20/2023 Encounter Details Date Type Department Care Team ([facility] st Contact Info) Description 09/20/2023 Telephone [facility] Neurology - S [place] [address] [place] [address] [id number] Dong Reid MD [address] [place] [address] Level [address] [place] [address] Prior Auth, Medication Social History Tobacco Use [...] Telephone Encounter - Mora Bishop MA - 09/20/2023 1026 EST JAYME submitted to plan for [facility] 23.75-95 ER tab via [facility] [employer]:??[id number] PA approved thru 10/17/2024 documented in this encounter Plan of Treatment Upcoming Encounters Date Type Department Care Team (Late st Contact Info) Description 09/18/2024 14:00 EST Office Visit [facility] Neurology S [address] [phone] Dong Reid MD [address] [place] [phone] 01/19/2025 10:15 EDT Office Visit [facility] Neurology S [address] [phone] Kenia Goss NP [address] [place] [phone] documented as of this encounter Visit Diagnoses Not on filedocumented in this encounter Care Teams Wolf Hunter Relationship Specialty Start Date End Date Riaz Hawkins MD [address] [place], [place] [id number] PCP - General 08/15/15 06/12/24 documented as of this encounter
--- OUTSIDE RECORDS SUMMARY | 2024-08-03 19:08 | XMS_ITS | Encounter Summary ---
Author Organization [facility] Address [address] [place] [address] Care Team Providers Care Marine Engine Driver Name Role Phone Riaz Hawkins MD Primary Care Provider [phone] Reason for Visit * Reason Onset Date Comments Follow-up 2022 Encounter Details Date Type Department Care Team ([facility] st Contact Info) Description [address] [facility] Neurology - S [address] [id number] Dong Reid MD [address] [place] [address] [address] [place] [address] Follow-up Social History Tobacco Use Types Packs/Day Years [...] encounter Miscellaneous Notes * Telephone Encounter - Shalom Monet - 2022 0959 EDT Koko has a 4 M FUR set for 11/30/2022 AT 10:[address] Reid. Sending letter and FUR form documented in this encounter Plan of Treatment Upcoming Encounters Date Type Department Care Team (Late st Contact Info) Description 09/18/2024 14:[address] [facility] Neurology S [address] [phone] Dong Reid MD [address] [place] [phone] 01/19/2025 10:15 EDT Office Visit [facility] S [address] 601671 Kenia Goss NP [address] [place] [phone] documented as of this encounter Visit Diagnoses Not on filedocumented in this encounter Care Teams Marine Engine Driver Relationship Specialty Start Date End Date Riaz Hawkins MD [address] [place] [address] PCP - General 08/15/15 06/12/24 documented as of this encounter
--- OUTSIDE RECORDS SUMMARY | 2024-08-03 19:08 | XMS_ITS | Encounter Summary ---
Author Organization [facility] Address [address] [place] [address] Care Team Providers Care Electronic Security Technician Name Role Phone Riaz Hawkins MD Primary Care Provider [phone] Reason for Visit * Reason Comments Follow-up Encounter Details Date Type Department Care Team ([facility] st Contact Info) Description 10/06/2021 11:00 EST Office Visit [facility] Neurology - S [address] [phone] Dong Reid MD [address] [place] [address] Level [address] [place] [phone] Parkinson's disease (H[facility]-CMS) ([facility]) (Primary Dx); REM sleep behavior disorder Social [...] Sign Reading Time Taken Comments Blood Pressure 140/96 10/06/2021 1058 EST Pulse 51 10/06/2021 1058 EST Temperature - - Respiratory Rate 16 10/06/2021 1058 EST Oxygen Saturation 97% 10/06/2021 1058 EST Inhaled Oxygen Concentration - - Weight 88 kg (194 lb) 10/06/2021 1058 EST Height 182.9 cm (6') 10/06/2021 1058 EST Body Mass Index 26.31 10/06/2021 1058 EST documented in this encounter Functional Status [...] * Patient Instructions* Dong Reid MD - 10/06/2021 11:00 EST Try taking your 11am dose at 10 am and taking 2 tab on your exercise days Consider this schedule as a test instead in the future MEDICATION / DOSE 6am 11am 4 pm 8pm carbidopa-levodopa IR (SINEMET) 25-100 mg 2 1.5 1.5 1.5 documented in this encounter Progress Notes * Dong Reid MD - 10/06/2021 1100 EST Images from the original note were not included. Primary Care: Riaz Hawkins [address] [place] [address] Reason for visit: ICD-10-CM ICD-9-CM 1. Parkinson's disease ([facility]) ([facility]) G20 332.0 2. 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 Breakthrough symptoms during more exertional activities. Late day predominant cervical levodopa-induced dyskinesia. We discussed consideration of a modified dosing schedule to improve total levodopa dose and reduce variability. We will begin by as needed use of an additional half dose when activity is expected. Ifthis is successful but more frequently needed than not needed consider a modification in his dosingschedule to 4 times daily to avoid peak dose dyskinesia but improve levodopa exposure. Neck pain which sounds more musculoskeletal/spinal in origin. Questions/concerns on the part of Danwhether this may represent dystonia but it sounds less likely. Solid dysphagia which may represent oropharyngeal dryness. Encouraged modified eating behavior withdrinking pre and post boluses of food. No orders of the defined types were placed in this encounter. Patient Instructions Try taking your 11am dose at 10 am and taking 2 tab on your exercise days Consider this schedule as a test instead in the future MEDICATION / DOSE 6am 11am 4 pm 8pm carbidopa-levodopa IR (SINEMET) 25-100 mg 2 1.5 1.5 1.5 Return for follow-up: Months HPI: Returns for follow up Accompanied to visit by his Donna Since last seen has dose reduced his late day levodopa. Reducing bothersome dyskinesia which emerged later in the day. Remains on 2 tablets in the morning and this is well-tolerated without dyskinesia precipitation. Overall feels that this dose is typically adequate. 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 Motor symptoms Motor fluctuations: Minor predictable end of the. More prominent if delayed in dosing abrupt onset. Levodopa-induced dyskinesias-emerged late day more than early day. Nondisabling. Cervical location most common Dystonia: Morning stiffness and cramping As needed fluctuation treatment: Not utilizing Estimated percentage of day in OFF state: Determined but a small proportion of the day Estimated percentage of day with dyskinesias: Estimated at less than one third of the day of present very mild Falls: None Assistive devices: no assistive devices Dysarthria: Minor reductions Dysphagia: dry goods like breads. Mouth dryness. Liquids are OK NON-MOTOR SYMPTOMS: Urinary frequency, urinary urgency, nocturia, noisy bowels without bloating constipation or other GI symptoms, intermittent sialorrhea sleeping Current Outpatient Medications Medication Sig Dispense Refill ??? aspirin 81 mg EC tablet Take 81 mg by mouth daily. ??? atorvastatin (LIPITOR) 40 mg tablet Take 40 mg by mouth daily. ??? carbidopa-levodopa (SINEMET) 25-100 mg per tablet Take 2 tabs in AM, noon and 1.5 tabs in PM (Patient taking differently: Take 2 tabs in AM, 1.5 at noon and 1.5 tabs in PM) 450 Tablet 3 ??? Cholecalciferol, Vitamin D3, (VITAMIN D3) 50 mcg (2,000 unit) capsule Take 1 Capsule by mouth daily. (Patient not taking: Reported on 05/26/2021) ??? ezetimibe (ZETIA) 10 mg tablet Take 10 mg by mouth daily. ??? metoprolol (LOPRESSOR) 12.5 mg Take 12.5 mg by mouth daily No current facility-administered medications for this visit. MEDICATION / DOSE 6am 11am 5pm carbidopa-levodopa IR (SINEMET) 25-100 mg 2 2 1.5 Allergies Allergen Reactions ??? Cedric Inhibitors Other (See Comments) Hypotension ??? Unable To Assess Patient unsure of blood pressure medication. Says it lowered the bp too much. Review of systems including , GI, sleep, cognition, psychiatric, presyncope/syncope,sweating abnormalities were negative or included in the history above with the following exceptions: See above Examination: BP (!) 140/96 (BP Cuff Location: Left arm, BP Patient Position: Sitting, BP Cuff Sizes: Adult, regular) Pulse 51 Resp 16 Ht 182.9 cm (72) Wt 88 kg (194 lb) SpO2 97% BMI 26.31 kg/m?? Alert, appropriate Ox3 Normal language Normal [...] -Absent. left 0 -Absent. 22 Rigidity: Neck 2 -Mild to moderate. Upper extremity: right 2 -Mild to moderate. Upper extremity: left 3 -Marked, but full range of motion easily achieved. Lower extremity: right Lower extremity: left 23 Finger taps: right Finger taps: left 24 Hand stunt man: right Hand stunt man: left 25 Hand pronate/supinate: right left 26 Leg agility: right left 27 Arise from chair 28 Posture 29 Gait 30 Postural stability 31 Body bradykinesia Sec 18 to 31 total: 10 I spent a total of 41 minutes on the date of this encounter meeting with the patient and reviewing documentation/coordinating care as described in the above note. Patient/career development specialist education Review of the pertinent information in the electronic health record Care plan formulation Supportive counseling as described in the assessment and plan Encounter Provider: Dong Reid MD documented in this encounter Plan of Treatment Upcoming Encounters Date Type Department Care Team (Late st Contact Info) Description 09/18/2024 14:00 EST Office Visit [facility] Neurology S [address] [phone] Dong Reid MD [address] [place] [phone] 01/19/2025 10:15 EDT Office Visit [facility] Neurology S [address] [phone] Kenia Goss NP [address] [place] [phone] documented as of this encounter Visit Diagnoses Diagnosis Parkinson's disease ([facility])- Primary Paralysis agitans REM sleep behavior disorder documented in this encounter Care Teams Electronic Security Technician Relationship Specialty Start Date End Date Riaz Hawkins MD [address] [place] [phone] PCP - General 08/15/15 06/12/24 documented as of this encounter
--- OUTSIDE RECORDS SUMMARY | 2024-08-03 19:08 | XMS_ITS | Encounter Summary ---
Author Organization [facility] Address [address] [place] [address] Care Team Providers Care Rope Tow Operator Name Role Phone Riaz Hawkins MD Primary Care Provider [phone] Reason for Visit * Reason Comments Medications Refill Encounter Details Date Type Department Care Team (Late st Contact Info) Description 06/06/2023 Refill [facility] Neurology - [address] [id number] Dong Reid MD [address] [place] [address] [address] 2 [place] [phone] Medications Refill Social History Tobacco Use Types [...] times daily. Take with each Rytary dose 270 Tablet 3 06/08/2023 03/06/2024 documented in this encounter Miscellaneous Notes * Telephone Encounter - Charlette Germain RN - 06/08/[address] Reid OVN 04/05/2023: Trial of additional carbidopa 25 mg with each Rytary. Koko sent MCM stating he has not tried this but would like to prior to trying domperidone. Rx pended to Dr. Reid for review. * Telephone Encounter - Charlette Germain RN - 06/07/2023 1515 EDT Medication Rx Request Medication: Carbidopa (LODOSYN) 25 mg tablet Last Visit in login department: 04/05/2023 Next appointment Scheduled: 09/13/2023 Date previous Rx written: 04/05/2023 VPMS Inquiry needed? NO The [place] Prescription Monitoring System query has been completed per the following requirement(s): NA If yes, date of last fill: NA Documentation Reviewed, MCM to Koko regarding whether and how he is taking the medication. documented in this encounter Plan of Treatment Upcoming Encounters Date Type Department Care Team (Late st Contact Info) Description 09/18/2024 14:00 EST Office Visit [facility] Neurology - [address] [id number] Dong Reid MD [address] [place] [phone] 01/19/2025 10:15 EDT Office Visit [facility] Neurology [address] [phone] Kenia Goss NP [address] [place] [address] [place] [phone] documented as of this encounter Visit Diagnoses Not on filedocumented in this encounter Discontinued Medications Medication Sig Discontinue Reason Start Date End Da te Carbidopa (LODOSYN) 25 mg tablet Take 1 Tablet by mouth daily for 30 days. 04/05/2023 06/08/2023 documented as of this encounter Care Teams Rope Tow Operator Relationship Specialty Start Date End Date Riaz Hawkins MD [address] [place] [address] PCP - General 08/15/15 06/12/24 documented as of this encounter
--- OUTSIDE RECORDS SUMMARY | 2024-08-03 19:08 | XMS_ITS | Encounter Summary ---
Author Organization [facility] Address [address] [place] [address] Care Team Providers Care Air Pollution Engineer Name Role Phone Riaz Hawkins MD Primary Care Provider [phone] Reason for Visit * Reason Comments Other Parkinson's Encounter Details Date Type Department Care Team ([facility] Contact Info) Description 08/22/2018 11:00 EST Office Visit [facility] Neurology - [place] [address] [place] [phone] Jammie Marquis NP [address] [place] [address] 2 [place] [phone] Parkinson's disease ([facility]) (Primary Dx) Discharge Disposition: Auto Discharge Social History Tobacco Use Types Packs/Day Years [...] Sign Reading Time Taken Comments Blood Pressure 130/92 08/22/2018 1048 EST Pulse 52 08/22/2018 1048 EST Temperature - - Respiratory Rate 16 08/22/2018 1048 EST Oxygen Saturation 97% 08/22/2018 1048 EST Inhaled Oxygen Concentration - - Weight 90.7 kg (200 lb) 08/22/2018 1048 EST Height 182.9 cm (6') 08/22/2018 1048 EST Body Mass Index 27.12 08/22/2018 1048 EST documented in this encounter Functional Status [...] No 05/20/2017 documented as of this encounter Discharge Diagnoses Diagnosis G20 Parkinson's disease-G20[ICD-10-CM] documented in this encounter Patient Instructions * Patient Instructions* Jammie Marquis APRN - 08/22/2018 11:00 EST You can take an extra 1/2 tab of Carbidopa/levodopa before a more strenuous activity than usual. documented in this encounter Discharge Disposition Disposition Code Departure Means Destination Auto Discharge documented in this encounter Progress Notes * Jammie Marquis APRN - 08/22/2018 1100 EST [facility]? S DISEASE & MOVEMENT DISORDERS [address] [place] [id number] [facility] Follow Up Note Date of Service: 08/22/2018 PCP: Riaz Hawkins Chief Complaint Patient presents with ??? Other Parkinson's Subjective: Jhon returns for follow-up after last being seen by Dr. Reid in May. He reports his mornings are a little bit unsteady and when he gets up at night to go to the bathroom, his gait is short strided and he shuffles. Otherwise no major changes. Participating in [employer] program in [place]. He c/o worsening diplopia over the last month or two. 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 [employer] told him he may need cataract surgery on his right eye. He is scheduled to see an eye surgeon tomorrow. Interval history: ??? Motor symptoms Wearing off yes, mornings before first dose Adverse Effects no Tremor mild Rigidity mostly mornings Bradykinesia mild, generalized Gait okay except early mornings and overnight Falls no Freezing no Dyskinesia no Dystonia no Swallowing no problems, reports excessive saliva at night ??? Non Motor symptoms Constipation denies Bladder function frequency, urgency, nocturia up to 3 times per night. Recent PSA and prostate exam Lightheadedness denies Thinking/memory okay Mood good Illusory phenomena denies Sleep good, nocturia, usually back to sleep without difficulty Review of Systems: Review of systems including , GI, sleep, cognition, psychiatric, presyncope/syncope, sweating abnormalities were negative or included in the history above. Current PD Medications: Carbidopa/levodopa 25/100 IR, 1.5 tid Medications and Allergies: Outpatient Prescriptions Marked as Taking for the 08/22/18 encounter (Office Visit) with Jammie Marquis APRN Medication Sig Dispense Refill ??? aspirin 325 mg tablet Take 325 mg by mouth daily ??? atorvastatin (LIPITOR) 10 mg tablet Take 5 mg by mouth daily ??? carbidopa-levodopa (SINEMET) 25-100 mg per tablet Take 1.5 Tabs by mouth 3 times daily. 405 Tab3 ??? metoprolol (LOPRESSOR) 12.5 mg Take 12.5 [...] mirror or other movements. Upper extremity: right 1 -Slight or detectable only when activated by mirror or other movements. Upper extremity: left 1 -Slight or detectable only when activated by mirror or other movements. Lower extremity: right 2 -Mild to moderate. Lower extremity: left 0 -Absent. 23 Finger taps: right 1 -Mild slowing and/or reduction in amplitude. Finger taps: left 1 -Mild slowing and/or reduction in amplitude. 24 Hand sales service technician: right 0 -Normal. Hand sales service technician: left 2 -Moderately impaired. Definite and early fatiguing. May have occasional arrests in movement. 25 Hand pronate/supinate: right 0 -Normal. left 1 -Mild slowing and/or reduction in amplitude. 26 Leg agility: right 0 -Normal. left 0 -Normal. 27 Arise from chair 0 -Normal. 28 [...] reduced amplitude. Sec 18 to 31 total: 16 Vital Signs: BP (!) 130/92 (BP Cuff Location: Right arm, Patient Position: Sitting) Pulse 52 Resp 16 Ht 182.9 cm (72) Wt 90.7 kg (200 lb) SpO2 97% BMI 27.12 kg/m2 Pain: 0 - No pain Location: Assessment & Plan: Koko is doing well and does not require any changes. I advised him he can take 1/2 extra Carbidopa/levodopa prior to boxing or other more strenuous/stressful activity. I recommend he be seen by neuro-ophthalmology. He will be in touch after he sees his eye surgeon tolet me know if he wants a referral. Follow up with Dr. Reid as planned in November. Dung & Yahr: 2 Jhon was seen today for other. Diagnoses and all orders for this visit: Parkinson's disease ([facility]) I spent a total of 30 minutes [id number] time during this visit, of which 20 were devoted to patient/care-provider education, care plan formulation, and supportive counseling as noted in the assessment and plan. Final PD Medications (changes-if any-are underlined/in red): No change (may take extra 1/2 prn as above) Patient Education Provided: med options, f/u plans Method: oral, written Taught to: patient, Barriers: none identified Outcomes: Verbalized understanding, written instructions/information given in After Visit Summary. Jammie Marquis APRN documented in this encounter Plan of Treatment Upcoming Encounters Date Type Department Care Team (Late st Contact Info) Description 09/18/2024 14:00 EST Office Visit [facility] Neurology S [address] [phone] Dong Reid MD [address] [place] [phone] 01/19/2025 10:15 EDT Office Visit [facility] [address] [phone] Kenia Goss NP [address] [place] [phone] documented as of this encounter Visit Diagnoses Diagnosis Parkinson's disease ([facility])- Primary Paralysis agitans documented in this encounter Care Teams Air Pollution Engineer Relationship Specialty Start Date End Date Riaz Hawkins MD [address] [place] [address] PCP - General 08/15/15 06/12/24 documented as of this encounter
--- OUTSIDE RECORDS SUMMARY | 2024-08-03 19:08 | XMS_ITS | Encounter Summary ---
Author Organization [facility] Address [address] [place] [address] Care Team Providers Care Sales Management Intern Name Role Phone Riaz Hawkins MD Primary Care Provider [phone] Reason for Visit * Reason Comments Medications Refill Encounter Details Date Type Department Care Team (Late st Contact Info) Description 10/06/2022 Refill [facility] Neurology - S [address] [phone] Dong Reid MD [address] [place] [address] Level 2 [place] [phone] Medications Refill Social History Tobacco Use Types [...] 2 times daily AND 2 Tablets daily. 585 Tablet 10/06/2022 11/30/2022 documented in this encounter Miscellaneous Notes * Telephone Encounter - Charlette Germain RN - 10/06/2022 0906 EST Medication Rx Request Medication: carbidopa-levodopa (SINEMET) 25-100 mg per tablet Last Visit in login department: 07/20/2022 Next appointment Scheduled: 11/30/2022 Date previous Rx written: 09/18/2021 VPMS Inquiry needed? No The [place] Prescription Monitoring System query has been completed per the following requirement(s): NA If yes, date of last fill: NA Documentation Reviewed, prescription pended for review as Koko may be transitioning to rytary documented in this encounter Plan of Treatment Upcoming Encounters Date Type Department Care Team (Late st Contact Info) Description 09/18/2024 14:00 EST Office Visit [facility] Neurology [address] [phone] Dong Reid MD [address] [place] [phone] 01/19/2025 10:15 EDT Office Visit [facility] Neurology S [address] [phone] Kenia Goss NP [address] [place] [phone] documented as of this encounter Visit Diagnoses Not on filedocumented in this encounter Discontinued Medications Medication Sig Discontinue Reason Start Date End Da te carbidopa-levodopa (SINEMET) 25-100 mg per tablet Take 2 tabs in AM, noon and 1.5 tabs in PM 09/18/2021 10/06/2022 documented as of this encounter Care Teams Sales Management Intern Relationship Specialty Start Date End Date Riaz Hawkins MD [address] [place] [address] PCP - General 08/15/15 06/12/24 documented as of this encounter
--- OUTSIDE RECORDS SUMMARY | 2024-08-03 19:08 | XMS_ITS | Encounter Summary ---
Author Organization [facility] Address [address] [place] [address] Care Team Providers Care Chick Grader Name Role Phone Riaz Hawkins MD Primary Care Provider [phone] Reason for Visit * Reason Onset Date Comments Medication Management 08/10/2023 Encounter Details Date Type Department Care Team (Late st Contact Info) Description 08/10/2023 Telephone [facility] Neurology - S [address] [phone] Jammie Marquis NP [address] [place] [address] 2 [place] [phone] Medication Management Social History Tobacco Use Types Packs/Day Years [...] encounter Miscellaneous Notes * Telephone Encounter - Cassie Valero RN - 08/10/2023 2580 EDT Spoke with pharmacist at [facility], reviewed directions from visit note dated 08/09/23. Patient Instructions Change first dose Rytary (6 am) to 2 tabs of carbidopa/levodopa. Observe how long the carbidopa/levodopa lasts When it starts to wear off, Take your dose of rytary and Continue Rytary for the rest ofthe day. Send [employer] message on the or Wednesday to report progress. Continue carbidopa 25 mg with each dose. ?? They will fill and send to pt. * Telephone Encounter - Mora Bishop MA - 08/10/2023 9525 EDT Fax received from [facility] requesting clarification on CD/LD 25-100 mg tabs, order states as directed up to 4 times daily, they need clarification on what patient is taking 4 times daily and they want to make sure that patient is intentionally on CD/LD and just the Carbidopa. documented in this encounter Plan of Treatment Upcoming Encounters Date Type Department Care Team (Late st Contact Info) Description 09/18/2024 14:00 EST Office Visit [facility] Neurology S [address] [phone] Dong Reid MD [address] [place] [phone] 01/19/2025 10:15 EDT Office Visit [facility] Neurology S [address] [phone] Kenia Goss NP [address] [place] [address] 2 [place] [phone] documented as of this encounter Visit Diagnoses Not on filedocumented in this encounter Care Teams Chick Grader Relationship Specialty Start Date End Date Riaz Hawkins MD [address] [place] [address] PCP - General 08/15/15 06/12/24 documented as of this encounter
--- OUTSIDE RECORDS SUMMARY | 2024-08-03 19:08 | XMS_ITS | Encounter Summary ---
Author Organization [facility] Address [address] [place] [address] Care Team Providers Care Decorating Instructor Name Role Phone Riaz Hawkins MD Primary Care Provider [phone] Jack Triplett MD Primary Care Provider [phone] Reason for Visit * Reason Comments Medications Refill Encounter Details Date Type Department Care Team (Late st Contact Info) Description 11/23/2022 Refill [facility] Neurology - S [address] 723751 Dong Reid MD [address] [place] [address] Level 2 [place] [phone] Medications Refill Social History Tobacco [...] Telephone Encounter - Charlette Germain RN - 11/23/2022 1520 EST [facility] reqeusts C/L IR refill but Koko has been transitioning to Rytary. TC to Koko who states he is using both C/L IR and Rytary. Take 1 IR and 2 rytary at 7AM, 11AM, 5PM currently. He is still having difficulty with queasiness first thing in the morning and late in the evening. Not having much dyskinesia. Queasiness wasn't worse with 3 Rytary and hasn't improved with decrease to 2 rytary. He is keeping notes and plans to discuss with Dr. Reid at appointment 11/30/2022. Koko also notes he has plenty of medication and doesn't need refill at this time but insurance has changed and refills will now need to be through [facility]. Pharmacy profile updated, refill refused. Will update Dr. Reid. documented in this encounter Plan of Treatment Upcoming Encounters Date Type Department Care Team (Late st Contact Info) Description 09/18/2024 14:00 EST Office Visit [facility] Neurology S [address] [phone] Dong Reid MD [address] [place] [phone] 01/19/2025 10:15 EDT Office Visit [facility] Neurology S [address] [phone] Kenia Goss NP [address] [place] [phone] documented as of this encounter Visit Diagnoses Not on filedocumented in this encounter Care Teams Decorating Instructor Relationship Specialty Start Date End Date Riaz Hawkins MD [address] [place] [address] PCP - General 08/15/15 06/12/24 Jack Triplett MD [address] [place] [address] PCP - General Emergency Medicine 06/13/24 documented as of this encounter
--- OUTSIDE RECORDS SUMMARY | 2024-08-03 19:08 | XMS_ITS | Encounter Summary ---
Author Organization Health system Address [address] [place] [address] Care Team Providers Care Retirement Sales Consultant Name Role Phone Riaz Hawkins MD Primary Care Provider [phone] Reason for Visit * Reason Comments Diplopia Pt referred for dipl opia. Has Parkinson's. Pt wears prism specs for distance. Now experiencing doubling in his near vision. Referred by Jammie Marquis APRN - Neuro. Pt's specs are a few mos old. Dr Wright in [facility]. RX'd Tremors Pt says problem with near since early summer (before he got the new specs). Did not tell the Dr was having problems with near that were new. Rx Doc has now left. Saw Cat Surg. Told not bad enough. No MANCUSO or eye pain. * Consult (Routine) - Closed Specialty Diagnoses / Procedures [facility] Referred To Contact Ophthalmology Diagnoses Diplopia Jammie Marquis, PRINTING SUPPLIES SALES REPRESENTATIVE [address] [facility], [address] [place] [address] Prasanna Huerta MD [address] [facility], [address] [place] [address] Referral ID Status Reason Start Date Expiration Date V isits Requested Visits Authorized [id number] Closed Specialty Services Required 08/24/2018 1 1 Encounter Details Date Type Department Care Team (Late Contact Info) Description 09/23/2018 10:00 EST Office Visit [facility] Ophthalmology - Main [address] [address] Prasanna Huerta MD [address] [place] [address], [address] [place] [address] Discharge Disposition: Auto Discharge Social History Tobacco [...] Sign Reading Time Taken Comments Blood Pressure - - Pulse - - Temperature - - Respiratory Rate - - Oxygen Saturation - - Inhaled Oxygen Concentration - - Weight 88 kg (194 lb) 09/23/2018 1001 EST Height 182.9 cm (6') 09/23/2018 1001 EST Body Mass Index 26.31 09/23/2018 1001 EST documented in this encounter Functional Status [...] as of this encounter Discharge Diagnoses Diagnosis H50.89 Other specified strabismus-H50.89[ICD-10-CM] G20 Parkinson's disease-G20[ICD-10-CM] Z82.49 Family history of ischemic heart disease and other diseases of the circulatory system-Z82.49[ICD-10-CM] H50.00 Unspecified esotropia-H50.00[ICD-10-CM] H50.22 Vertical strabismus, left eye-H50.22[ICD-10-CM] documented in this encounter Discharge Disposition Disposition Code Departure Means Destination Auto Discharge documented in this encounter Progress Notes * Prasanna Huerta MD - 09/23/2018 1000 EST This office note has been dictated. I spent a total of 65 minutes in face to face time with this patient today and 40 minutes of that time was spent in counseling and coordination of care as described in the progress note. documented in this encounter Consult Notes * Prasanna Huerta MD - 09/23/2018 0000 EST [facility] NEURO-OPHTHALMOLOGY CONSULTATION - 09/23/2018 Mr Aguiar is seen for neuro-ophthalmic evaluation because of the history of double vision. 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 The patient was initially evaluated approximately ten years ago or more because of new-onset double vision. There was no historyof strabismus or other mechanism. He believes that he had had neuroimaging as well as a number of other studies and ultimately no cause was found. He has been treated with prism since and he reports good result from the same. The patient has also seen an phlebotomy services representative for evaluation of cataracts.He cannot recall that provider's name at this point, but when he stated that he was being seen here, it was recommended that he have this evaluation first because of the double vision and hold off onthe cataracts. The patient denies any double vision at distance with his current refraction. He is most bothered by double vision when working at near and intermediate distances, particularly when working at the computer, but also when reading. He describes an exclusively binocular horizontal double vision that seems only present at near; however, in exploring this history further, the patient typically wears his glasses for distance and takes these off for near and it is without these glasses at near that he is troubled by double vision; however, he invariably has double vision for both distance and near without his glasses. Complicating things further, the patient carries a history of Parkinson's. He is treated in the neurology clinic by Garrett Marquis has seen Solomon Reid in the past for the same. He reports good control with his current medications. Denies any significant off time. His diagnosis was made in March 2015, initially seen at [facility] and has followed here since. The ocular history is otherwise significant for refractive error, cataracts, presbyopia and strabismus as noted above. The medical history includes coronary artery disease, degenerative joint disease, polycystic kidneydisease that was found incidentally as a part of his evaluation and treatment for coronary artery disease, systemic hypertension, Parkinson's as noted above. His surgical history includes cardiac cath eterization. The patient has also had a tonsillectomy, vasectomy and an arthroscopy. The social history finds the patient does not smoke, drink or use recreational drugs. Medications were reviewed and as documented in the electronic health record including aspirin, atorvastatin, carbidopa-levodopa, vitamin D, metoprolol, vitamin B complex. The patient has medication allergies to HAVEN INHIBITORS. The family history is significant for no known neurologic or ophthalmologic disease. Specifically, there are no other family members with any degree of strabismus. The neuro-ophthalmic examination found the patient to be communicative and cooperative for testing.Visual acuities without correction were 20/15- in the right eye, 20/25 in the left eye with furtherrefractive refinement to 20/30- in the right eye, 20/20 in the left eye. Color vision (Ishihara) showed no dyschromatopsia. Amsler grid testing showed no metamorphopsia. Pupils were equal in size andshowed normal response to light and near. External examination of the eyes and orbits revealed milddermatochalasia, mild ptosis 1 to 2 mm bilaterally with no lid lag or twitch. Examination of extraocular motility in his current correction which appears to contain 21 prism diopters of base out prism and perhaps 1 to 2 prism diopters of vertical prism. There was a 3 prism diopter esophoria at distant that did not break down and seemed relatively comitant. At near with his current correction, he is orthophoric. Ductions appear somewhat limited -0.5 bilaterally for abduction intact elsewhere. The patient does seem to have a compensatory right head tilt which was present and somewhat refractoryto correction throughout the examination today. In addition, he was seen to have a small left hyperon [place] jo ann testing that did not map to a 4th nerve palsy. This seemed worse in left gaze and left tilt. At near without correction, the patient was symptomatic with the binocular horizontal double vision. This corrected completely with 6 prism diopters base out held over either eye. There was nonystagmus. Applanation tonometry at 1043 hours was 12 mmHg in the right eye, 12 mmHg in the left eye. Slit lamp examination revealed blepharitis 1 to 2+ nuclear sclerotic and cortical cataracts and otherwise normal anterior segments. Undilated stereoscopic (indirect) funduscopy revealed normal optic nerves, vessels and macula, with cup-disc ratios of 0.5 on the left, 0.3 on the right. FORMULATION: This is a 73-year-old man seen for neuro-ophthalmic evaluation because of a history ofParkinson's and double vision. The patient has a longstanding history of esotropia currently corrected well at distance with a large amount of prism; the upper limit of what is typically tolerated. There seems to be some additional degree of esophoria that is not currently corrected with his glasses for distance. The patient has an esotropia at near without glasses and this is the circumstance under which he typically reads and works at his computer. 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 The patient does not typically wear his glasses for near and, as such, the prisms that are correcting him well for distance do not factor into this assessment. I explained to the patient where typicallywe see an exodeviation with Parkinson's, he has quite the opposite. He reports that this was extensi vely evaluated in the past; I have no records of that. In addition, his optic nerves are somewhat asymmetric. To this end, I have recommended that if he has not had neuroimaging in the past three to five years, it would be important to have this checked while there is no urgency as a part of his evaluation, particularly given the fact that this was a relatively late onset strabismus, it would be important to do the same. Specifically, as it relates to his double vision, if this has been adequately evaluated in the past(he believes his primary has these records), it remains simply to correct things further. The patient would be an excellent surgical candidate for strabismus surgery given the magnitude and that he is currently at the upper limit of what is typically tolerated in prismatic correction and will likely need more in the future. I see no particular connection to his Parkinson's here frankly, specifically as it relates to the small vertical deviation. The patient is asymptomatic from this. It likely is a part of his overall strabismus, although his esotropia appears relatively comitant. While I have not recommended additional neurodiagnostics given the history, at least the eso portion of things has been present for a long time. I do think if this has not been thoroughly investigated in the past it should be and would require neuro imaging as well as a check of serologic studies. Ultimately, whether prisms or surgery, the patient does seem to correct quite well, which is reassuring. In trying to formulate a pathway forward, with the first step it is not unreasonable for him to obtain a relatively inexpensive set of dedicated glasses for correction at near, with base our prism around 6 prism diopters total and additional correction for his refractive error. I discussed trying to get this locally and working with somebody who would be flexible with regard to potentially making adjustments and/or providing a refund if not successful in correcting his double vision. We further discussed pathway forward and decision making with regard to his cataracts. If ultimately he is going to have his cataracts out it would not be worth his while to invest a lot in glasses, as he will likely have a significant change in his refraction once he is surgically pseudophakic and, given the findings on his examination today, he will likely need updated refraction in the future. Finally, the patient is at the upper limit of what is typically tolerated in prism to correct for esotropia and would likely benefit from surgery, either Botox or more traditional strabismus surgery. We discussed the same today; however, the patient seems to prefer to remain in glasses for the time being, which is not unreasonable. In addition, without having documentation of the evaluation he has had for the strabismus in the past to ensure that this was a complete workup, it would be certainly premature to consider undergoing surgery for the same. I have asked that he reach out to his primary to try to obtainrecords of what might have been done in the past to evaluate for his strabismus, will determine if any additional steps are necessary. I will do the same. I have left things open-ended for the time being. If with additional refraction provided he has had adequate workup, his double vision is controlled, then he simply should follow up on an as-needed basis. He knows to call if things are worsening, changing or if I can be of any additional assistance. Thank you for allowing me to share in the care of this patient. Please do not hesitate to contact me with any further questions or concerns. Prasanna Huerta MD Diplomate, the [place] [employer] Neurology building custodian Department of Ophthalmology NEURO-OPHTHALMOLOGY cc: Jammie Marquis APRN, [facility] - Neurology [address] [place] [id number] The Patient Riaz Hawkins , [facility] [address], [place] [address] documented in this encounter Plan of Treatment Upcoming Encounters Date Type Department Care Team (Late st Contact Info) Description 09/18/2024 14:00 EST Office Visit [facility] Neurology [address] [id number] Dong Reid MD [address] [place] [phone] 01/19/2025 10:15 EDT Office Visit [address] [phone] Kenia Goss NP [address] [place] [address] [address] [place] [phone] documented as of this encounter Visit Diagnoses Diagnosis 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 Medication Sig Dispensed Refills Start Date End Date VITAMIN B COMPLEX-100 ORAL Take 1 Tab by mouth every 48 hours. 04/30/2020 cholecalciferol, Vitamin D3, 1,000 unit tablet Take 1,000 Units by mouth daily. 04/30/2020 added in this encounter Eye Exam Visual Acuity (Snellen - Linear) Right eye Left eye Dist cc 20/50- 20/25- Dist ph cc NI NI Near cc J2 J2 Correction: Glasses Tonometry (Applanation, 10:43, ws) Right eye Left eye Pressure 12 12 Pupils Dark Light Shape React APD Right eye 6 4 Round 4 None Left eye 6 4 Round 4 None Visual Brar Right eye Left eye Full Full Extraocular Movement Right eye Left eye Full Full Small LH with small angle E D-STANCE. sm X at near. WS Full ductions, only Left converges. WS Neuro/Psych Oriented x3: Yes Mood/Affect: Normal Amsler Right eye Left eye Normal Normal Color Right eye Left eye Ishihara 08/28 08/28 Stereo Fly: + Circles: 200 sec External Exam Right eye Left eye External Normal Normal Slit Lamp Exam Right eye Left eye Lids/Lashes Normal Normal Conjunctiva/Sclera Injection Injection Cornea Clear Clear Anterior Chamber Deep and quiet Deep and quiet Iris Round and reactive Round and laisha ctive Lens 2+ Nuclear sclerosis 2+ Nuclear sclerosis Vitreous Normal Normal Fundus Exam Right eye Left eye Disc Normal Normal C/D Ratio 0.3 0.5 Macula Normal Normal Vessels Normal Normal Wearing Rx Sphere Cylinder [place] Add Horz Prism Vert Prism Right eye -3.25 +1.75 158 +2.50 10.5 out ?~1 up Left eye -3.50 +0.50 +2.50 10.5 out ?~1 up Age: 3 mos Type: PAL Automated machine. WS Manifest Refraction #1 (Auto) Sphere Cylinder [place] Dist VA Right eye -2.75 +1.00 179 20/40-2 Left eye -3.00 Sphere 20/20 Manifest Refraction #2 Sphere Cylinder [place] Dist VA Right eye -2.75 +1.50 173 20/30- Left eye -3.00 Sphere 20/20 Manifest Refraction Comments Care Teams Retirement Sales Consultant Relationship Specialty Start Date End Date Riaz Hawkins MD [address] [place] [address] PCP - General 08/15/15 06/12/24 documented as of this encounter
--- OUTSIDE RECORDS SUMMARY | 2024-08-03 19:08 | XMS_ITS | Encounter Summary ---
Author Organization [facility] Address [address] [place] [address] Care Team Providers Care Customer Counter Associate Name Role Phone Riaz Hawkins MD Primary Care Provider [phone] Reason for Visit * Reason Comments Follow-up Encounter Details Date Type Department Care Team ([facility] st Contact Info) Description 12/25/2019 14:15 EDT Office Visit [facility] Neurology - S [address] [id number] Dong Reid MD [address] [place] [address] [address] [place] [phone] Parkinson's disease ([facility]) (Primary Dx); REM sleep behavior disorder Social [...] Sign Reading Time Taken Comments Blood Pressure 128/78 12/25/2019 1410 EDT Pulse 62 12/25/2019 1410 EDT Temperature - - Respiratory Rate 16 12/25/2019 1410 EDT Oxygen Saturation 92% 12/25/2019 1410 EDT Inhaled Oxygen Concentration - - Weight 88 kg (194 lb) 12/25/2019 1410 EDT Height 182.9 cm (6') 12/25/2019 1410 EDT Body Mass Index 26.31 12/25/2019 1410 EDT documented in this encounter Functional Status [...] No 05/20/2017 documented as of this encounter Progress Notes * Dong Reid MD - 12/25/2019 1415 EDT Images from the original note were not included. This office note has been dictated. 1. Parkinson's disease ([facility]) 2. REM sleep behavior disorder Current Outpatient Medications Medication Sig Dispense Refill ??? aspirin 81 mg EC tablet Take 325 mg by mouth daily. ??? atorvastatin (LIPITOR) 10 mg tablet Take 10 mg by mouth daily. ??? carbidopa-levodopa (SINEMET) 25-100 mg per tablet Take 1.5 Tabs by mouth 3 times daily. ??? cholecalciferol, Vitamin D3, 1,000 unit tablet Take 1,000 Units by mouth daily. ??? metoprolol (LOPRESSOR) 12.5 mg Take 12.5 mg by mouth daily ??? VITAMIN B COMPLEX-100 ORAL Take 1 Tab by mouth every 48 hours. No current facility-administered medications for this visit. Jhon Aguiar is allergic to vipin inhibitors and unable to assess. Patient Active Problem List Diagnosis Date Noted ??? Daytime sleepiness 02/01/2017 ??? Parkinson's disease ([facility]) 09/11/2015 Diagnosis 2015 Onset 2013 - right sided initial symptoms Treatment to date None ??? Family history of brain aneurysm 09/11/2015 Family history of polycystic kidney disease Review of systems including , GI, sleep, cognition,psychiatric, presyncope/syncope, sweating abnormalities were negative or included in the dictated note with the following exceptions: Urinary frequency Nocturia Drooling Daytime sleepiness Vivid dreaming Examination: BP 128/78 (BP Cuff Location: Left arm, BP Patient Position: Sitting, BP Cuff Sizes: Adult, regular) Pulse 62 Resp 16 Ht 182.9 cm (72) Wt 88 kg (194 lb) SpO2 92% BMI 26.31 kg/m?? Right head tilt UPDRS-III Motor Examination Section Factor Score 18 [...] -Mild to moderate. 23 Finger taps: right 3 -Severely impaired. Frequent hesitation in initiating movements or arrests in ongoing movement. Finger taps: left 3 -Severely impaired. Frequent hesitation in initiating movements or arrests in ongoing movement. 24 Hand hand edger: right 1 -Mild slowing and/or reduction in amplitude. Hand hand edger: left 2 -Moderately impaired. Definite and early fatiguing. May have occasional arrests in movement. 25 Hand pronate/supinate: right 2 -Moderately impaired. Definite and early fatiguing. May have occasional arrests in movement. left 2 -Moderately impaired. Definite and early fatiguing. May have occasional arrests in movement. 26 Leg agility: right 1 -Mild slowing and/or reduction in amplitude. left 2 -Moderately impaired. Definite and early fatiguing. May have occasional arrests in movement. 27 Arise from chair 1 -Slow, or [...] reduced amplitude. Sec 18 to 31 total: 32 UPDRS Sec 1 to 31 total: 32 This office note has been dictated. Greater than 15 minutes of this 25 minute [id number] visit were devoted to patient/care-provider education, care plan formulation, and supportive counseling as noted in the assessment and plan. Encounter Provider: Dong Reid MD * Dong Reid MD - 12/25/2019 0000 EDT [facility] NEUROLOGY PROGRESS / FOLLOWUP NOTE - 12/25/2019 PROBLEM: 1. Parkinson disease. 2. REM sleep behavioral disorder. HISTORY: Jhon was seen in reevaluation accompanied by his . In the interim since last seen 3 months ago he has felt a slight degree of increase in overall bradykinesia. He is not experiencing any motor fluctuations. He is unaware of dyskinesia on a regular basis. During more stressful situations, he will notice some involuntary head movements. Initially notices it when watching a movie. Similarly during these situations he can notice some breakthrough tremor, particularly in the rightarm and leg. He remains independently ambulatory. He is having no balance difficulty. He is continuing to exercise regularly. He is still participating in boxing. REM sleep behavioral symptoms have largely been quiescent since last seen. He did not initiate any melatonin. He endorses some mild daytime drowsiness and naps once per day and is not significantly drowsy the remainder of the day. He does have some urinary frequency, urgency, and nocturia. He will have multiple nocturic events per night. He does have delays in stream initiation and emptying. He has previously been suspected tohave some prostate enlargement, but has not initiated on any medications. He has discussed this with his primary care physician in the past. Medication, allergy, review of systems and examination documented in the electronic health record. ASSESSMENT AND PLAN: Parkinson's disease with some mild interval increases in motor severity. Not severe enough to necessitate initiation of new pharmacotherapy or dose adjustment. He is not experiencing motor fluctuations. He has minor nondisabling and non-bothersome dyskinesia limited to cervical musculature. Continue on current carbidopa-levodopa dose without change. REM sleep behavioral disorder, mild. Monitor. Urinary frequency, urgency and nocturia. We reviewed caffeine use habits, hydration, and the various classes of prostate directed medications and their relative risks to Parkinson's disease. Alpha blockers will have a greater risk of producing hypotension in someone with Parkinson's disease. We discussed side effects of finasteride and dutasteride, and discussed the availability also of daily Cialis. He will discuss consideration of prostate treatment with his primary care physician. In the meantime, I have asked him to minimize his fluid intake after 2 p.m. but maintain adequate hydration duringthe earlier portions of the day with at least a liter of free water. Follow up in 3 to 4 months' time. Dong Reid MD 03 12 PM - Dong Reid MD ln Dictation ID: [id number] documented in this encounter Plan of Treatment Upcoming Encounters Date Type Department Care Team (Late st Contact Info) Description 09/18/2024 14:00 EST Office Visit [facility] Neurology S [address] [id number] Dong Reid MD [address] [place] [phone] 01/19/2025 10:15 EDT Office Visit [facility] Neurology S [address] [phone] Kenia Goss NP [address] [place] [phone] documented as of this encounter Visit Diagnoses Diagnosis Parkinson's disease ([facility])- Primary Paralysis agitans REM sleep behavior disorder documented in this encounter Care Teams Customer Counter Associate Relationship Specialty Start Date End Date Riaz Hawkins MD [address] [place] [address] PCP - General 08/15/15 06/12/24 documented as of this encounter
--- OUTSIDE RECORDS SUMMARY | 2024-08-03 19:08 | XMS_ITS | Encounter Summary ---
Author Organization [facility] Address [address] [place] [address] Care Team Providers Care Library Services Dean Name Role Phone Riaz Hawkins MD Primary Care Provider [phone] Jack Triplett MD Primary Care Provider [phone] Encounter Details Date Type Department Care Team (Late st Contact Info) Description 11/01/2020 Lab Requisition [facility] - [facility] [address] [place] [address] Riaz Hawkins MD [address] [place], [place] [address] Encounter for other general examination Social History Tobacco Use Types Packs/Day Years [...] 14:00 EST Office Visit [facility] Neurology - S [address] [id number] Dong Reid MD [address] [place] [address] 2 [place] [phone] 01/19/2025 10:15 EDT Office Visit [facility] Neu[facility] S [address] [address] Kenia Goss NP [address] [place] [address] 2 [place] [phone] documented as of this encounter Procedures Procedure Name Priority Date/Time Associated Diagnosis Comments SURGICAL PATHOLOGY Today 10/31/2020 14 :35 EST Encounter for other general examination documented in this encounter Results * SURGICAL PATHOLOGY (10/31/2020 14:35 EST) Final Diagnosis A. SKIN OF ABDOMEN, RIGHT LOWER, SHAVE BIOPSY: - Seborrheic keratosis, inflamed. 11/04/2020 10:16 [facility] Attestation By the signature below, the attending physician certifies that they have 1) personally conducted a gross and/or microscopic examination of the described specimen(s), and/or personally interpreted the results of laboratory testing of the described specimen(s), and 2) personally rendered or confirmed the above diagnosis. 11/04/2020 10:16 [facility] at 1016 Microscopic Description Orthohyperkeratosis and focal parakeratosis thicken the stratum corneum. There is formation of horn pseudocysts. The epidermis is hyperplastic with acanthosis and papillomatosis. The keratinocytes have a basaloid appearance with squamous eddies in many areas. Within the dermis, there is a moderately dense lymphohistiocytic infiltrate. The infiltrate extends into the epidermis with concomitant vacuolar change and keratinocyte necrosis. 11/04/2020 10:16 [facility] Clinical History Skin lesion right lower abdominal wall, traumatized seborrheic keratosis vs squamous cell carcinoma 11/04/2020 10:16 [facility] Gross Description A. Received in formalin labelled with proper patient identification (initials S, D) and shave biopsy R lower abdomen is a fragmented irregular dusky gunter-galan skin shave, 1.0 x 0.8 x 0.1 cm. The margin is inked. Bisected and entirely submitted in A1. JAYME DA SILVA(ASCP) 11/01/2020 16:04 11/04/2020 10:16 [facility] Performing Lab [facility] 11/04/2020 10:16 [facility] Scanned Images 11/04/2020 10:16 [facility] Tissue TISSUE SPECIMEN FROM SKIN / Unknown 10/31/2020 14:35 EST 11/01/2020 15:37 EST Riaz Hawkins MD PATHOLOGY ORDERABLES [facility] [address] [place] [address] documented in this encounter Visit Diagnoses Diagnosis Encounter for other general examination documented in this encounter Care Teams Library Services Dean Relationship Specialty Start Date End Date Riaz Hawkins MD [address] [place] [address] PCP - General 08/15/15 06/12/24 Jack Triplett MD [address] [place] [address] PCP - General Emergency Medicine 06/13/24 documented as of this encounter
--- OUTSIDE RECORDS SUMMARY | 2024-08-03 19:08 | XMS_ITS | Encounter Summary ---
Author Organization [facility] Address [address] [place] [address] Care Team Providers Care Administrative Technician Name Role Phone Riaz Hawkins MD Primary Care Provider Reason for Visit * Reason Onset Date Comments Appointment Related 09/23/2023 Encounter Details Date Type Department Care Team ([facility] st Contact Info) Description 09/23/2023 Telephone [facility] Neurology - S [address] [phone] Jammie Marquis NP [address] [place] [address] 2 [place] [address] Appointment Related Social History Tobacco Use Types [...] encounter Miscellaneous Notes * Telephone Encounter - ElliottNicolle fountainasha - 09/23/2023 0958 EST Outreached Koko, cancelled the FOLLOW UP ON-SITE appointment on Wednesday11/09/2023 at 11:00 AM as Tuesdays are now her video . Rescheduled the patient to Wednesday11/10/2023 at 1:00 PM. documented in this encounter Plan of Treatment Upcoming Encounters Date Type Department Care Team (Late st Contact Info) Description 09/18/2024 14:00 EST Office Visit [facility] Neurology S [address] 225311 Dong Reid MD [address] [place] [phone] 01/19/2025 10:15 EDT Office Visit [facility] Neurology S [address] [phone] Kenia Goss NP [address] [place] [phone] documented as of this encounter Visit Diagnoses Not on filedocumented in this encounter Care Teams Administrative Technician Relationship Specialty Start Date End Date Riaz Hawkins MD [address] [place] [address] PCP - General 08/15/15 06/12/24 documented as of this encounter
--- OUTSIDE RECORDS SUMMARY | 2024-08-03 19:08 | XMS_ITS | Encounter Summary ---
Author Organization [facility] Address [address] [place] [address] Care Team Providers Care Medical Typist Name Role Phone Riaz Hawkins MD Primary Care Provider [phone] Reason for Visit * Reason Comments Follow-up PD Encounter Details Date Type Department Care Team ([facility] st Contact Info) Description 06/05/2019 11:45 EDT Office Visit [facility] Neurology - S [address] [id number] Dong Reid MD [address] [place] [address] 2 [place] [phone] Parkinson's disease ([facility]) (Primary Dx) Discharge Disposition: Auto Discharge Social [...] Sign Reading Time Taken Comments Blood Pressure 120/80 06/05/2019 1151 EDT Pulse 54 06/05/2019 1151 EDT Temperature - - Respiratory Rate 16 06/05/2019 1151 EDT Oxygen Saturation 91% 06/05/2019 1151 EDT Inhaled Oxygen Concentration - - Weight 90.4 kg (199 lb 6.4 oz) 06/05/2019 1151 E DT Height 182.9 cm (6' 0.01) 06/05/2019 1151 EDT Body Mass Index 27.04 06/05/2019 1151 EDT documented in this encounter Functional Status [...] G20 Parkinson's disease-G20[ICD-10-CM] documented in this encounter Discharge Disposition Disposition Code Departure Means Destination Auto Discharge documented in this encounter Progress Notes * Dong Reid MD, MD - 06/05/2019 1145 EDT Images from the original note were not included. 1. Parkinson's disease ([facility]) Returns for follow up Since last seen, not experiencing end of dose fluctuations on current regimen No observed dyskinesia or off dystonia Ambulating well No assistive device/ no falls No cognitive complaints No mood or anxiety symptoms Current PD Medications: ?? Carbidopa levodopa 25/100 immediate release, 1-1/2 tablets at 7 AM, noon, 5 PM on Wednesday and Wednesday ?? Carbidopa levodopa 25/100 immediate release, 1-1/2 tablets at 7 AM and 5 PM; 2 tablets at noon on Wednesday, , Wednesday (more active exercise day) ?? Current Outpatient Medications Medication Sig Dispense Refill ??? aspirin 325 mg tablet Take 325 mg by mouth daily ??? atorvastatin (LIPITOR) 10 mg tablet Take 5 mg by mouth daily ??? carbidopa-levodopa (SINEMET) 25-100 mg per tablet As directed up to total of 6 tabs per day (Patient taking differently: 1.5 Tabs 3 times daily. As directed up to total of 6 tabs per day) 540 tablet 3 ??? cholecalciferol, Vitamin D3, 1,000 unit tablet [...] sleepiness 02/01/2017 ??? Parkinson's disease ([facility]) 09/11/2015 Diagnosis 2015 Onset 2013 - right sided initial symptoms Treatment to date None ??? Family history of brain aneurysm 09/11/2015 Family history of polycystic kidney disease Review of systems including , GI, sleep, cognition,psychiatric, presyncope/syncope, sweating abnormalities were negative or included in the dictated note with the following exceptions: Urinary frequency - urgency without incontinence , nocturia, mild daytime sleepiness, vivid dreaming, Examination: BP 120/80 (BP Cuff Location: Left arm, Patient Position: Sitting, BP Cuff Sizes: Adult, regular) Pulse 54 Resp 16 Ht 182.9 cm (72.01) Wt 90.4 kg (199 lb 6.4 oz) SpO2 91% BMI 27.04 kg/m?? Mild hyperkinetic trunk/head movement - athetosis Right head tilt without turn UPDRS-III Motor Examination Section Factor Score 18 [...] slowing and/or reduction in amplitude. 24 Hand salon supervisor: right 1 -Mild slowing and/or reduction in amplitude. Hand salon supervisor: left 2 -Moderately impaired. Definite and early fatiguing. May have occasional arrests in movement. 25 Hand pronate/supinate: right 1 -Mild slowing and/or reduction in amplitude. left 1 -Mild slowing and/or reduction in amplitude. 26 Leg agility: right 0 -Normal. left 1 -Mild slowing and/or reduction in amplitude. 27 Arise from chair 0 -Normal. 28 Posture 0 -Normal erect. 29 Gait 1 -Walks slowly, may shuffle with short steps, but no festination (hastening steps) or propulsion. 30 Postural stability 0 -Normal. 31 Body bradykinesia 1 -Minimal slowness, giving movement a deliberate character. Could be normal for some persons. Possibly reduced amplitude. Sec 18 to 31 total: 20 UPDRS Sec 1 to 31 total: 22 ASSESSMENT & PLAN/RECOMMENDATIONS: Parkinson's disease with adequately controlled motor sx Mild non-disabling dyskinesia - cervical No indication for med change Discussed disease progression expectations and future mgmt in detail Greater than 15 minutes of this 25 minute [id number]-[id number] visit were devoted to patient/care-provider education, care plan formulation, and supportive counseling as noted in the assessment and plan. Encounter Provider: Dong Reid MD documented in this encounter Plan of Treatment Upcoming Encounters Date Type Department Care Team (Late st Contact Info) Description 09/18/2024 14:00 EST Office Visit [facility] Neu[facility] S [address] [phone] Dong Reid MD [address] [place] [phone] 01/19/2025 10:15 EDT Office Visit [facility] Neurology S [address] [phone] Kenia Goss NP [address] [place] [phone] documented as of this encounter Visit Diagnoses Diagnosis Parkinson's disease ([facility])- Primary Paralysis agitans documented in this encounter Care Teams Medical Typist Relationship Specialty Start Date End Date Riaz Hawkins MD [address] [place] [address] PCP - General 08/15/15 06/12/24 documented as of this encounter
--- OUTSIDE RECORDS SUMMARY | 2024-08-03 19:08 | XMS_ITS | Encounter Summary ---
Author Organization [facility] Address [address] [place] [address] Care Team Providers Care Team Assistant Name Role Phone Riaz Hawkins MD Primary Care Provider [phone] Reason for Visit * Reason Comments Other Encounter Details Date Type Department Care Team (Late st Contact Info) Description 09/15/2021 Refill [facility] Neurology - S [address] [id number] Dong Reid MD [address] [place] [address] [address] [place] [phone] Other Social History Tobacco Use Types Packs/Day [...] AM, noon and 1.5 tabs in PM 450 Tablet 3 09/18/2021 10/06/2022 documented in this encounter Miscellaneous Notes * Telephone Encounter - Ayana Hernandez RN - 09/18/2021 1103 EST Requested Prescriptions Pending Prescriptions Disp Refills ??? carbidopa-levodopa (SINEMET) 25-100 mg per tablet [Pharmacy Med Name: CARBIDOPA/LEVODOPA TABS 25/100MG] 450 Tablet 3 Sig: TAKE ONE AND ONE-HALF TABLETS TWICE A DAY (MORNING AND EVENING) AND TAKE 2 TABLETS DAILY (AT NOON) Pharmacy: [facility] Last Refill Date: 06/15/2021 Last Visit Date: 05/26/2021 Next Non-Acute Visit Date Scheduled with Care Team: Yes. 10/06/2021 Documentation reviewed. Medication refilled per protocol. AYANA HERNANDEZ RN 09/18/2021 11:03 documented in this encounter Plan of Treatment Upcoming Encounters Date Type Department Care Team (Late st Contact Info) Description 09/18/2024 14:00 EST Office Visit [facility] Neurology S [address] 182151 Dong Reid MD [address] [place] [phone] 01/19/2025 10:15 EDT Office Visit [facility] Neurology S [address] [phone] Kenia Goss NP [address] [place] [phone] documented as of this encounter Visit Diagnoses Not on filedocumented in this encounter Discontinued Medications Medication Sig Discontinue Reason Start Date End Da te carbidopa-levodopa (SINEMET) 25-100 mg per tablet Take 1.5 Tabs by mouth 2 times daily AND 2 Tabs daily. 1.5 tabs morning and evening, 2 tabs at noon . 09/18/2020 09/18/2021 documented as of this encounter Care Teams Team Assistant Relationship Specialty Start Date End Date Riaz Hawkins MD [address] [place] [address] PCP - General 08/15/15 06/12/24 documented as of this encounter
--- OUTSIDE RECORDS SUMMARY | 2024-08-03 19:08 | XMS_ITS | Encounter Summary ---
Author Organization [facility] Address [address] [place] [address] Care Team Providers Care Test Equipment Mechanic Name Role Phone Riaz Hawkins MD Primary Care Provider [phone] Reason for Visit * Reason Onset Date Comments Medications Refill 10/06/2022 Encounter Details Date Type Department Care Team (Late st Contact Info) Description 10/06/2022 Refill [facility] Neurology - S [address] [address]19461 Dong Reid MD [address] [place] [address] [address] [place] [phone] Medications Refill Social History Tobacco [...] Miscellaneous Notes * Telephone Encounter - Charlette Germain, RN - 10/06/2022 1120 ESTFrom: Jhon Aguiar To: Office of Dong Reid MD Sent: 10/06/2022 9:21 EST Subject: Medication Renewal Request Refills have been requested for the following medications: carbidopa-levodopa (SINEMET) 25-100 mg per tablet [Dong Reid] Preferred pharmacy: [facility] - [place], [place] - [address] [place] [address] documented in this encounter Plan of Treatment Upcoming Encounters Date Type Department Care Team (Late st Contact Info) Description 09/18/2024 14:00 EST Office Visit [facility] Neurology S [address] 578251 Dong Reid MD [address] [place] [phone] 01/19/2025 10:15 EDT Office Visit [address] [phone] Kenia Goss NP [address] [place] [phone] documented as of this encounter Visit Diagnoses Not on filedocumented in this encounter Care Teams Test Equipment Mechanic Relationship Specialty Start Date End Date Riaz Hawkins MD [address] [place] [address] PCP - General 08/15/15 06/12/24 documented as of this encounter
--- OUTSIDE RECORDS SUMMARY | 2024-08-03 19:08 | XMS_ITS | Encounter Summary ---
Author Organization [facility] Address [address] [place] [address] Care Team Providers Care Staff Antisubmarine Officer Name Role Phone Riaz Hawkins MD Primary Care Provider [phone] Reason for Visit * Reason Comments Follow-up Encounter Details Date Type Department Care Team ([facility] st Contact Info) Description 05/26/2021 15:30 EDT Office Visit [facility] Neurology - S [address] [phone] Dong Reid MD [address] [place] [address] 2 [place] [phone] Parkinson's disease ([facility]) (Primary Dx); REM sleep behavior disorder [...] Sign Reading Time Taken Comments Blood Pressure 132/74 05/26/2021 1529 EDT Pulse 54 05/26/2021 1529 EDT Temperature - - Respiratory Rate 16 05/26/2021 1529 EDT Oxygen Saturation 98% 05/26/2021 1529 EDT Inhaled Oxygen Concentration - - Weight 88 kg (194 lb) 05/26/2021 1529 EDT Height 182.9 cm (6') 05/26/2021 1529 EDT Body Mass Index 26.31 05/26/2021 1529 EDT documented in this encounter Functional Status [...] as of this encounter Progress Notes * Myra Sanderson - 05/26/2021 1530 EDT Images from the original note were not included. Primary Care: Riaz Hawkins [address] [place] [address] Reason for visit: ICD-10-CM ICD-9-CM 1. Parkinson's disease ([facility]) G20 332.0 2. 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 Mild and overall increases in bradykinesia/hypokinesia which he feels are tolerable. Given symptoms are otherwise well-controlled and dyskinesia limited to the late day, we discussed maintaining his current medication schedule without change with exception of possibly experimenting with 1 tablet instead of 1-1/2 tablets for his 5 PM dose. Discussed potential risks and benefits of a trial of amantadine if dyskinesia worsens versus the consideration of a relative dose reduction in his levodopa. We will make note medication changes at this time with a contingency to experiment as noted above No orders of the defined types were placed in this encounter. There are no Patient Instructions on file for this visit. Return for follow-up: 4 months HPI: Returns for follow up Accompanied to visit by Jhon Aguiar in an 85 yo male with PMH of Parkinson's disease and daytime sleepiness coming in for Parkinson's disease follow up visit. Since his last visit in January 2021, he has noticed more issues with his gait. He is more fatigued, feels off balance and is slower with daily activities like moving around the house and going on walks. He has not fallen, but is worried that he will if his symptoms persist. He is compliant with his medication and denies breakthrough symptoms. Patient also notes increased dyskinesia of his head which occurs mostly in the evening. He is able to stop the head bobbing if he focuses on the movement. He also has had increased tremors in his R arm and leg, and issues with fine motor movements like opening his wallet. He endorses occasions of dysphagia with solids, which he is able to wash down with liquids. He is able to sleep through the night with minimal interruption and does not endorse hallucinations. He is currently on Sinimet 6am (2 tabs), 11am (2 tabs), 5pm (1.5 tabs) which he has been toleratingwell. He has tried neupro and pramipexole, both of which were unsuccessful. Motor symptoms Motor fluctuations: not present LIDS: Mild cervical-see above Dystonia: not present Fluctuation treatment: no required as needed treatment Percentage of day spent in OFF state: none FALLS: none ASSISTIVE DEVICES: none DYSARTHRIA: none DYSPHAGIA: mild to solids Nonmotor symptoms-urinary frequency, urgency, nocturia, nocturnal sialorrhea Mild intermittent dream enactment. Neither Koko nor his Donna feel that this is currently a safety issue or disruptive to either their sleep patterns. History documented by Myra Sanderson MS4 Current Outpatient Medications Medication Sig Dispense Refill [...] (Patient taking differently: Take 2 tabs Radha, noon and 1.5 tabs in PM) 450 Tab 3 ??? Cholecalciferol, Vitamin [...] 05:00 PM carbidopa-levodopa IR (SINEMET) 25-100 mg Allergies Allergen Reactions ??? Cedric Inhibitors Other (See Comments) Hypotension ??? Unable To Assess Patient unsure of blood pressure medication. Says it lowered the bp too much. Review of systems including , GI, sleep, cognition, psychiatric, presyncope/syncope,sweating abnormalities were negative or included in the history above with the following exceptions: See above nonmotor section Examination: BP 132/74 (BP Cuff Location: Left arm, BP Patient Position: Sitting, BP Cuff Sizes: Adult, regular) Pulse 54 Resp 16 Ht 182.9 cm (72) Wt 88 kg (194 lb) SpO2 98% BMI 26.31 kg/m?? Alert, appropriate Ox3 Normal language Normal insight Normal judgement Very low amplitude athetoid movements cervical-intermittently present UPDRS-III Motor Examination Section Factor Score 18 Speech 1 -Slight loss of expression, diction and/or volume. 19 Facial expression 2 -Slight but definitely abnormal diminution of facial expression. 20 Tremor at rest: Face, lips, chin 0 -Absent. Hands: right 0 -Absent. Hands: left 0 -Absent. Feet: right 0 -Absent. Feet: left 0 -Absent. 21 Action tremor: right 1 -Slight. Present with action. left 0 -Absent. 22 Rigidity: Neck Upper extremity: right 1 -Slight or detectable [...] slowing and/or reduction in amplitude. 24 Hand nursery hand: right 2 -Moderately impaired. Definite and early fatiguing. May have occasional arrests in movement. Hand nursery hand: left 1 -Mild slowing and/or reduction in amplitude. 25 Hand pronate/supinate: right 2 -Moderately impaired. Definite and early fatiguing. May have occasional arrests in movement. left 1 -Mild slowing and/or reduction in amplitude. 26 Leg agility: right 2 -Moderately impaired. Definite and early [...] reduced amplitude. Sec 18 to 31 total: 26 I spent a total of 32 minutes on the date of this encounter meeting with the patient and reviewing documentation/coordinating care as described in the above note. Patient/pharmacist critical care education Review of the pertinent information in the electronic health record Care plan formulation Supportive counseling as described in the assessment and plan Encounter Provider: Dong Reid MD documented in this encounter Plan of Treatment Upcoming Encounters Date Type Department Care Team (Late st Contact Info) Description 09/18/2024 14:00 EST Office Visit [facility] Neurology - S [address] [phone] Dong Reid MD [address] [place] [address], [address] [place] [phone] 01/19/2025 10:15 EDT Office Visit [facility] Neurology - S [place] [address] [place] [address] Kenia Goss, RIKI [address] [facility], [address] [place] [phone] documented as of this encounter Visit Diagnoses Diagnosis Parkinson's disease ([facility])- Primary Paralysis agitans REM sleep behavior disorder documented in this encounter Care Teams Staff Antisubmarine Officer Relationship Specialty Start Date End Date Riaz Hawkins MD [address] [place] [address] PCP - General 08/15/15 06/12/24 documented as of this encounter
--- OUTSIDE RECORDS SUMMARY | 2024-08-03 19:08 | XMS_ITS | Encounter Summary ---
Author Organization [facility] Address [address] [place] [address] Care Team Providers Care Kennel Helper Name Role Phone Riaz Hawkins MD Primary Care Provider [phone] Reason for Visit * Reason Onset Date Comments Medication Management 10/16/2022 Encounter Details Date Type Department Care Team (Late st Contact Info) Description 10/16/2022 Telephone [facility] Neurology - S [address] [id number] Dong Reid MD [address] [place] [address] 2 [place] [phone] Medication Management Social History Tobacco Use Types [...] * Telephone Encounter - Dafne Elliott - 10/28/2022 1108 EST Spoke to Koko, he called in regards to speaking to RN Charlette who was unavailable and will call him back. * Telephone Encounter - Charlette Germain RN - 10/16/2022 1644 EST [facility] aware patient just beginning transition and will dispense medication * Telephone Encounter - Emma Dangelo - 10/16/2022 1136 EST [facility] calling for claification of Meds. Is patient taking Rytary or Cabidpoa-Levodopa. Please call Pharmacist at [phone]. Reference #[id number] documented in this encounter Plan of Treatment Upcoming Encounters Date Type Department Care Team (Late st Contact Info) Description 09/18/2024 14:00 EST Office Visit [facility] Neurology [address] [id number] Dong Reid MD [address] [place] [phone] 01/19/2025 10:15 EDT Office Visit [facility] Neurology S [address] [phone] Kenia Goss NP [address] [place] [phone] documented as of this encounter Visit Diagnoses Not on filedocumented in this encounter Care Teams Kennel Helper Relationship Specialty Start Date End Date Riaz Hawkins MD [address] [place] [address] PCP - General 08/15/15 06/12/24 documented as of this encounter
--- OUTSIDE RECORDS SUMMARY | 2024-08-03 19:08 | XMS_ITS | Encounter Summary ---
Author Organization [facility] Address [address] [place] [address] Care Team Providers Care Ordnance Mechanic Name Role Phone Riaz Hawkins MD Primary Care Provider [phone] Reason for Visit * Reason Comments Follow-up Encounter Details Date Type Department Care Team ([facility] st Contact Info) Description 02/24/2019 11:00 EDT Office Visit [facility] Neurology - S [address] [phone] Jammie Marquis NP [address] [place] [address] 2 [place] [phone] Parkinson's disease ([facility]) (Primary Dx) Discharge Disposition: Auto Discharge [...] Sign Reading Time Taken Comments Blood Pressure 124/78 02/24/2019 1053 EDT Pulse 54 02/24/2019 1053 EDT Temperature - - Respiratory Rate 16 02/24/2019 1053 EDT Oxygen Saturation 96% 02/24/2019 1053 EDT Inhaled Oxygen Concentration - - Weight 91.6 kg (202 lb) 02/24/2019 1053 EDT Height 182.9 cm (6' 0.01) 02/24/2019 1053 EDT Body Mass Index 27.39 02/24/2019 1053 EDT documented in this encounter Functional Status [...] * Patient Instructions* Jammie Marquis APRN - 02/24/2019 11:00 EDT OK to experiment with an extra 1/2 tab of Carbidopa/levodopa IR when you are feeling off or particularly stiff or crampy. documented in this encounter Ordered Prescriptions Prescription Sig Dispensed Refills Start Date End Da te carbidopa-levodopa (SINEMET) 25-100 mg per tablet As directed up to total of 6 tabs per day 540 tablet 3 02/24/2019 08/30/2019 documented in this encounter Discharge Disposition Disposition Code Departure Means Destination Auto Discharge documented in this encounter Progress Notes * Jammie Marquis Aprn - 02/24/2019 1100 EDT [facility] S DISEASE & MOVEMENT DISORDERS [address] [place] [address] [phone] [email or web address] Neu[facility] Follow Up Note Date of Service: 02/24/2019 PCP: Riaz Hawkins Chief Complaint Patient presents with ??? Follow-up Subjective: Jhon returns for follow-up after last being seen in November by Dr. Reid. Gait may be a bit stiffer. Interval history: ??? Motor symptoms Wearing off Yes, 1/2 hour early Adverse Effects no Tremor Left foot with wearing off Rigidity Back after exercise, left leg Bradykinesia mild Gait mild Falls no Freezing No Dyskinesia No Dystonia Sometimes with exercise Swallowing no ??? Non Motor symptoms Constipation No Bladder function Frequency, urgency Lightheadedness no Thinking/memory Ok Mood good Illusory phenomena no Sleep daytime sleepiness, afternoon nap Review of Systems: Review of systems including , GI, sleep, cognition, psychiatric, presyncope/syncope, sweating abnormalities were negative or included in the history above. Current PD Medications: ?? Carbidopa levodopa 25/100 immediate release, 1-1/2 tablets at 7 AM, noon, 5 PM on Wednesday and Wednesday ?? Carbidopa levodopa 25/100 immediate release, 1-1/2 tablets at 7 AM and 5 PM; 2 tablets at noon on Wednesday, , Wednesday Medications and Allergies: Outpatient Medications Marked as Taking for the 02/24/19 encounter (Office Visit) with Jammie Marquis APRN Medication Sig Dispense Refill ??? aspirin 325 mg tablet Take 325 mg by mouth daily ??? atorvastatin (LIPITOR) 10 mg tablet Take 5 mg by mouth daily ??? carbidopa-levodopa (SINEMET) 25-100 mg per tablet As directed up to total of 6 tabs per day 540tablet 3 ??? [DISCONTINUED] carbidopa-levodopa (SINEMET) 25-100 mg per tablet Take 1.5 Tabs by mouth 3 timesdaily. 405 Tab 3 ??? metoprolol (LOPRESSOR) 12.5 mg Take 12.5 mg by mouth daily Allergies Allergen Reactions ??? Cedric Inhibitors Other (See Comments) Hypotension ??? Unable To Assess Patient unsure of blood pressure medication. Says it lowered the bp too much. Examination: On exam Jhon is seated in an exam room chair. He is pleasant, cooperative, and in no apparent distress. He is alert and oriented to person, [...] present. Feet: right 0 -Absent. Feet: left 1 -Slight and infrequently present. 21 Action tremor: right 0 -Absent. left [...] slowing and/or reduction in amplitude. 24 Hand spoilage worker: right 2 -Moderately impaired. Definite and early fatiguing. May have occasional arrests in movement. Hand spoilage worker: left 2 -Moderately impaired. Definite and early [...] Postural stability 0 -Normal. 31 Body bradykinesia 0 -None. Sec 18 to 31 total: 23 Vital Signs: BP 124/78 (BP Cuff Location: Left arm, Patient Position: Sitting, BP Cuff Sizes: Adult, regular) Pulse 54 Resp 16 Ht 182.9 cm (72.01) Wt 91.6 kg (202 lb) SpO2 96% BMI 27.39 kg/m?? Pain: 0 - No pain Location: Assessment & Plan: Overall Jhon is doing quite well on his current regimen. He does have intermittent episodes of feeling more off. I have told him he can experiment with taking an extra half a tablet of carbidopa levodopa immediate release 25/100 at times when that happens to see if it alleviates the symptoms. No other changes. Follow-up as scheduled with Dr. Reid in May [facility]ung [facility] Y[facility]: 2 Jhon was seen today for follow-up. Diagnoses and all orders for this visit: Parkinson's disease ([facility]) Other orders - carbidopa-levodopa (SINEMET) 25-100 mg per tablet; As directed up to total of 6 tabs per day I spent a total of 30 minutes [id number] time during this visit, of which 20 were devoted to patient/care-provider education, care plan formulation, and supportive counseling as noted in the assessment and plan. Final PD Medications (changes-if any-are underlined/in red): No change (may add extra half tablet of carbidopa levodopa immediate release as needed) Patient Education Provided: Follow-up plans, extra medication as needed Method: oral, written Taught to: patient Barriers: none identified Outcomes: Verbalized understanding, written instructions/information given in After Visit Summary. Jammie Marquis APRN documented in this encounter Plan of Treatment Upcoming Encounters Date Type Department Care Team (Late st Contact Info) Description 09/18/2024 14:00 EST Office Visit [address] [phone] Dong Reid MD [address] [place] [phone] 01/19/2025 10:15 EDT Office Visit [address] [phone] Kenia Goss NP [address] [place] [phone] documented as of this encounter Visit Diagnoses Diagnosis Parkinson's disease ([facility])- Primary Paralysis agitans documented in this encounter Discontinued Medications Medication Sig Discontinue Reason Start Date End Da te carbidopa-levodopa (SINEMET) 25-100 mg per tablet Take 1.5 Tabs by mouth 3 times daily. Reorder 04/18/2018 02/24/2019 documented as of this encounter Care Teams Ordnance Mechanic Relationship Specialty Start Date End Date Riaz Hawkins MD [address] [place] [address] [phone] PCP - General 08/15/15 06/12/24 documented as of this encounter
--- OUTSIDE RECORDS SUMMARY | 2024-08-03 19:08 | XMS_ITS | Encounter Summary ---
Author Organization [facility] Address [address] [place] [address] Care Team Providers Care Electrical Controls Designer Name Role Phone Riaz Hawkins MD Primary Care Provider [phone] Reason for Visit * Reason Onset Date Comments Medications Refill 09/17/2020 Encounter Details Date Type Department Care Team (Late st Contact Info) Description 09/17/2020 Refill [facility] Neurology - S [address] [phone] Dong Reid MD [address] [place] [address] 2 [place] [phone] Medications Refill Social History Tobacco Use Types [...] and evening, 2 tabs at noon . 450 Tab 3 09/18/2020 09/18/2021 documented in this encounter Miscellaneous Notes * Telephone Encounter - Cassie Valero RN - 09/18/2020 1301 EST Carbidopa Levodopa RX refilled with directions from April appointment with Garrett Marquis FIELDWORK COORDINATOR. Other orders - carbidopa-levodopa (SINEMET) 25-100 mg per tablet; Take by mouth 3 times daily. 1.5 tabs morning and evening, 2 tabs at noon * Telephone Encounter - Amarilys Muhammad MA - 09/17/2020 0833 EST Medication(s) Requested: carbidopa-levodopa (SINEMET) 25-100 mg per tablet Preferred [facility]acy: [facility] Is patient out of medication? Yes (6 days left) Last Refill Date: 05/04/2020 Last Visit Date with Ordering Provider: 10/31/2019 with Garrett Marquis 08/19/[address] Reid (Downtime) Next Non-Acute Visit Date Scheduled with Care Team: Yes. 09/20/[address] Franklin MUHAMMAD MA 09/17/2020 8:36 documented in this encounter Plan of Treatment Upcoming Encounters Date Type Department Care Team (Late st Contact Info) Description 09/18/2024 14:00 EST Office Visit [facility] Neurology - S [place] [address] [place], [place] [phone] Dong Reid MD [address] [place] [address], [address] [place] [phone] 01/19/2025 10:15 EDT Office Visit [facility] Neurology - S [address] [address] Kenia Goss, FIELDWORK COORDINATOR 1 [facility], [address] [place] [phone] documented as of this encounter Visit Diagnoses Not on filedocumented in this encounter Discontinued Medications Medication Sig Discontinue Reason Start Date End Da te carbidopa-levodopa (SINEMET) 25-100 mg per tablet Take by mouth 3 times daily. 1.5 tabs morning and evening, 2 tabs at noon Reorder 09/17/2020 documented as of this encounter Care Teams Electrical Controls Designer Relationship Specialty Start Date End Date Riaz Hawkins MD [address] [place] [address] PCP - General 08/15/15 06/12/24 documented as of this encounter
--- OUTSIDE RECORDS SUMMARY | 2024-08-03 19:08 | XMS_ITS | Encounter Summary ---
Author Organization [facility] Address [address] [place] [address] Care Team Providers Care Shopper Name Role Phone Riaz Hawkins MD Primary Care Provider [phone] Encounter Details Date Type Department Care Team (Late Contact Info) Description 02/18/2018 Results Only [facility] [phone] Janneth Prieto, DO [address] [place] [phone] Social History Tobacco Use Types Packs/Day Years Used Date Smoking Tobacco: Never Alcohol Use Standard Drinks/Week Comments [...] Upcoming Encounters Date Type Department Care Team ([facility] Contact Info) Description 09/18/2024 14:00 EST Office Visit [facility] Neurology - S [place] [address] [place] [address] Dong Reid MD 1 [facility] [address] [place] [phone] 01/19/2025 10:15 EDT Office Visit [facility] Neurology - S [place] [address] [place], [place] [phone] Kenia Goss, RIKI 1 [facility] [address] [place] [phone] documented as of this encounter Procedures Procedure Name Priority Date/Time Associated Diagnosis Comments SURGICAL PATHOLOGY Routine 02/18/2018 7:03 EDT documented in this encounter Results * SURGICAL PATHOLOGY (02/18/2018 7:03 EDT) Pathology Report: SURGICAL PATHOLOGY REPORT Reports generated via electronic interface contain original data; however they are lacking the format of the original report. Caution should be taken when reading/interpret ing unformatted reports. Name: ? JHON ROBISON ? Accession #: ? [id number] ? : ? 1945 (Age: 72) ??M ? Collect Date: ? 02/18/2018 ? Location: ? [facility] ? Receive Date: ? 02/19/2018 ? Provider: JANNETH PRIETO DO Copy to: RIAZ HAWKINS MD ? Final Pathologic Diagnosis: COLON, SIGMOID POLYP, POLYPECTOMY: - Diminutive tubular adenoma. ?? Document reviewed and electronically signed by: ALVERTO SALDANA MD Report ??Date: 02/22/2018 16:53 By the signature above, the attending physician certifies that he/she has personally conducted a gross and/or microscopic examination of the described specimens and rendered or confirmed the above diagnosis. Specimen(s) Received: Sigmoid colon polyp Clinical History: Colorectal screening; clinical diagnosis code: ??Z12.11 Gross Description: ? Received in formalin labelled with proper patient identification (initials S, D) and sigmoid colon polyp are two gunter-white tissues (0.3 x 0.2 x 0.1 cm and 0.2 x 0.1 x 0.1 cm). Entirely submitted in 1. Mihrab Ali 02/21/2018 8:25 AM End of Report [facility] 02/18/2018 7:03 EDT 02/19/2018 7:03 EDT Janneth Prieto DO PATHOLOGY ORDERABLES [facility] [address] [place] [address] documented in this encounter Visit Diagnoses Not on filedocumented in this encounter Care Teams Shopper Relationship Specialty Start Date End Date Riaz Hawkins MD [address] [place], [place] [phone] PCP - General 08/15/15 06/12/24 documented as of this encounter
--- OUTSIDE RECORDS SUMMARY | 2024-08-03 19:08 | XMS_ITS | Encounter Summary ---
Author Organization [facility] Address [address] [place] [address] Care Team Providers Care Sort Manager Name Role Phone Riaz Hawkins MD Primary Care Provider [phone] Reason for Visit * Reason Comments Follow-up PD Encounter Details Date Type Department Care Team ([facility] st Contact Info) Description 05/23/2018 10:45 EDT Office Visit [facility] Neurology - [address] [address]201 Dong Reid MD [address] [place] [address] [address] [place] [phone] Parkinson's disease ([facility]) (Primary Dx) Discharge Disposition: Auto Discharge Social [...] Sign Reading Time Taken Comments Blood Pressure 144/78 05/23/2018 1051 EDT Pulse 60 05/23/2018 1051 EDT Temperature - - Respiratory Rate 16 05/23/2018 1051 EDT Oxygen Saturation - - Inhaled Oxygen Concentration - - Weight 89.8 kg (198 lb) 05/23/2018 1051 EDT Height 182.9 cm (6' 0.01) 05/23/2018 1051 EDT Body Mass Index 26.85 05/23/2018 1051 EDT documented in this encounter Functional Status [...] documented in this encounter Progress Notes * Samira Sanders MD - 05/23/2018 1045 EDT [facility] Neurology [facility] - Follow Up Visit Patient Name: Jhon Avalos Date of Service: 05/23/18 Chief Complaint: follow-up Problems: 1. Parkinson's Disease Subjective: Mr. Jhon Avalos was last seen in [facility] on 11/01/[address] Reid and on 02/15/2018 by Ms. Marquis. At both visits he was doing well with no change in medications. In the interim, he continues to do well, noting some stiffness and slowness in the morning prior to taking his first dose of medications. He notes improvement in his symptoms within 30 minutes after taking his first dose of carbidopa-levodopa and no fluctuations during the remainder of the day. He notes minimal tremor and some stiffness and cramping at night, however, these are not particularly bothersome. He remains fairly active, doing stretches and pushups 1-2x per week and also walking with his . He utilizes walking sticks when hiking or traversing sand. He has had no falls. He is thinking of joining [employer] once it opens in [facility]. He additionally reports some urinary frequency/urgency/nocturia with straining and weak stream, however, this has been ongoing for some time and is not particularly bothersome. He is uncertain whether he has had a recent prostate exam. He has some some sialorrhea at night, which is stable and ongoing over the past three years. He notes vivid dreams once a month, but his adds that he does not thrash around. He naps for about forty minutes after lunch, and this habit preceded his Parkinson's diagnosis. He denies any issues with dyskinesia, hallucinations. He additionally notes some anxiety about what lies ahead with regard to his Parkinson's Disease. Heis in a support group for his disease and has met many individuals with end-stage Parkinson's and the group has lost several members in the past year. In other news, he is currently writing a book and will be on a trip in [facility] during the month of June. ?? Interval history: Motor symptoms ?? Wearing off No notable symptoms Adverse Effects No issues Tremor Minimal, not bothersome Rigidity Worse in am prior to medications, sometimes at night Bradykinesia Worse in am prior to medications Gait No issues, utilizes walking sticks for stability when hiking or traversing sand Falls No issues Freezing No issues Dyskinesia No issues Dystonia No issues Swallowing No issues Non Motor symptoms ?? Constipation No issues Bladder function Urinary frequency/urgency/nocturia, some straining and weak stream Lightheadedness No issues Thinking/memory No issues Mood Some anxiety Illusory phenomena No issues Sleep Vivid dreams once per month Current Outpatient Prescriptions on File Prior to Visit Medication Sig Dispense Refill ??? aspirin 325 mg tablet Take 325 mg by mouth daily ??? atorvastatin (LIPITOR) 10 mg tablet Take 5 mg by mouth daily ??? carbidopa-levodopa (SINEMET) 25-100 mg per tablet Take 1.5 Tabs by mouth 3 times daily. 405 Tab3 ??? metoprolol (LOPRESSOR) 12.5 mg Take 12.5 mg by mouth daily No current facility-administered medications on file prior to visit. Review of Systems: Positive for urinary frequency/urgency/nocturia/straining/weak stream, mild sialorrhea, occasional vivid dreams, snoring, anxiety. Ten point review of systems obtained. Pertinent positives and negatives noted above. All else negative. Social History: Reviewed with patient and updated in EMR. Past Medical History: Reviewed with patient and updated in EMR. Patient Active Problem List Diagnosis ??? Parkinson's disease ([facility]) ??? Family history of brain aneurysm ??? Daytime sleepiness Past Surgical History: Reviewed with patient and updated in EMR. Family History: Reviewed with patient and updated in EMR. Medications: Current Outpatient Prescriptions on File Prior to Visit Medication Sig Dispense Refill ??? aspirin 325 mg tablet Take 325 mg by mouth daily ??? atorvastatin (LIPITOR) 10 mg tablet Take 5 mg by mouth daily ??? carbidopa-levodopa (SINEMET) 25-100 mg per tablet Take 1.5 Tabs by mouth 3 times daily. 405 Tab3 ??? metoprolol (LOPRESSOR) 12.5 mg Take 12.5 mg by mouth daily No current facility-administered medications on file prior to visit. Allergies and Adverse Reactions: Allergies Allergen Reactions ??? Cedric Inhibitors Other (See Comments) Hypotension ??? Unable To Assess Patient unsure of blood pressure medication. Says it lowered the bp too much. Neurologic Examination: Patient Vitals for the past 24 hrs: BP Pulse Resp Height Weight 05/23/18 1051 (!) 144/78 60 16 182.9 cm (72.01) 89.8 kg (198 lb) UPDRS-III Motor Examination Section Factor Score 18 Speech 0 -Normal. 19 Facial expression 1 -Minimal hypomimia. Could be normal Poker Face. 20 Tremor at rest: ? Face, lips, chin 0 -Absent. ?? Hands: right 0 -Absent. ?? Hands: left 0 -Absent. ?? Feet: right 0 -Absent. ?? Feet: left 0 -Absent. 21 Action tremor: right 0 -Absent. ?? left 1 -Slight. Present with action. 22 Rigidity: ? Neck 1 -Slight or detectable only when activated by mirror or other movements. ?? Upper extremity: right 1 -Slight or detectable only when activated by mirror or other movements. ?? Upper extremity: left 0 -Absent. ?? Lower extremity: right 2 -Mild to moderate. ?? Lower extremity: left 2 -Mild to moderate. 23 Finger taps: right 1 -Mild slowing and/or reduction in amplitude. ?? Finger taps: left 1 -Mild slowing and/or reduction in amplitude. 24 Hand credit adjuster: right 1 -Mild slowing and/or reduction in amplitude. ?? Hand credit adjuster: left 1 -Mild slowing and/or reduction in amplitude. 25 Hand pronate/supinate: right 0 -Normal. ?? left 0 -Normal. 26 Leg agility: right 0 -Normal. ?? left 0 -Normal. 27 Arise from chair 0 -Normal. 28 Posture 0 -Normal erect. 29 Gait 1 -Walks slowly, may shuffle with short steps, but no festination (hastening steps) or propulsion. 30 Postural stability 0 -Normal. 31 Body bradykinesia 1 -Minimal slowness, giving movement a deliberate character. Could be normal for some persons. Possibly reduced amplitude. ?? Sec 18 to 31 total: 14 ? UPDRS Sec 1 to 31 total: 14 Data Review: Labs: All labs reviewed in EMR. No recent labs in EMR. Imaging: No recent neuroimaging available in EMR. Assessment: Mr. Jhon Avalos is a 72 year old gentleman with Parkinson's Disease that is well-controlled on the current regimen without significant side effects. We discussed medication changes while traveling across time zones and the use of as needed medications for breakthrough symptoms. No formal medication changes were made during this visit. Plan: - continue carbidopa-levodopa 25-100 mg 1.5 tab TID 06:00 / 12:00 / 17:00 - can use carbidopa-levodopa 25-100 mg 0.5 tab PRN for breakthrough symptoms at the end of a dose - follow-up in 3 months with Ms. Marquis - follow-up in [address] Reid The patient was seen and evaluated with Dr. Reid. Samira Sanders MD Neurology PGY-3 Attending Attestation: I personally interviewed/saw and examined patient on the date of service. I agree with the history,examination, assessment and plan of care as documented by the resident. Dong Reid MD Attending Neurologist Office documented in this encounter Plan of Treatment Upcoming Encounters Date Type Department Care Team (Late st Contact Info) Description 09/18/2024 14:00 EST Office Visit [facility] Neurology - S [address] [phone] Dong Reid MD [address] [place] [address], [address] [place] [phone] 01/19/2025 10:15 EDT Office Visit [facility] Neurology [address] [phone] Kenia Goss, CALIBRATION SPECIALIST 1 [facility], [address] [place] [phone] documented as of this encounter Visit Diagnoses Diagnosis Parkinson's disease ([facility])- Primary Paralysis agitans documented in this encounter Care Teams Sort Manager Relationship Specialty Start Date End Date Riaz Hawkins MD [address] [place] [address] PCP - General 08/15/15 06/12/24 documented as of this encounter
--- OUTSIDE RECORDS SUMMARY | 2024-08-03 19:08 | XMS_ITS | Encounter Summary ---
Author Organization [facility] Address [address] [place] [address] Care Team Providers Care Motorcycle Delivery Driver Name Role Phone Riaz Hawkins MD Primary Care Provider [phone] Reason for Visit * Reason Comments Follow-up PD Encounter Details Date Type Department Care Team ([facility] st Contact Info) Description 11/21/2018 10:45 EST Office Visit [facility] Neurology - S [address] [phone] Dong Reid MD [address] [place] [address] [address] [place] [phone] Parkinson's disease ([facility]) (Primary Dx) Discharge Disposition: Auto Discharge [...] Sign Reading Time Taken Comments Blood Pressure 122/82 11/21/2018 1035 EST Pulse 55 11/21/2018 1035 EST Temperature - - Respiratory Rate 16 11/21/2018 1035 EST Oxygen Saturation - - Inhaled Oxygen Concentration - - Weight 89.8 kg (198 lb) 11/21/2018 1035 EST Height 182.9 cm (6' 0.01) 11/21/2018 1035 EST Body Mass Index 26.85 11/21/2018 1035 EST documented in this encounter Functional Status [...] Progress Notes * Dong Reid MD - 11/21/2018 1045 EST Images from the original note were not included. 1. Parkinson's disease ([facility]) Current Outpatient Medications: aspirin 325 mg tablet atorvastatin (LIPITOR) 10 mg tablet carbidopa-levodopa (SINEMET) 25-100 mg per tablet cholecalciferol, Vitamin D3, 1,000 unit tablet metoprolol (LOPRESSOR) 12.5 mg VITAMIN B COMPLEX-100 ORAL No current facility-administered medications for this visit. Jhon Aguiar is allergic to vipin inhibitors and unable to assess. Patient Active Problem List Diagnosis Date Noted ??? Daytime sleepiness 02/01/2017 ??? Parkinson's disease ([facility]) 09/11/2015 Diagnosis 2015 Onset 2012 - right sided initial symptoms Treatment to date None ??? Family history of brain aneurysm 09/11/2015 Family history of polycystic kidney disease Review of systems including , GI, sleep, cognition,psychiatric, presyncope/syncope, sweating abnormalities were negative or included in the dictated note with the following exceptions: Examination: BP 122/82 (BP Cuff Location: Left arm, Patient Position: Sitting, BP Cuff Sizes: Adult, regular) Pulse 55 Resp 16 Ht 182.9 cm (72.01) Wt 89.8 kg (198 lb) BMI 26.85 kg/m?? UPDRS-III Motor Examination Section Factor Score 18 [...] action. left 0 -Absent. 22 Rigidity: Neck 1 -Slight or detectable only when activated by mirror or other movements. Upper extremity: right 1 -Slight or detectable only when activated by mirror or other movements. Upper extremity: left 0 -Absent. Lower extremity: right 2 -Mild to moderate. Lower extremity: left 1 -Slight or detectable only when activated by mirror or other movements. 23 Finger taps: right 1 -Mild slowing and/or reduction in amplitude. Finger taps: left 0 -Normal. 24 Hand commercial relationship manager: right 1 -Mild slowing and/or reduction in amplitude. Hand commercial relationship manager: left 1 -Mild slowing and/or reduction in [...] reduced amplitude. Sec 18 to 31 total: 17 UPDRS Sec 1 to 31 total: 19 No orders of the defined types were placed in this encounter. This office note has been dictated. Greater than 15 minutes of this 25 minute [id number] visit were devoted to patient/care-provider education, care plan formulation, and supportive counseling as noted in the assessment and plan. Encounter Provider: Dong Reid MD * Dong Reid MD - 11/21/2018 0000 EST [facility] NEUROLOGY PROGRESS / FOLLOWUP NOTE - 11/21/2018 PROBLEM: Parkinson disease. HISTORY: Jhon returns for evaluation. In the interim since last seen, he has made no modifications in his carbidopa-levodopa dosing. He is not experiencing any motor fluctuations. He does experience some dystonic cramping in the commutator undercutter as well as after exercise but feels this is relativelymild. He does feel as though he is somewhat under medicated with an increase in slowness and tremorif he is more physically active. He gives examples of exercising at the gym and then later in that same day, having an increase in parkinsonism without a discrete wearing off episode. During the exercise itself, he feels quite well. He is participating in the [employer] program and enjoyingthis. He is additionally exercising independent of this as well. He remains independently ambulatory. No falls or near falls. No symptoms suggestive of dyskinesia. He is having no freezing of gait. In nonmotor review, he has some vividness of dreaming without severe thrashing or dream enactment, mild daytime drowsiness with a nap in the midday, which is refreshing and not disruptive of his day.Urinary frequency and urgency without incontinence. Nocturia 1 to 2 times per night at a maximum. He does have nocturnal drooling but no daytime drooling. He is currently driving. He has no concerns about this. He is not utilizing assistive device. MEDICATIONS, ALLERGIES, REVIEW OF SYSTEMS AND EXAMINATION: Documented in the electronic health record. ASSESSMENT AND PLAN: Parkinson disease, overall doing well on monotherapy of carbidopa-levodopa. I discussed the opportunities for potential addition of a dose increase of a half tablet after his days of exercise to see if he can avoid the relative symptoms of off/inadequate medication on those days. If this appears unsuccessful, he may consider increasing by a half tablet preceding his exercise instead. He will dabble with these 2 options and update me with the responses. Follow up in 3 to 4 months. Dong Reid MD 06 44 AM - Dong Reid MD ln Dictation ID: [id number] documented in this encounter Plan of Treatment Upcoming Encounters Date Type Department Care Team (Late st Contact Info) Description 09/18/2024 14:00 EST Office Visit [facility] Neurology - S [address] [address] Dong Reid MD 1 [facility], [facility] 2 [place] [address] 01/19/2025 10:15 EDT Office Visit [facility] Neurology - S [address] [address] Kenia Goss NP 1 [facility], [facility] 2 [place] [address] documented as of this encounter Visit Diagnoses Diagnosis Parkinson's disease ([facility])- Primary Paralysis agitans documented in this encounter Care Teams Motorcycle Delivery Driver Relationship Specialty Start Date End Date Riaz Hawkins MD [address] [place] [phone] PCP - General 08/15/15 06/12/24 documented as of this encounter
--- OUTSIDE RECORDS SUMMARY | 2024-08-03 19:08 | XMS_ITS | Encounter Summary ---
Author Organization [facility] Address [address] [place] [address] Care Team Providers Care Mule Developer Name Role Phone Riaz Hawkins MD Primary Care Provider [phone] Reason for Visit * Reason Onset Date Comments Appointment Related 03/21/2020 Televideo FU R Appointment Related 04/05/2020 Encounter Details Date Type Department Care Team (Late st Contact Info) Description 03/21/2020 Telephone [facility] Neurology - S [address] [phone] Jammie Marquis NP [address] [place] [address] [address] [place] [address] Appointment Related (Televideo FUR); Appointment Related Social History Tobacco Use Types [...] encounter Miscellaneous Notes * Telephone Encounter - Senthil Villalobos - 04/08/2020 1043 EDT Jhon called and rescheduled bumped 04/16 Televideo appt with Garrett Marquis to [facility] 04/30/2020 at 8:00am. Sent NEW zoom meeting invite email [email or web address] Meeting ID: [id number] Password: [email or web address] * Telephone Encounter - Jase Billy - 04/05/2020 0935 EDT Calling to reschedule bumped appt with Benitez from 04/16/20. Provider schedule change. If the pt calls back please reschedule off the cancelled 04/16/20 Marquis appt and schedule into next available opening. Most of these appts are already televideo/telemed, they just need to be rescheduled to a different day and please send new zoom invite. * Telephone Encounter - Charlette Howell - 03/25/2020 1122 EDT Spoke to Jhon, He advised the 04/09 televideo with Garrett Marquis wont work - rescheduled to 04/16 at 8:30 AM Updated zoom platform and advised Jhon to use the same meeting ID and password - * Telephone Encounter - Maria Teresa Loya - 03/21/2020 1526 EDT Patient called back and rescheduled televideo appt for 04/09/2020 at 8:00am with Garrett Marquis. Meeting ID: [id number] Password: [id number] * Telephone Encounter - Lulú Knowles - 03/21/2020 1236 EDT Calling patient to change FUR with Benitez on 03/27 @ 11am. Regarding Covid-19 onsite appointment protocol, offering a televideo appt through Zoom for the same date/time. LMOM looking to do video visit. On callback, please explain zoom. If patient is able to do zoom, please set up appt. If patient cannot do zoom, patient could do a phone visit instead. Further questions, transfer to Lulú. documented in this encounter Plan of Treatment Upcoming Encounters Date Type Department Care Team (Late st Contact Info) Description 09/18/2024 14:00 EST Office Visit [facility] Neurology S [address] [phone] Dong Reid MD [address] [place] [phone] 01/19/2025 10:15 EDT Office Visit [facility] S [address] [phone] Kenia Goss NP [address] [place] [phone] documented as of this encounter Visit Diagnoses Not on filedocumented in this encounter Care Teams Mule Developer Relationship Specialty Start Date End Date Riaz Hawkins MD [address] [place] [address] PCP - General 08/15/15 06/12/24 documented as of this encounter
--- OUTSIDE RECORDS SUMMARY | 2024-08-03 19:08 | XMS_ITS | Encounter Summary ---
Author Organization [facility] Address [address] [place] [address] Care Team Providers Care Bit And Shank Department Supervisor Name Role Phone Riaz Hawkins MD Primary Care Provider [phone] Reason for Visit * Reason Comments Follow-up Encounter Details Date Type Department Care Team ([facility] st Contact Info) Description 08/09/2023 11:15 EDT Office Visit [facility] Neurology - S [address] [id number] Jammie Marquis NP [address] [place] [address] 2 [place] [address] Parkinson's disease without dyskinesia, unspecified whether manifestations fluctuate (Primary Dx) Social History Tobacco Use Types [...] Reading Time Taken Comments Blood Pressure 130/80 08/09/2023 1102 EDT Pulse 54 08/09/2023 1102 EDT Temperature - - Respiratory Rate 16 08/09/2023 1102 EDT Oxygen Saturation 99% 08/09/2023 1102 EDT Inhaled Oxygen Concentration - - Weight 87.1 kg (192 lb) 08/09/2023 1102 EDT Height - - Body Mass Index [...] Patient Instructions * Patient Instructions* Jammie Marquis NP - 08/09/2023 11:15 EDT Change first dose Rytary (6 am) to 2 tabs of carbidopa/levodopa. Observe how long the carbidopa/levodopa lasts When it starts to wear off, Take your dose of rytary and Continue Rytary for the rest ofthe day. Send Zoom message on the weekend or Wednesday to report progress. Continue carbidopa 25 mg with each dose. documented in this encounter Ordered Prescriptions Prescription Sig Dispensed Refills Start Date End Da te carbidopa-levodopa (SINEMET) 25-100 mg per tablet As directed up to 4 times daily 360 Tablet 1 08/09/2023 12/11/2023 documented in this encounter Progress Notes * Jammie Marquis NP - 08/09/2023 1115 EDT Images from the original note were not included. Primary Care: Riaz Hawkins [address] [place] [id number] Reason for visit: ICD-10-CM ICD-9-CM 1. Parkinson's disease without dyskinesia, unspecified whether manifestations fluctuate G20.A1 332.0 Assessment & Plan / Recommendations: Parkinson's disease with minimal motor fluctuations but [...] Instructions provided. Need to follow up with [facility] regarding domperidone. It was ordered about a month ago and he has not received it. The [facility] pharmacy has told him it's ???in transit.?? He is getting good exercise with boxing, walking, and theracycle. Continue current regimen of exercise. He will contact the office in one week to let us know how the transition to carbidopa levodopa is going. No orders of the defined types were placed in this encounter. Patient Instructions Change first dose Rytary (6 am) to 2 tabs of carbidopa/levodopa. Observe how long the carbidopa/levodopa lasts When it starts to wear off, Take your dose of rytary and Continue Rytary for the rest ofthe day. Send Zoom message on the or Wednesday to report progress. Continue carbidopa 25 mg with each dose. Return for follow-up: 3 months HPI: Returns for follow up Accompanied to visit by , Donna. He continues to have difficulty with nausea in the mornings and bloating in the afternoon. Currently taking Rytary 95 milligrams 3 capsules three times daily along with 25 milligrams of carbidopa. He reports occasional dysphagia was coughing upon eating. He has not tried the chin tuck maneuver. Reports a sense of apathy, lack of motivation. Ongoing urinary frequency and nocturia, neither of which is new. Motor symptoms Motor fluctuations: are not present LIDS: are not present Dystonia: is not present, with activity / exercise Fluctuation treatment: No required as needed treatment Percentage of day spent in OFF state: None FALLS: none ASSISTIVE DEVICES: trekking poles DYSARTHRIA: no DYSPHAGIA: mild liquids NON-MOTOR SYMPTOMS: Nausea and bloating, nocturia, urinary urgency Current Outpatient Medications Medication Sig Note Dispense [...] with each Rytary dose 270 Tablet 3 ??? carbidopa-levodopa (RYTARY) 23.75-95 mg ER capsule Take 3 Capsules by mouth 3 times daily. 810 Capsule 3 ??? carbidopa-levodopa (SINEMET) 25-100 mg per tablet As directed up to 4 times daily 360 Tablet 1 ??? ezetimibe (ZETIA) 10 mg tablet Take 1 Tablet by mouth daily. ??? LOSARTAN POTASSIUM, BULK, MISC 25 mg by misc (non-drug; combo route) route daily. ??? metoprolol (LOPRESSOR) 12.5 mg Take 1 Tablet by mouth daily. ??? Miscellaneous Medication - See Admin Instructions Domperidone 10 mg tab; 1 tab PO TID 08/09/2023: Have not started yet, waiting for medication 270 Each 5 ??? naproxen sodium (ALEVE ORAL) Take by mouth as needed for Pain. ??? predniSONE (DELTASONE) 1 mg tablet Take 5 Tablets by mouth daily. 08/09/2023: 2.5 mg No current facility-administered medications for this visit. MEDICATION / DOSE 06:00 AM 12:00 PM 05:00 PM carbidopa-levodopa ER (RYTARY) 23.75-95 mg 3 3 3 carbidopa 25 mg 1 1 1 Allergies Allergen Reactions ??? Cedric Inhibitors Other (See Comments) Hypotension ??? Unable To Assess Patient unsure of blood pressure medication. Says it lowered the bp too much. Review of systems including , GI, sleep, cognition, psychiatric, presyncope/syncope,sweating abnormalities were negative or included in the history above with the following exceptions: Urinary frequency Nocturia Examination: BP 130/80 (BP Cuff Location: Left arm, BP Patient Position: Sitting, BP Cuff Sizes: Adult, regular) Pulse 54 Resp 16 Wt 87.1 kg (192 lb) SpO2 99% BMI 26.04 kg/m?? Alert, appropriate Ox3 Normal language Normal insight Normal judgement UPDRS-III Motor Examination Section Factor Score 18 Speech 0 19 Facial expression 1 20 Tremor at rest: Face, lips, chin 0 Hands: right 1 Hands: left 1 Feet: right 1 Feet: left 0 21 Action tremor: right 1 left 1 22 Rigidity: Neck 2 23 Upper extremity: right 2 Upper extremity: left 1 Lower extremity: right 2 Lower extremity: left 1 23 Finger taps: right 2 Finger taps: left 2 24 Hand horticulture supervisor: right 2 Hand horticulture supervisor: left 1 25 Hand pronate/supinate: right 2 left 1 26 Leg agility: right 1 left 1 27 Arise from chair 1 28 Posture 1 29 Gait 1 30 Postural stability 0 31 Body bradykinesia 1 Sec 18 to 31 total: 30 I spent a total of 40 minutes on the date of this encounter meeting with the patient and reviewing documentation/coordinating care as described in the above note. Patient/healthcare economics consultant education Review of the pertinent information in the electronic health record Care plan formulation Supportive counseling as described in the assessment and plan Documentation of clinical information in the EHR Encounter Provider: Jammie Marquis NP documented in this encounter Plan of Treatment Upcoming Encounters Date Type Department Care Team (Late st Contact Info) Description 09/18/2024 14:00 EST Office Visit [facility] Neurology S [address] [phone] Dong Reid MD [address] [place] [phone] 01/19/2025 10:15 EDT Office Visit [facility] Neurology S [address] [id number] Kenia Goss NP [address] [place] [phone] documented as of this encounter Visit Diagnoses Diagnosis Parkinson's disease without dyskinesia, unspecified whether manifestations fluctuate ([facility])- Primary documented in this encounter Care Teams Bit And Shank Department Supervisor Relationship Specialty Start Date End Date Riaz Hawkins MD [address] [place] [address] PCP - General 08/15/15 06/12/24 documented as of this encounter
--- OUTSIDE RECORDS SUMMARY | 2024-08-03 19:08 | XMS_ITS | Encounter Summary ---
Author Organization [facility] Address [address] [place] [address] Care Team Providers Care Urologist Physician Name Role Phone Riaz Hawkins MD Primary Care Provider Reason for Visit * Reason Onset Date Comments Medications Refill 04/18/2018 Encounter Details Date Type Department Care Team (Late st Contact Info) Description 04/18/2018 Refill [facility] Neurology - S [address] [phone] Jammie aMrquis NP [address] [place] [address] 2 [place] [address] Medications Refill Social History Tobacco [...] mouth 3 times daily. 405 Tab 3 04/18/2018 02/24/2019 documented in this encounter Miscellaneous Notes * Telephone Encounter - Charlette Germain RN - 04/18/2018 1007 EDTFrom: Jhon Aguiar To: Jammie Marquis NP Sent: 04/18/2018 10:00 EDT Subject: Medication Renewal Request Original authorizing provider: RIKI Zarate would like a refill of the following medications: carbidopa-levodopa (SINEMET) 25-100 mg per tablet [Jammie Marquis NP] Preferred pharmacy: [facility] - [address] Comment: Please send a new prescription, and send it this time to [facility]. Thank you. documented in this encounter Plan of Treatment Upcoming Encounters Date Type Department Care Team (Late st Contact Info) Description 09/18/2024 14:00 EST Office Visit [facility] Neurology S [address] [phone] Dong Reid MD [address] [place] [phone] 01/19/2025 10:15 EDT Office Visit [facility] [address] [phone] Kenia Goss NP [address] [place] [phone] documented as of this encounter Visit Diagnoses Not on filedocumented in this encounter Discontinued Medications Medication Sig Discontinue Reason Start Date End Da te carbidopa-levodopa (SINEMET) 25-100 mg per tablet Take 1.5 Tabs by mouth 3 times daily. Reorder 05/27/2017 04/18/2018 documented as of this encounter Care Teams Urologist Physician Relationship Specialty Start Date End Date Riaz Hawkins MD [address] [place] [address] PCP - General 08/15/15 06/12/24 documented as of this encounter
--- OUTSIDE RECORDS SUMMARY | 2024-08-03 19:08 | XMS_ITS | Encounter Summary ---
Author Organization [facility] Address [address] [place] [address] Care Team Providers Care Hull Molder Name Role Phone Riaz Hawkins MD Primary Care Provider [phone] Encounter Details Date Type Department Care Team (Latest Contact Info) Description 02/18/2018 11:23 EDT - 02/18/2018 23:59 EDT Hospital Encounter [address] [address] Unknown, Provider, Discharge Disposition: Home or Self Care Social History Tobacco Use Types Packs/Day Years [...] No 05/20/2017 documented as of this encounter Medications at Time of Discharge Medication Sig Dispensed Refills Start Date End Date aspirin 81 mg EC tablet Take 1 Tablet by mouth daily. atorvastatin (LIPITOR) 40 mg tablet Take 1 Tablet by mouth daily. metoprolol (LOPRESSOR) 12.5 mg Take 1 Tablet by mouth daily. carbidopa-levodopa (SINEMET) 25-100 mg per tablet Take 1.5 Tabs by mouth 3 times daily. 405 Tab 3 05/27/2017 04/18/2018 documented as of this encounter Discharge Disposition Disposition Code Departure Means Destination Home or Self [facility] documented in this encounter Plan of Treatment Upcoming Encounters Date Type Department Care Team (Late st Contact Info) Description 09/18/2024 14:00 EST Office Visit [facility] Neurology S [address] [phone] Dong Reid MD [address] [place] [phone] 01/19/2025 10:15 EDT Office Visit [address] [phone] Kenia Goss NP [address] [place] [phone] documented as of this encounter Visit Diagnoses Not on filedocumented in this encounter Care Teams Hull Molder Relationship Specialty Start Date End Date Riaz Hawkins MD [address] [place] [address] PCP - General 08/15/15 06/12/24 documented as of this encounter
--- OUTSIDE RECORDS SUMMARY | 2024-08-03 19:08 | XMS_ITS | Encounter Summary ---
Author Organization [facility] Address [address] [place] [address] Care Team Providers Care Book Shelver Name Role Phone Riaz Hawkins MD Primary Care Provider [phone] Reason for Visit * Reason Comments Follow-up Encounter Details Date Type Department Care Team ([facility] st Contact Info) Description 03/02/2022 15:00 EDT Office Visit [facility] Neurology - S [address] [phone] Dong Reid MD [address] [place] [address] 2 [place] [phone] Parkinson's disease (HCC-CMS) (HCC) (Primary Dx) Social History Tobacco Use Types [...] Sign Reading Time Taken Comments Blood Pressure 108/72 03/02/2022 1503 EDT Pulse 66 03/02/2022 1503 EDT Temperature - - Respiratory Rate 14 03/02/2022 1503 EDT Oxygen Saturation 97% 03/02/2022 1503 EDT Inhaled Oxygen Concentration - - Weight [...] as of this encounter Progress Notes * Kenneth Ravi - 03/02/2022 1500 EDT Images from the original note were not included. ? Primary Care: Riaz Hawkins [address] [facility] [address] ?? Reason for visit: ? ICD-10-CM ICD-9-CM ?? 1. Parkinson's disease ([facility]) ([facility]) G20 332.0 ?? 2. 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 Assessment & Plan / Recommendations: Parkinson's disease with borderline control of cardinal motor features. Breakthrough symptoms during more exertional activities. Late day predominant cervical levodopa-induced dyskinesia. ?? We discussed dosing of levodopa with respect to patient's decreased energy, lack of motivation, andworsened shuffling gait. There is the chance that the patient is currently underdosed. Will increase 11am + 7pm doses from 1.5 to 2g and monitor for dyskinesia Can consider adding a dose earlier in the afternoon down the line if this doesn't help. We will also monitor GI symptoms to see if patient's recent abdominal distension worsens with this increased dose. ?? Patient encouraged to keep his mouth from drying out and adding stronger flavors to his food in order to deal with his declining taste and appetite. No orders of the defined types were placed in this encounter. ? Patient Instructions ?? Update our office in a couple of weeks regarding the efficacy of the newer dosing ? MEDICATION / DOSE 6am 11am 7 pm carbidopa-levodopa IR (SINEMET) 25-100 mg 2 2 2 ? Return for follow-up: 4 Months ? HPI: ?? Returns for follow up Accompanied to visit by his Donna Has had some bloating for the past 6 months. Says it's become uncomfortable and is wondering if it's related to the increased medication dose from the last visit. Denies diarrhea, constipation, passing gas regularly. Endorses loss of appetite and decreased sensation of food. Says he doesn't look forward to the foods that he used to eat but is making sure to keep up his caloric intake. Denies falls, is able to continue ambulating. Feels that gait is much worse with increased shuffling of late. Says that his back hurts when he stands for prolonged periods of time. Having dyskinesia with bobbing of his head but feels that this is stable. Continued solid dysphagia which may represent oropharyngeal dryness.? Endorses neck crepitus and occasional cramping. Feels that his energy is decreased despite no changes in his sleeping habits. Is enjoying his hobbies less, with decreased writing and woodworking as of late. Both patient and feels that his voice has become softer with some garbled words. ?? Motor symptoms Motor fluctuations: Minor predictable end [...] of the day of present very mild ?? Falls: None Assistive devices: no assistive devices Dysarthria: Minor reductions Dysphagia: dry goods like breads. Mouth dryness. Liquids are OK ?? NON-MOTOR SYMPTOMS: Urinary frequency, urinary urgency, nocturia, noisy bowels without bloating constipation or other GI symptoms, intermittent sialorrhea sleeping Current Outpatient Medications Medication ??? aspirin 81 mg EC tablet ??? atorvastatin (LIPITOR) 40 mg tablet ??? carbidopa-levodopa (SINEMET) 25-100 mg per tablet ??? Cholecalciferol, Vitamin D3, (VITAMIN D3) 50 mcg (2,000 unit) capsule ??? ezetimibe (ZETIA) 10 mg tablet ??? LOSARTAN POTASSIUM, BULK, MISC ??? metoprolol (LOPRESSOR) 12.5 mg No current facility-administered medications for this visit. ?? Allergies Allergen Reactions ??? Cedric Inhibitors Other (See Comments) ? Hypotension ? Unable To Assess ? Patient unsure of blood pressure medication. Says it lowered the bp too much. ? Review of systems including , GI, sleep, cognition, psychiatric, presyncope/syncope,sweating abnormalities were negative or included in the history above with the following exceptions: See above ?? Examination: Patient Vitals for the past 24 hrs: BP Pulse Resp SpO2 03/02/22 1503 108/72 66 14 97 % Alert, appropriate Ox3 Normal language Normal insight Normal judgement ??low amplitude cervical athetosis - augmented by limb activities UPDRS-III Motor Examination Section Factor Score 18 [...] mirror or other movements. Upper extremity: left 2 -Mild to moderate. Lower extremity: right 2 -Mild to moderate. Lower extremity: left 1 -Slight or detectable only when activated by mirror or other movements. 23 Finger taps: right 1 -Mild slowing and/or reduction in amplitude. Finger taps: left 1 -Mild slowing and/or reduction in amplitude. 24 Hand car worker: right 2 -Moderately impaired. Definite and early fatiguing. May have occasional arrests in movement. Hand car worker: left 1 -Mild slowing and/or reduction in amplitude. 25 Hand pronate/supinate: right 2 -Moderately impaired. Definite and early fatiguing. May have occasional arrests in movement. left 0 -Normal. 26 Leg agility: right 1 -Mild slowing and/or reduction in amplitude. left 0 -Normal. 27 Arise from chair 1 -Slow, or [...] amplitude. Sec 18 to 31 total: 22 I spent a total of 33 minutes on the date of this encounter meeting with the patient and reviewing documentation/coordinating care as described in the above note. Patient/technical healthcare consultant education Review of the pertinent information in the electronic health record Care plan formulation Supportive counseling as described in the assessment and plan Kenneth Ravi, BRAULIO 03/02/2022 15:40 Pager #[phone], available by [facility] I was present with the medical student for the history, examination and medical decision making by him/her. I personally performed my own physical exam and medical decision making. I have verified & agree with (or have edited) the medical student's documentation. Dong Reid MD Attending Neurologist documented in this encounter Plan of Treatment Upcoming Encounters Date Type Department Care Team (Late st Contact Info) Description 09/18/2024 14:00 EST Office Visit [facility] Neurology - S [place] [address] [place] [address] Dong Reid MD [address] [place] [address] [address] [place] [phone] 01/19/2025 10:15 EDT Office Visit [facility] Neurology - S [place] [address] [place], [place] [phone] Kenia Goss, RIKI 1 [facility], Level [address] [place] [phone] documented as of this encounter Visit Diagnoses Diagnosis Parkinson's disease ([facility])- Primary Paralysis agitans documented in this encounter Historical Medications * This list may reflect changes made after this encounter. Medication Sig Dispensed Refills Start Date End Date LOSARTAN POTASSIUM, BULK, MISC 25 mg by misc (non-drug; combo route) route daily. added in this encounter Care Teams Book Shelver Relationship Specialty Start Date End Date Riaz Hawkins MD [address] [place] [address] PCP - General 08/15/15 06/12/24 documented as of this encounter
--- OUTSIDE RECORDS SUMMARY | 2024-08-03 19:08 | XMS_ITS | Encounter Summary ---
Author Organization [facility] Address [address] [place] [address] Care Team Providers Care Fur Sewer Name Role Phone Riaz Hawkins MD Primary Care Provider [phone] Reason for Visit * Reason Onset Date Comments Update 10/16/2022 Medication Management 10/16/2022 Encounter Details Date Type Department Care Team (Late st Contact Info) Description 10/16/2022 Telephone [facility] Neurology - S [address] [phone] Dong Reid MD [address] [place] [address] [address] [place] [phone] Update; Medication Management Social History Tobacco Use Types [...] Telephone Encounter - Charlette Germain RN - 10/28/2022 1336 EST TC to Koko who confirms he is taking rytary 23.75-95 3 capsules every morning around 7am. He is doing will but still has slight dyskinesia late morning that doesn't last very long. He doesn't have a distinct wearing off for rytary but has been taking his next dose of C/L IR around noon and the dose after that is around supper time. He would like to try just transitioning to all rytary now and we agreed he would try 3 caps at 7AM, 1PM, 7PM and he will let us know how that goes. He will not take any more IR today and will take rytary around 7PM tonight. * Telephone Encounter - Yasmin Pendleton - 10/27/2022 1625 EST Koko called back this afternoon looking to speak with the nurse. I reached out to the nurse but she was on the phone with another patient, so I told Koko that I would have her call him back as soon as possible. Thank you * Telephone Encounter - Charlette Germain RN - 10/27/2022 1459 EST Attempted to contact ALEXX Sutherland for CB. * Telephone Encounter - Yasmin Pendleton - 10/26/2022 1002 EST Koko was calling in again this morning looking to speak with a nurse in regards to his next steps for his medication of Rytary. Please call to advise. Thank you * Telephone Encounter - Yasmin Pendleton - 10/22/2022 0856 EST Koko called in this morning wanting to update the nurse in regards to his medication for the Rytary.He states that he seems to be doing weill and is looking for the next steps. Please call to advise. Thank you * Telephone Encounter - Charlette Germain RN - 10/16/2022 1637 EST Spoke with Koko who reports yesterday was first day taking Rytary 3 caps at 6:30. He states changes are very subtle but he believes it was working within an hour and he didn't have to take any regularsinemet. Around he started to feel a bit dyskinetic around 1000 but it didn't last very long. Went back to regular sinemet dosing at noon without feeling much wearing off. Because of the dyskinetic feeling he cut the Rytary back to 2 caps this morning but had a similar experience today. I encouraged him to go back to 3 caps and maintain current dosing over the long weekend as long as he wasn't bothered and the dyskinesia doesn't last long so that we have good information next week and can best guide on next steps. He is comfortable with plan and will call on Wednesday. He does report he is now totally out of carbidopa levodopa. TC to [facility]. [facility] will dispense short supply pending delivery of mail order and [facility] will dispense and send to allow transition to Rytary. * Telephone Encounter - Shalom Monet - 10/16/2022 0913 EST Koko was giving an update about the medications. He stated that he was switching from C.levodpa to Rytary , so he would take Rytary in the morning and Sinemet in the evening , but right now he is out of sinemet . However , he stated that he is doing fine with the Rytary . He would like a call back for assistance and advices. Thanks . documented in this encounter Plan of Treatment Upcoming Encounters Date Type Department Care Team (Late st Contact Info) Description 09/18/2024 14:00 EST Office Visit [facility] Neurology - S [address] [phone] Dong Reid MD [address] [place] [address], [facility] [address] [place] [phone] 01/19/2025 10:15 EDT Office Visit [facility] Neurology S [address] [address] Kenia Goss NP [address] [place] [address] 2 [place] [phone] documented as of this encounter Visit Diagnoses Not on filedocumented in this encounter Care Teams Fur Sewer Relationship Specialty Start Date End Date Riaz Hawkins MD [address] [place], [place] [phone] PCP - General 08/15/15 06/12/24 documented as of this encounter
--- OUTSIDE RECORDS SUMMARY | 2024-08-03 19:09 | XMS_ITS | Encounter Summary ---
Author Organization [facility] Address [address] [place] [address] Care Team Providers Care Consulting Engineer Name Role Phone Riaz Hawkins MD Primary Care Provider [phone] Reason for Visit * Reason Onset Date Comments Update 08/03/2016 Encounter Details Date Type Department Care Team (Late st Contact Info) Description 08/03/2016 Telephone [facility] Neurology - S [address] [id number] Dong Reid MD [address] [place] [address] 2 [place] [phone] Update Social History Tobacco Use Types Packs/Day Years [...] visiting a doctor's office or shopping? No 12/23/2015 Cognitive Status Response Date of Assessm ent Because of a physical, menta l, or emotional condition, does this person have serious difficulty concentrating, remembering, or making decisions? No 12/23/2015 documented as of this encounter Ordered Prescriptions Prescription Sig Dispensed Refills Start Date End Da te pramipexole (MIRAPEX) 0.75 mg tablet Take 1 Tab by mouth 3 times daily. 270 Tab 3 08/03/2016 09/15/2016 documented in this encounter Miscellaneous Notes * Telephone Encounter - Cassie Valero RN - 08/03/2016 1533 EDT Let pt know, he will pick RX up and call with an update in a couple weeks. * Telephone Encounter - Dong Reid MD - 08/03/2016 1455 EDT Increase to .75 TID * Telephone Encounter - Cassie Valero RN - 08/03/2016 1448 EDT Spoke with Koko, he feels over all he is doing well, but that he would be interested in increasing his dose a little bit to see if he can get some more control of his tremor. Current dosing is 0.5 mg TID. * Telephone Encounter - Francisco Ballesteros - 08/03/2016 1428 EDT Koko called to provide an update per recommendations following one month of taking pramipexole. He says he is taking 0.5mg tid. Side effects: Sleepiness and constipation (very minor he says, no concern). Gait seems to be unchanged. Benefits: thinks his tremor's are less prominent. Hand writing and typing skills seemed to improve. He is out of medications and would like to know if Dr. Reid wants him to continue on this dosing orif he feels we should increase his dosing. Please advise. documented in this encounter Plan of Treatment Upcoming Encounters Date Type Department Care Team (Late st Contact Info) Description 09/18/2024 14:00 EST Office Visit [facility] Neurology - S [address] [id number] Dong Reid MD 1 [facility], [facility] 2 [place] [address] 01/19/2025 10:15 EDT Office Visit [facility] Neurology - S [address] [address] Kenia Goss NP [address] [place] [address], [facility] [address] [place] [phone] documented as of this encounter Visit Diagnoses Not on filedocumented in this encounter Care Teams Consulting Engineer Relationship Specialty Start Date End Date Riaz Hawkins MD [address] [address] PCP - General 08/15/15 06/12/24 documented as of this encounter
--- OUTSIDE RECORDS SUMMARY | 2024-08-03 19:09 | XMS_ITS | Encounter Summary ---
Author Organization [facility] Address [address] [place] [address] Care Team Providers Care Inclusion Intern Name Role Phone Riaz Hawkins MD Primary Care Provider Reason for Visit * Reason Comments New Patient Visit New patient. * Referral (Routine) - Closed Specialty Diagnoses / Procedures Referred By Contac t Referred To Contact Neurology Diagnoses PD (Parkinson's disease) ([facility]) Riaz Hawkins MD [address] [place] [address] [facility] Neurology [address] [address] Referral ID Status Reason Start Date Expiration Date Visits Re quested Visits Authorized [id number] Closed 1 1 Encounter Details Date Type Department Care Team (Late st Contact Info) Description 09/09/2015 8:45 EST Office Visit [facility] Neurology - S [address] [phone] Dong Reid MD 1 [facility], Level [address] [place] [address] Parkinson's disease ([facility]) (Primary Dx); Family history of brain aneurysm Social History Tobacco Use Types Packs/Day [...] Sign Reading Time Taken Comments Blood Pressure 150/86 09/09/2015 0852 EST Pt see med stressed about parking situation. Pulse 60 09/09/2015 0852 EST Temperature - - Respiratory Rate 16 09/09/2015 0852 EST Oxygen Saturation - - Inhaled Oxygen Concentration - - Weight 85.3 kg (188 lb) 09/09/2015 0852 EST Height 182.9 cm (6') 09/09/2015 0852 EST Body Mass Index 25.5 09/09/2015 0852 EST documented in this encounter Progress Notes * Naseem Hendrix MD - 09/09/2015 0845 EST [facility] Neurology Movement Clinic Note Date of Service: 09/09/2015 PCP: Riaz Hawkins Chief Complaint/ Reason for Visit: second opinion for Parkinson's Disease HPI Mr. Aguiar is a 70 year old gentleman presenting to neurology movement clinic at [facility] for the first time today, referred by Dr. Riaz Hawkins, for second opinion for Parkinson's Disease. Patient with significant PMHx of CAD, HTN, polycystic kidney disease, DJD. He was diagnosed with PD in March [address] Cardoza in [facility]. He has not been started on any PD medications or PT. Patient has had symptoms dating back 1.5 years. He states his first main symptom was gait impairment. He will take short, shuffling steps at home and requires extra steps with turning or maneuvering aroundobjects around the house. He reports decreased arm swing. He also catches right toe while walking sometimes. Initially mentions trouble hiking and cross-country skiing. He will experience difficulty with coordination and balance. He fell last winter while cross- country skiing up a hill and fell andbroke a rib. He also uses two hiking poles and has trouble often catching his right foot while hiking. He mentions around the house he also experiences difficulty on flat even ground with a shuffling gait. Secondly, he denies resting tremor but does report an action tremor. Right arm worse than left. He will have difficulty with holding utensils and using a screwdriver. He mentions his handwriting skills have diminished and will often start large that becomes small. Has a slow progression at worst. He also notes decreased walking speed and being unsteady on a bicycle. He has difficulty getting up from a seated position if he has been sitting for a prolonged period of time. Review of Systems: Reports decreased blinking especially when watching movies. Than increased tearing afterwards. Trouble swallowing saliva without drooling. No difficulty with swallowing liquids or solids. He also reported increased emotional sensitivity and becoming tearful. Denies changes in facial expression. Reports a decreased sense of smell for the past 2 years. Denies constipation, diarrhea, presyncope symptoms, bladder symptoms, cognitive changes, memory impairment, hallucinations or difficult to sleep. 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 Mother - CAD, tremor in her 90's Father - brain aneurysm, ruptured. Not confirmed PCKD Brother (63)- polycystic kidney disease, good health otherwise Brother (73)- poor health, CAD, age Son (43) - excellent Daughter (41) - excellent No other family history of neurological diseased including PD Medications ASA 325 mg HCTZ 12.5mg daily Metoprolol 12.5 mg XR Atorvastatin 5 mg daily Nitrostat prn Allergies HAVEN Inh (dizziness) Objective Physical Exam: VS: BP 150/86 mmHg Pulse 60 Resp 16 Ht 182.9 cm (72) Wt 85.276 kg (188 lb) BMI 25.49 kg/m2 GEN: alert, oriented, awake and in NAD. HEENT: atraumatic, normocephalic, MMM PULM: CTAB CV: RRR, normal S1 and S2, no murmurs ABD: Soft, non-tender, non-distended, normal bowel sounds EXT: no clubbing, cyanosis, or pitting edema SKIN: no rashes, skin warm and dry Neurological Exam: Mental Status: A/O x3, answers appropriately, speech fluent, no dysarthria or aphasia, naming and repetition intact. Mood good. Affect congruent. Insight full. Cranial Nerves: Visual stone intact, visual acuity grossly intact, EOMI, PERRL, no asymmetries of face, intact sensation V1-V3, tongue midline, palate elevates symmetrically, SCM/trapezius 5/5 strength. Mild hypomimia Motor: Normal bulk and full strength throughout. Increased tone in right arm and leg greater than left, worse with contralateral movement. Mild resting tremor in right left and very mild, intermittent in right arm. Very mild b/l postural tremor without intention tremor. Decreased amplitude, frequency and dyrhythmia with ROSEANN/finger tapping/toe tapping right side, arm more than leg. Sensory: Intact to gross touch in all extremities Reflexes: (R/L) biceps 2/2, brachial-radials 2/2, patellar 2/2, achilles 1/1 Cerebellar: FTN, HTS intact Gait: Able to stand unassisted with arms crossed. Good stride length, increased step with turning. Decreased arm swing R > L. Rhomberg's and pull test normal. Labs: From paperchart, faxed records Oct 2014 Na 139 K 3.8 Cl 101 Bicarb 27.8 BUN 16 Cr 0.8 Glucose 60 Radiology Imaging: No neuroradiological images to review Assessment Mr. Aguiar is a 70 year old gentleman referred to neurology movement clinic for second opinion of Parkinson's Disease. Oringially diagnosed by Dr. Cardoza in [facility] in March 2015, but patient had in retrospect symptom onset 1.5 years ago. Symptoms mostly are gait incoordination, difficulty with fine motor control with right side. His clinical history and examination today is consistent with early Parkinson's Disease with right hemibody predominant symptoms. We discussed at length with patient, who has done extensive Parkinson's Disease research on his own, about our independent diagnosis of PD, disease prognosis, and several medication and non-medication treatments for PD. We recommended that patient is good candidate for starting PT and continuing to remain physically active. We also discussed options for potential starting PD medications, mainly a MAO-B inhibitor like rasagiline. At this time the patient decided, due to his early course, to discuss options with his and due further research. Plan Idiopathic Parkinson's Disease - Discussed PT referral to PT experienced with PD at [facility], at least for initial evaluation and then can be transitioned to PT closer to patient's home - Discussed MAO-B inhibitors, patient will research and discuss prior to starting rasagiline. - Patient knows to call back if he wishes to start PT or medication prior to next appointment follow up Additionally, patient with known PCKD and father with ruptured brain aneurysm. Would recommend discussing possible screening CT angiogram of head for an asymptomatic brain aneurysm. We will re reviewthis at the next appointment at [facility]. Return to Clinic: 4 months Discussed and with neurology clinic attending, Dr. Reid Please call with any questions/concerns/new symptoms. CC: Riaz Hendrix IV, MD [facility] Neurology Resident PGY-3 Pager # [phone] (# [phone] nights/weekends) 09/09/2015 10:46 Attending Attestation: I personally interviewed/saw and examined patient today. I agree with the history, examination, assessment and plan of care as documented by the resident. We have not initiated any symptomatic therapy for Parkinson's disease, but the patient is considering treatment with rasagiline. He would benefit from a CT angiogram of the brain for aneurysm, given the family and personal history of polycystic kidney disease and family history of ruptured cerebral aneurysm in his father. There is no urgency to this screening test, but it would be recommended. For patient convenience this would be ideally performed closer to home or in conjunction with a visit here at [facility]. He will need renal labs performed before contrast use. Dong Reid MD Attending Neurologist Office documented in this encounter Plan of Treatment Upcoming Encounters Date Type Department Care Team (Late st Contact Info) Description 09/18/2024 14:00 EST Office Visit [facility] Neurology - S [address] [phone] Dong Reid MD [address] [place] [phone] 01/19/2025 10:15 EDT Office Visit [facility] Neurology - S [address] [phone] Kenia Goss NP [address] [place] [phone] documented as of this encounter Visit Diagnoses Diagnosis Parkinson's disease ([facility])- Primary Paralysis agitans Family history of brain aneurysm Family history of stroke (cerebrovascular) documented in this encounter Historical Medications * This list may reflect changes made after this encounter. Medication Sig Dispensed Refills Start Date End Date metoprolol (LOPRESSOR) 12.5 mg Take 1 Tablet by mouth daily. atorvastatin (LIPITOR) 40 mg tablet Take 1 Tablet by mouth daily. aspirin 81 mg EC tablet Take 1 Tablet by mouth daily. hydrochlorothiazide (HYDRODIURIL) 25 mg tablet Take 12.5 mg by mouth daily 02/15/2018 added in this encounter Care Teams Inclusion Intern Relationship Specialty Start Date End Date Riaz Hawkins MD [address] [place] [address] PCP - General 08/15/15 06/12/24 documented as of this encounter
--- OUTSIDE RECORDS SUMMARY | 2024-08-03 19:09 | XMS_ITS | Encounter Summary ---
Author Organization [facility] Address [address] [place] [address] Care Team Providers Care Crime Data Specialist Name Role Phone Riaz Hawkins MD Primary Care Provider [phone] Reason for Visit * Reason Onset Date Comments New/Evolving Symptoms 11/11/2016 Encounter Details Date Type Department Care Team (Late st Contact Info) Description 11/11/2016 Telephone [facility] Neurology - S [address] [phone] Dong Reid MD [address] [place] [address] 2 [place] [phone] New/Evolving Symptoms Social History Tobacco Use Types Packs/Day Years [...] visiting a doctor's office or shopping? No 09/15/2016 Cognitive Status Response Date of Assessm ent Because of a physical, menta l, or emotional condition, does this person have serious difficulty concentrating, remembering, or making decisions? No 09/15/2016 documented as of this encounter Miscellaneous Notes * Telephone Encounter - Jammie Marquis NP - 11/11/2016 1526 EST Nausea a couple times a day. Has been on 1 mg tid since early September. It was mild on 0.75mg tid Interested in going back to 0.75 to see if things are better before adding anything else. He will try that, and try taking med with meals and call in a week. * Telephone Encounter - Charlette Howell - 11/11/2016 1519 EST Koko called to say has been having a very upset stomach lately and feels like he might need to dial back on medication. He isn't feeling great - He thinks the medication has worked on the tremor but hasn't worked very well on the gait. He feels like he is in the right place with the exception of therecent stomach upset. He is requesting a call back from Garrett if possible. documented in this encounter Plan of Treatment Upcoming Encounters Date Type Department Care Team (Late st Contact Info) Description 09/18/2024 14:00 EST Office Visit [facility] Neurology S [address] [phone] Dong Reid MD [address] [place] [phone] 01/19/2025 10:15 EDT Office Visit [facility] Neurology S [address] [phone] Kenia Goss NP [address] [place] [phone] documented as of this encounter Visit Diagnoses Not on filedocumented in this encounter Care Teams Crime Data Specialist Relationship Specialty Start Date End Date Riaz Hawkins MD [address] [place], [place] [id number] PCP - General 08/15/15 06/12/24 documented as of this encounter
--- OUTSIDE RECORDS SUMMARY | 2024-08-03 19:09 | XMS_ITS | Encounter Summary ---
Author Organization [facility] Address [address] [place] [address] Care Team Providers Care Verifier Operator Name Role Phone Riaz Hawkins MD Primary Care Provider [phone] Reason for Visit * Reason Onset Date Comments Medication Management 03/24/2017 Encounter Details Date Type Department Care Team (Late st Contact Info) Description 03/24/2017 Telephone [facility] Neurology - S [address] [phone] Dong Reid MD [address] [place] [address] [address] [place] [phone] Medication Management Social History Tobacco [...] Telephone Encounter - Cassie Valero RN - 04/16/2017 1039 EDT Pt communicated via [employer] and is all set. * Telephone Encounter - Charlette Howell - 03/25/2017 1525 EDT Reason for Call: Medication Management Call Detail: Jhon called to update his [place] for call back - Last visit: 02/01/17 Next visit:05/19/17 Charlette Howell 03/25/2017 15:25 * Telephone Encounter - Senthil Villalobos - 03/24/2017 1502 EDT Reason for Call: Medication Management Call Detail: Koko is calling to day to give an update on his Neupro patch. He said he is tolerating it pretty well except for some itching but it is not doing much for his symptoms. Please call to discuss. He is at home [phone] or it is on Thur 03/25 he is at work [phone] Last visit: 02/01/17 Next visit:05/19/17 Senthil Villalobos 03/24/2017 15:02 documented in this encounter Plan of Treatment Upcoming Encounters Date Type Department Care Team (Late st Contact Info) Description 09/18/2024 14:00 EST Office Visit [facility] Neurology - S [address] [phone] Dong Reid MD [address] [place] [phone] 01/19/2025 10:15 EDT Office Visit [facility] Neurology - S [address] [phone] Kenia Goss, RIKI [address] [place] [address] [address] [place] [phone] documented as of this encounter Visit Diagnoses Not on filedocumented in this encounter Care Teams Verifier Operator Relationship Specialty Start Date End Date Riaz Hawkins MD [address] [place] [address] PCP - General 08/15/15 06/12/24 documented as of this encounter
--- OUTSIDE RECORDS SUMMARY | 2024-08-03 19:09 | XMS_ITS | Encounter Summary ---
Author Organization [facility] Address [address] [place] [address] Care Team Providers Care Media Analytics Manager Name Role Phone Riaz Hawkins MD Primary Care Provider [phone] Reason for Visit * Reason Comments Follow-up Parkinson's disease. Seen by Dr. Reid on 02/01/2017 Encounter Details Date Type Department Care Team (Late st Contact Info) Description 05/19/2017 11:00 EDT Office Visit [facility]rology - [place] [address] [place] [address] [phone] Jammie Marquis NP [address] [place] [address] Level 2 [place] [phone] Parkinson's disease ([facility]) (Primary Dx); Daytime sleepiness Discharge Disposition: Auto Discharge Social History Tobacco [...] Sign Reading Time Taken Comments Blood Pressure 110/84 05/19/2017 1115 EDT Pulse 56 05/19/2017 1115 EDT Temperature - - Respiratory Rate 16 05/19/2017 1115 EDT Oxygen Saturation - - Inhaled Oxygen Concentration - - Weight 89.6 kg (197 lb 9.6 oz) 05/19/2017 1115 E DT Height 182.9 cm (6' 0.01) 05/19/2017 1115 EDT Body Mass Index 26.79 05/19/2017 1115 EDT documented in this encounter Functional Status [...] encounter Discharge Diagnoses Diagnosis G20 Parkinson's disease-G20[ICD-10-CM] R40.0 Somnolence-R40.0[ICD-10-CM] documented in this encounter Patient Instructions * Patient Instructions* Jammie Marquis NP - 05/19/2017 11:00 EDT Change Carbidopa/levodopa 10/100 to 25/100. Take 1 three times daily. Contact office after 1 week to report progress. documented in this encounter Ordered Prescriptions Prescription Sig Dispensed Refills Start Date End Da te carbidopa-levodopa (SINEMET) 25-100 mg per tablet Take 1 Tab by mouth 3 times daily. 90 Tab 3 05/20/2017 05/27/2017 carbidopa-levodopa (SINEMET) 25-100 mg per tablet Take 1 Tab by mouth 3 times daily. 30 Tab 3 05/19/2017 05/20/2017 documented in this encounter Discharge Disposition Disposition Code Departure Means Destination Auto Discharge documented in this encounter Progress Notes * Jammie Marquis NP - 05/19/2017 1100 EDT Neurology Follow Up Note Date of Service: 05/19/2017 PCP: Riaz Hawkins Chief Complaint Patient presents with ??? Follow-up Parkinson's disease. Seen by Dr. Reid on 02/01/2017 Subjective: Jhon returns for follow-up after last being seen in January. He notes increased tremor in his righthand. He does have some low periods between doses, particularly if he is late with a dose. These are very subtle. Symptoms that he notices are awkward gait and fatigue. He also notes that the last prescription he got from the pharmacy was for carbidopa levodopa 10/100; previously he had been on 25/100. He had also initiated the rotigotine patch and got up to 6 mg, but found no benefit and has stopped using it. On further motor review tremor is most noticeable after activity, photograph inspector, and low periods. Gait is slower than before. Denies any falls, freezing, dyskinesia, dystonia, or dysphagia. Though hegoes for long time between his third dose of one day and the first dose of the next, he still feelspretty good in the morning when he wakes up. On nonmotor review he denies bowel or bladder dysfunction, lightheadedness, cognitive problems, depression or anxiety, illusory phenomena. He does have some vivid dreaming. Endorses daytime sleepiness and naps daily for about an hour. No RBD. Review of Systems: Review of systems including , GI, sleep, cognition, psychiatric, presyncope/syncope,sweating abnormalities were negative or included in the history above. Current PD Medications: Carbidopa levodopa 10/100, one tablet 3 times daily Medications and Allergies: Outpatient Prescriptions Marked as Taking for the 05/19/17 encounter (Office Visit) with Jammie Marquis NP Medication Sig Dispense Refill ??? aspirin 325 mg tablet Take 325 mg by mouth daily ??? atorvastatin (LIPITOR) 10 mg tablet Take 5 mg by mouth daily ??? [DISCONTINUED] carbidopa-levodopa (SINEMET) 10-100 mg per tablet Take 1 Tab by mouth 3 times daily for 90 days. 270 Tab 2 ??? carbidopa-levodopa (SINEMET) 25-100 mg per tablet Take 1 Tab by mouth 3 times daily. 30 Tab 3 ??? hydrochlorothiazide (HYDRODIURIL) 25 mg tablet Take 12.5 mg by mouth daily ??? metoprolol (LOPRESSOR) 12.5 mg Take 12.5 [...] left 0 -Absent. 23 Finger taps: right 2 -Moderately impaired. Definite and early fatiguing. May have occasional arrests in movement. Finger taps: left 1 -Mild slowing and/or reduction in amplitude. 24 Hand production utility worker: right 2 -Moderately impaired. Definite and early fatiguing. May have occasional arrests in movement. Hand production utility worker: left 1 -Mild slowing and/or reduction in amplitude. 25 Hand pronate/supinate: right 1 -Mild slowing and/or reduction in amplitude. left 0 -Normal. 26 Leg agility: right 0 -Normal. left 0 -Normal. 27 Arise from chair 0 -Normal. 28 Posture 1 -Not quite erect, slightly stooped posture. Could be normal for older person. 29 Gait 1 -Walks slowly, may shuffle with short steps, but no festination (hastening steps) or propulsion. 30 Postural stability 1 -Retropulsion, but recovers unaided. 31 Body bradykinesia 1 -Minimal slowness, giving movement a deliberate character. Could be normal for some persons. Possibly reduced amplitude. Sec 18 to 31 total: 19 Vital Signs: BP 110/84 (BP Cuff Location: Left arm, Patient Position: Sitting, BP Cuff Sizes: Adult, regular) Pulse 56 Resp 16 Ht 182.9 cm (72.01) Wt 89.6 kg (197 lb 9.6 oz) BMI 26.79 kg/m2 Pain: 0 - No pain Location: Assessment & Plan: Gianni Parkinson's symptoms have accelerated little bit. It is unclear if there is any relation tothe fact that he has on the 10/100 tablets instead of the 25/100 tablets. The first thing we'll do is switch over to the 25/100. If he does not note adequate benefit from this change, the next step would be to try increasing his doses up to 1-1/2 tablets each. Other alternatives for consideration include amantadine, rasagiline, or selegiline. Any one of these may be helpful also for his daytime sleepiness. Jhon was seen today for follow-up. Diagnoses and all orders for this visit: Parkinson's disease Daytime sleepiness Other orders - carbidopa-levodopa (SINEMET) 25-100 mg per tablet; Take 1 Tab by mouth 3 times daily. I spent a total of 30 minutes [id number] time during this visit, of which 20 were devoted to patient/care-provider education, care plan formulation, and supportive counseling as noted in the assessment and plan. Final PD Medications (change underlined): Carbidopa levodopa 25/100, immediate release, 1 tablet 3 times daily Patient Education Provided: Medication change, future medications for consideration Method: oral, written Taught to: patient, Barriers: none identified Outcomes: Verbalized understanding, written instructions/information given in After Visit Summary. Jammie Marquis NP documented in this encounter Plan of Treatment Upcoming Encounters Date Type Department Care Team (Late st Contact Info) Description 09/18/2024 14:00 EST Office Visit [facility] - [facility] [address] [phone] Dong Reid MD [address] [place] [phone] 01/19/2025 10:15 EDT Office Visit [facility] Neu[facility] [address] [phone] Kenia Goss NP [address] [place] [phone] documented as of this encounter Visit Diagnoses Diagnosis Parkinson's disease ([facility])- Primary Paralysis agitans Daytime sleepiness documented in this encounter Discontinued Medications Medication Sig Discontinue Reason Start Date End Da te rotigotine (NEUPRO) 6 mg/[address] 1 Patch onto the skin daily. Patient Stopped Taking 03/03/2017 05/19/2017 carbidopa-levodopa (SINEMET) 10-100 mg per tablet Take 1 Tab by mouth 3 times daily for 90 days. Dose adjustment 04/13/2017 05/19/2017 carbidopa-levodopa (SINEMET) 25-100 mg per tablet Take 1 Tab by mouth 3 times daily. Reorder 05/19/2017 05/20/2017 documented as of this encounter Care Teams Media Analytics Manager Relationship Specialty Start Date End Date Riaz Hawkins MD [address] [place] [address] PCP - General 08/15/15 06/12/24 documented as of this encounter
--- OUTSIDE RECORDS SUMMARY | 2024-08-03 19:09 | XMS_ITS | Encounter Summary ---
Author Organization [facility] Address [address] [place] [address] Care Team Providers Care Big Data Software Engineer Name Role Phone Riaz Hawkins MD Primary Care Provider [phone] Reason for Visit * Reason Comments Follow-up Encounter Details Date Type Department Care Team ([facility] st Contact Info) Description 06/15/2016 13:45 EDT Office Visit [facility] Neurology - [address] [phone] Dong Reid MD [address] [place] [address] Level 2 [place] [phone] Parkinson's disease ([facility]) (Primary Dx) Discharge Disposition: Auto Discharge Social [...] Sign Reading Time Taken Comments Blood Pressure 128/80 06/15/2016 1338 EDT Pulse 67 06/15/2016 1338 EDT Temperature - - Respiratory Rate 16 06/15/2016 1338 EDT Oxygen Saturation - - Inhaled Oxygen Concentration - - Weight 88 kg (194 lb) 06/15/2016 1338 EDT Height 182.9 cm (6') 06/15/2016 1338 EDT Body Mass Index 26.31 06/15/2016 1338 EDT documented in this encounter Functional Status [...] No 12/23/2015 documented as of this encounter Discharge Diagnoses Diagnosis G20 Parkinson's disease-G20[ICD-10-CM] documented in this encounter Patient Instructions * Patient Instructions* Dong Reid MD - 06/15/2016 14:38 EDT Pramipexole 0.25 mg tablets Week 2 times a day dose (roughly 10-12 hours apart) 1 1/2 Tab 2x a day 2 1 Tab 2x a day 3 1 1/2 Tab 2x a day 4 2 Tab 2x a day 5 Call with an update Take on a full stomach with meals Call for advice if nausea or vomiting occurs documented in this encounter Ordered Prescriptions Prescription Sig Dispensed Refills Start Date End Da te pramipexole (MIRAPEX) 0.25 mg tablet Take 1 Tab by mouth 3 times daily for 30 days. 90 Tab 2 06/15/2016 07/15/2016 documented in this encounter Discharge Disposition Disposition Code Departure Means Destination Auto Discharge documented in this encounter Progress Notes * Dong Reid MD - 06/19/2016 1803 EDT [facility] NEUROLOGY PROGRESS / FOLLOWUP NOTE - 06/15/2016 SUBJECTIVE: Returns for followup. Since last seen, global increase in motor symptomatology. Increases in tremor, slowing of gait, increase in imbalance, and a decline in clarity and readability of handwriting. He did undergo a left knee replacement on February 24 and this has been going well from a recovery standpoint. He cannot identify any motor fluctuations. He is not experiencing any dystonic cramping. He has had no recent falls. In nonmotor review, he has some nocturia, vividness of dreaming, excessive daytime sleepiness, which is mild, and intermittent anxiety. Medications, allergies, review of systems documented in the electronic health record. Unified Parkinson disease rating scale documented in the EHR. ASSESSMENT: In summary, Parkinson disease with interval motor worsening. We discussed previous consideration of rasagiline. Given the degree of motor impairment that he is experiencing I suspect thisis going to be an adequate treatment of choice. We discussed the risks and benefits of various symptomatic relief. We will initiate him on low and escalating doses of pramipexole. I did caution him regarding impulse control disorders, daytime hypersomnolence, as well as sleep attacks, and other common side effects such as nausea, etc. Target dose will be 0.5 mg t.i.d., which he will reach over the course of a month's time. Follow up in 3 to 4 months. Dong Reid MD 04 55 PM - Dong Reid MD mn Dictation ID: [id number] * Dong Reid MD - 06/15/2016 1808 EDT Images from the original note were not included. This office note has been dictated. 1. Parkinson's disease Current Outpatient Prescriptions Medication Sig Dispense Refill ??? aspirin 325 mg tablet Take 325 mg by mouth daily ??? atorvastatin (LIPITOR) 10 mg tablet Take 5 mg by mouth daily ??? hydrochlorothiazide (HYDRODIURIL) 25 mg tablet Take 12.5 mg by mouth daily ??? metoprolol (LOPRESSOR) 12.5 mg Take 12.5 mg by mouth daily ??? pramipexole (MIRAPEX) 0.25 mg tablet Take 1 Tab by mouth 3 times daily for 30 days. 90 Tab 2 No current facility-administered medications for this visit. Jhon Aguiar is allergic to unable to assess. Patient Active Problem List Diagnosis Date Noted ??? Parkinson's disease 09/11/2015 Diagnosis 2015 Onset 2012 - right sided initial symptoms Treatment to date None ??? Family history of brain aneurysm 09/11/2015 Family history of polycystic kidney disease Review of systems including , GI, sleep, cognition,psychiatric, presyncope/syncope, sweating abnormalities were negative or included in the dictated note with the following exceptions: Examination: Visit Vitals ??? BP 128/80 ??? Pulse 67 ??? Resp 16 ??? Ht 182.9 cm (72) ??? Wt 88 kg (194 lb) ??? BMI 26.31 kg/m2 UPDRS-III Motor Examination Section Factor Score 18 Speech 1 -Slight loss of expression, diction and/or volume. 19 Facial expression 2 -Slight but definitely abnormal diminution of facial expression. 20 Tremor at rest: Face, lips, chin 0 -Absent. Hands: right 0 -Absent. Hands: left 1 -Slight and infrequently present. Feet: right 0 -Absent. Feet: left 1 -Slight and infrequently present. 21 Action tremor: right 1 -Slight. Present [...] May have occasional arrestsin movement. 24 Hand feed manager: right 1 -Mild slowing and/or reduction in amplitude. Hand feed manager: left 2 -Moderately impaired. Definite and early [...] reduced amplitude. Sec 18 to 31 total: 34 UPDRS Sec 1 to 31 total: 34 No orders of the defined types were placed in this encounter. Greater than 25 minutes of this 45 minute [id number] visit were devoted to patient/care-provider education, care plan formulation, and supportive counseling as noted in the assessment and plan. Encounter Provider: Dong Reid MD documented in this encounter Plan of Treatment Upcoming Encounters Date Type Department Care Team (Late st Contact Info) Description 09/18/2024 14:00 EST Office Visit [facility] Neurology S [address] [phone] Dong Reid MD [address] [place] [phone] 01/19/2025 10:15 EDT Office Visit [facility] Neurology S [address] [phone] Kenia Goss NP [address] [place] [phone] documented as of this encounter Visit Diagnoses Diagnosis Parkinson's disease ([facility])- Primary Paralysis agitans documented in this encounter Care Teams Big Data Software Engineer Relationship Specialty Start Date End Date Riaz Hawkins MD [address] [place] [address] PCP - General 08/15/15 06/12/24 documented as of this encounter
--- OUTSIDE RECORDS SUMMARY | 2024-08-03 19:09 | XMS_ITS | Encounter Summary ---
Author Organization [facility] Address [address] [place] [address] Care Team Providers Care Automotive Mechanic Name Role Phone Riaz Hawkins MD Primary Care Provider [phone] Reason for Visit * Reason Onset Date Comments Other 02/19/2016 Encounter Details Date Type Department Care Team (Late st Contact Info) Description 02/19/2016 Telephone [facility] Neurology - S [address] [phone] Dong Reid MD [address] [place] [address] [address] [place] [phone] Other Social History Tobacco Use [...] No 12/23/2015 documented as of this encounter Miscellaneous Notes * Telephone Encounter - Donna Castle - 02/19/2016 4799 EDT Pt is calling to say THANK YOU! To all those who assisted him when he called in recently. (flare upwhile traveling) He was most appreciative for all the calls & follow ups to assist him. He is now back in [place] and doing ok documented in this encounter Plan of Treatment Upcoming Encounters Date Type Department Care Team (Late st Contact Info) Description 09/18/2024 14:00 EST Office Visit [facility] Neurology S [address] [phone] Dong Reid MD [address] [place] [phone] 01/19/2025 10:15 EDT Office Visit [facility] Neurology S [address] [phone] Kenia Goss NP [address] [place] [phone] documented as of this encounter Visit Diagnoses Not on filedocumented in this encounter Care Teams Automotive Mechanic Relationship Specialty Start Date End Date Riaz Hawkins MD [address] [place] [address] PCP - General 08/15/15 06/12/24 documented as of this encounter
--- OUTSIDE RECORDS SUMMARY | 2024-08-03 19:09 | XMS_ITS | Encounter Summary ---
Author Organization [facility] Address [address] [place] [address] Care Team Providers Care Concrete Pipe Maker Name Role Phone Riaz Hawkins MD Primary Care Provider [phone] Reason for Visit * Reason Comments Follow-up follow up Encounter Details Date Type Department Care Team ([facility] st Contact Info) Description 12/23/2015 9:45 EST Office Visit [facility] Neurology - [address] [phone] Dong Reid MD [address] [place] [address] [address] [place] [phone] Parkinson's disease ([facility]) (Primary Dx) Social History Tobacco Use Types [...] Sign Reading Time Taken Comments Blood Pressure 128/88 12/23/2015 0936 EST Pulse 68 12/23/2015 0936 EST Temperature - - Respiratory Rate 16 12/23/2015 0936 EST Oxygen Saturation - - Inhaled Oxygen Concentration - - Weight 87.1 kg (192 lb) 12/23/2015 0936 EST Height 182.9 cm (6') 12/23/2015 0936 EST Body Mass Index 26.04 12/23/2015 0936 EST documented in this encounter Functional Status [...] G20 Parkinson's disease-G20[ICD-10-CM] documented in this encounter Progress Notes * Dong Reid MD - 12/23/2015 0941 EST Images from the original note were not included. 1. Parkinson's disease Returns for followup. Initial visit August last year. Mild increase in awareness of fine motor difficulty. Emergence of intermittent rest tremor in the left leg. He remains independent in all ADLs. No significant or severe slowing of speed of completion. He reports bilateral lower extremity cramping both during sedentary activity and ambulation. Some lower extremity nonvisible inner sense of tremor seated which resolves with leg movements. Ambulatoryfunction more limited by left knee pain than by Parkinson's by the patient's description and interpretation. Denies significant imbalance. Notes shorter strides in more congested settings. He does better in open spaces. No freezing of gait. Some increases in both daytime drowsiness as well as sleep. He naps each day for 30 to 60 minutes after lunch. No postural lightheadedness. Sleeping well at night without any somniloquy, dream enactment. Occasional vividness of dreaming. No snoring or respiratory interruptions in his sleep. He awakens feeling rested. Current Outpatient Prescriptions Medication Sig Dispense Refill ??? aspirin 325 mg tablet Take 325 mg by mouth daily ??? atorvastatin (LIPITOR) 10 mg tablet Take 5 mg by mouth daily ??? hydrochlorothiazide (HYDRODIURIL) 25 mg tablet Take 12.5 mg by mouth daily ??? metoprolol (LOPRESSOR) 12.5 mg Take 12.5 mg by mouth daily No current facility-administered medications for this visit. Jhon Marc Aguiar is allergic to unable to assess. Patient Active Problem List Diagnosis Date Noted ??? Parkinson's disease 09/11/2015 Diagnosis 2015 Onset 2013 - right sided initial symptoms Treatment to date None ??? Family history of brain aneurysm 09/11/2015 Family history of polycystic kidney disease Review of systems including , GI, sleep, cognition,psychiatric, presyncope/syncope, sweating abnormalities were negative or included in the dictated note with the following exceptions: left knee pain, reflux, URI x3 weeks Examination: BP 128/88 mmHg Pulse 68 Resp 16 Ht 182.9 cm (72) Wt 87.091 kg (192 lb) BMI 26.03 kg/m2 UPDRS-III Motor Examination Section Factor Score 18 Speech 1 -Slight loss of expression, diction and/or volume. 19 Facial expression 1 -Minimal hypomimia. Could be normal Poker Face. 20 Tremor at rest: Face, lips, chin 0 -Absent. Hands: right 0 -Absent. Hands: left 0 -Absent. Feet: right 0 -Absent. Feet: left 1 [...] slowing and/or reduction in amplitude. 24 Hand fire patrol: right 1 -Mild slowing and/or reduction in amplitude. Hand fire patrol: left 1 -Mild slowing and/or reduction in [...] reduced amplitude. Sec 18 to 31 total: 25 UPDRS Sec 1 to 31 total: 25 IMPRESSION: Parkinson's disease de traci/untreated, Dung and Yahr stage II. No indication for required initiation of symptomatic therapy at this time. The patient was encouraged to continue with physical therapy. Discussed enhancement of typical circadian daytime drowsiness in PD. Discussed some behavioral strategies for improving this Follow up in 6 months for regular care, sooner if he participates in the SURE-PD inosine neuroprotection trial. Negative CT angiogram of the cerebral vasculature in the context of known polycystic kidney diseaseand family history of cerebral aneurysms. Greater than 15 minutes of this 25 minute [id number]-ny-fvfw visit were devoted to patient/care-provider education, care plan formulation, and supportive counseling as noted in the assessment and plan. Encounter Provider: Dong Reid MD documented in this encounter Plan of Treatment Upcoming Encounters Date Type Department Care Team (Late st Contact Info) Description 09/18/2024 14:00 EST Office Visit [facility] Neurology S [address] [phone] Dong Reid MD [address] [place] [phone] 01/19/2025 10:15 EDT Office Visit [facility] Neurology S [address] [phone] Kenia Goss NP [address] [place] [phone] documented as of this encounter Visit Diagnoses Diagnosis Parkinson's disease ([facility])- Primary Paralysis agitans documented in this encounter Care Teams Concrete Pipe Maker Relationship Specialty Start Date End Date Riaz Hawkins MD [address] [place] [address] PCP - General 08/15/15 06/12/24 documented as of this encounter
--- OUTSIDE RECORDS SUMMARY | 2024-08-03 19:09 | XMS_ITS | Encounter Summary ---
Author Organization [facility] Address [address] [place] [address] Care Team Providers Care Box Printer Name Role Phone Riaz Hawkins MD Primary Care Provider [phone] Reason for Visit * Reason Comments Follow-up Encounter Details Date Type Department Care Team ([facility] st Contact Info) Description 02/01/2017 10:45 EDT Office Visit [facility] Neurology - S [address] [id number] Dong Reid MD [address] [place] [address] [address] [place] [phone] Parkinson's disease ([facility]) (Primary Dx); Daytime sleepiness Discharge Disposition: Auto Discharge Social History Tobacco Use Types Packs/Day Years Used Date Smoking Tobacco: Never Tobacco Cessation:Counseling Given: No Alcohol Use Standard Drinks/Week Comments Not Asked 0 (1 standard drink = 0.6 oz pur e alcohol) Sex and Gender Information Value Date Recorded Sex Assigned at Not on file Gender Identity Male 08/30/2019 8:04 EST Sexual Orientation Not on file documented as of this encounter Last Filed Vital Signs Vital Sign Reading Time Taken Comments Blood Pressure 124/84 02/01/2017 1103 EDT Pulse 53 02/01/2017 1103 EDT Temperature - - Respiratory Rate 16 02/01/2017 1103 EDT Oxygen Saturation 99% 02/01/2017 1103 EDT Inhaled Oxygen Concentration - - Weight 89.4 kg (197 lb) 02/01/2017 1103 EDT Height 182.9 cm (6') 02/01/2017 1103 EDT Body Mass Index 26.72 02/01/2017 1103 EDT documented in this encounter Functional Status [...] No 09/15/2016 documented as of this encounter Discharge Diagnoses Diagnosis G20 Parkinson's disease-G20[ICD-10-CM] R40.0 Somnolence-R40.0[ICD-10-CM] documented in this encounter Patient Instructions * Patient Instructions* Dong Reid MD - 02/01/2017 10:45 EDT Week Neupro Pramipexole 1 1mg patch 1/2 tab 3 times a day 2 2mg patch 1/2 tab twice a day 3 1mg & 2mg patch Stop 4 2x 2 mg patch documented in this encounter Ordered Prescriptions Prescription Sig Dispensed Refills Start Date End Da te rotigotine 1 mg/[address] 1 Patch onto the skin daily for 30 days. 30 Each 2 02/01/2017 03/03/2017 rotigotine (NEUPRO) 2 mg/[address] 1 Patch onto the skin daily for 30 days. 30 Patch 02/01/2017 03/03/2017 documented in this encounter Discharge Disposition Disposition Code Departure Means Destination Auto Discharge documented in this encounter Progress Notes * Dong Reid MD - 02/01/2017 1045 EDT Images from the original note were not included. 1. Parkinson's disease 2. Daytime sleepiness This office note has been dictated. Current Outpatient Prescriptions Medication Sig Dispense Refill ??? aspirin 325 mg tablet Take 325 mg by mouth daily ??? atorvastatin (LIPITOR) 10 mg tablet Take 5 mg by mouth daily ??? hydrochlorothiazide (HYDRODIURIL) 25 mg tablet Take 12.5 mg by mouth daily ??? metoprolol (LOPRESSOR) 12.5 mg Take 12.5 mg by mouth daily ??? pramipexole (MIRAPEX) 0.75 mg tablet Take 1 Tab by mouth 3 times daily. 270 Tab 3 ??? rotigotine (NEUPRO) 2 mg/[address] 1 Patch onto the skin daily for 30 days. 30 Patch 0 ??? rotigotine 1 mg/[address] 1 Patch onto the skin daily for 30 days. 30 Each 2 No current facility-administered medications for this visit. Jhon Tran Raffynelda is allergic to unable to assess. Patient Active Problem List Diagnosis Date Noted ??? Daytime sleepiness 02/01/2017 ??? Parkinson's disease 09/11/2015 Diagnosis 2015 Onset 2012 - right sided initial symptoms Treatment to date None ??? Family history of brain aneurysm 09/11/2015 Family history of polycystic kidney disease Review of systems including , GI, sleep, cognition,psychiatric, presyncope/syncope, sweating abnormalities were negative or included in the dictated note with the following exceptions: Examination: BP 124/84 Pulse 53 Resp 16 Ht 182.9 cm (72) Wt 89.4 kg (197 lb) SpO2 99% BMI 26.72 kg/m2 UPDRS-III Motor Examination Section Factor Score [...] May have occasional arrestsin movement. 24 Hand upper inspector: right 2 -Moderately impaired. Definite and early fatiguing. May have occasional arrests in movement. Hand upper inspector: left 2 -Moderately impaired. Definite and early [...] amplitude. Sec 18 to 31 total: 27 UPDRS Sec 1 to 31 total: 27 Greater than 15 minutes of this 25 minute [id number]-[id number] visit were devoted to patient/care-provider education, care plan formulation, and supportive counseling as noted in the assessment and plan. Encounter Provider: Dong Reid MD * Dong Reid MD - 02/01/2017 0000 EDT [facility] NEUROLOGY PROGRESS / FOLLOWUP NOTE - 02/01/2017 PROBLEM: Parkinson disease. HISTORY: Mr Aguiar returns for reevaluation. When last seen, he was placed on an escalated dose of pramipexole in an attempt to reduce motor symptoms of Parkinson's. He was having residual bradykinesia/hypokinesia as well as a slow and shuffled gait as his predominant target symptoms he was looking to improve. With an escalation in dose, he experienced bothersome nausea. This resulted in a dose reduction in the pramipexole. He has gradually titrated back onto a 0.75 mg t.i.d. dosing. At thisdose, he remains with some intermittent mild nausea, which is not limiting his ability to maintain weight or eat regularly. He is not requiring the use of an antiemetic. He is experiencing excessive daytime sleepiness. He had a single occasion recently to feel as though he was drowsy while driving and inadvertently dozed off briefly behind the wheel. This has not resulted in a collision. He is not drowsy consistently in the time following doses of pramipexole in the hour to 2 post the dose. He notes particularly feeling drowsy during late afternoon and evening. Denies postural lightheadedness. No psychosis. He has had some degree of a change in his nocturnal sleep pattern. He is falling asleep at approximately 10:00 p.m. nightly and awakening at approximately 4:00 to 5:00 a.m. He by and large feels refreshed in the morning, but as the day proceeds feels more drowsy than he considers his normal self. He will occasionally nap once per day for no more than an hour or so. Medications, allergies, review of systems, and examination documented in the electronic health record. ASSESSMENT AND PLAN: Parkinson disease with inadequate control of motor symptomatology and adverse effects related to pramipexole at its current dose. We discussed the commonality of excessive daytime sleepiness as a side effect to pramipexole and its greater prevalence of nausea with this drug relative to an alternative dopamine agonist, rotigotine. We discussed the opportunities for reducing and discontinuing his pramipexole and replacing it withlevodopa or a trial of low and escalating doses of rotigotine beginning at a milligram and increasing toward 4 mg over the course of the next month while reducing and discontinuing his pramipexole. Icautioned him regarding avoidance of driving if he feels at all drowsy for concern of unexpected sleep episodes. He will contact me at the end of his 4th week of the titration, sooner if he has any adverse effects. Contingency plan for transition to levodopa therapy if both rotigotine and pramipexole are poorly tolerated or insufficient in controlling symptoms. Dong Reid MD 12 39 PM - Dong Reid MD cn Dictation ID: [id number] cc: Riaz Hawkins MD, [facility] [address], [place] [address] documented in this encounter Plan of Treatment Upcoming Encounters Date Type Department Care Team (Late st Contact Info) Description 09/18/2024 14:00 EST Office Visit [facility] Neurology - S [address] [phone] Dong Reid MD [address] [place] [address] 2 [place] [phone] 01/19/2025 10:15 EDT Office Visit [facility] Neurology - [address] [address] Kenia Goss NP 1 [facility] 2 [place] [phone] documented as of this encounter Visit Diagnoses Diagnosis Parkinson's disease ([facility])- Primary Paralysis agitans Daytime sleepiness documented in this encounter Discontinued Medications Medication Sig Discontinue Reason Start Date End Da te ondansetron (ZOFRAN) 4 mg tablet Take 1 Tab by mouth every 8 hours as needed for Nausea. 11/13/2016 02/01/2017 documented as of this encounter Care Teams Box Printer Relationship Specialty Start Date End Date Riaz Hawkins MD [address] [place] [address] PCP - General 08/15/15 06/12/24 documented as of this encounter
--- OUTSIDE RECORDS SUMMARY | 2024-08-03 19:09 | XMS_ITS | Encounter Summary ---
Author Organization [facility] Address [address] [place] [address] Care Team Providers Care Grey Goods Tester Name Role Phone Riaz Hawkins MD Primary Care Provider [phone] Reason for Visit * Reason Onset Date Comments Update 08/17/2016 Encounter Details Date Type Department Care Team (Late st Contact Info) Description 08/17/2016 Telephone [facility] Neurology - S [address] [phone] Dong Reid MD [address] [place] [address] 2 [place] [phone] Update Social History Tobacco Use [...] Telephone Encounter - Cassie Valero RN - 08/18/2016 1601 EDT Passed on message to Jhon, he will maintain his dosage, and follow up the end of the month at hisappointment. * Telephone Encounter - Senthil Villalobos - 08/18/2016 1435 EDT Koko jeromy Schmidt's call * Telephone Encounter - Dong Reid MD - 08/17/2016 1534 EDT Keep dose as is for now * Telephone Encounter - Senthil Villalobos - 08/17/2016 1358 EDT Jhon called to update Dr Reid about the pramipexole (MIRAPEX) 0.75 mg tablet. He has increased to3 times a day and things have been going well. No increase in side effects. He does have mild constipation but it is manageable. documented in this encounter Plan of Treatment Upcoming Encounters Date Type Department Care Team (Late st Contact Info) Description 09/18/2024 14:00 EST Office Visit [facility] Neurology S [address] [phone] Dong Reid MD [address] [place] [phone] 01/19/2025 10:15 EDT Office Visit [facility] Neurology S [address] [phone] Kenia Goss NP [address] [place] [phone] documented as of this encounter Visit Diagnoses Not on filedocumented in this encounter Care Teams Grey Goods Tester Relationship Specialty Start Date End Date Riaz Hawkins MD [address] [place] [address] PCP - General 08/15/15 06/12/24 documented as of this encounter
--- OUTSIDE RECORDS SUMMARY | 2024-08-03 19:09 | XMS_ITS | Encounter Summary ---
Author Organization [facility] Address [address] [place] [address] Care Team Providers Care Apartment Leasing Specialist Name Role Phone Riaz Hawkins MD Primary Care Provider [phone] Reason for Visit * Reason Onset Date Comments Medication Management 11/13/2016 Encounter Details Date Type Department Care Team (Late st Contact Info) Description 11/13/2016 Telephone [facility] Neurology - S [address] [phone] Jammie Marquis NP [address] [place] [address] 2 [place] [phone] Medication Management Social History Tobacco [...] No 09/15/2016 documented as of this encounter Ordered Prescriptions Prescription Sig Dispensed Refills Start Date End Da te ondansetron (ZOFRAN) 4 mg tablet Take 1 Tab by mouth every 8 hours as needed for Nausea. 10 Tab 11/13/2016 02/01/2017 documented in this encounter Miscellaneous Notes * Telephone Encounter - Jammie Marquis NP - 11/13/2016 1312 EST Reviewed questions with Koko. Recommend non medicinal tx such as Sea Bands, jersey candies. Reviewedthat nausea is not uncommon. He is going away for the weekend and wants to know if he can have something for nausea. Zofran 4 mg q 8 h prn nausea ordered. He will check in next week. * Telephone Encounter - Allison Mayo - 11/13/2016 1016 EST Koko called wanting to talk to Garrett about anti-nausea medicine as discussed on the phone yesterday. Please call him back. documented in this encounter Plan of Treatment Upcoming Encounters Date Type Department Care Team (Late st Contact Info) Description 09/18/2024 14:00 EST Office Visit [facility] Neurology - S [address] [phone] Dong Reid MD [address] [place] [phone] 01/19/2025 10:15 EDT Office Visit [facility] Neurology - S [address] [phone] Kenia Goss NP [address] [place] [phone] documented as of this encounter Visit Diagnoses Not on filedocumented in this encounter Care Teams Apartment Leasing Specialist Relationship Specialty Start Date End Date Riaz Hawkins MD [address] [place] [address] PCP - General 08/15/15 06/12/24 documented as of this encounter
--- OUTSIDE RECORDS SUMMARY | 2024-08-03 19:09 | XMS_ITS | Encounter Summary ---
Author Organization [facility] Address [address] [place] [address] Care Team Providers Care Frame Trimmer Name Role Phone Riaz Hawkins MD Primary Care Provider [phone] Reason for Visit * Reason Comments Follow-up Parkinson's disease. Last seen 02/01/17 Encounter Details Date Type Department Care Team (Late st Contact Info) Description 11/01/2017 10:45 EST Office Visit [facility] Neurology - S [place] [address] [place] [phone] Dong Reid MD [address] [place] [address] 2 [place] [phone] Parkinson's disease (CMS-HCC) (HCC-CMS) (Primary Dx) Discharge Disposition: Auto Discharge Social [...] Reading Time Taken Comments Blood Pressure 122/80 11/01/2017 1054 EST Pulse 56 11/01/2017 1054 EST Temperature - - Respiratory Rate 16 11/01/2017 1054 EST Oxygen Saturation - - Inhaled Oxygen Concentration - - Weight 90.3 kg (199 lb) 11/01/2017 1054 EST Height 182.9 cm (6' 0.01) 11/01/2017 1054 EST Body Mass Index 26.98 11/01/2017 1054 EST documented in this encounter Functional Status [...] Progress Notes * Dong Reid MD - 11/01/2017 1045 EST Images from the original note were not included. This office note has been dictated. 1. Parkinson's disease ([facility]) Current Outpatient Prescriptions: aspirin 325 mg tablet atorvastatin (LIPITOR) 10 mg tablet carbidopa-levodopa (SINEMET) 25-100 mg per tablet hydrochlorothiazide (HYDRODIURIL) 25 mg tablet metoprolol (LOPRESSOR) 12.5 mg No current facility-administered medications for this visit. Jhon Tran Nayely is allergic to vipin inhibitors and unable to assess. Patient Active Problem List Diagnosis Date Noted ??? Daytime sleepiness 02/01/2017 ??? Parkinson's disease ([facility]) 09/11/2015 Diagnosis 2015 Onset 2012 - right sided initial symptoms Treatment to date None ??? Family history of brain aneurysm 09/11/2015 Family history of polycystic kidney disease Review of systems including , GI, sleep, cognition,psychiatric, presyncope/syncope, sweating abnormalities were negative or included in the dictated note with the following exceptions: Examination: BP 122/80 (BP Cuff Location: Left arm, Patient Position: Sitting, BP Cuff Sizes: Adult, regular) Pulse 56 Resp 16 Ht 182.9 cm (72.01) Wt 90.3 kg (199 lb) BMI 26.98 kg/m2 UPDRS-III Motor Examination Section Factor Score 18 Speech 0 -Normal. 19 Facial expression 1 -Minimal hypomimia. Could be normal Poker Face. 20 Tremor at rest: Face, lips, chin 0 -Absent. Hands: right 0 -Absent. Hands: left 0 -Absent. Feet: right 0 -Absent. Feet: left 0 -Absent. 21 Action tremor: right 0 -Absent. left 1 -Slight. Present with action. 22 [...] slowing and/or reduction in amplitude. 24 Hand fur comber: right 1 -Mild slowing and/or reduction in amplitude. Hand fur comber: left 1 -Mild slowing and/or reduction in amplitude. 25 Hand pronate/supinate: right 0 -Normal. left 0 -Normal. 26 Leg agility: right [...] UPDRS Sec 1 to 31 total: 14 Greater than 15 minutes of this 25 minute [id number] visit were devoted to patient/care-provider education, care plan formulation, and supportive counseling as noted in the assessment and plan. Encounter Provider: Dong Reid MD * Dong Reid MD - 11/01/2017 0000 EST [facility] NEUROLOGY PROGRESS / FOLLOWUP NOTE - 11/01/2017 PROBLEM: Parkinson disease. HISTORY: Mr Aguiar returns for reevaluation. In the interim since last seen, he has been doing motorically quite well. He is a little slower and tendencies towards fatigue in the lower extremitiesduring ambulation such as snowshoeing. Other than that, he is having an uninhibited day motoricallywithout fluctuations. He denies any symptoms suggestive of dyskinesia. He has no troublesome tremor. No problematic lateralized leg dragging or hand-swing reduction. Denies instability. Remains independently ambulatory. Awakens once at night, and at maximum twice per night, for nocturia. He is safe and ambulatory at night despite his last dose of medication being in the late afternoon. He does endorse yawning, which occurs during the first half an hour to an hour after medication. Heinitially has a transient bout of some mild drowsiness, which is not severe enough to interrupt hisday. He mentions it just out of curiosity of whether it may be related to his medications. He denies any handicrafts teacher dystonia or otherwise. No loss of appetite, nausea or vomiting. He endorses a need for a nap once per day for approximately 45 minutes in the early to midafternoon. No postural lightheadedness. Medications, allergies, review of systems and examination documented in the electronic health record. ASSESSMENT: Parkinson disease with an absence of associated nonmotor symptomatology and very good control of motor symptoms on 4 times per day carbidopa-levodopa. I reviewed the potential associationof dopaminergic medications at their peak and yawning. I made no recommendations for any changes inhis medication. I reviewed his current and future potential opportunities for exercise strategies. I recommended he consider a dietary supplement vitamin D of 2000 International Units and a B complexvitamin daily given the propensity towards B vitamin and vitamin D deficiency in Parkinson disease. I will see him back in 6 months' time, and he will be seen in the interim in 3 months by Antonette Marquis. Dong Reid MD 01 33 PM - Dong Reid MD en Dictation ID: [id number] cc: Riaz Hawkins MD, [facility] [address], [place] [address] documented in this encounter Plan of Treatment Upcoming Encounters Date Type Department Care Team (Late st Contact Info) Description 09/18/2024 14:00 EST Office Visit [facility] Neurology - S [address] [phone] Dong Reid MD [address] [place] [address], [address] [place] [phone] 01/19/2025 10:15 EDT Office Visit [facility] Neurology - S [address] [phone] Kenia Goss NP 1 [facility], [address] [place] [phone] documented as of this encounter Visit Diagnoses Diagnosis Parkinson's disease ([facility])- Primary Paralysis agitans documented in this encounter Care Teams Frame Trimmer Relationship Specialty Start Date End Date Riaz Hawkins MD [address] [place], [place] [phone] PCP - General 08/15/15 06/12/24 documented as of this encounter
--- OUTSIDE RECORDS SUMMARY | 2024-08-03 19:09 | XMS_ITS | Encounter Summary ---
Author Organization [facility] Address [address] [place] [address] Care Team Providers Care Tobacco Grower Name Role Phone Riaz Hawkisn MD Primary Care Provider Reason for Visit * Reason Comments New Patient Visit Encounter Details Date Type Department Care Team ([facility] st Contact Info) Description 09/15/2016 10:30 EST Health Supervision [facility] Neurology - [address] [place] [address] [place] [id number] Jammie Marquis NP [address] [place] [address] 2 [place] [phone] Parkinson's disease ([facility]) (Primary Dx) Discharge Disposition: Auto Discharge Social [...] Sign Reading Time Taken Comments Blood Pressure 116/84 09/15/2016 1042 EST Pulse 60 09/15/2016 1042 EST Temperature - - Respiratory Rate 16 09/15/2016 1042 EST Oxygen Saturation - - Inhaled Oxygen Concentration - - Weight 88.5 kg (195 lb) 09/15/2016 1042 EST Height 182.9 cm (6') 09/15/2016 1042 EST Body Mass Index 26.45 09/15/2016 1042 EST documented in this encounter Functional Status [...] * Patient Instructions* Jammie Marquis NP - 09/15/2016 10:30 EST Increase morning dose of pramipexole to 1 mg for 2 days, then Increase midday dose of pramipexole to 1 mg for 2 days, then Increase supper dose of pramipexole to 1 mg. Finall ongoing dose is 1 mg three times daily. documented in this encounter Ordered Prescriptions Prescription Sig Dispensed Refills Start Date End Da te pramipexole (MIRAPEX) 1 mg tablet Take 1 Tab by mouth 3 times daily. Follow printed instructions. 90 Tab 1 09/15/2016 11/24/2016 documented in this encounter Discharge Disposition Disposition Code Departure Means Destination Auto Discharge documented in this encounter Progress Notes * Jammie Marquis NP - 09/15/2016 1030 EST Neurology Follow Up Note Date of Service: 09/15/2016 PCP: Riaz Hawkins Chief Complaint Patient presents with ??? New Patient Visit Subjective: Jhon returns for follow-up after last being seen by Dr. Reid. At that time he was initiated on pramipexole and titrated up to 0.5 mg 3 times daily. He was subsequently increased to 0.75 mg 3 times daily and has thus far tolerated it. He has noticed an improvement in his writing particularly and his gait. He has had some sleepiness toward the late morning, but only if he is sitting idly or reading. He does not notice it if he is busy with something. He has not had any sudden sleep attacks. On motor review he notes that tremor has improved. Slowness and stiffness are not a particular problem. Gait is good until the last part of the day, during which he becomes more shuffly. Denies any falls, freezing, dyskinesia, dystonia, or problem swallowing. On nonmotor review he endorses urinary frequency and nocturia. He also complains of excessive saliva. Sleep is disrupted by nocturia. No other nonmotor complaints. Current Parkinson's medications include pramipexole 0.75 mg, one tablet at 6:30, 12:30, and 18:30. Review of Systems: Review of systems including , GI, sleep, cognition, psychiatric, presyncope/syncope,sweating abnormalities were negative or included in the history above. Medications and Allergies: Outpatient Prescriptions Marked as Taking for the 09/15/16 encounter (Health Supervision) with Jammie Marquis NP Medication Sig Dispense Refill ??? aspirin 325 mg tablet Take 325 mg by mouth daily ??? atorvastatin (LIPITOR) 10 mg tablet Take 5 mg by mouth daily ??? hydrochlorothiazide (HYDRODIURIL) 25 mg tablet Take 12.5 mg by mouth daily ??? metoprolol (LOPRESSOR) 12.5 mg Take 12.5 mg by mouth daily ??? [DISCONTINUED] pramipexole (MIRAPEX) 0.75 mg tablet Take 1 Tab by mouth 3 times daily. 270 Tab 3 Allergies Allergen Reactions ??? Unable To Assess Patient unsure of [...] bright, language is fluent, speech is clear. Cranial nerves II-XII are tested and reveal no abnormalities. Focused motor exam is documented below in [...] May have occasional arrestsin movement. 24 Hand shank breaker: right 2 -Moderately impaired. Definite and early fatiguing. May have occasional arrests in movement. Hand shank breaker: left 2 -Moderately impaired. Definite and early [...] -Retropulsion, but recovers unaided. 31 Body bradykinesia 0 -None. Sec 18 to 31 total: 25 Vital Signs: Visit Vitals ??? BP 116/84 (BP Cuff Location: Right arm, Patient Position: Sitting, BP Cuff Sizes: Adult, regular) ??? Pulse 60 ??? Resp 16 ??? Ht 182.9 cm (72) ??? Wt 88.5 kg (195 lb) ??? BMI 26.45 kg/m2 Pain: 4.0 Location: Knee (Left) Assessment & Plan: Koko and his and I spent some time talking about future medication options. He is currently satisfied with his degree of tremor control, however he would like to see if he can improve his gait. Options discussed included increasing pramipexole further to 1 mg 3 times daily, or initiating an additional medication such as rasagiline, selegiline, or amantadine. Risks and benefits of each of those medications were discussed. In the end Koko decided he would like to initially try the increase in the pramipexole. He finds the sleepiness in the late morning tolerable at this point and will let meknow if it becomes less so. I have asked him to increase 1 dose every other day until he is up to 1mg 3 times a day. I have advised him that side effects he noted previously when titrating up to thecurrent dose may be noticed again, but should subside. Have also advised him that he can take more than 2 days at any given step. If he does not tolerate this increase or is insufficient, the next step would be to further increase the pramipexole to 1.5 mg tid or initiate one of the other agents listed above. He is scheduled to see Dr. Reid in January and we will keep that as planned. Should he need to come back in the meantime I would be happy to see him sooner. Final Parkinson's medications include pramipexole 1 mg, one tablet at 6:30, 12:30, and 18:30. Jhon was seen today for new patient visit. Diagnoses and all orders for this visit: Parkinson's disease Other orders - pramipexole (MIRAPEX) 1 mg tablet; Take 1 Tab by mouth 3 times daily. Follow printed instructions. I spent a total of 40 minutes [id number] time during this visit, of which 30 were devoted to patient/care-provider education, care plan formulation, and supportive counseling as noted in the assessment and plan. Patient Education Provided: See assessment and plan Method: oral, written Taught to: patient, Barriers: none identified Outcomes: Verbalized understanding, written instructions/information given in After Visit Summary. Jammie Marquis NP documented in this encounter Plan of Treatment Upcoming Encounters Date Type Department Care Team (Late st Contact Info) Description 09/18/2024 14:00 EST Office Visit [facility] Neurology - [address] [address] Dong Reid MD [address] [place] [address], [address] [place] [phone] 01/19/2025 10:15 EDT Office Visit [facility] Neurology - [address] [place] [address] [place], [place] [phone] Kenia Goss, RAIL GANG SUPERVISOR 1 [facility], [address] [place] [phone] documented as of this encounter Visit Diagnoses Diagnosis Parkinson's disease ([facility])- Primary Paralysis agitans documented in this encounter Discontinued Medications Medication Sig Discontinue Reason Start Date End Da te pramipexole (MIRAPEX) 0.75 mg tablet Take 1 Tab by mouth 3 times daily. 08/03/2016 09/15/2016 documented as of this encounter Care Teams Tobacco Grower Relationship Specialty Start Date End Date Riaz Hawkins MD [address] [place] [address] PCP - General 08/15/15 06/12/24 documented as of this encounter
--- OUTSIDE RECORDS SUMMARY | 2024-08-03 19:09 | XMS_ITS | Encounter Summary ---
Author Organization [facility] Address [address] [place] [address] Care Team Providers Care Advanced Practice Nurse Name Role Phone Riaz Hawkins MD Primary Care Provider [phone] Reason for Visit * Reason Onset Date Comments Medication Management 05/27/2017 Encounter Details Date Type Department Care Team (Late st Contact Info) Description 05/27/2017 Telephone [facility] Neurology - [address] [phone] Dong Reid MD [address] [place] [address] 2 [place] [phone] Medication Management Social History Tobacco [...] daily. 405 Tab 3 05/27/2017 04/18/2018 documented in this encounter Miscellaneous Notes * Telephone Encounter - Cassie Valero RN - 05/27/2017 1606 EDT Spoke with Jhon, he reports he is tolerating the C/L 25/100 well, but has not noticed much difference symptoms zapata. Reviewed last visit note, which stated if pt tolerated well, but did not notice increased benefit, she would increase to 1.5 tab TID. Reviewed this with pt, he will start this dosing tomorrow AM increasing 1 dose at a time every 2-3 days until her is on 1.5 TID. He will then callback with an update. Jhon requested a new RX with increased dosing and 90 day supply. Sent. * Telephone Encounter - Sosa Holley - 05/27/2017 1448 EDT Reason for Call: Medication Management Call Detail: Pt was calling to update after being placed on carbidopa-levodopa (SINEMET) 25-100 mg per tablet - Please call to discuss Last visit: Next visit: Sosa Holley 05/27/2017 14:48 documented in this encounter Plan of Treatment Upcoming Encounters Date Type Department Care Team (Late st Contact Info) Description 09/18/2024 14:00 EST Office Visit [facility] Neurology - [address] [phone] Dong Reid MD [address] [place] [phone] 01/19/2025 10:15 EDT Office Visit [facility] Neurology S [address] [phone] Kenia Goss NP [address] [place] [phone] documented as of this encounter Visit Diagnoses Not on filedocumented in this encounter Discontinued Medications Medication Sig Discontinue Reason Start Date End Da te carbidopa-levodopa (SINEMET) 25-100 mg per tablet Take 1 Tab by mouth 3 times daily. Reorder 05/20/2017 05/27/2017 documented as of this encounter Care Teams Advanced Practice Nurse Relationship Specialty Start Date End Date iRaz Hawkins MD [address] [place] [address] PCP - General 08/15/15 06/12/24 documented as of this encounter
--- OUTSIDE RECORDS SUMMARY | 2024-08-03 19:09 | XMS_ITS | Encounter Summary ---
Author Organization [facility] Address [address] [place] [address] Care Team Providers Care Server Support Technician Name Role Phone Riaz Hawkins MD Primary Care Provider [phone] Reason for Visit * Reason Onset Date Comments New/Evolving Symptoms 01/31/2016 Encounter Details Date Type Department Care Team (Late st Contact Info) Description 01/31/2016 Telephone [facility] Neurology - S [address] [id number] Dong Reid MD [address] [place] [address] 2 [place] [phone] New/Evolving Symptoms Social History Tobacco [...] Telephone Encounter - Cassie Valero RN - 01/31/2016 1322 EDT Spoke with Koko, he reports that he was out to dinner last night and noticed an increased tremor on the right side. After dinner about 7 PM, when he went to get up his left side (both arm and leg) wasrubbery and weak. He has also spoken with his PCP a few minutes ago, and PCP went through FAST, pt states PCP did not think that it was PD or stroke related, but he thought it was a good thing that he had also called Neurology. He is currently visiting the [place] and was out in the sun all day yesterday. He did not keep up with staying well hydrated yesterday, but is doing so today. Reviewed with Garrett Marquis NP, who agrees with having pt be seen in at least an urgent care setting. Called pt back, reviewed response from Garrett Marquis NP, he states he would have to travel to [place] for nearest hospital. I asked if there was an urgent care center closer by, there is one at the [place] and he will be seen there and follow their instructions. * Telephone Encounter - Donna Castle - 01/31/2016 1202 EDT Pt is traveling out of state, believes that he is having an incident Sudden left side weakness Please return call documented in this encounter Plan of Treatment Upcoming Encounters Date Type Department Care Team (Late st Contact Info) Description 09/18/2024 14:00 EST Office Visit [facility] Neurology - [address] [phone] Dong Reid MD [address] [place] [phone] 01/19/2025 10:15 EDT Office Visit [facility] Neurology - S [address] [phone] Kenia Goss NP 1 [facility] 2 [place] [phone] documented as of this encounter Visit Diagnoses Not on filedocumented in this encounter Care Teams Server Support Technician Relationship Specialty Start Date End Date Riaz Hawkins MD [address] [place], [place] [phone] PCP - General 08/15/15 06/12/24 documented as of this encounter
--- OUTSIDE RECORDS SUMMARY | 2024-08-03 19:09 | XMS_ITS | Encounter Summary ---
Author Organization [facility] Address [address] [place] [address] Care Team Providers Care Asbestos Siding Installer Name Role Phone Riaz Hawkins MD Primary Care Provider [phone] Reason for Visit * Reason Comments Follow-up PD. Last seen 05/19/17 Encounter Details Date Type Department Care Team ([facility] st Contact Info) Description 02/15/2018 13:30 EDT Office Visit [facility] Neurology - S [address] [phone] Jammie Maqruis NP [address] [place] [address] 2 [place] [phone] Parkinson's disease ([facility]) (Primary Dx) Discharge Disposition: Auto Discharge Social [...] Sign Reading Time Taken Comments Blood Pressure 135/88 02/15/2018 1320 EDT Pulse 66 02/15/2018 1320 EDT Temperature - - Respiratory Rate 16 02/15/2018 1320 EDT Oxygen Saturation - - Inhaled Oxygen Concentration - - Weight 87.5 kg (193 lb) 02/15/2018 1320 EDT per pt Height 182.9 cm (6') 02/15/2018 1320 EDT Body Mass Index 26.18 02/15/2018 1320 EDT documented in this encounter Functional Status [...] Progress Notes * Jammie Marquis NP - 02/15/2018 1330 EDT Neurology Follow Up Note Date of Service: 02/15/2018 PCP: Riaz Hawkins Chief Complaint Patient presents with ??? Follow-up PD. Last seen 05/19/17 Subjective: Jhon returns for follow-up after last being seen in October. Doing well. Can exercise vigorously for up to an hour. Interval history: ??? Motor symptoms Wearing off If any they are very sub Adverse Effects No Tremor No, bit more micrographia Rigidity Mild, partic neck, or if sitting a while Bradykinesia Mild generalized Gait Bit awkward. Uses poles if going for hike or on uneven ground Falls no Freezing No Dyskinesia No Dystonia Rare Swallowing OK ??? Non Motor symptoms Constipation No Bladder function Nocturia 1-3 times Lightheadedness No Thinking/memory OK Mood Ok Illusory phenomena No Sleep Vivid dreaming. No RBD. Sleeps well. Review of Systems: Review of systems including , GI, sleep, cognition, psychiatric, presyncope/syncope, sweating abnormalities were negative or included in the history above. Current PD Medications: Carbidopa/levodopa IR, 1.5 tabs at 7 am, noon, 5 pm Medications and Allergies: Outpatient Prescriptions Marked as Taking for the 02/15/18 encounter (Office Visit) with Jammie Marquis NP Medication Sig Dispense Refill ??? aspirin 325 mg tablet Take 325 mg by mouth daily ??? atorvastatin (LIPITOR) 10 mg tablet Take 5 mg by mouth daily ??? carbidopa-levodopa (SINEMET) 25-100 mg per tablet Take 1.5 Tabs by mouth 3 times daily. 405 Tab3 ??? [DISCONTINUED] hydrochlorothiazide (HYDRODIURIL) 25 mg tablet Take 12.5 mg by mouth daily ??? metoprolol (LOPRESSOR) 12.5 mg Take 12.5 mg by mouth daily Allergies Allergen Reactions ??? Cedric Inhibitors Other (See Comments) Hypotension ??? Unable To Assess Patient unsure of blood pressure medication. Says it lowered the bp too much. Examination: On exam Koko is seated in an exam room chair. Koko is pleasant, cooperative, and in no apparent distress. He attends today's appointment alone. He is alert and oriented to person, place, and time, witha good recall of remote and recent events. [...] Face, lips, chin 0 -Absent. Hands: right 1 -Slight and infrequently present. Hands: left 0 -Absent. Feet: right 0 -Absent. Feet: left 0 -Absent. 21 Action tremor: right 0 -Absent. left 0 -Absent. 22 Rigidity: Neck 1 -Slight or detectable only when activated by mirror or other movements. Upper extremity: right 2 -Mild to moderate. Upper extremity: left 2 -Mild to moderate. Lower extremity: right 0 -Absent. Lower extremity: left 0 -Absent. 23 Finger taps: right 1 -Mild slowing and/or reduction in amplitude. Finger taps: left 1 -Mild slowing and/or reduction in amplitude. 24 Hand creative writer: right 1 -Mild slowing and/or reduction in amplitude. Hand creative writer: left 1 -Mild slowing and/or reduction in amplitude. 25 Hand pronate/supinate: right 1 -Mild slowing and/or reduction in amplitude. left 0 -Normal. 26 Leg agility: right 0 -Normal. left 0 -Normal. 27 Arise from chair 0 -Normal. 28 Posture 0 -Normal erect. 29 Gait 0 -Normal. 30 Postural stability 0 -Normal. 31 Body bradykinesia 0 -None. Sec 18 to 31 total: 14 Vital Signs: BP 135/88 (BP Cuff Location: Right arm, Patient Position: Sitting) Pulse 66 Resp 16 Ht 182.9 cm (72) Wt 87.5 kg (193 lb) Comment: per pt BMI 26.18 kg/m2 Pain: 0 - No pain Location: Assessment & Plan: Koko is doing well. No need to make any changes today. He is encouraged to continue with regular exercise. Neuroprotective benefits discussed. Follow up in 6 months. Dung & Yahr: 2 Jhon was seen today for follow-up. Diagnoses and all orders for this visit: Parkinson's disease ([facility]) I spent a total of 30 minutes [id number] time during this visit, of which 20 were devoted to patient/care-provider education, care plan formulation, and supportive counseling as noted in the assessment and plan. Final PD Medications: No change Patient Education Provided: f/u plans, benefit of exercise Method: oral, written Taught to: patient Barriers: none identified Outcomes: Verbalized understanding, written instructions/information given in After Visit Summary. Jammie Marquis NP documented in this encounter Plan of Treatment Upcoming Encounters Date Type Department Care Team (Late st Contact Info) Description 09/18/2024 14:00 EST Office Visit [facility] Neurology S [address] [phone] Dong Reid MD [address] [place] [phone] 01/19/2025 10:15 EDT Office Visit [facility] S [address] [phone] Kenia Goss NP [address] [place] [phone] documented as of this encounter Visit Diagnoses Diagnosis Parkinson's disease ([facility])- Primary Paralysis agitans documented in this encounter Discontinued Medications Medication Sig Discontinue Reason Start Date End Da te hydrochlorothiazide (HYDRODIURIL) 25 mg tablet Take 12.5 mg by mouth daily Patient Stopped Taking 02/15/2018 documented as of this encounter Care Teams Asbestos Siding Installer Relationship Specialty Start Date End Date Riaz Hawkins MD [address] [place] [address] PCP - General 08/15/15 06/12/24 documented as of this encounter
--- OUTSIDE RECORDS SUMMARY | 2024-08-03 19:09 | XMS_ITS | Encounter Summary ---
Author Organization [facility] Address [address] [place] [address] Care Team Providers Care Public Address System Installer Name Role Phone Riaz Hawkins MD Primary Care Provider [phone] Reason for Visit * Reason Onset Date Comments Medication Management 03/01/2017 Returning Call 03/01/2017 Returning Call 03/02/2017 Encounter Details Date Type Department Care Team (Late st Contact Info) Description 03/01/2017 Telephone [facility] Neurology - S [address] [phone] Dong Reid MD [address] [place] [address] [address] 2 [place] [phone] Medication Management; Returning Call; Returning Call Social History Tobacco Use Types Packs/Day Years [...] Refills Start Date End Da te rotigotine (NEUPRO) 6 mg/[address] 1 Patch onto the skin daily. 30 Each 5 03/03/2017 05/19/2017 documented in this encounter Miscellaneous Notes * Telephone Encounter - Cassie Valero RN - 03/03/[address] Reid: Increase Rx to Neupro 6mg patch daily Spoke with Jhon, let him know I had sent a new RX through for the 6 mg patches. He will call pharmacy prior to picking up to make sure they have it in stock. * Telephone Encounter - Cassie Valero RN - 03/03/2017 0901 EDT Spoke with Koko, he is tolerating the 4 mg Neupro patch without side effects, but is only just beginning to feel any benefit from the medication. He is wondering if he should try a higher dose patch to see if he gains better benefit? He has enough 2 mg patches to get through tomorrow, but does have plenty of 1 mg patches. * Telephone Encounter - Charlette Howell - 03/02/2017 1358 EDT Jhon returned Roxana's call - requesting call back - will be home all afternoon * Telephone Encounter - Charlette Howell - 03/01/2017 1421 EDT Jhon returned Roxana's call - requesting call back * Telephone Encounter - Senthil Villalobos - 03/01/2017 0939 EDT Koko is almost done his 4th week of NEUPRO. He said he is tolerating well but it is not doing much for his symptoms. He is almost out of medication and would like to discuss the next step in the care plan. documented in this encounter Plan of Treatment Upcoming Encounters Date Type Department Care Team (Late st Contact Info) Description 09/18/2024 14:00 EST Office Visit [facility] Neurology S [address] [phone] Dong Reid MD [address] [place] [phone] 01/19/2025 10:15 EDT Office Visit [address] [phone] Kenia Goss NP [address] [place] [phone] documented as of this encounter Visit Diagnoses Not on filedocumented in this encounter Discontinued Medications Medication Sig Discontinue Reason Start Date End Da te rotigotine 1 mg/[address] 1 Patch onto the skin daily for 30 days. Dose adjustment 02/01/2017 03/03/2017 rotigotine (NEUPRO) 2 mg/[address] 1 Patch onto the skin daily for 30 days. Dose adjustment 02/01/2017 03/03/2017 documented as of this encounter Care Teams Public Address System Installer Relationship Specialty Start Date End Date Riaz Hawkins MD [address] [place] [address] PCP - General 08/15/15 06/12/24 documented as of this encounter
--- OUTSIDE RECORDS SUMMARY | 2024-08-03 19:09 | XMS_ITS | Encounter Summary ---
Author Organization [facility] Address [address] [place] [address] Care Team Providers Care Broadcast Operations Director Name Role Phone Riaz Hawkins MD Primary Care Provider [phone] Reason for Visit * Reason Onset Date Comments Update 07/20/2016 Encounter Details Date Type Department Care Team (Late st Contact Info) Description 07/20/2016 Telephone [facility] Neurology - [address] [phone] Dong Reid MD [address] [place] [address] [address] [place] [phone] Update Social History Tobacco Use [...] Telephone Encounter - Cassie Valero RN - 07/20/2016 1410 EDT Passed on message to Jhon, he will increase as directed, and call with an update in a couple weeks time. * Telephone Encounter - Dong Reid MD - 07/20/2016 1407 EDT I would suggest changing the dosing as follows Week 1 AM Midday PM 2tab 1 tab 2 tab Week 2 AM Midday PM 2tab 2 tab 2 tab Week 3 call with update * Telephone Encounter - Senthil Villalobos - 07/20/2016 1352 EDT Jhon calling to update Dr Reid after 5 weeks on pramipexole (MIRAPEX) 0.25 mg tablet. He is up to2 tablets twice a day. He does not notice any side effects other than some constipation which he handles. He does have some drowsiness during the day but he just tries to stay active during those times. He thinks it is helping with the tremors and his hand writing is better. He thinks it is slightly helping gait and walking. He is questioning if an increased dosage would be recommended. Please call to discuss. documented in this encounter Plan of Treatment Upcoming Encounters Date Type Department Care Team (Late st Contact Info) Description 09/18/2024 14:00 EST Office Visit [facility] Neurology - [address] [phone] Dong Reid MD [address] [place] [phone] 01/19/2025 10:15 EDT Office Visit [facility] Neurology [address] [id number] Kenia Goss NP [address] [place] [phone] documented as of this encounter Visit Diagnoses Not on filedocumented in this encounter Care Teams Broadcast Operations Director Relationship Specialty Start Date End Date Riaz Hawkins MD [address] [place], [place] [phone] PCP - General 08/15/15 06/12/24 documented as of this encounter
[2024-08-03 19:57] LABS: HCT 40.9 % (40.0-50.0); HGB 13.3 g/dL (13.5-17.5); MCH 32.4 pg (27.0-33.0); MCHC 32.5 % (32.0-36.0); MCV 100 fL (80-95); MPV 10.3 fL (8.0-11.0); Platelet Count 194 10^3/uL (130-400); RBC 4.11 10^6/uL (4.36-5.78); RDW 12.4 % (11.8-14.1); RDW-SD 45.3 fL; WBC 6.68 10^3/uL (4.4-10.8)
[2024-08-03 20:28] LABS: ALT 13 U/L (16-63); AST 16 U/L (15-37); Albumin 3.9 g/dL (3.4-5.0); Alkaline Phosphatase 62 U/L (46-116); Anion Gap 9.4 mmol/L (3-11); BUN 21 mg/dL (7-18); Bilirubin, Total 0.77 mg/dL (0.2-1.0); CO2 29.6 mmol/L (21.0-32.0); CREATININE 1.1 mg/dL (0.70-1.30); Calcium 9.3 mg/dL (8.5-10.1); Chloride 104 mmol/L (98-107); Estimated GFR 69.14 (mL/min/1.73m2); Glucose 93 mg/dL (74-106); LDL CHOLESTEROL 52 mg/dL (<100); Potassium 4.4 mmol/L (3.5-5.1); Sodium 143 mmol/L (136-145); Total Protein 6.7 g/dL (6.4-8.2)
== END 2024-08-03 19:06 | disposition home or self-care (01) ==
LOC: NCHCN 19:05
PROVIDERS: PCP Family Medicine; Visit Provider Family Medicine
DX: E78.5 Hyperlipidemia, unspecified (principal)
CPT/HCPCS: 80053; 83721; 85027

== ENCOUNTER → 2024-08-28 08:50 | Outpatient (BNVA) | payer MEDICARE, SELFPAY | PROVIDERS: PCP Family Medicine; Referring Provider Family Medicine; Visit Provider Surgery | DX: Z48.815 Encounter for surgical aftercare following surgery on the digestive system (principal); K62.3 Rectal prolapse; K59.02 Outlet dysfunction constipation; M62.89 Other specified disorders of muscle; Z87.19 Personal history of other diseases of the digestive system ==

== ENCOUNTER → 2024-09-29 09:07 | Outpatient (BNVA) | payer MEDICARE, SELFPAY | PROVIDERS: PCP Family Medicine; Visit Provider Internal Medicine Cardiovascular Disease | DX: I77.810 Thoracic aortic ectasia (principal); I25.10 Atherosclerotic heart disease of native coronary artery without angina pectoris | CPT/HCPCS: 99213 ==

== ENCOUNTER 2025-01-22 02:09 | Outpatient (CLI) | payer MEDICARE, SELFPAY ==
--- NOTE | 2025-01-22 09:04 | ST.MBS_ITS ---
Date of Service Date of service: 01/22/25 Time of Service: 09:00 Modified Barium Swallow Study Findings: Video fluoroscopic Swallowing Evaluation (VFSE) / Modified Barium Swallow Study (MBSS) Speech Language Pathology Report Patient referred for VFSE/MBSS from Dr. Dong Reid given dysphagia symptoms. HPI & Patient report of function: Patient is a 79 year old male with PMH significant for approximately 10 year history of Parkinson's. Koko reports several year history of intermittent dysphagia symptoms including food sticking and needing to bring it back into the oral cavity, re-chew, and re-swallow. He also reports some coughing episodes that can occur with saliva or drinking liquids. Symptoms are overall stable and he does not feel they are worsening. IMPRESSIONS: Koko presents with trace to mild oral pharyngeal motor dysphagia, characterized by mild weakness in BOT retraction and pharyngeal wall movement. This results in intermittent vallecular > pyriform retention with soft sticky solids (fig samuel cookie) and lesser so with liquids. No stasis with pudding or flora cracker. Sensation of residue is fully intact and Koko was able to clear with repeat dry swallows. No evidence of penetration/aspiration throughout study. Overall risk for aspiration is considered low. Education was provided re: standard swallowing recommendations (below) for optimal swallow safety in the setting of Parkinsons. No further EMERGENCY COMMUNICATIONS OPERATOR needs indicated. MBSS film reviewed with patient and standard precautions reviewed. Patient has home exercise plan following recent completion of SPEAKOUT! therapy. He is aware to reach out to discuss need for re-assessment should swallow symptoms change/worsen. RECOMMENDATIONS: Diet Texture Recommendation:? IDDSI LEVEL SOLIDS 7-Regular Solids - favor softer/moister foods LIQUIDS: 0-Thin Liquids MEDICATIONS: As tolerated, with sips liquid Risk Management Strategies:? Small bites, approx [id number] Chew thoroughly before swallowing Favor softer/moist foods Always have a drink when eating Upright positioning for all meals Drink small/slow single sips Keep good oral care BID PLAN: Evaluation only. Film reviewed with patient at end of study and general recommendations provided OBJECTIVE Videofluoroscopic Swallow Evaluation (VFSE/MBSS) was conducted in the lateral projection by Speech-Language Pathologist, in collaboration with Radiologist, to evaluate oropharyngeal swallow function. Anatomic view under fluoroscopy: WFL PO Barium Contrast Trials Oral barium water-soluble contrast was administered as follows: IDDSI Level 0 Varibar thin liquid (40% w/v) IDDSI Level 2 Varibar nectar thick/mildly thick liquid (40% w/v) IDDSI Level 4 Varibar pudding/pureed/extremely thick (40% w/v) IDDSI Level 7 Regular Solid: 1/2 flora cracker coated in 3 mL Varibar pudding & bite of fig samuel coated in 3mL Varibar pudding MBSImP Component Scores: COMPONENT Scale SCORE 1 Lip closure (0-4) 0 Resulted in no labial escape 2 Hold Position (0-3) 0 Maintained a cohesive bolus between tongue to palatal seal 3 Bolus Preparation (0-4) 0 Resulted in timely and efficient chewing and mashing 4 Bolus Transport (0-4) 1 Demonstrated delayed initiation of tongue motion 5 Oral Residue (0-4) 1 Was a trace, lining oral structures 6 Swallow Initiation (0-4) 1 Occurred when the bolus head was in valleculae 7 Soft Palate Elevation (0-4) 0 Resulted in no bolus between soft palate and the pharyngeal wall 8 Laryngeal Elevation (0-3) 0 Demonstrated complete superior movement of thyroid cartilage with complete approximation of arytenoids to epiglottic petiole 9 Anterior Hyoid Motion (0-2) 1 Demonstrated partial anterior movement 10 Epiglottic Movement (0-2) 0 Resulted in complete inversion 11 Laryngeal Closure (0-2) 0 Was complete with no air or contrast in laryngeal vestibule 12 Pharyngeal Stripping Wave (0-2) 1 Was present, but diminished 13 Pharyngeal Contraction (0-3) NA 14 PES Opening (0-3) 0 Was completely distended and complete duration with no obstruction of flow 15 Tongue Base Retraction (0-4) 1 Allowed a trace column of contrast or air between tongue base and pharyngeal wall 16 Pharyngeal Residue (0-4) 2 Was a collection of residue within or on pharyngeal structures 17 Esophageal Clearance (0-4) 0 Was complete, with only a coating of contrast, if any Results: COMPONENT Scale SCORE 1 Oral Score (0-18) 2 2 Pharyngeal Score (0-29) 4 3 Esophageal Score (0-4) 0 Functional Oral Intake Scale: COMPONENT Scale SCORE 1 Pre-Study (1-7) 7 Total oral intake with no restrictions 2 Post-Study (1-7) 7 Total oral intake with no restrictions Penetration-Aspiration Scale: COMPONENT Scale SCORE 1 Thin liquid (1-8) 1 Contrast did not enter the airway 2 [place] thick (1-8) 1 Contrast did not enter the airway 3 Honey thick (1-8) NA 4 Pudding thick (1-8) 1 Contrast did not enter the airway 5 Cookie (1-8) 1 Contrast did not enter the airway Thank you for allowing us to take part in this patient's care. Please feel free to contact the [facility] Speech Language Pathology Department with any questions/concerns.
[2025-01-22] MEDS: Barium Sulfate 81% w/w for Oral Suspension 148 GM BTL PO (09:30)
[2025-01-22] MEDS: Barium Sulfate 40% W/V 240 ML BTL PO (09:31)
--- NOTE | 2025-01-22 09:42 | DI.RAD_ITS ---
Exam(s) RF MODIFIED SPEECH BA SWALLOW EXAM: RF MODIFIED SPEECH BA SWALLOW CLINICAL HISTORY: Oropharyngeal dysphagia, R13.12; Parkinson's disease with dyskinesia TECHNIQUE: Modified barium swallow was performed in conjunction with speech pathology. CONTRAST MATERIAL: Multiple consistencies of oral barium contrast were administered. COMPARISON: No exams were available for comparison FINDINGS: Note that this is not a dedicated esophagram, distal esophagus not evaluated. There is no evidence of aspiration or penetration with any consistency. Speech pathology report to follow. IMPRESSION: No evidence of aspiration or penetration. RADIATION DOSE DELIVERED: brandon Busch=3.86 mGy
== END 2025-01-22 02:29 ==
LOC: DI 02:09
PROVIDERS: PCP Family Medicine; Visit Provider Psychiatry & Neurology Neurology
DX: R13.12 Dysphagia, oropharyngeal phase (principal); G20.B2 Parkinson's disease with dyskinesia, with fluctuations
CPT/HCPCS: 92526; 74221

== ENCOUNTER 2025-08-09 13:25 | Outpatient (REF) | payer MEDICARE, SELFPAY ==
[2025-08-09 15:43] LABS: HCT 41.6 % (40.0-50.0); HGB 13.7 g/dL (13.5-17.5); MCH 33.1 pg (27.0-33.0); MCHC 32.9 % (32.0-36.0); MCV 101 fL (80-95); MPV 10.3 fL (8.0-11.0); Platelet Count 168 10^3/uL (130-400); RBC 4.14 10^6/uL (4.36-5.78); RDW 12.2 % (11.8-14.1); RDW-SD 44.3 fL; WBC 6.46 10^3/uL (4.4-10.8)
[2025-08-09 16:02] LABS: ALT 10 U/L (16-63); AST 19 U/L (15-37); Albumin 4.0 g/dL (3.4-5.0); Alkaline Phosphatase 54 U/L (46-116); Anion Gap 7.3 mmol/L (3-11); BUN 26 mg/dL (7-18); Bilirubin, Total 1.2 mg/dL (0.2-1.0); CO2 29.7 mmol/L (21.0-32.0); Calcium 9.0 mg/dL (8.5-10.1); Chloride 104 mmol/L (98-107); Estimated GFR 68.71 (mL/min/1.73m2); Glucose 106 mg/dL (74-106); Potassium 4.4 mmol/L (3.5-5.1); Sodium 141 mmol/L (136-145); Total Protein 6.7 g/dL (6.4-8.2)
== END 2025-08-09 13:26 | disposition home or self-care (01) ==
LOC: NCHCN 13:25
PROVIDERS: PCP Family Medicine; Visit Provider Family Medicine
DX: I10 Essential (primary) hypertension (principal)
CPT/HCPCS: 80053; 85027

== ENCOUNTER 2025-08-23 10:22 | Outpatient (REF) | payer MEDICARE, SELFPAY ==
[2025-08-23 15:47] LABS: Vitamin B12 191 pg/mL (193-986)
== END 2025-08-23 10:23 | disposition home or self-care (01) ==
LOC: NCHCN 10:22
PROVIDERS: PCP Family Medicine; Visit Provider Family Medicine
DX: G20.B1 Parkinson's disease with dyskinesia, without mention of fluctuations (principal)
CPT/HCPCS: 82607

== ENCOUNTER → 2025-09-28 09:22 | Outpatient (BNVA) | payer MEDICARE, SELFPAY | PROVIDERS: PCP Family Medicine; Visit Provider Internal Medicine Cardiovascular Disease | DX: I25.10 Atherosclerotic heart disease of native coronary artery without angina pectoris (principal); I71.21 Aneurysm of the ascending aorta, without rupture; G20.C Parkinsonism, unspecified | CPT/HCPCS: 99213 ==